=== PATIENT | male | born 1965 | race African-American/Black ===

== ENCOUNTER → 2017-01-13 | Outpatient (CLI) | payer MEDICARE, MEDICAID ==
[~2017-01-13] MED LIST: ALPR1TAB7 PO; AMLO5TAB2 PO; AZIT250T PO; BACL20TA PO; BECL8.7A7 IH; CEFU250S PO; CLIN300C11 PO; GABA600T2 PO; HYDR-3583 PO; HYDR-623; IPRA3AMP IH; IPRA4AER INH; LEVO750T9 PO; LISINOPRIL; METO-272 PO; NAPR500T3 PO; NCT21TD TD; OXYC30TA80 PO; OXYC80TA35 PO; OXYCOTIN; PRD10T PO; SULF1TAB35 PO; VALS160T28 PO; VALS1TAB76 PO; VENL150C98 PO; XANAX
[2017-01-13 08:03] LABS: BILIRUBIN,URINE NEGATIVE (NEGATIVE); KETONES,URINE NEGATIVE (NEGATIVE); LEUKOCYTE ESTERASE ,URINE 1+ (NEGATIVE); NITRITE,URINE NEGATIVE (NEGATIVE); PH,URINE 6 (5-9); PROTEIN,URINE 1+ (NEGATIVE); UROBILINOGEN,URINE NORMAL (NORMAL)
[2017-01-13 08:21] LABS: SQUAMOUS EPITHELIAL CELL,UR RARE /HPF
== END ==
LOC: LAB 07:36
PROVIDERS: ATTEND Surgery
DX: K42.9 Umbilical hernia without obstruction or gangrene (principal); K43.0 Incisional hernia with obstruction, without gangrene
CPT/HCPCS: 81000; 87088

== ENCOUNTER → 2017-03-04 | Outpatient (CLI) | payer MEDICARE, MEDICAID ==
--- NOTE | 2017-03-04 11:15 | Diagnostic Imaging Report ---
Right shoulder. INDICATION: Shoulder pain. 3 views were obtained. There are no prior right shoulder examinations available for comparison. There are two orthopedic fixation screws within the humeral head. The orthopedic fixation screws do appear to intersect at nearly a 90-degree angle to each other. The orthopedic hardware appears to be in good position and seems similar to the prior chest exam of 02/08/2016. There is no fracture or acute bony abnormality evident. There is moderate degenerative disease involving the glenohumeral joint and moderate/ severe degenerative disease of the acromioclavicular joint. The soft tissues are unremarkable. IMPRESSION: 1. The postsurgical changes involving the humeral head appear stable. There is no acute bony abnormality identified. 2. If there is clinical concern regarding an injury to the rotator cuff, then a conventional arteriogram should be considered. MRI would also be useful, but the artifact related to the orthopedic hardware may limit the sensitivity of the MRI exam. Dictated by: Dictated on workstation # [id number]
== END ==
LOC: RAD 09:38
PROVIDERS: ATTEND Anesthesiology
DX: M25.511 Pain in right shoulder (principal); Z98.890 Other specified postprocedural states
CPT/HCPCS: 73030

== ENCOUNTER 2017-05-06 18:30 | Emergency (ER) | payer MEDICARE, MEDICAID ==
[~2017-05-06] VITALS: Ht 165.1 cm; Wt 74.6 kg
[2017-05-06] MEDS ORDERED: ONDANSETRON 4 MG (ZOFRAN) ORAL DISSOLVE TAB PO ONE (21:15)
[2017-05-06] MEDS ORDERED: ANTACID SUSP 30 ML UDC (MYLANTA) PO ONE (21:15)
[2017-05-06] MEDS ORDERED: LIDOCAINE 2% VISCOUS 15 ML UDC PO ONE (21:15)
[2017-05-06] MEDS ORDERED: HYOSCYAMINE 0.125 MG (LEVSIN) TAB SL ONE (21:15)
--- NOTE | 2017-05-06 21:42 | ED Abdominal Pain ---
General Chief Complaint: Abdominal/GI Problems Stated Complaint: ABD PAIN Nursing Triage Note: c/o epigastic/umbilical abdomen pain Sepsis Screen: No Definite Risk Source of Information: Patient Exam Limitations: No Limitations History of Present Illness Time Seen By Provider: 21:08 Initial Comments This 52 -year-old gentleman presents to the emergency room with a couple hours of epigastric pain. He had diarrhea 2 after arriving to the emergency room which caused a significant decrease in his pain. He had a hernia repair with mesh last month. He is feeling much improved by the time of my examination. He denies any vomiting. Allergies and Home Medications Allergies Coded Allergies: amitriptyline (Verified Allergy, Unknown, 02/08/16) duloxetine (Verified Allergy, Unknown, 02/08/16) fluticasone (Verified Allergy, Unknown, 02/08/16) salmeterol (Verified Allergy, Unknown, 02/08/16) Home Medications Albuterol/Ipratropium 4 Gm Aero, 1 PUFF INH Q6H PRN for SHORTNESS OF BREATH, ( Reported) Alprazolam 1 Mg Tablet, 1 MG PO TID PRN for ANXIETY, #30 Prescribed by: DYLAN WHITE on 11/04/15 1032 Amlodipine Besylate 5 Mg Tablet, 5 MG PO DAILY, #30 Prescribed by: DYLAN WHITE on 11/04/15 1032 Azithromycin 250 Mg Tablet, 250 MG PO DAILY, #4 Ref 0 Prescribed by: CATRINA MCNEAL on 02/08/16 0502 Cefuroxime Axetil 250 Mg/5 Ml Susp.recon, 250 MG PO BID, #20 Ref 0 Prescribed by: CATRINA MCNEAL on 02/08/16 0502 Gabapentin 600 Mg Tablet, 1,200 MG PO TID, (Reported) TAKES 2 (600 MG) TABLETS Metoprolol Succinate 50 Mg Tab.er.24h, 50 MG PO DAILY, #30 Prescribed by: DYLAN WHITE on 11/04/15 1032 Naproxen 500 Mg Tablet, 500 MG PO BID PRN for PAIN, (Reported) Oxycodone HCl 80 Mg Tab.er.12h, 80 MG PO TID PRN for PAIN, #15 MAX OF 3 TABLETS TOTAL PER DAY Prescribed by: DYLAN WHITE on 11/04/15 1032 Oxycodone HCl 30 Mg Tablet, 30 MG PO Q4H PRN for BREAKTHROUGH PAIN, #15 MAX OF 6 TABLETS TOTAL PER DAY Prescribed by: DYLAN WHITE on 11/04/15 1032 Valsartan 160 Mg Tablet, 160 MG PO DAILY, (Reported) Venlafaxine HCl 150 Mg Cap.er.24h, 150 MG PO DAILY, (Reported) Review of Systems Constitutional: no symptoms reported EENTM: No Symptoms Reported Respiratory: No Symptoms Reported Cardiovascular: No Symptoms Reported Gastrointestinal: See HPI Genitourinary: No Symptoms Reported Musculoskeletal: no symptoms reported Skin: no symptoms reported Psychiatric/Neurological: No Symptoms Reported Endocrine: No Symptoms Reported Past Nkzytpe-Tytmks-Cxmobz Hx Patient Social History Alcohol Use: Denies Use Recreational Drug Use: No Smoking Status: Former Smoker Type Used: Cigarettes Recent Foreign Travel: No Contact w/Someone Who Travel: No Recent Infectious Disease Expo: No Recent Hopitalizations: No Physical Abuse: No Sexual Abuse: No Immunizations Up To Date Tetanus Booster (TDap): Less than 5yrs Surgeries History of Surgeries: Yes (2 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 SHUNT) Neurological Disorders: Meningitis Reproductive System Hx Reproductive Disorders: No Gastrointestinal History of Gastrointestinal Di: No Musculoskeletal History of Musculoskeletal Dis: Yes (CHRONIC HEAD/NECK PAIN ) Endocrine History of Endocrine Disorders: No HEENT History of HEENT Disorders: No Cancer History of Cancer: No Psychosocial History of Psychiatric Problem: Yes Behavioral Health Disorders: Anxiety Suicide Risk Score: 0 Integumentary History of Skin or Integumenta: No Blood Transfusions History of Blood Disorders: No Family Medical History Significant Family History: No Pertinent Family Hx Family Medial History: FH: cancer 19 MOTHER Physical Exam Vital Signs VS - Last 72 Hours, by Label 05/06/17 05/06/17 19:41 21:52 Temp 99.2 Pulse 80 72 Resp 18 18 B/P (MAP) 156/112 Pulse Ox 97 98 O2 Delivery Nasal Cannula O2 Flow Rate 2.00 2.00 Capillary Refill : Less Than 3 Seconds General Appearance: WD/WN, no apparent distress HEENT: normal ENT inspection Neck: normal inspection Respiratory: lungs clear, normal breath sounds, no respiratory distress, no accessory muscle use Cardiovascular: regular rate, rhythm, no edema, no murmur Gastrointestinal: normal bowel sounds, soft, tenderness (mild epigastric) Extremities: normal inspection, no pedal edema 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, no motor/sensory deficits, alert, normal mood/affect, oriented x 3 Skin: normal color, warm/dry Progress/Results/Core Measures Results/Orders My Orders Orders - MAYRA CRONIN MD Ondansetron Oral Dissolve Tab (Zofran (05/06/17 21:15) Hyoscyamine Sl Tablet (Levsin Sl Tablet) (05/06/17 21:15) Lidocaine 2% Viscous 15 Ml (Xylocaine Vi (05/06/17 21:15) Antacid Suspension (Mylanta Suspension (05/06/17 21:15) Medications Given in ED Vital Signs/I&O Vital Sign - Last 12Hours 05/06/17 05/06/17 19:41 21:52 Temp 99.2 Pulse 80 72 Resp 18 18 B/P (MAP) 156/112 Pulse Ox 97 98 O2 Delivery Nasal Cannula O2 Flow Rate 2.00 2.00 Blood Pressure Mean: 127 Progress Note : Progress Note patient was treated with Levsin and Zofran sublingually. This was followed by a GI cocktail. He had significant improvement with these measures and was anxious to leave. Departure Impression Impression: Primary Impression: Epigastric pain Additional Impression: Diarrhea Qualified Codes: R19.7 - Diarrhea, unspecified Disposition: 01 HOME, SELF-CARE Condition: Improved Departure-Patient Inst. Decision time for Depature: 21:41 Referrals: NO,LOCAL PHYSICIAN (PCP/Family) Primary Care Physician Patient Instructions: Acute Abdomen (Belly Pain), Adult (DC) Add. Discharge Instructions: Drink plenty of clear liquids. Gradually advance your diet with small quantities of bland food as tolerated. You may use [id number] antacid medication such as omeprazole or Pepcid (famotidine) to help settle your stomach. Tums may also be used. Avoid foods that may irritate your stomach such as fatty or greasy foods, caffeine, carbonation, alcohol, tomato products, citrus fruits and juices, spicy foods, large meals, or anything else you know irritates her stomach. Return to the ER symptoms worsen. All discharge instructions reviewed with patient and/or family. Voiced understanding. MAYRA CRONIN MD May 06, 2017 21:42
[2017-05-06 21:52] VITALS: BP 158/96
== END 2017-05-06 21:46 | disposition home or self-care (01) ==
LOC: EDUNIT# 18:30 → ER 18:32
DX: R10.13 Epigastric pain (principal); R19.7 Diarrhea, unspecified; J43.9 Emphysema, unspecified; F41.9 Anxiety disorder, unspecified; I10 Essential (primary) hypertension; Z87.891 Personal history of nicotine dependence; Z87.19 Personal history of other diseases of the digestive system; Z87.01 Personal history of pneumonia (recurrent)
CPT/HCPCS: 99283

== ENCOUNTER 2017-08-11 19:21 | Emergency (ER) | payer MEDICARE, MEDICAID ==
[~2017-08-11] VITALS: Ht 165.1 cm; Wt 87.3 kg
[~2017-08-11 19:21] MED LIST changes: -METO-272 PO; +METO-370 PO; -NAPR500T3 PO; +NAPR500T4 PO; -NCT21TD TD; +NICO-588 TD
[2017-08-11] MEDS ORDERED: NS IV 1000 ML 1,000 ML IV ONE (20:09)
--- NOTE | 2017-08-11 20:11 | ED Cough/URI ---
General Chief Complaint: Cough/Cold/Flu Symptoms Stated Complaint: CP Nursing Triage Note: PT TO ED 5 W/ C/O COUGH, CONGESTION, CHEST PAIN ONSET X5 DAYS, WORSE TODAY. REPORTS IS ALSO OUT OF PORTABLE O2. DENIES SEEING PCP FOR C/O. DENIES N/V, DIAPHORESIS AT THIS TIME. History of Present Illness Date Seen by Provider: Aug 11, 2017 Time Seen by Provider: 19:55 Initial Comments 52 -year-old -Fijian male reports productive cough, myalgias, chest tightness and SOA. Timing/Duration: other (5 days) Severity/Quality: productive cough, sputum (yellow to green) Prior Episodes/Possible Cause: occasional episodes Modifying Factors: Improves With Rest Associated Symptoms: chest pain/soreness, cough, fever/chills, headache Allergies and Home Medications Allergies Coded Allergies: amitriptyline (Verified Allergy, Unknown, 02/08/16) duloxetine (Verified Allergy, Unknown, 02/08/16) fluticasone (Verified Allergy, Unknown, 02/08/16) salmeterol (Verified Allergy, Unknown, 02/08/16) Home Medications Albuterol/Ipratropium 4 Gm Aero, 1 PUFF INH Q6H PRN for SHORTNESS OF BREATH, ( Reported) Alprazolam 1 Mg Tablet, 1 MG PO TID PRN for ANXIETY, #30 Prescribed by: DYLAN WHITE on 11/04/15 1032 Amlodipine Besylate 5 Mg Tablet, 5 MG PO DAILY, #30 Prescribed by: DYLAN WHITE on 11/04/15 1032 Azithromycin 250 Mg Tablet, 250 MG PO DAILY, #4 Ref 0 Prescribed by: CATRINA MCNEAL on 02/08/16 0502 Cefuroxime Axetil 250 Mg/5 Ml Susp.recon, 250 MG PO BID, #20 Ref 0 Prescribed by: CATRINA MCNEAL on 02/08/16 0502 Gabapentin 600 Mg Tablet, 1,200 MG PO TID, (Reported) TAKES 2 (600 MG) TABLETS Levofloxacin 500 Mg Tablet, 500 MG PO DAILY, #5 Ref 0 Prescribed by: MARK RAMOS on 08/11/17 2136 Metoprolol Succinate 50 Mg Tab.er.24h, 50 MG PO DAILY, #30 Prescribed by: DYLAN WHITE on 11/04/15 1032 Naproxen 500 Mg Tablet, 500 MG PO BID PRN for PAIN, (Reported) Oxycodone HCl 80 Mg Tab.er.12h, 80 MG PO TID PRN for PAIN, #15 MAX OF 3 TABLETS TOTAL PER DAY Prescribed by: DYLAN WHITE on 11/04/15 1032 Oxycodone HCl 30 Mg Tablet, 30 MG PO Q4H PRN for BREAKTHROUGH PAIN, #15 MAX OF 6 TABLETS TOTAL PER DAY Prescribed by: DYLAN WHITE on 11/04/15 1032 Prednisone 20 Mg Tab, 20 MG PO DAILY, #9 Ref 0 2 daily for 3 days, 1 daily for 3 days Prescribed by: MARK RAMOS on 08/11/17 2140 Valsartan 160 Mg Tablet, 160 MG PO DAILY, (Reported) Venlafaxine HCl 150 Mg Cap.er.24h, 150 MG PO DAILY, (Reported) Constitutional: no symptoms reported, see HPI Respiratory: see HPI, cough Musculoskeletal: see HPI, joint pain, muscle cramps All Other Systems Reviewed Negative Unless Noted: Yes Past Lqthxqc-Tenaaw-Bwwksb Hx Patient Social History Alcohol Use: Denies Use Recreational Drug Use: No Smoking Status: Former Smoker Type Used: Cigarettes Former Smoker, Quit: Aug 11, 2016 Recent Foreign Travel: No Contact w/Someone Who Travel: No Recent Infectious Disease Expo: No Recent Hopitalizations: No Physical Abuse: No Sexual Abuse: No Mistreated: No Fear: No Immunizations Up To Date Tetanus Booster (TDap): Less than 5yrs Surgeries History of Surgeries: Yes (2 BRAIN SURGERIES 2005-CHIARI MALFORMATION & CYST AROUND BRAINSTEM, C-SPINE) Surgeries: Abdominal, Neurological, Orthopedic Respiratory History of Respiratory Disorde: Yes Respiratory Disorders: Pneumonia, Chronic Bronchitis, COPD, Emphysema Currently Using CPAP: No Currently Using BIPAP: No Cardiovascular History of Cardiac Disorders: Yes Cardiac Disorders: Hypertension Neurological History of Neurological Disord: Yes (MENINGITIS POSTOP 2004 FOR CYST ON BRAINSTEM & CHIARI MALFORMATION. SHUNT) Neurological Disorders: Meningitis Reproductive System Hx Reproductive Disorders: No Gastrointestinal History of Gastrointestinal Di: No Musculoskeletal History of Musculoskeletal Dis: Yes (CHRONIC HEAD/NECK PAIN ) Endocrine History of Endocrine Disorders: No HEENT History of HEENT Disorders: No Cancer History of Cancer: No Psychosocial History of Psychiatric Problem: Yes Behavioral Health Disorders: Anxiety Suicide Risk Score: 0 Integumentary History of Skin or Integumenta: No Blood Transfusions History of Blood Disorders: No Reviewed Nursing Assessment Reviewed/Agree w Nursing PMH: Yes Family Medical History Significant Family History: No Pertinent Family Hx Family Medial History: FH: cancer 19 MOTHER Physical Exam Vital Signs Vital Sign - Last 12Hours 08/11/17 08/11/17 19:40 20:17 Temp 100.7 Pulse 108 Resp 20 B/P (MAP) 150/99 (116) Pulse Ox 93 O2 Delivery Room Air O2 Flow Rate 3.00 Capillary Refill : Less Than 3 Seconds General Appearance: WD/WN, no apparent distress Eyes: Bilateral Eye Normal Inspection, Bilateral Eye PERRL, Bilateral Eye EOMI HEENT: PERRL/EOMI, normal ENT inspection, TMs normal, pharynx normal Neck: non-tender, full range of motion, supple Respiratory: chest non-tender, decreased breath sounds, wheezing, other ( productive cough) Cardiovascular: normal peripheral pulses, regular rate, rhythm, no murmur Gastrointestinal: normal bowel sounds, non tender, soft Extremities: normal range of motion, non-tender, normal capillary refill Neurologic/Psychiatric: no motor/sensory deficits, alert, normal mood/affect, oriented x 3 Skin: normal color, warm/dry Focused Exam Evaluation Lactate Level Laboratory Tests 08/11/17 20:15: Lactic Acid Level 1.01 Lactic Acid Level Laboratory Tests Test 08/11/17 20:15 Lactic Acid Level 1.01 MMOL/L (0.50-2.00) Progress/Results/Core Measures Suspected Sepsis Recent Fever Within 48 Hours: No Infection Criteria Present: None New/Unexplained Altered Menta: No Sepsis Screen: No Definite Risk Sepsis Diagnosis: SIRS Temperature:100.7 Pulse: 108 Respiratory Rate: 20 Laboratory Tests 08/11/17 20:15: White Blood Count 4.9 Blood Pressure 150 /99 Mean: 116 Laboratory Tests 08/11/17 20:15: Lactic Acid Level 1.01 Laboratory Tests 08/11/17 20:15: Creatinine 0.90, INR Comment 1.0, Platelet Count 216, Total Bilirubin 0.4 Results/Orders Lab Results Laboratory Tests Test 08/11/17 20:15 Range/Units White Blood Count 4.9 4.3-11.0 10^3/uL Red Blood Count 4.59 4.35-5.85 10^6/uL Hemoglobin 13.0 L 13.3-17.7 G/DL Hematocrit 39 L 40-54 % Mean Corpuscular Volume 86 80-99 FL Mean Corpuscular Hemoglobin 28 25-34 PG Mean Corpuscular Hemoglobin Concent 33 32-36 G/DL Red Cell Distribution Width 13.1 10.0-14.5 % Platelet Count 216 130-400 10^3/uL Mean Platelet Volume 10.0 7.4-10.4 FL Neutrophils (%) (Auto) 80 H 42-75 % Lymphocytes (%) (Auto) 9 L 12-44 % Monocytes (%) (Auto) 10 0-12 % Eosinophils (%) (Auto) 1 0-10 % Basophils (%) (Auto) 0 0-10 % Neutrophils # (Auto) 3.9 1.8-7.8 X 10^3 Lymphocytes # (Auto) 0.4 L 1.0-4.0 X 10^3 Monocytes # (Auto) 0.5 0.0-1.0 X 10^3 Eosinophils # (Auto) 0.0 0.0-0.3 10^3/uL Basophils # (Auto) 0.0 0.0-0.1 10^3/uL Prothrombin Time 12.8 12.2-14.7 SEC INR Comment 1.0 0.8-1.4 Activated Partial Thromboplast Time 31 24-35 SEC Sodium Level 141 135-145 MMOL/L Potassium Level 4.1 3.6-5.0 MMOL/L Chloride Level 105 98-107 MMOL/L Carbon Dioxide Level 24 21-32 MMOL/L Anion Gap 12 5-14 MMOL/L Blood Urea Nitrogen 18 7-18 MG/DL Creatinine 0.90 0.60-1.30 MG/DL Estimat Glomerular Filtration Rate > 60 BUN/Creatinine Ratio 20 Glucose Level 116 H 70-105 MG/DL Lactic Acid Level 1.01 0.50-2.00 MMOL/L Calcium Level 9.4 8.5-10.1 MG/DL Total Bilirubin 0.4 0.1-1.0 MG/DL Aspartate Amino Transf (AST/SGOT) 12 5-34 U/L Alanine Aminotransferase (ALT/SGPT) 16 0-55 U/L Alkaline Phosphatase 77 40-136 U/L Troponin I < 0.30 <0.30 NG/ML Total Protein 7.7 6.4-8.2 GM/DL Albumin 4.1 3.2-4.5 GM/DL Micro Results Microbiology 08/11/17 Influenza Types A,B Antigen (KANDI) - Final, Complete My Orders Orders - MARK RAMOS Ekg Tracing (08/11/17 19:45) Chest Pa/Lat (2 View) (08/11/17 19:58) Cbc With Automated Diff (08/11/17 20:06) Comprehensive Metabolic Panel (08/11/17 20:06) Lactic Acid Analyzer (08/11/17 20:06) Blood Culture (08/11/17 20:06) Sputum Culture (08/11/17 20:06) Protime With Inr (08/11/17 20:06) Partial Thromboplastin Time (08/11/17 20:06) O2 (08/11/17 20:06) Acetaminophen Tablet (Tylenol Tablet) (08/11/17 20:15) Saline Lock/Iv-Start (08/11/17 20:06) Troponin I (08/11/17 20:06) Vital Signs Adult Sepsis Patie Q1H (08/11/17 20:06) Influenza A And B Antigens (08/11/17 20:06) Ns Iv 1000 Ml (Sodium Chloride 0.9%) (08/11/17 20:09) Albuterol/Ipra Inhalation Soln (Duoneb I (08/11/17 20:15) Svn Sm Volume Nebulizer Rt-Rfs (08/11/17 20:12) Albuterol/Ipra Inhalation Soln (Duoneb I (08/11/17 20:12) Acetaminophen Tablet/Caplet (Tylenol T (08/11/17 21:09) Levofloxacin Tablet (Levaquin Tablet) (08/11/17 21:23) Medications Given in ED Current Medications Medications Dose Ordered Sig/Isabel Route Start Time Stop Time Status Last Admin Dose Admin Acetaminophen 650 mg ONCE PRN PO 08/11/17 20:15 08/11/17 21:13 DC 08/11/17 21:12 650 MG Albuterol/ Ipratropium 3 ml ONCE ONCE INH 08/11/17 20:15 08/11/17 20:16 DC 08/11/17 20:15 3 ML Vital Signs/I&O Vital Sign - Last 12Hours 08/11/17 08/11/17 19:40 20:17 Temp 100.7 Pulse 108 Resp 20 B/P (MAP) 150/99 (116) Pulse Ox 93 92 O2 Delivery Room Air Nasal Cannula O2 Flow Rate 3.00 Capillary Refill : Less Than 3 Seconds Blood Pressure Mean: 116 Progress Note : Time: 19:55 Progress Note Initial evaluation completed, will start sepsis workup. Sputum culture and influenza. 2030 DuoNeb breathing treatment and chest x-ray. 2044 acetaminophen 650 mg orally. Agent reports improvement since DuoNeb treatment, less coughing. He has albuterol and nebulizer at home. Labs essentially normal. Levaquin 500 mg orally. 2099 influenza A positive. Discussed with patient, discharge planning and return precautions reviewed. ECG Initial ECG Impression Date: Aug 11, 2017 Initial ECG Impression Time: 19:57 Initial ECG Rate: 110 Initial ECG Rhythm: S.Tach Initial ECG Intervals: Normal Initial ECG Intervals FL 188, QRS the 86, QT 300, QTC 406. Clifford P 51, QRS 30, T 35. Initial ECG Impression: Normal Initial ECG Comparisson: Changed (sinus rhythm 02/2016) Comment Reviewed with Dr. Garcia, concurred with this assessment. Diagnostic Imaging Diagonstic Imaging: Xray Plain Films/CT/US/NM/MRI: chest Comments NAME: GIOVANNI BRENNAN [facility] REC#: [id number] PT STATUS: REG ER : 1965 PHYSICIAN: MARK RAMOS ADMIT DATE: 08/11/17/ER Draft Date of Exam:08/11/17 CHEST PA/LAT (2 VIEW) INDICATION: Cough and congestion. COMPARISON: 02/08/2016. FINDINGS: There are patchy heterogeneous opacities in the lung bases. No pleural effusion or pneumothorax. Heart is normal in size. Surgical changes in the cervical spine are noted. Decreased pulmonary vascular markings in the right lung apex could relate to underlying emphysema. IMPRESSION: Patchy basilar heterogeneous opacities could relate to pneumonia in the appropriate setting. If this does not clinical presentation, these findings could be due to underlying atelectasis/scar from prior infection. Dictated on workstation # [id number] Dict: 08/11/172048 Trans: 08/11/17 2057 RHYS [id number] Interpreted by: ALICE RAMOS MD Electronically signed by: Departure Impression Impression: Primary Impression: Influenza A Additional Impression: Community acquired pneumonia Qualified Codes: J18.1 - Lobar pneumonia, unspecified organism Disposition: 01 HOME, SELF-CARE Condition: Improved Departure-Patient Inst. Decision time for Depature: 21:15 Referrals: NO,LOCAL PHYSICIAN (PCP/Family) Primary Care Physician Patient Instructions: Acute Bronchitis, Adult (DC), Flu, Adult (DC) Add. Discharge Instructions: Increase fluid intake. Take antibiotics and prednisone as prescribed. Use nebulized albuterol every 4 hours. 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 Alternate between Tylenol 650 mg and ibuprofen 600 mg every 4 hours for pain or fever. Return to emergency department for fever greater than 101 not relieved by ibuprofen or Tylenol, difficulty breathing, or new problems. All discharge instructions reviewed with patient and/or family. Voiced understanding. Scripts Prednisone (Prednisone) 20 Mg Tab 20 MG PO DAILY, #9 TAB 0 Refills 2 daily for 3 days, 1 daily for 3 days Prov: MARK RAMOS 08/11/17 Levofloxacin (Levaquin) 500 Mg Tablet 500 MG PO DAILY, #5 TAB 0 Refills Prov: MARK RAMOS 08/11/17 MARK RAMOS Aug 11, 2017 20:11
[2017-08-11] MEDS ORDERED: RT-ALBUTEROL/IPRATROPIUM 3 ML (DUONEB) VIAL ONE (20:12)
[2017-08-11] MEDS ORDERED: ACETAMINOPHEN 500 MG TAB (TYLENOL) PO PRN (20:15)
[2017-08-11] MEDS ORDERED: RT-ALBUTEROL/IPRATROPIUM 3 ML (DUONEB) VIAL INH ONE (20:15)
[2017-08-11 20:28] LABS: BASOPHILS % (AUTO) 0 % (0-10); EOSINOPHILS % (AUTO) 1 % (0-10); HEMATOCRIT 39 % (40-54); LYMPHOCYTES # (AUTO) 0.4 X 10^3 (1.0-4.0); LYMPHOCYTES % (AUTO) 9 % (12-44); MEAN CORPUSCULAR HEMOGLOBIN 28 PG (25-34); MEAN CORPUSCULAR HGB CONC 33 G/DL (32-36); MEAN CORPUSCULAR VOLUME 86 FL (80-99); MONOCYTES # (AUTO) 0.5 X 10^3 (0.0-1.0); MONOCYTES % (AUTO) 10 % (0-12); NEUTROPHILS # (AUTO) 3.9 X 10^3 (1.8-7.8); NEUTROPHILS % (AUTO) 80 % (42-75); PLATELET COUNT 216 10^3/uL (130-400); RED BLOOD COUNT 4.59 10^6/uL (4.35-5.85); RED CELL DISTRIBUTION WIDTH 13.1 % (10.0-14.5); WHITE BLOOD COUNT 4.9 10^3/uL (4.3-11.0)
[2017-08-11 20:39] LABS: PROTHROMBIN TIME PATIENT 12.8 SEC (12.2-14.7)
[2017-08-11 20:50] LABS: ALANINE AMINOTRANSFERASE 16 U/L (0-55); ALBUMIN 4.1 GM/DL (3.2-4.5); ALKALINE PHOSPHATASE 77 U/L (40-136); BILIRUBIN,TOTAL 0.4 MG/DL (0.1-1.0); BUN/CREATININE RATIO 20; CALCIUM 9.4 MG/DL (8.5-10.1); CARBON DIOXIDE 24 MMOL/L (21-32); CHLORIDE 105 MMOL/L (98-107); GFR ESTIMATED > 60; GLUCOSE 116 MG/DL (70-105); POTASSIUM 4.1 MMOL/L (3.6-5.0); SODIUM 141 MMOL/L (135-145); TOTAL PROTEIN 7.7 GM/DL (6.4-8.2)
--- NOTE | 2017-08-11 20:57 | Diagnostic Imaging Report ---
INDICATION: Cough and congestion. COMPARISON: 02/08/2016. FINDINGS: There are patchy heterogeneous opacities in the lung bases. No pleural effusion or pneumothorax. Heart is normal in size. Surgical changes in the cervical spine are noted. Decreased pulmonary vascular markings in the right lung apex could relate to underlying emphysema. IMPRESSION: Patchy basilar heterogeneous opacities could relate to pneumonia in the appropriate setting. If this does not clinical presentation, these findings could be due to underlying atelectasis/scar from prior infection. Dictated by: Dictated on workstation # [id number]
[2017-08-11] MEDS ORDERED: ACETAMINOPHEN 325 MG TABLET/CAPLET (TYLENOL) ONE (21:09)
[2017-08-11] MEDS ORDERED: LEVOFLOXACIN 500 MG TAB (LEVAQUIN) PO STA (21:23)
[2017-08-11] MEDS ORDERED: LEVO500T2 PO (21:36)
[2017-08-11] MEDS ORDERED: PRD20T PO (21:40)
[2017-08-11 21:46] VITALS: BP 130/90
--- OUTSIDE RECORDS SUMMARY | 2017-08-15 05:15 | XMS REPORT | Continuity of Care Document ---
Author Author Formerly [facility] Address Unknown Phone Unavailable Allergies Active Description Code Type Severity Reaction Onset Reported/Identified Relationship to Patient Clinical Status Yes No Known Drug Allergies [id number] Drug Allergy Unknown N/A 08/05/2010 Yes amitriptyline [id number] Drug Allergy Unknown N/A 02/08/2016 Yes duloxetine [id number] Drug Allergy Unknown N/A 02/08/2016 Yes fluticasone [id number] Drug Allergy Unknown N/A 02/08/2016 Yes salmeterol [id number] Drug Allergy Unknown N/A 02/08/2016 Medications There is no data. Problems Date Dx Coded Attending Type Code Diagnosis Diagnosed By 07/27/2010 Ot 847.0 07/27/2010 Ot 910.0 07/27/2010 Ot 959.09 07/27/2010 Ot E000.8 07/27/2010 Ot E975 08/05/2010 Ot 882.0 08/05/2010 Ot E000.8 08/05/2010 Ot E015.0 08/05/2010 Ot E849.0 08/05/2010 Ot E920.8 04/12/2013 RADHA PRETTY DO 723.1 CERVICALGIA 04/12/2013 RADHA PRETTY DO V04.81 FLU SHOT 04/12/2013 RADHA PRETTY DO 723.1 CERVICALGIA 04/12/2013 RADHA PRETTY DO V04.81 FLU SHOT 04/12/2013 PRETTY RADHA FELICIANO K 723.1 CERVICALGIA 04/12/2013 PRETTY RADHA FELICIANO K V04.81 FLU SHOT 04/12/2013 WHITE KAITLYNN CANCHOLA 723.1 CERVICALGIA 04/12/2013 WHITE KAITLYNN CANCHOLA V04.81 FLU SHOT 04/12/2013 KENRICK MCMILLAN APRN R 723.1 CERVICALGIA 04/12/2013 KENRICK MCMILLAN APRN R V04.81 FLU SHOT 04/18/2014 KENRICK MCMILLAN APRN 789.00 ABDOMINAL PAIN UNSPECIFIED SITE 12/20/2014 KENRICK MCMILLAN APRN Ot 789.00 01/15/2015 HALIMA RIVAS, LEIA S Ot 338.29 01/15/2015 HALIMA RIVAS, LEIA S Ot 723.1 01/15/2015 HALIMA RIVAS, GIANNIAZO S Ot V57.1 01/16/2015 HALIMA RIVAS, CHIAZO S Ot 338.29 01/16/2015 HALIMA RIVAS, CHIAZO S Ot 723.1 01/16/2015 HALIMA RIVAS, CHIAZO S Ot V57.1 01/16/2015 HALIMA RIVAS, CHIAZO S Ot 338.29 01/16/2015 HALIMA RIVAS, CHIAZO S Ot 723.1 01/16/2015 HALIMA RIVAS, CHIAZO S Ot V57.1 01/16/2015 HALIMA RIVAS, CHIAZO S Ot 338.29 01/16/2015 HALIMA RIVAS, CHIAZO S Ot 723.1 01/16/2015 HALIMA RIVAS, CHIAZO S Ot V57.1 01/28/2015 HALIMA RIVAS, CHIAZO S Ot 338.29 01/28/2015 HALIMA RIVAS, CHIAZO S Ot 723.1 01/28/2015 HALIMA RIVAS, GIANNIAZO S Ot V57.1 01/28/2015 HALIMA RIVAS, CHIAZO S Ot 338.29 01/28/2015 HALIMA RIVAS, CHIAZO S Ot 723.1 01/28/2015 HALIMA RIVAS, GIANNIAZO S Ot V57.1 01/29/2015 HALIMA RIVAS, GIANNIAZO S Ot 338.29 01/29/2015 HALIMA RIVAS, GIANNIAZO S Ot 723.1 01/29/2015 HALIMA RIVAS, GIANNIAZO S Ot V57.1 02/11/2015 HALIMA RIVAS, LEIA S Ot 338.29 OTHER CHRONIC PAIN 02/11/2015 HALIMA RIVAS, LEIA S Ot 723.1 CERVICALGIA 02/11/2015 HALIMA RIVAS, LEIA Cruz Ot V57.1 PHYSICAL THERAPY NEC 03/17/2015 MALACHI ROSSI DO Ot 682.6 CELLULITIS OF LEG 03/17/2015 MALACHI ROSSI DO Ot 998.59 OTH POSTOPER INFECTION 04/10/2015 KENRICK MCMILLAN APRN Ot 789.00 04/12/2015 LEIA VARGHESE MD Ot 721.0 04/12/2015 HALIMA RIVAS, LEIA Cruz Ot 729.89 04/12/2015 LEIA VARGHESE MD S Ot V45.4 04/12/2015 HALIMA RIVAS, LEIA S Ot V57.1 04/17/2015 HALIMA RIVAS, LEIA Cruz Ot 721.0 CERVICAL SPONDYLOSIS 04/17/2015 HALIMA RIVAS, LEIA Cruz Ot 729.89 MUSCSKEL SYMPT LIMB NEC 04/17/2015 LEIA VARGHESE MD S Ot V45.4 ARTHRODESIS STATUS 04/17/2015 HALIMA RIVAS, LEIA S Ot V57.1 PHYSICAL THERAPY NEC 04/18/2015 LEIA VARGHESE MD Ot 721.0 04/18/2015 LEIA VARGHESE MD S Ot 729.89 04/18/2015 LEIA VARGHESE MD S Ot V45.4 04/18/2015 LEIA VARGHESE MD Ot V57.1 04/29/2015 LEIA VARGHESE MD S Ot 721.0 04/29/2015 LEIA VARGHESE MD S Ot 729.89 04/29/2015 LEIA VARGHESE MD S Ot V45.4 04/29/2015 LEIA VARGHESE MD Ot V57.1 05/16/2015 LEIA VARGHESE MD Ot M47.812 05/16/2015 LEIA VARGHESE MD Ot R29.898 05/16/2015 LEIA VARGHESE MD Ot Z98.1 05/16/2015 LEIA VARGHESE MD Ot M47.812 05/16/2015 LEIA VARGHESE MD S Ot R29.898 05/16/2015 LEIA VARGHESE MD S Ot Z98.1 05/22/2015 LEIA VARGHESE MD Ot M47.812 SPONDYLOSIS W/O MYELOPATHY OR RADICULOPA 05/22/2015 LEIA VARGHESE MD Ot R29.898 OTH SYMPTOMS AND SIGNS INVOLVING THE MUS 05/22/2015 LEIA VARGHESE MD Ot Z98.1 ARTHRODESIS STATUS 07/19/2015 JUANITA RIVAS, ELIOT Hansen Ot A41.9 SEPSIS, UNSPECIFIED ORGANISM 07/19/2015 ELIOT GRANT MD Ot F17.210 NICOTINE DEPENDENCE, CIGARETTES, UNCOMPL 07/19/2015 ELIOT GRANT MD Ot F41.9 ANXIETY DISORDER, UNSPECIFIED 07/19/2015 ELIOT GRANT MD Ot I10 ESSENTIAL (PRIMARY) HYPERTENSION 07/19/2015 ELIOT GRANT MD Ot J18.9 PNEUMONIA, UNSPECIFIED ORGANISM 07/19/2015 ELIOT GRANT MD Ot J96.91 RESPIRATORY FAILURE, UNSPECIFIED WITH HY 07/19/2015 ELIOT GRANT MD Ot M54.2 CERVICALGIA 07/19/2015 ELIOT GRANT MD Ot M54.9 DORSALGIA, UNSPECIFIED 07/19/2015 ELIOT GRANT MD Ot R65.20 SEVERE SEPSIS WITHOUT SEPTIC SHOCK 10/14/2015 GIULIANA GOODMAN FILM TECHNICIAN Ot F17.210 NICOTINE DEPENDENCE, CIGARETTES, UNCOMPL 10/14/2015 GIULIANA GOODMAN FILM TECHNICIAN Ot J44.0 CHRONIC OBSTRUCTIVE PULMON DISEASE W ACU 10/14/2015 GIULIANA GOODMAN FILM TECHNICIAN Ot R09.81 NASAL CONGESTION 10/16/2015 GIULIANA GOODMAN FILM TECHNICIAN Ot F17.210 10/16/2015 GIULIANA GOODMAN FILM TECHNICIAN Ot J44.0 10/16/2015 GIULIANA GOODMAN FILM TECHNICIAN Ot R09.81 10/29/2015 SHERLY SAN MD Ot F17.210 10/29/2015 SHERLY SAN MD Ot I10 10/29/2015 SHERLY SAN MD Ot J18.9 10/29/2015 SHERLY SAN MD Ot J44.1 10/30/2015 SHERLY SAN MD Ot F17.210 10/30/2015 SHERLY SAN MD Ot I10 10/30/2015 SHERLY SAN MD Ot J18.9 10/30/2015 SHERLY SAN MD Ot J44.1 10/31/2015 SHERLY SAN MD Ot F17.210 10/31/2015 SHERLY SAN MD Ot I10 10/31/2015 SHERLY SAN MD Ot J18.9 10/31/2015 SHERLY SAN MD Ot J44.1 11/01/2015 SHERLY SAN MD Ot A41.9 SEPSIS, UNSPECIFIED ORGANISM 11/01/2015 SHERLY SAN MD Ot F17.210 NICOTINE DEPENDENCE, CIGARETTES, UNCOMPL 11/01/2015 SHERLY SAN MD Ot I10 ESSENTIAL (PRIMARY) HYPERTENSION 11/01/2015 SHERLY SAN MD Ot J18.9 PNEUMONIA, UNSPECIFIED ORGANISM 11/01/2015 SHERLY SAN MD Ot J44.1 CHRONIC OBSTRUCTIVE PULMONARY DISEASE W 11/01/2015 SHERLY SAN MD Ot M54.2 CERVICALGIA 11/01/2015 SHERLY SAN MD Ot R73.9 HYPERGLYCEMIA, UNSPECIFIED 11/01/2015 SHERLY SAN MD Ot A41.9 SEPSIS, UNSPECIFIED ORGANISM 11/01/2015 SHERLY SAN MD Ot F17.210 NICOTINE DEPENDENCE, CIGARETTES, UNCOMPL 11/01/2015 SHERLY SAN MD Ot G89.29 OTHER CHRONIC PAIN 11/01/2015 SHERLY SAN MD Ot I10 ESSENTIAL (PRIMARY) HYPERTENSION 11/01/2015 SHERLY SAN MD Ot J18.9 PNEUMONIA, UNSPECIFIED ORGANISM 11/01/2015 SHERLY SAN MD Ot J44.1 CHRONIC OBSTRUCTIVE PULMONARY DISEASE W 11/01/2015 SHERLY SAN MD Ot M54.2 CERVICALGIA 11/01/2015 SHERLY SAN MD Ot R06.89 OTHER ABNORMALITIES OF BREATHING 11/01/2015 SHERLY SAN MD Ot R73.9 HYPERGLYCEMIA, UNSPECIFIED 11/04/2015 CHRISTOPHER DO DYLAN Ot F17.210 NICOTINE DEPENDENCE, CIGARETTES, UNCOMPL 11/04/2015 WHITE DO DYLAN Ot G89.29 OTHER CHRONIC PAIN 11/04/2015 WHITE DO, DYLAN Ot I10 ESSENTIAL (PRIMARY) HYPERTENSION 11/04/2015 WHITE DO DYLAN Ot J18.9 PNEUMONIA, UNSPECIFIED ORGANISM 11/04/2015 WHITE DO DYLAN Ot J44.1 CHRONIC OBSTRUCTIVE PULMONARY DISEASE W 11/04/2015 WHITE DO, DYLAN Ot M54.2 CERVICALGIA 11/04/2015 WHITE DO, DYLAN Ot R06.89 OTHER ABNORMALITIES OF BREATHING 11/04/2015 WHITE DO, DYLAN Ot R73.9 HYPERGLYCEMIA, UNSPECIFIED 11/04/2015 WHITE DO DYLAN Ot Z23 ENCOUNTER FOR IMMUNIZATION 12/12/2015 ROSEANNE RIVAS, MAYRA T Ot J06.9 ACUTE UPPER RESPIRATORY INFECTION, UNSPE 12/12/2015 ROSEANNE RIVAS, MAYRA T Ot R06.00 DYSPNEA, UNSPECIFIED 12/12/2015 ROSEANNE RIVAS, MAYRA T Ot R07.89 OTHER CHEST PAIN 12/13/2015 ROSEANNE RIVAS, MAYRA Melendrez Ot J06.9 ACUTE UPPER RESPIRATORY INFECTION, UNSPE 12/13/2015 ROSEANNE RIVAS, MAYRA T Ot R06.00 DYSPNEA, UNSPECIFIED 12/13/2015 ROSEANNE RIVAS, MAYRA T Ot R07.89 OTHER CHEST PAIN 12/14/2015 ROSEANNE RIVAS, MAYRA T Ot J06.9 ACUTE UPPER RESPIRATORY INFECTION, UNSPE 12/14/2015 ROSEANNE RIVAS, MAYRA T Ot R06.00 DYSPNEA, UNSPECIFIED 12/14/2015 ROSEANNE RIVAS, MAYRA T Ot R07.89 OTHER CHEST PAIN 02/08/2016 CATRINA MCNEAL DO Ot F17.210 NICOTINE DEPENDENCE, CIGARETTES, UNCOMPL 02/08/2016 CATRINA MCNEAL DO Ot J18.9 PNEUMONIA, UNSPECIFIED ORGANISM 02/08/2016 CATRINA MCNEAL DO Ot J44.9 CHRONIC OBSTRUCTIVE PULMONARY DISEASE, U 02/08/2016 CATRINA MCNEAL DO Ot R07.89 OTHER CHEST PAIN 02/08/2016 CATRINA MCNEAL DO Ot R09.1 PLEURISY 02/10/2016 CATRINA MCNEAL DO Ot F17.210 NICOTINE DEPENDENCE, CIGARETTES, UNCOMPL 02/10/2016 CATRINA MCNEAL DO Ot J18.9 PNEUMONIA, UNSPECIFIED ORGANISM 02/10/2016 CATRINA MCNEAL DO Ot J44.9 CHRONIC OBSTRUCTIVE PULMONARY DISEASE, U 02/10/2016 CATRINA MCNEAL DO Ot R07.89 OTHER CHEST PAIN 02/10/2016 CATRINA MCNAEL DO Ot R09.1 PLEURISY 02/17/2016 CATRINA MCNEAL DO Ot F17.210 NICOTINE DEPENDENCE, CIGARETTES, UNCOMPL 02/17/2016 CATRINA MCNEAL DO Ot J18.9 PNEUMONIA, UNSPECIFIED ORGANISM 02/17/2016 CATRINA MCNEAL DO Ot J44.9 CHRONIC OBSTRUCTIVE PULMONARY DISEASE, U 02/17/2016 CATRINA MCNEAL DO Ot R07.89 OTHER CHEST PAIN 02/17/2016 ELIZABET DO CATRINA Jade Ot R09.1 PLEURISY 01/13/2017 KENRICK MCMILLAN APRN Ot 789.00 ABDOMINAL PAIN, UNSPECIFIED SITE 01/19/2017 RO , LILLIE Y Ot K42.9 UMBILICAL HERNIA WITHOUT OBSTRUCTION OR 01/19/2017 RO , LILLIE Y Ot K43.0 INCISIONAL HERNIA WITH OBSTRUCTION, WITH 02/05/2017 RO LILLIE RIVAS Y Ot K42.9 UMBILICAL HERNIA WITHOUT OBSTRUCTION OR 02/05/2017 RO , LILLIE Y Ot K43.0 INCISIONAL HERNIA WITH OBSTRUCTION, WITH 02/12/2017 RO , LILLIE Y Ot K42.9 UMBILICAL HERNIA WITHOUT OBSTRUCTION OR 02/12/2017 RO , LILLIE Y Ot K43.0 INCISIONAL HERNIA WITH OBSTRUCTION, WITH 03/10/2017 ANALI MARTINEZ MD Ot M25.511 PAIN IN RIGHT SHOULDER 03/10/2017 ANALI MARTINEZ MD Ot Z98.890 OTHER SPECIFIED POSTPROCEDURAL STATES 03/26/2017 ANALI MARTINEZ MD Ot M25.511 PAIN IN RIGHT SHOULDER 03/26/2017 ANALI MARTINEZ MD Ot Z98.890 OTHER SPECIFIED POSTPROCEDURAL STATES 04/06/2017 ANALI MARTINEZ MD Ot M25.511 PAIN IN RIGHT SHOULDER 04/06/2017 ANALI MARTINEZ MD Ot Z98.890 OTHER SPECIFIED POSTPROCEDURAL STATES 05/06/2017 MAYRA CRONIN MD Ot F41.9 ANXIETY DISORDER, UNSPECIFIED 05/06/2017 MAYRA CRONIN MD Ot I10 ESSENTIAL (PRIMARY) HYPERTENSION 05/06/2017 MAYRA CRONIN MD Ot J43.9 EMPHYSEMA, UNSPECIFIED 05/06/2017 MAYRA CRONIN MD Ot R10.13 EPIGASTRIC PAIN 05/06/2017 MAYRA CRONIN MD Ot R19.7 DIARRHEA, UNSPECIFIED 05/06/2017 MAYRA CRONIN MD Ot Z87.01 PERSONAL HISTORY OF PNEUMONIA (RECURRENT 05/06/2017 MAYRA CRONIN MD Ot Z87.19 PERSONAL HISTORY OF OTHER DISEASES OF TH 05/06/2017 MAYRA CRONIN MD Ot Z87.891 PERSONAL HISTORY OF NICOTINE DEPENDENCE 05/13/2017 MAYRA CRONIN MD Ot F41.9 ANXIETY DISORDER, UNSPECIFIED 05/13/2017 MAYRA CRONIN MD Ot I10 ESSENTIAL (PRIMARY) HYPERTENSION 05/13/2017 MAYRA CRONIN MD Ot J43.9 EMPHYSEMA, UNSPECIFIED 05/13/2017 MAYRA CRONIN MD Ot R10.13 EPIGASTRIC PAIN 05/13/2017 MAYRA CRONIN MD Ot R19.7 DIARRHEA, UNSPECIFIED 05/13/2017 MAYRA CRONIN MD Ot Z87.01 PERSONAL HISTORY OF PNEUMONIA (RECURRENT 05/13/2017 MAYRA CRONIN MD Ot Z87.19 PERSONAL HISTORY OF OTHER DISEASES OF TH 05/13/2017 MAYRA CRONIN MD, Ot Z87.891 PERSONAL HISTORY OF NICOTINE DEPENDENCE 08/12/2017 KENRICK MCMILLAN APRN Ot 789.00 ABDOMINAL PAIN, UNSPECIFIED SITE 08/12/2017 LILLIE DALEY MD Ot K42.9 UMBILICAL HERNIA WITHOUT OBSTRUCTION OR 08/12/2017 LILLIE DALEY MD Ot K43.0 INCISIONAL HERNIA WITH OBSTRUCTION, WITH 08/12/2017 ANALI MARTINEZ MD Ot M25.511 PAIN IN RIGHT SHOULDER 08/12/2017 ANALI MARTINEZ MD Ot Z98.890 OTHER SPECIFIED POSTPROCEDURAL STATES Procedures Code Description Performed By Performed On G0008 FLU ADMINISTRATION ( MEDICARE ONLY) 04/12/2013 03553 URINE DRUG SCREEN (IN-HOUSE ) 04/12/2013 33126 URINE DRUG SCREEN (IN-HOUSE ) 09/29/2013 55724 US GALLBLADDER ULTRASOUND 04/18/2014 Results Test Result Range Complete urinalysis with reflex to culture - 01/13/17 07:45 Urine color determination YELLOW NRG Urine clarity determination CLEAR NRG Urine pH measurement by test strip 6 5-9 Specific gravity of urine by test strip 1.020 1.016- 1.022 Urine protein assay by test strip, semi-quantitative 1+ NEGATIVE Urine glucose detection by automated test strip NEGATIVE NEGATIVE Erythrocytes detection in urine sediment by light microscopy NEGATIVE NEGATIVE Urine ketones detection by automated test strip NEGATIVE NEGATIVE Urine nitrite detection by test strip NEGATIVE NEGATIVE Urine total bilirubin detection by test strip NEGATIVE NEGATIVE Urine urobilinogen measurement by automated test strip (mass/volume) NORMAL NORMAL Urine leukocyte esterase detection by dipstick 1+ NEGATIVE Automated urine sediment erythrocyte count by microscopy (number/high power field) NONE NRG Automated urine sediment leukocyte count by microscopy (number/high power field ) [HPF] NRG Bacteria detection in urine sediment by light microscopy TRACE NRG Squamous epithelial cells detection in urine sediment by light microscopy RARE NRG Crystals detection in urine sediment by light microscopy NONE NRG Casts detection in urine sediment by light microscopy NONE NRG Mucus detection in urine sediment by light microscopy SMALL NRG Complete urinalysis with reflex to culture YES NRG Bacterial urine culture - 01/13/17 07:45 URINE CULTURE RESULTS <10,000/ML NRG Complete blood count (CBC) with automated white blood cell (WBC) differential - 08/11/17 20:15 Blood leukocytes automated count (number/volume) 4.9 10*3/uL 4.3-11.0 Blood erythrocytes automated count (number/volume) 4.59 10*6/uL 4.35-5.85 Venous blood hemoglobin measurement (mass/volume) 13.0 g/dL 13.3-17.7 Blood hematocrit (volume fraction) 39 % 40-54 Automated erythrocyte mean corpuscular volume 86 [foz_us] 80-99 Automated erythrocyte mean corpuscular hemoglobin (mass per erythrocyte) 28 pg 25-34 Automated erythrocyte mean corpuscular hemoglobin concentration measurement ( mass/volume) 33 g/dL 32-36 Automated erythrocyte distribution width ratio 13.1 % 10.0-14.5 Automated blood platelet count (count/volume) 216 10*3/uL 130-400 Automated blood platelet mean volume measurement 10.0 [foz_us] 7.4-10.4 Automated blood neutrophils/100 leukocytes 80 % 42-75 Automated blood lymphocytes/100 leukocytes 9 % 12-44 Blood monocytes/100 leukocytes 10 % 0-12 Automated blood eosinophils/100 leukocytes 1 % 0-10 Automated blood basophils/100 leukocytes 0 % 0-10 Blood neutrophils automated count (number/volume) 3.9 10*3 1.8-7.8 Blood lymphocytes automated count (number/volume) 0.4 10*3 1.0-4.0 Blood monocytes automated count (number/volume) 0.5 10*3 0.0-1.0 Automated eosinophil count 0.0 10*3/uL 0.0-0.3 Automated blood basophil count (count/volume) 0.0 10*3/uL 0.0-0.1 PT panel in platelet poor plasma by coagulation assay - 08/11/17 20:15 Prothrombin time (PT) in platelet poor plasma by coagulation assay 12.8 s 12.2-14.7 INR in platelet poor plasma or blood by coagulation assay 1.0 0.8-1.4 Activated partial thromboplastin time (aPTT) in platelet poor plasma bycoagulation assay - 08/11/17 20:15 Activated partial thromboplastin time (aPTT) in platelet poor plasma bycoagulation assay 31 s 24-35 Blood lactic acid measurement (moles/volume) - 08/11/17 20:15 Blood lactic acid measurement (moles/volume) 1.01 mmol/L 0.50-2.00 Comprehensive metabolic panel - 08/11/17 20:15 Serum or plasma sodium measurement (moles/volume) 141 mmol/L 135-145 Serum or plasma potassium measurement (moles/volume) 4.1 mmol/L 3.6-5.0 Serum or plasma chloride measurement (moles/volume) 105 mmol/L 98-107 Carbon dioxide 24 mmol/L 21-32 Serum or plasma anion gap determination (moles/volume) 12 mmol/L 5-14 Serum or plasma urea nitrogen measurement (mass/volume) 18 mg/dL 7-18 Serum or plasma creatinine measurement (mass/volume) 0.90 mg/dL 0.60-1.30 Serum or plasma urea nitrogen/creatinine mass ratio 20 NRG Serum or plasma creatinine measurement with calculation of estimated glomerular filtration rate > NRG Serum or plasma glucose measurement (mass/volume) 116 mg/dL 70-105 Serum or plasma calcium measurement (mass/volume) 9.4 mg/dL 8.5-10.1 Serum or plasma total bilirubin measurement (mass/volume) 0.4 mg/dL 0.1-1.0 Serum or plasma alkaline phosphatase measurement (enzymatic activity/volume) 77 U/L 40-136 Serum or plasma aspartate aminotransferase measurement (enzymatic activity/ volume) 12 U/L 5-34 Serum or plasma alanine aminotransferase measurement (enzymatic activity/volume ) 16 U/L 0-55 Serum or plasma protein measurement (mass/volume) 7.7 g/dL 6.4-8.2 Serum or plasma albumin measurement (mass/volume) 4.1 g/dL 3.2-4.5 Serum or plasma troponin i.cardiac measurement (mass/volume) - 08/11/17 20:15 Serum or plasma troponin i.cardiac measurement (mass/volume) < ng/ mL <0.30 Bacterial blood culture - 08/11/17 20:15 Bacterial blood culture NG NRG Sputum Gram stain - 08/11/17 20:21 GRAM STAIN SPUTUM AND MIXED BACTERIAL NATALIE NRG Bacterial sputum culture - 08/11/17 20:21 QUANTITY OF GROWTH Moderate Growth NRG Bacterial sputum culture [id number] NRG Influenza virus A and B antigen detection - 08/11/17 20:32 CALL POSITIVES (F1 HELP) CALLED TO [facility] IN ED AT 2116 NRG FLU RESULT POSITIVE FOR INFLUENZA A ANTIGEN, NEG FOR B ANTIGEN, BY IA NRG Bacterial blood culture - 08/11/17 20:40 Bacterial blood culture NG NRG Encounters ACCT No. Visit Date/Time Discharge Status Pt. Type Provider Facility Loc./Unit Complaint [id number] 04/18/2014 10:38:00 04/18/2014 23:59:59 CLS Outpatient KENRICK MCMILLAN APRN [id number] 01/02/2014 16:21:00 01/02/2014 23:59:59 CLS Outpatient KAITLYNN VARELA DDS [id number] 09/29/2013 15:22:00 09/29/2013 23:59:59 CLS Outpatient RADHA PRETTY DO [id number] 04/12/2013 14:10:00 04/12/2013 23:59:59 CLS Outpatient RADHA PRETTY DO [id number] 04/12/2013 14:10:00 04/12/2013 23:59:59 CLS Outpatient RADHA PRETTY DO [id number] 08/11/2017 19:22:00 08/11/2017 21:46:00 DIS Emergency MARK RAMOS [facility] ER CP [id number] 05/06/2017 18:32:00 05/06/2017 21:46:00 DIS Emergency MAYRA CRONIN MD [facility] ER ABD PAIN [id number] 03/04/2017 09:38:00 03/04/2017 23:59:59 CLS Outpatient ANALI MARTINEZ MD [facility] RAD RT SHOULDER PAIN [id number] 01/13/2017 07:36:00 01/13/2017 23:59:59 CLS Outpatient LILLIE DALEY MD [facility] LAB K42.9 [id number] 02/08/2016 01:54:00 02/08/2016 05:29:00 DIS Emergency CATRINA MCNEAL DO [facility] ER CHEST PAIN, SOA [id number] 12/12/2015 20:52:00 12/12/2015 22:36:00 DIS Emergency MAYRA CRONIN MD [facility] ER CP,SOA [id number] 11/01/2015 08:41:00 11/04/2015 16:44:00 DIS Inpatient DYLAN WHITE DO [facility] 4TH SWB, COPD PNEUMONIA [id number] 10/28/2015 16:54:00 11/01/2015 08:41:00 DIS Inpatient SHERLY SAN MD [facility] CSD SEPSIS,MULTILOBAR PNEUMONIA,RESPIRATORY FAILURE W/ [id number] 10/14/2015 21:59:00 10/14/2015 23:09:00 DIS Emergency GIULIANA GOODMAN APRN [facility] ER DIFFICULTY BREATHING [id number] 07/17/2015 14:00:00 07/19/2015 12:58:00 DIS Inpatient ELIOT GRANT MD [facility] ICU BILATERAL PNEUMONIA [id number] 05/09/2015 08:31:00 05/22/2015 09:24:00 DIS Outpatient LEIA VARGHESE MD [facility] REHAB S/P CERVICAL SPINE FUSION;L ARM WEAKNESS/NECK PAIN [id number] 04/12/2015 09:20:00 04/17/2015 00:01:00 DIS Outpatient LEIA VARGHESE MD [facility] REHAB S/P CERVICAL SPINE FUSION;L ARM WEAKNESS/NECK PAIN [id number] 03/17/2015 15:04:00 03/17/2015 20:20:00 DIS Emergency MALACHI ROSSI DO [facility] ER POST-OP INFECTION [id number] 02/11/2015 13:55:00 02/11/2015 14:22:00 DIS Outpatient HALIMA RIVAS, LEIA Cruz [facility] REHAB CHRONIC NECK PAIN [id number] 04/18/2014 12:19:00 04/18/2014 23:59:59 CLS Outpatient KENRICK MCMILLAN APRN [facility] RAD ABD PAIN [id number] 12/20/2014 16:37:00 Document Registration [id number] 08/05/2010 22:26:00 Document Registration [id number] 07/27/2010 02:33:00 Document Registration
== END 2017-08-11 21:46 | disposition home or self-care (01) ==
LOC: EDUNIT# 19:21 → ER 19:22
DX: J10.08 Influenza due to other identified influenza virus with other specified pneumonia (principal); J43.9 Emphysema, unspecified; I10 Essential (primary) hypertension; F41.9 Anxiety disorder, unspecified; Z87.01 Personal history of pneumonia (recurrent); Z87.891 Personal history of nicotine dependence
CPT/HCPCS: 36415; 71046; 80053; 83605; 84484; 85025; 85610; 85730; 87040; 87070; 87205; 87804; 93005; 94640

== ENCOUNTER 2017-09-23 00:17 | Inpatient (IN) | payer MEDICARE, MEDICAID ==
[2017-09-23] VITALS (24 sets, daily range): BP systolic 127–168; BP diastolic 2–117
[~2017-09-23] VITALS: Ht 165.1 cm; Wt 84.6 kg
[~2017-09-23 00:17] MED LIST changes: +LEVO500T2 PO; +NAPR-915 PO; -NAPR500T4 PO; +PRD20T PO
--- OUTSIDE RECORDS SUMMARY | 2017-09-23 00:24 | XMS REPORT | Continuity of Care Document ---
Author Author [facility] Ctr of [facility] Ctr of [facility] Address Unknown Phone Unavailable Allergies Active Description Code Type Severity Reaction Onset Reported/Identified Relationship to Patient Clinical Status Yes No Known Drug Allergies [id number] Drug Allergy Unknown N/A 08/05/2010 Yes amitriptyline [id number] Drug Allergy Unknown N/A 02/08/2016 Yes duloxetine [id number] Drug Allergy Unknown N/A 02/08/2016 Yes fluticasone [id number] Drug Allergy Unknown N/A 02/08/2016 Yes salmeterol [id number] Drug Allergy Unknown N/A 02/08/2016 Medications There [...] SEPSIS WITHOUT SEPTIC SHOCK 10/14/2015 GIULIANA GOODMAN MILITARY LOGISTICS SPECIALIST Ot F17.210 NICOTINE DEPENDENCE, CIGARETTES, UNCOMPL 10/14/2015 GIULIANA GOODMAN MILITARY LOGISTICS SPECIALIST Ot J44.0 CHRONIC OBSTRUCTIVE PULMON DISEASE W ACU 10/14/2015 GIULIANA GOODMAN MILITARY LOGISTICS SPECIALIST Ot R09.81 NASAL CONGESTION 10/16/2015 GIULIANA GOODMAN MILITARY LOGISTICS SPECIALIST Ot F17.210 10/16/2015 GIULIANA GOODMAN MILITARY LOGISTICS SPECIALIST Ot J44.0 10/16/2015 GIULIANA GOODMAN MILITARY LOGISTICS SPECIALIST Ot R09.81 10/29/2015 SHERLY SAN MD Ot [...] Ot J18.9 PNEUMONIA, UNSPECIFIED ORGANISM 11/01/2015 SHERLY ASN MD Ot J44.1 CHRONIC OBSTRUCTIVE PULMONARY DISEASE [...] Ot R06.00 DYSPNEA, UNSPECIFIED 12/13/2015 ROSEANNE RIVAS, MARYA T Ot R07.89 OTHER CHEST PAIN 12/14/2015 [...] Ot R07.89 OTHER CHEST PAIN 02/10/2016 CATRINA MCNEAL DO Ot R09.1 PLEURISY 02/17/2016 CATRINA MCNEAL [...] Z87.891 PERSONAL HISTORY OF NICOTINE DEPENDENCE 05/13/2017 ROSEANNE RIVAS, MAYRA Melendrez Ot F41.9 ANXIETY DISORDER, UNSPECIFIED 05/13/2017 ROSEANNE RIVAS, MAYRA T Ot I10 ESSENTIAL (PRIMARY) HYPERTENSION 05/13/2017 ROSEANNE RIVAS, MAYRA Melendrez Ot J43.9 EMPHYSEMA, UNSPECIFIED 05/13/2017 ROSEANNE RIVAS, MAYRA T Ot R10.13 EPIGASTRIC PAIN 05/13/2017 ROSEANNE RIVAS, MAYRA T Ot R19.7 DIARRHEA, UNSPECIFIED 05/13/2017 ROSEANNE RIVAS, MAYRA T Ot Z87.01 PERSONAL HISTORY OF PNEUMONIA (RECURRENT 05/13/2017 ROSEANNE RIVAS, MAYRA T Ot Z87.19 PERSONAL HISTORY OF OTHER DISEASES OF TH 05/13/2017 ROSEANNE RIVAS, MAYRA T Ot Z87.891 PERSONAL HISTORY OF NICOTINE DEPENDENCE 08/11/2017 RACHEL, MARK BARKER OPERATOR Ot F41.9 ANXIETY DISORDER, UNSPECIFIED 08/11/2017 RACHEL, MARK BARKER OPERATOR Ot I10 ESSENTIAL (PRIMARY) HYPERTENSION 08/11/2017 RACHEL, MARK BARKER OPERATOR Ot J10.08 INFLUENZA DUE TO OTH IDENT INFLUENZA VIR 08/11/2017 RACHEL, MARK BARKER OPERATOR Ot J43.9 EMPHYSEMA, UNSPECIFIED 08/11/2017 RACHEL, MARK BARKER OPERATOR Ot R05 COUGH 08/11/2017 RACHEL, MARK BARKER OPERATOR Ot Z87.01 PERSONAL HISTORY OF PNEUMONIA (RECURRENT 08/11/2017 RACHEL, MARK BARKER OPERATOR Ot Z87.891 PERSONAL HISTORY OF NICOTINE DEPENDENCE 08/12/2017 KENRICK MCMILLAN APRN Ot 789.00 ABDOMINAL PAIN, UNSPECIFIED SITE 08/12/2017 LILLIE DALEY MD Ot K42.9 UMBILICAL HERNIA WITHOUT OBSTRUCTION OR 08/12/2017 LILLIE DALEY MD Ot K43.0 INCISIONAL HERNIA WITH OBSTRUCTION, WITH 08/12/2017 JUAN RIVAS, ANALI Hansen Ot M25.511 PAIN IN RIGHT SHOULDER 08/12/2017 ANALI MARTINEZ MD Ot Z98.890 OTHER SPECIFIED POSTPROCEDURAL STATES 08/16/2017 RACHELMRAK Rabago BARKER OPERATOR Ot F41.9 ANXIETY DISORDER, UNSPECIFIED 08/16/2017 RACHEL, MARK BARKER OPERATOR Ot I10 ESSENTIAL (PRIMARY) HYPERTENSION 08/16/2017 MARK RAMOS Ot J10.08 INFLUENZA DUE TO OTH IDENT INFLUENZA VIR 08/16/2017 MARK RAMOS Ot J43.9 EMPHYSEMA, UNSPECIFIED 08/16/2017 MARK RAMOS Ot R05 COUGH 08/16/2017 MARK RAMOS Ot Z87.01 PERSONAL HISTORY OF PNEUMONIA (RECURRENT 08/16/2017 MARK RAMOS Ot Z87.891 PERSONAL HISTORY OF NICOTINE DEPENDENCE Procedures Code Description Performed By Performed On G0008 FLU ADMINISTRATION ( MEDICARE ONLY) 04/12/2013 98355 URINE DRUG SCREEN (IN-HOUSE ) 04/12/2013 05579 URINE DRUG SCREEN (IN-HOUSE ) 09/29/2013 05341 US GALLBLADDER ULTRASOUND 04/18/2014 Results Test Result [...] - 08/11/17 20:15 Bacterial blood culture NG [facility] Sputum Gram stain - 08/11/17 20:21 GRAM STAIN SPUTUM AND MIXED BACTERIAL NATALIE [facility] Bacterial sputum culture - 08/11/17 20:21 QUANTITY OF GROWTH Moderate Growth [facility] Bacterial sputum culture [id number] [facility] Influenza virus A and B antigen detection - 08/11/17 20:32 CALL POSITIVES (F1 HELP) CALLED TO BROWN IN ED AT 2116 [facility] FLU RESULT POSITIVE FOR INFLUENZA A ANTIGEN, NEG FOR B ANTIGEN, BY IA [facility] Bacterial blood culture - 08/11/17 20:40 Bacterial blood culture NG NR Encounters ACCT No. Visit Date/Time Discharge Status Pt. Type Provider Facility Loc./Unit Complaint [id number] 04/18/2014 10:38:00 04/18/2014 23:59:59 CLS Outpatient KENRICK MCMILLAN APRN [id number] 01/02/2014 16:21:00 01/02/2014 23:59:59 CLS Outpatient KAITLYNN VARELA DDS [id number] 09/29/2013 15:22:00 09/29/2013 23:59:59 CLS Outpatient RADHA PRETTY DO [id number] 04/12/2013 14:10:00 04/12/2013 23:59:59 CLS Outpatient RADHA PRETTY DO [id number] 04/12/2013 14:10:00 04/12/2013 23:59:59 CLS Outpatient RADHA PRETTY DO [id number] 08/11/2017 19:22:00 08/11/2017 21:46:00 DIS Emergency MARK RAMOS Via [facility] ER CP [id number] 05/06/2017 18:32:00 05/06/2017 21:46:00 DIS Emergency MAYRA CRONIN MD [facility] ER ABD PAIN [id number] 03/04/2017 09:38:00 03/04/2017 23:59:59 CLS Outpatient ANALI MARTINEZ MD [facility] RAD RT SHOULDER PAIN [id number] 01/13/2017 07:36:00 01/13/2017 23:59:59 CLS Outpatient LILLIE DALEY MD [facility] LAB K42.9 [id number] 02/08/2016 01:54:00 02/08/2016 05:29:00 DIS Emergency CATRINA MCNEAL DO [facility] ER CHEST PAIN, SOA [id number] 12/12/2015 20:52:00 12/12/2015 22:36:00 DIS Emergency MAYRA CRONIN MD [facility] ER CP,SOA [id number] 11/01/2015 08:41:00 11/04/2015 16:44:00 DIS Inpatient DYLAN WHITE DO Via [facility] 4TH SWB, COPD PNEUMONIA [id number] 10/28/2015 16:54:00 11/01/2015 08:41:00 DIS Inpatient SHERLY SAN MD [facility] CSD SEPSIS,MULTILOBAR PNEUMONIA,RESPIRATORY FAILURE W/ [id number] 10/14/2015 21:59:00 10/14/2015 23:09:00 DIS Emergency GIULIANA GOODMAN APRN [facility] ER DIFFICULTY BREATHING [id number] 07/17/2015 14:00:00 07/19/2015 12:58:00 DIS Inpatient ELIOT GRANT MD [facility] ICU BILATERAL PNEUMONIA [id number] 05/09/2015 08:31:00 05/22/2015 09:24:00 DIS Outpatient LEIA VARGHESE MD [facility] REHAB S/P CERVICAL SPINE FUSION;L ARM WEAKNESS/NECK PAIN [id number] 04/12/2015 09:20:00 04/17/2015 00:01:00 DIS Outpatient LEIA VARGHESE MD [facility] REHAB S/P CERVICAL SPINE FUSION;L ARM WEAKNESS/NECK PAIN [id number] 03/17/2015 15:04:00 03/17/2015 20:20:00 DIS Emergency MALACHI ROSSI DO [facility] ER POST-OP INFECTION [id number] 02/11/2015 13:55:00 02/11/2015 14:22:00 DIS Outpatient LEIA VARGHESE MD [facility] REHAB CHRONIC NECK PAIN [id number] 04/18/2014 12:19:00 04/18/2014 23:59:59 CLS Outpatient KENRICK MCMILLAN APRN [facility] RAD ABD PAIN [id number] 12/20/2014 16:37:00 Document Registration [id number] 08/05/2010 22:26:00 Document Registration [id number] 07/27/2010 02:33:00 Document Registration
[2017-09-23] MEDS ORDERED: methylPREDNISolone 125 MG (Solu-MEDROL) VIAL IV STA (00:26)
[2017-09-23] MEDS ORDERED: DEXAMETHASONE 4 MG/ML SDV (DECADRON) ONE (00:29)
[2017-09-23] MEDS ORDERED: DEXAMETHASONE 4 MG/ML SDV (DECADRON) IH ONE (00:30)
[2017-09-23] MEDS ORDERED: RT-ALBUTEROL/IPRATROPIUM 3 ML (DUONEB) VIAL INH ONE (00:30)
[2017-09-23] MEDS ORDERED: RT-ALBUTEROL SULF 2.5 MG/3 ML PRE-MIX VIAL ONE (00:33)
[2017-09-23] MEDS ORDERED: RT-ALBUTEROL SULF 2.5 MG/3 ML PRE-MIX VIAL IH ONE (00:45)
[2017-09-23 01:02] LABS: ABG BASE EXCESS 2.6 MMOL/L (-2.5-2.5); ABG OXYGEN SATURATION 98 % (94-100); ABG PCO2 50 MMHG (35-45); ABG PH 7.36 (7.37-7.43); ABG PO2 95 MMHG (79-93); ABG TCO2 29.1 MMOL/L (21.0-31.0); ALLENS TEST YES-POS; INSPIRED O2 3L; PATIENT TEMP 98.9; VENTILATOR NO
[2017-09-23] MEDS ORDERED: fentaNYL INJECTION 100 MCG/2 ML AMP IVP STA (01:24)
[2017-09-23 01:25] LABS: BASOPHILS % (AUTO) 0 % (0-10); EOSINOPHILS # (AUTO) 0.1 10^3/uL (0.0-0.3); EOSINOPHILS % (AUTO) 1 % (0-10); HEMATOCRIT 35 % (40-54); HEMOGLOBIN 11.5 G/DL (13.3-17.7); LYMPHOCYTES # (AUTO) 1.9 X 10^3 (1.0-4.0); LYMPHOCYTES % (AUTO) 26 % (12-44); MEAN CORPUSCULAR HEMOGLOBIN 29 PG (25-34); MEAN CORPUSCULAR HGB CONC 33 G/DL (32-36); MEAN CORPUSCULAR VOLUME 88 FL (80-99); MEAN PLATELET VOLUME 9.4 FL (7.4-10.4); MONOCYTES # (AUTO) 0.6 X 10^3 (0.0-1.0); MONOCYTES % (AUTO) 8 % (0-12); NEUTROPHILS # (AUTO) 4.8 X 10^3 (1.8-7.8); NEUTROPHILS % (AUTO) 65 % (42-75); PLATELET COUNT 304 10^3/uL (130-400); RED BLOOD COUNT 3.98 10^6/uL (4.35-5.85); RED CELL DISTRIBUTION WIDTH 13.1 % (10.0-14.5); WHITE BLOOD COUNT 7.4 10^3/uL (4.3-11.0)
[2017-09-23] MEDS ORDERED: meTOprolol 5 MG/5 ML (LOPRESSOR) VIAL IV ONE ×2 (01:30→05:45)
[2017-09-23 01:40] LABS: PROTHROMBIN TIME PATIENT 12.9 SEC (12.2-14.7)
[2017-09-23] MEDS ORDERED: methylPREDNISolone 125 MG (Solu-MEDROL) VIAL IVP ONE (01:45)
[2017-09-23 01:50] LABS: ALANINE AMINOTRANSFERASE 23 U/L (0-55); ALBUMIN 3.7 GM/DL (3.2-4.5); ALKALINE PHOSPHATASE 66 U/L (40-136); BILIRUBIN,TOTAL 0.3 MG/DL (0.1-1.0); BUN/CREATININE RATIO 11; CARBON DIOXIDE 28 MMOL/L (21-32); CHLORIDE 106 MMOL/L (98-107); GFR ESTIMATED > 60; GLUCOSE 107 MG/DL (70-105); POTASSIUM 3.8 MMOL/L (3.6-5.0); SODIUM 143 MMOL/L (135-145); TOTAL PROTEIN 7.1 GM/DL (6.4-8.2)
[2017-09-23 02:11] LABS: BILIRUBIN,URINE NEGATIVE (NEGATIVE); CLARITY,URINE CLEAR; COLOR,URINE YELLOW; GLUCOSE, URINE (UA) NEGATIVE (NEGATIVE); KETONES,URINE NEGATIVE (NEGATIVE); LEUKOCYTE ESTERASE ,URINE NEGATIVE (NEGATIVE); NITRITE,URINE NEGATIVE (NEGATIVE); PH,URINE 6 (5-9); PROTEIN,URINE 3+ (NEGATIVE); UROBILINOGEN,URINE NORMAL (NORMAL)
[2017-09-23] MEDS ORDERED: CEFEPIME INJECTION 2,000 MG in NS (IVPB) 100 ML IV ONE (02:15)
[2017-09-23 02:20] LABS: BACTERIA,URINE NEGATIVE /HPF
[2017-09-23] MEDS ORDERED: CEFEPIME HCL 2 GM (MAXIPIME) VIAL ONE (02:30)
[2017-09-23] MEDS ORDERED: NS (IVPB) 100 ML ONE (02:30)
--- OUTSIDE RECORDS SUMMARY | 2017-09-23 02:50 | XMS REPORT | Continuity of Care Document ---
Author Author Counts Include [facility] Ctr of [facility] of [facility] Address Unknown Phone Unavailable Allergies Active Description Code Type Severity Reaction Onset Reported/Identified Relationship to Patient Clinical Status Yes No Known Drug Allergies [id number] Drug Allergy Unknown N/A 08/05/2010 Yes amitriptyline [id number] Drug Allergy Unknown N/A 02/08/2016 Yes duloxetine [id number] Drug Allergy Unknown N/A 02/08/2016 Yes fluticasone [id number] Drug Allergy Unknown N/A 02/08/2016 Yes salmeterol [id number] Drug Allergy Unknown N/A 02/08/2016 Medications There [...] SEPSIS WITHOUT SEPTIC SHOCK 10/14/2015 GIULIANA GOODMAN HOME WEATHERIZING WORKER Ot F17.210 NICOTINE DEPENDENCE, CIGARETTES, UNCOMPL 10/14/2015 GIULIANA GOODMAN HOME WEATHERIZING WORKER Ot J44.0 CHRONIC OBSTRUCTIVE PULMON DISEASE W ACU 10/14/2015 GIULIANA GOODMAN HOME WEATHERIZING WORKER Ot R09.81 NASAL CONGESTION 10/16/2015 GIULIANA GOODMAN HOME WEATHERIZING WORKER Ot F17.210 10/16/2015 GIULIANA GOODMAN HOME WEATHERIZING WORKER Ot J44.0 10/16/2015 GIULIANA GOODMAN HOME WEATHERIZING WORKER Ot R09.81 10/29/2015 SHERLY SAN MD Ot [...] DYLAN Ot G89.29 OTHER CHRONIC PAIN 11/04/2015 WIHTE DO, DYLAN Ot I10 ESSENTIAL (PRIMARY) HYPERTENSION [...] HISTORY OF NICOTINE DEPENDENCE 08/11/2017 RACHEL, MARK ELECTRONIC GAMING DEVICE SUPERVISOR Ot F41.9 ANXIETY DISORDER, UNSPECIFIED 08/11/2017 RACHEL, MARK ELECTRONIC GAMING DEVICE SUPERVISOR Ot I10 ESSENTIAL (PRIMARY) HYPERTENSION 08/11/2017 RACHEL, MARK ELECTRONIC GAMING DEVICE SUPERVISOR Ot J10.08 INFLUENZA DUE TO OTH IDENT INFLUENZA VIR 08/11/2017 RACHEL, MARK ELECTRONIC GAMING DEVICE SUPERVISOR Ot J43.9 EMPHYSEMA, UNSPECIFIED 08/11/2017 RACHEL, MARK ELECTRONIC GAMING DEVICE SUPERVISOR Ot R05 COUGH 08/11/2017 RACHEL, MARK ELECTRONIC GAMING DEVICE SUPERVISOR Ot Z87.01 PERSONAL HISTORY OF PNEUMONIA (RECURRENT 08/11/2017 RACHEL, MARK ELECTRONIC GAMING DEVICE SUPERVISOR Ot Z87.891 PERSONAL HISTORY OF NICOTINE DEPENDENCE 08/12/2017 KENRICK MCMILLAN APRN Ot 789.00 ABDOMINAL PAIN, UNSPECIFIED SITE 08/12/2017 LILLIE DALEY MD Ot K42.9 UMBILICAL HERNIA WITHOUT OBSTRUCTION OR 08/12/2017 LILLIE DALEY MD Ot K43.0 INCISIONAL HERNIA WITH OBSTRUCTION, WITH 08/12/2017 JUAN RIVAS, ANALI Hansen Ot M25.511 PAIN IN RIGHT SHOULDER 08/12/2017 ANALI MARTINEZ MD Ot Z98.890 OTHER SPECIFIED POSTPROCEDURAL STATES 08/16/2017 RACHELMARK Rabago ELECTRONIC GAMING DEVICE SUPERVISOR Ot F41.9 ANXIETY DISORDER, UNSPECIFIED 08/16/2017 RACHEL, MARK ELECTRONIC GAMING DEVICE SUPERVISOR Ot I10 ESSENTIAL (PRIMARY) HYPERTENSION 08/16/2017 MARK [...] G0008 FLU ADMINISTRATION ( MEDICARE ONLY) 04/12/2013 66417 URINE DRUG SCREEN (IN-HOUSE ) 04/12/2013 90493 URINE DRUG SCREEN (IN-HOUSE ) 09/29/2013 37826 US GALLBLADDER ULTRASOUND 04/18/2014 Results Test Result [...] - 08/11/17 20:15 Bacterial blood culture NG [facility] Sputum Gram stain - 08/11/17 20:21 GRAM STAIN SPUTUM AND MIXED BACTERIAL NATALIE [facility] Bacterial sputum culture - 08/11/17 20:21 QUANTITY OF GROWTH Moderate Growth [facility] Bacterial sputum culture [id number] [facility] Influenza virus A and B antigen detection - 08/11/17 20:32 CALL POSITIVES (F1 HELP) CALLED TO [facility] IN ED AT 2116 [facility] FLU RESULT POSITIVE FOR INFLUENZA A ANTIGEN, NEG FOR B ANTIGEN, BY IA [facility] Bacterial blood culture - 08/11/17 20:40 Bacterial blood culture NG NR Encounters ACCT No. Visit Date/Time Discharge Status Pt. Type Provider Facility Loc./Unit Complaint [id number] 04/18/2014 10:38:00 04/18/2014 23:59:59 CLS Outpatient KENRICK MCMILLAN APRN [id number] 01/02/2014 16:21:00 01/02/2014 23:59:59 CLS Outpatient KAITLYNN VARELA DDS [id number] 09/29/2013 15:22:00 09/29/2013 23:59:59 CLS Outpatient RADHA PRETTY DO [id number] 04/12/2013 14:10:00 04/12/2013 23:59:59 CLS Outpatient RADHA PRETTY DO [id number] 04/12/2013 14:10:00 04/12/2013 23:59:59 CLS Outpatient RADHA PRETTY DO [id number] 08/11/2017 19:22:00 08/11/2017 21:46:00 DIS Emergency MARK RAMOS [facility] ER CP [id number] 05/06/2017 18:32:00 05/06/2017 21:46:00 DIS Emergency MAYRA CRONIN MD [facility] ER ABD PAIN [id number] 03/04/2017 09:38:00 03/04/2017 23:59:59 CLS Outpatient ANALI MARTINEZ MD [facility] RAD RT SHOULDER PAIN [id number] 01/13/2017 07:36:00 01/13/2017 23:59:59 CLS Outpatient LILLIE DALEY MD [facility] LAB K42.9 [id number] 02/08/2016 01:54:00 02/08/2016 05:29:00 DIS Emergency CATRINA MCNEAL DO [facility] ER CHEST PAIN, SOA [id number] 12/12/2015 20:52:00 12/12/2015 22:36:00 DIS Emergency MAYRA CRONIN MD [facility] ER CP,SOA [id number] 11/01/2015 08:41:00 11/04/2015 16:44:00 DIS Inpatient DYLAN WHITE DO [facility] 4TH SWB, COPD PNEUMONIA [id number] 10/28/2015 16:54:00 11/01/2015 08:41:00 DIS Inpatient SHERLY SAN MD [facility] CSD SEPSIS,MULTILOBAR PNEUMONIA,RESPIRATORY FAILURE W/ [id number] 10/14/2015 21:59:00 10/14/2015 23:09:00 DIS Emergency GIULIANA GOODMAN APRN [facility] ER DIFFICULTY BREATHING [id number] 07/17/2015 14:00:00 07/19/2015 12:58:00 DIS Inpatient ELIOT GRANT MD [facility] ICU BILATERAL PNEUMONIA [id number] 05/09/2015 08:31:00 05/22/2015 09:24:00 DIS Outpatient LEIA VARGHESE MD [facility] REHAB S/P CERVICAL SPINE FUSION;L ARM WEAKNESS/NECK PAIN [id number] 04/12/2015 09:20:00 04/17/2015 00:01:00 DIS Outpatient LEIA VARGHESE MD [facility] REHAB S/P CERVICAL SPINE FUSION;L ARM WEAKNESS/NECK PAIN [id number] 03/17/2015 15:04:00 03/17/2015 20:20:00 DIS Emergency MALACHI ROSSI DO [facility] ER POST-OP INFECTION [id number] 02/11/2015 13:55:00 02/11/2015 14:22:00 DIS Outpatient LEIA VARGHESE MD [facility] REHAB CHRONIC NECK PAIN [id number] 04/18/2014 12:19:00 04/18/2014 23:59:59 CLS Outpatient KENRICK MCMILLAN APRN [facility] RAD ABD PAIN [id number] 12/20/2014 16:37:00 Document Registration [id number] 08/05/2010 22:26:00 Document Registration [id number] 07/27/2010 02:33:00 Document Registration
[2017-09-23 03:15] LABS: ABG BASE EXCESS 2.3 MMOL/L (-2.5-2.5); ABG OXYGEN SATURATION 92 % (94-100); ABG PCO2 51 MMHG (35-45); ABG PH 7.35 (7.37-7.43); ABG PO2 62 MMHG (79-93); ABG TCO2 28.9 MMOL/L (21.0-31.0); ALLENS TEST YES-POS; INSPIRED O2 40% BIPAP; PATIENT TEMP 98.7; VENTILATOR NO
--- NOTE | 2017-09-23 05:28 | Diagnostic Imaging Report ---
INDICATION: Wheezing. Shortness of air. COMPARISON: 08/11/2017 FINDINGS: Single frontal radiographic view of the chest was obtained and demonstrates moderate cardiomegaly. Pulmonary vasculature is within normal limits. Lungs show low respiratory volumes with patchy bibasilar airspace opacities. There is no large effusion or pneumothorax. Bony structures show no gross acute abnormalities. IMPRESSION: 1. Low lung volumes with probable bibasilar atelectasis. 2. Cardiomegaly but no evidence of overt failure. Dictated by: Dictated on workstation # [id number]
--- NOTE | 2017-09-23 05:33 | Pulmonary Consultation ---
History of Present Illness History of Present Illness Date of Consultation 09/23/17 05:28 Time Seen by Provider: 05:28 Date of Admission History of Present Illness 52yo with hx of Budd-Chiari Malformation s/p recent surgery in [place], COPD, and CAD and was recently discharged from [facility] after a coarse of respiratory failure requiring intubation and ventilation. Pt started having having increased confusion and lethargy so family called EMS. He was placed on BiPAP in ED and admitted to ICU for close monitoring. Allergies and Home Medications Allergies Coded Allergies: amitriptyline (Verified Allergy, Unknown, 02/08/16) duloxetine (Verified Allergy, Unknown, 02/08/16) fluticasone (Verified Allergy, Unknown, 02/08/16) salmeterol (Verified Allergy, Unknown, 02/08/16) Home Medications Albuterol/Ipratropium 4 Gm Aero, 1 PUFF INH Q6H PRN for SHORTNESS OF BREATH, ( Reported) Alprazolam 1 Mg Tablet, 1 MG PO TID PRN for ANXIETY Prescribed by: DYLAN WHITE on 11/04/15 1032 Amlodipine Besylate 5 Mg Tablet, 5 MG PO DAILY Prescribed by: DYLAN WHITE on 11/04/15 1032 Azithromycin 250 Mg Tablet, 250 MG PO DAILY Prescribed by: CATRINA MCNEAL on 02/08/16 0502 Cefuroxime Axetil 250 Mg/5 Ml Susp.recon, 250 MG PO BID Prescribed by: CATRINA MCNEAL on 02/08/16 0502 Gabapentin 600 Mg Tablet, 1,200 MG PO TID, (Reported) TAKES 2 (600 MG) TABLETS Levofloxacin 500 Mg Tablet, 500 MG PO DAILY Prescribed by: MARK RAMOS on 08/11/17 213 Metoprolol Succinate 50 Mg Tab.er.24h, 50 MG PO DAILY Prescribed by: DYLAN WHITE on 11/04/15 1032 Naproxen 500 Mg Tablet, 500 MG PO BID PRN for PAIN, (Reported) Oxycodone HCl 80 Mg Tab.er.12h, 80 MG PO TID PRN for PAIN MAX OF 3 TABLETS TOTAL PER DAY Prescribed by: DYLAN WHITE on 11/04/15 1032 Oxycodone HCl 30 Mg Tablet, 30 MG PO Q4H PRN for BREAKTHROUGH PAIN MAX OF 6 TABLETS TOTAL PER DAY Prescribed by: DYLAN WHITE on 11/04/15 1032 Prednisone 20 Mg Tab, 20 MG PO DAILY 2 daily for 3 days, 1 daily for 3 days Prescribed by: MARK RAMOS on 08/11/17 2140 Valsartan 160 Mg Tablet, 160 MG PO DAILY, (Reported) Venlafaxine HCl 150 Mg Cap.er.24h, 150 MG PO DAILY, (Reported) Past Qswrqbk-Qboazz-Btlzlr Hx Patient Social History Alcohol Use: Denies Use Recreational Drug Use: No Smoking Status: Former Smoker Type Used: Cigarettes Former Smoker, Quit: Aug 11, 2016 Recent Foreign Travel: No Contact w/Someone Who Travel: No Recent Infectious Disease Expo: No Recent Hopitalizations: Yes (D/C FROM [facility] 09/20/17) Immunizations Up To Date Tetanus Booster (TDap): Less than 5yrs PED Vaccines UTD: No Seasonal Allergies Seasonal Allergies: No Surgeries History of Surgeries: Yes (2 BRAIN SURGERIES 2005-CHIARI MALFORMATION & CYST AROUND BRAINSTEM, C-SPINE) Surgeries: Abdominal, Neurological, Orthopedic Respiratory History of Respiratory Disorde: Yes Respiratory Disorders: Pneumonia, Chronic Bronchitis, COPD, Emphysema Currently Using CPAP: No Currently Using BIPAP: No Cardiovascular History of Cardiac Disorders: Yes Cardiac Disorders: Hypertension Neurological History of Neurological Disord: Yes (MENINGITIS POSTOP 2004 FOR CYST ON BRAINSTEM & CHIARI MALFORMATION. SHUNT) Neurological Disorders: Meningitis Reproductive System Hx Reproductive Disorders: No Gastrointestinal History of Gastrointestinal Di: No Musculoskeletal History of Musculoskeletal Dis: Yes (CHRONIC HEAD/NECK PAIN ) Endocrine History of Endocrine Disorders: No HEENT History of HEENT Disorders: No Cancer History of Cancer: No Psychosocial History of Psychiatric Problem: Yes Behavioral Health Disorders: Anxiety Integumentary History of Skin or Integumenta: No Blood Transfusions History of Blood Disorders: No Family Medical History Significant Family History: No Pertinent Family Hx Family Medial History: FH: cancer 19 MOTHER Exam Exam Vital Signs Date Time Temp Pulse Resp B/P (MAP) Pulse Ox O2 Delivery O2 Flow Rate FiO2 09/23/17 04:41 99 100 50 09/23/17 04:00 109 09/23/17 03:57 109 15 100 50.00 09/23/17 03:50 99.8 109 18 149/101 (117) 100 NIV Bilevel 50.00 09/23/17 03:45 111 20 137/80 95 NIV Bilevel 09/23/17 01:40 119 15 96 40.00 09/23/17 00:43 94 Nasal Cannula 3.00 09/23/17 00:19 98.9 107 14 156/111 (126) 94 Nasal Cannula 3.00 I & O 09/23/17 07:00 Intake Total 100 ml Balance 100 ml Capillary Refill: Less Than 3 Seconds Results Lab Laboratory Tests 09/23/17 01:15 Assessment/Plan Assessment/Plan Budd-Chiari Malformation s/p recent surgery in [place] Recent Acute respiratory failure requiring ventilator in [place] and Acute on chronic respiratory failure -Pt follows with pulmonology in [place] -Use BiPAP QHS and PRN -SVNS, prednisone taper HTN -restart home meds -Give Lopressor 5mg IV x 1 Chronic pain neck and back -restart home meds -Give morphine 4mg IV x1 -Pt sees a pain specialist in [place] JEANNE -Pt uses home CPAP machine Hx of meningitis 255 MIO FAROOQ DO Sep 23, 2017 05:33
[2017-09-23] MEDS ORDERED: meTOprolol 5 MG/5 ML (LOPRESSOR) VIAL ONE (05:37)
[2017-09-23] MEDS ORDERED: morphine INJ 4 MG/ML 1 ML (VIAL/SYRINGE) ONE (05:37)
[2017-09-23] MEDS ORDERED: morphine INJ 4 MG/ML 1 ML (VIAL/SYRINGE) IVP PRN (05:45)
[2017-09-23] MEDS ORDERED: RT-ALBUTEROL/IPRATROPIUM 3 ML (DUONEB) VIAL ONE (05:52)
[2017-09-23] MEDS ORDERED: VANCOMYCIN 1500 MG/NS 500 ML IVPB IV ONE ×2 (06:15)
[2017-09-23] MEDS ORDERED: fentaNYL INJECTION 100 MCG/2 ML AMP IV PRN (06:15)
[2017-09-23] MEDS: RT-ALBUTEROL/IPRATROPIUM 3 ML (DUONEB) VIAL INH SCH ×5 (06:34→22:17)
[2017-09-23] MEDS ORDERED: INFLUENZA TRIvalent 2017-2018 0.5 ML/45 MCG SYR IM ONE (07:00)
--- NOTE | 2017-09-23 07:37 | Diagnostic Imaging Report ---
INDICATION: Pneumonia. Acute on chronic respiratory failure. COMPARISON: Earlier same day FINDINGS: Single frontal radiographic view of the chest was obtained and demonstrates persistent mild cardiomegaly. Pulmonary vasculature is within normal limits. There has been interval development of left perihilar infiltrate appearing opacities. Right lung remains relatively clear. No large effusion or pneumothorax is seen on either side. Bony structures show no gross acute abnormalities. IMPRESSION: 1. Interval development of left perihilar infiltrate. Continued followup is recommended. Dictated by: Dictated on workstation # [id number]
[2017-09-23] MEDS ORDERED: RT-ADVAIR HFA 115/21 MCG PER PUFF IH SCH ×2 (08:00→20:00)
[2017-09-23] MEDS ORDERED: LEVOFLOXACIN 750 MG/D5W 150 ML PRE-MIX IV SCH ×2 (08:00→11:00)
[2017-09-23] MEDS ORDERED: methylPREDNISolone 125 MG (Solu-MEDROL) VIAL IV SCH (08:15)
[2017-09-23] MEDS: VALSARTAN 160 MG (DIOVAN) TABLET PO SCH (08:17)
[2017-09-23] MEDS: VENlafaxine XR 75 MG (EFFEXOR XR) CAP PO SCH (08:17)
[2017-09-23] MEDS: predniSONE 10 MG TAB PO SCH (08:17)
[2017-09-23] MEDS: meTOprolol TARTRATE 25 MG (LOPRESSOR) TABLET PO SCH ×2 (08:18→21:09)
[2017-09-23] MEDS: oxyCODONE ER 10 MG (OxyCONTIN CR) TAB PO PRN ×2 (08:19→21:18)
[2017-09-23] MEDS: CEFEPIME 2 GM/NS 100 ML IVPB IV SCH ×4 (08:20→21:06)
[2017-09-23] MEDS ORDERED: VANCOMYCIN 1500 MG/NS 500 ML IVPB IV NR ×2 (09:00)
[2017-09-23] MEDS ORDERED: CEFEPIME 2 GM/NS 100 ML IVPB IV SCH ×2 (09:00)
[2017-09-23] MEDS ORDERED: GABAPENTIN 600 MG (NEURONTIN) TAB PO ONE (09:00)
[2017-09-23] MEDS ORDERED: OXYC30TA80 PO (09:02)
[2017-09-23] MEDS ORDERED: METO-333 PO (09:02)
[2017-09-23] MEDS ORDERED: OXYC80TA35 PO (09:02)
--- NOTE | 2017-09-23 09:15 | History & Physical-Hospitalist ---
HPI History of Present Illness: HPI/Chief Complaint Pt is a 52yoAAM with a PMH of HTN. COPD, JEANNE, and Budd Chiari malformation who presented to the ER for AMS. He does not remember all of the details of his presentation so at bedside gives most of acute history. She reports he was discharged from a hospital in [facility] where he has surgery for his Budd Chiari malformation on 09/13. She reports that he was in the hospital for almost 2 weeks because he developed complications (pneumonia and renal failure) after his surgery. He was discharged on 09/20 and continued to worsen at home. He had shortness of breath and was getting confused. His states she gave him a breathing treatment and his oxycodone last night and after that he became more confused. When he was due for another pain pill she was too concerned about his mentation so called EMS who brought him to the ER where he was found to be in respiratory distress and placed on BiPAP. He was admitted to the ICU for monitoring. Source: patient Exam Limitations: clinical condition Date Seen 09/23/17 Time Seen by Provider: 08:10 Attending Physician Stephanie Bautista DO PCP No,Local Physician Referring Physician Date of Admission Sep 23, 2017 at 2:10 am Home Medications & Allergies Home Medications Reviewed patient Home Medication Reconciliation Form Allergies Allergies Coded Allergies amitriptyline (Verified Allergy, Unknown, 02/08/16) duloxetine (Verified Allergy, Unknown, 02/08/16) fluticasone (Verified Allergy, Unknown, 02/08/16) salmeterol (Verified Allergy, Unknown, 02/08/16) Past Mmdebhm-Afzbqy-Bmocie Hx Patient Social History Marrital Status: Employed/Student: unemployed (on disability) Alcohol Use: Denies Use Recreational Drug Use: No Smoking Status: Former Smoker Former Smoker, Quit: Aug 11, 2016 Type Used: Cigarettes Physical Abuse Screen: No Sexual Abuse: No Recent Foreign Travel: No Contact w/other who traveled: No Recent Hopitalizations: Yes (D/C FROM [facility] 09/20/17) Recent Infectious Disease Expo: No Immunizations Up To Date Tetanus Booster (TDap): Less than 5yrs Pediatric: No Seasonal Allergies Seasonal Allergies: No Surgeries Yes (2 BRAIN SURGERIES 2004-CHIARI MALFORMATION & CYST AROUND BRAINSTEM, C-SPINE ) Abdominal, Neurological, Orthopedic Respiratory Yes COPD, Pneumonia, Sleep Apnea Currently Using CPAP: No Currently Using BIPAP: No Cardiovascular Yes Hypertension Neurological Yes (MENINGITIS POSTOP 2004 FOR CYST ON BRAINSTEM & CHIARI MALFORMATION. SHUNT) Meningitis Reproductive System Hx Reproductive Disorders: No Gastrointestinal No Musculoskeletal Yes (CHRONIC HEAD/NECK PAIN ) Endocrine History of Endocrine Disorders: No HEENT History of HEENT Disorders: No Cancer No Psychosocial History of Psychiatric Problem: Yes Behavioral Health Disorders: Anxiety Integumentary History of Skin or Integumenta: No Blood Transfusions History of Blood Disorders: No Family Medical History Significant Family History: Heart Disease, Cancer, CVA Other Significan Family Hx: Mother- lung cancer Father- HTN and CVA Family Hx: FH: cancer 19 MOTHER Review of Systems ROS-Unable to Obtain: Limited due to somnolence Constitutional: No chills, No fever EENTM: no symptoms reported Respiratory: cough (mild), No phlegm, short of breath Cardiovascular: No chest pain, edema, No palpitations Gastrointestinal: No abdominal pain, No constipation, No diarrhea, No nausea, No vomiting Genitourinary: No dysuria, No frequency Musculoskeletal: back pain, neck pain (chronic) Skin: no symptoms reported Psychiatric/Neurological: Denies Headache, Denies Numbness Physical Exam Physical Exam Vital Signs Vital Signs - First Documented 09/23/17 09/23/17 00:19 04:10 Temp 98.9 Pulse 107 Resp 14 B/P (MAP) 156/111 (126) Pulse Ox 94 O2 Delivery Nasal Cannula O2 Flow Rate 3.00 FiO2 50 Capillary Refill : Less Than 3 Seconds General Appearance: No Apparent Distress, WD/WN HEENT: PERRL/EOMI, Moist Mucous Membranes, No Scleral Icterus (L), No Scleral Icterus (R) Neck: No JVD, Limited Range of Motion, No Thyromegaly Respiratory: No Respiratory Distress, Decreased Breath Sounds, No Wheezing Cardiovascular: No Edema, No Murmur, Normal Peripheral Pulses, Tachycardia Gastrointestinal: Normal Bowel Sounds, Non Tender, Soft Extremity: Normal Capillary Refill, No Calf Tenderness, No Pedal Edema Neurologic/Psychiatric: Alert, Oriented x3, No Motor/Sensory Deficits, No Facial Droop, Other (flat affect, still somewhat somnolent) Skin: Normal Color, Warm/Dry Results Results/Procedures Lab Laboratory Tests 09/23/17 01:15 09/23/17 09:13 Radiology Date of Exam:09/23/17 CHEST 1 VIEW, AP/PA ONLY INDICATION: Pneumonia. Acute on chronic respiratory failure. COMPARISON: Earlier same day FINDINGS: Single frontal radiographic view of the chest was obtained and demonstrates persistent mild cardiomegaly. Pulmonary vasculature is within normal limits. There has been interval development of left perihilar infiltrate appearing opacities. Right lung remains relatively clear. No large effusion or pneumothorax is seen on either side. Bony structures show no gross acute abnormalities. IMPRESSION: 1. Interval development of left perihilar infiltrate. Continued followup is recommended. Assessment/Plan Admission Diagnosis Acute Respiratory Distress Admission Status: Inpatient Order (span 2 midnights) Reason for Inpatient Admission: Acute respiratory disress necessitating NIPPV Diagnosis/Problems Diagnosis/Problems (1) Respiratory distress Assessment & Plan: Placed on BiPAP in ER Mentation improving, resp status improving Taken off BiPAP this AM and doing well Pulm consulted, appreciate recs MAT Protocol (2) Pneumonia Status: Acute Assessment & Plan: Recent admission and intubation in OSH Will request records I reviewed CXR image- left parahilar infiltrate noted Continue broad spectrum abx to cover for HCAP Levaquin, Vanc, Cefepime Lactic acid normal No sepsis criteria on admission now has leukocytosis but likely due to steroids No fever, will trend Qualifiers: Qualified Codes: J18.9 - Pneumonia, unspecified organism (3) COPD (chronic obstructive pulmonary disease) Status: Chronic Assessment & Plan: Pulm consulted, appreciate recs MAT protocol Continue prednisone taper Continue Advair Qualifiers: Qualified Codes: J44.9 - Chronic obstructive pulmonary disease, unspecified (4) Essential (primary) hypertension Assessment & Plan: BP elevated this AM Will resume home antihypertensives (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 has history of meningitis no signs or symptoms of meningitis (6) Chronic pain Assessment & Plan: Likely contributed to AMS Use narcotics sparingly if able Qualifiers: Qualified Codes: G89.29 - Other chronic pain (7) Prophylactic measure Assessment & Plan: Lovenox Saline Lock diet [id number] Clinical Quality Measures DVT/VTE Risk/Contraindication: Risk Factor Score Per Nursin RFS Level Per Nursing on Admit: 4+=Very High YIN ARELLANO MD Sep 23, 2017 9:15 am
[2017-09-23 09:19] LABS: BASOPHILS % (AUTO) 0 % (0-10); EOSINOPHILS % (AUTO) 0 % (0-10); HEMATOCRIT 35 % (40-54); HEMOGLOBIN 11.2 G/DL (13.3-17.7); LYMPHOCYTES # (AUTO) 0.7 X 10^3 (1.0-4.0); LYMPHOCYTES % (AUTO) 6 % (12-44); MEAN CORPUSCULAR HEMOGLOBIN 28 PG (25-34); MEAN CORPUSCULAR HGB CONC 33 G/DL (32-36); MEAN CORPUSCULAR VOLUME 87 FL (80-99); MEAN PLATELET VOLUME 9.7 FL (7.4-10.4); MONOCYTES # (AUTO) 0.6 X 10^3 (0.0-1.0); MONOCYTES % (AUTO) 6 % (0-12); NEUTROPHILS % (AUTO) 88 % (42-75); PLATELET COUNT 312 10^3/uL (130-400); RED BLOOD COUNT 3.96 10^6/uL (4.35-5.85); RED CELL DISTRIBUTION WIDTH 12.9 % (10.0-14.5); WHITE BLOOD COUNT 11.3 10^3/uL (4.3-11.0)
[2017-09-23] MEDS ORDERED: TIOT18CA2 INH (09:19)
[2017-09-23] MEDS ORDERED: BUDE10.2 INH (09:19)
[2017-09-23] MEDS ORDERED: DICL75TA2 PO (09:27)
[2017-09-23] MEDS ORDERED: NAPR220T66 PO (09:27)
[2017-09-23] MEDS ORDERED: CYCL10TA9 PO (09:27)
[2017-09-23] MEDS ORDERED: NALO2AUT INJ (09:35)
[2017-09-23 09:42] LABS: ALANINE AMINOTRANSFERASE 28 U/L (0-55); ALBUMIN 3.6 GM/DL (3.2-4.5); ALKALINE PHOSPHATASE 65 U/L (40-136); BILIRUBIN,TOTAL 0.4 MG/DL (0.1-1.0); BUN/CREATININE RATIO 14; CALCIUM 9.2 MG/DL (8.5-10.1); CARBON DIOXIDE 25 MMOL/L (21-32); CHLORIDE 106 MMOL/L (98-107); CREATININE SERUM 0.77 MG/DL (0.60-1.30); GFR ESTIMATED > 60; GLUCOSE 170 MG/DL (70-105); MAGNESIUM 1.7 MG/DL (1.8-2.4); PHOSPHORUS 2.7 MG/DL (2.3-4.7); POTASSIUM 4.2 MMOL/L (3.6-5.0); SODIUM 139 MMOL/L (135-145); TOTAL PROTEIN 7.1 GM/DL (6.4-8.2)
[2017-09-23 09:46] LABS: BAND NEUTROPHILS 9 %; BASOPHILS % (MANUAL) 0 %; EOSINOPHILS % (MANUAL) 0 %; LYMPHOCYTES % (MANUAL) 7 %; METAMYELOCYTES % 1 %; MONOCYTES % (MANUAL) 5 %; NEUTROPHILS % (MANUAL) 76 %; REACTIVE LYMPHOCYTES 2 %
[2017-09-23 09:47] LABS: ELLIPT/OVALOCYTES SLIGHT; POIKILOCYTOSIS SLIGHT; TOXIC GRANULATION/VACUOLAZATIO 2+
[2017-09-23 09:48] LABS: ROULEAUX SLIGHT
--- NOTE | 2017-09-23 12:07 | Physical Therapy Evaluation ---
PT Evaluation-General Medical Diagnosis Admission Date Sep 23, 2017 at 02:10 Medical Diagnosis: resp distress Onset Date: Sep 22, 2017 Therapy Diagnosis Therapy Diagnosis: weakness; abn gait Height/Weight Height (Feet): 5 Height (Inches): 5.00 Weight (Pounds): 183 Weight (Ounces): 8.0 Precautions Precautions/Isolations: Fall Prevention, Standard Precautions Weight Bear Status Right Lower Extremity: Right Full Weight Bearing Left Lower Extremity: Left Full Weight Bearing Referral Physician: Kevin Reason for Referral: Evaluation/Treatment Medical History Pertinent Medical History: COPD, HTN Additional Medical History Budd Chiari formation; has a shunt Current History Pt is a 52yoAAM with a PMH of HTN. COPD, JEANNE, and Budd Chiari malformation who presented to the ER for AMS. He does not remember all of the details of his presentation so at bedside gives most of acute history. She reports he was discharged from a hospital in [facility] where he has surgery for his Budd Chiari malformation on 09/13. She reports that he was in the hospital for almost 2 weeks because he developed complications (pneumonia and renal failure) after his surgery. He was discharged on 09/20 and continued to worsen at home. He had shortness of breath and was getting confused. His states she gave him a breathing treatment and his oxycodone last night and after that he became more confused. When he was due for another pain pill she was too concerned about his mentation so called EMS who brought him to the ER where he was found to be in respiratory distress and placed on BiPAP. He was admitted to the ICU for monitoring. Social History Home: Multilevel Current Living Status: Significant Other Entry Into Home: Stairs With Railing Prior/Core FIM Prior Level of Function Functional [place] Measure 0=Not Assessed/NA 4=Minimal Assistance 1=Total Assistance 5=Supervision or Setup 2=Maximal Assistance 6=Modified [place] 3=Moderate Assistance 7=Complete [place] Bed Mobility: 7 Transfers (B,C,W/C) (FIM): 7 Gait: 7 Patient's prior function is indep and community ambulator PT Evaluation-Current Subjective Agrees to PT. No complaints. Reports he feels he could manage at home but asks this therapists advice. Objective Patient Orientation: Person, Place, Time, Situation Problem Solving: Good Attachments: Oxygen, Ha Catheter, IV ROM/Strength ROM Lower Extremities WNL Strength Lower Extremities Grossly 4+/5 throughout Integumentary/Posture Integumentary Refer to nursing notes. Bowel Incontinence: No Bladder Incontinence: Ha Cath Posture normal and symmetrical Neuromuscular (Tone, Coordination, Reflexes) no noted functional deficits Sensory Vision: Functional Hearing: Functional Hand Dominance: Right Sensation Right Lower Extremit: Intact Sensation Left Lower Extremity: Intact Transfers Functional [place] Measure 0=Not Assessed/NA 4=Minimal Assistance 1=Total Assistance 5=Supervision or Setup 2=Maximal Assistance 6=Modified [place] 3=Moderate Assistance 7=Complete [place] Transfers (B, C, W/C) (FIM): 5 Supine to/from Sit: 5 (Pt able to get in and out of bed without assist; SBA provided due to multiple attachments. He did not use the bed rail for transfer either. ) Sit to/from Stand: 5 (SBA from chair and from bed. Steadywith initial standing. ) Gait Mode of Locomotion: Walk Anticipated Mode of Locomotion: Walk Gait (FIM): 5 Distance (FIM): 3=150 ft Distance: 200 ft Gait Assistive Device: FWW Comments/Gait Description Pt walked 200 ft with FWW with SBA. Safe and steady gait; no noted LOB. Balance Sitting Static: Good Sitting Dynamic: Good Standing Static: Good Standing Dynamic: Good Treatment Spent time educating pt on benefits of continued therapy services on ARU versus C or outpt PT. Assessment/Needs Pt presents post complicated recent past hospital course. He demonstrates slight functional deficits likely associated with an acute hospital stay. He requires SBA with all functional mobiltiy and has a decreased functional activity tolerance. Rehab Potential: Good PT Senior Care Goals International Manager Goals PT Senior Care Goals Time Frame: Sep 27, 2017 Transfers (B,C,W/C) (FIM): 7 Gait (FIM): 6 Gait Assistive Device: FWW PT Plan Problem List Problem List: Activity Tolerance, Functional Strength, Safety Treatment/Plan Treatment Plan: Continue Plan of Care Treatment Plan: Education, Functional Activity Vanesa, Functional Strength, Gait , Safety, Therapeutic Exercise, Transfers Treatment Duration: Sep 27, 2017 Frequency: 6 times per week Estimated Hrs Per Day: .5 hour per day Patient and/or Family Agrees t: Yes Safety Risks/Education Patient Education: Transfer Techniques, Safety Issues Teaching Recipient: Patient Teaching Methods: Demonstration, Discussion Response to Teaching: Reinforcement Needed Time/GCodes Time In: 1115 Time Out: 1145 Total Billed Treatment Time: 30 Total Billed Treatment visit EVM 15 FA 15 ROBY HARTLEY PT Sep 23, 2017 12:07
[2017-09-23] MEDS: NAPROXEN 250 MG (NAPROSYN) TABLET PO PRN ×2 (12:33→21:18)
[2017-09-23] MEDS: CYCLOBENZAPRINE 10 MG (FLEXERIL) TAB PO PRN ×2 (12:33→21:18)
[2017-09-23] MEDS ORDERED: LEVOFLOXACIN 750 MG TAB (LEVAQUIN) PO SCH (15:00)
[2017-09-23] MEDS ORDERED: TAMSULOSIN 0.4 MG (FLOMAX) CAP PO SCH (18:00)
[2017-09-23] MEDS ORDERED: IBUPROFEN TABLET 200 MG TAB PO NR (18:45)
[2017-09-23] MEDS ORDERED: VANCOMYCIN 1250 MG/NS 250 ML IVPB IV SCH ×2 (19:00)
[2017-09-23] MEDS: VANCOMYCIN 1250 MG/NS 250 ML IVPB IV SCH ×2 (21:54)
[2017-09-23] MEDS ORDERED: ALPRAZolam 0.5 MG (XANAX) TAB PO PRN (23:00)
[2017-09-23] MEDS: GABAPENTIN 600 MG (NEURONTIN) TAB PO SCH (23:23)
[2017-09-24] VITALS (12 sets, daily range): BP systolic 116–142; BP diastolic 62–97
[2017-09-24] MEDS: RT-ALBUTEROL/IPRATROPIUM 3 ML (DUONEB) VIAL INH SCH ×3 (03:29→10:12)
[2017-09-24 03:50] LABS: BASOPHILS % (AUTO) 0 % (0-10); EOSINOPHILS # (AUTO) 0.1 10^3/uL (0.0-0.3); EOSINOPHILS % (AUTO) 1 % (0-10); HEMATOCRIT 30 % (40-54); HEMOGLOBIN 9.6 G/DL (13.3-17.7); LYMPHOCYTES # (AUTO) 1.7 X 10^3 (1.0-4.0); LYMPHOCYTES % (AUTO) 19 % (12-44); MEAN CORPUSCULAR HEMOGLOBIN 29 PG (25-34); MEAN CORPUSCULAR HGB CONC 33 G/DL (32-36); MEAN CORPUSCULAR VOLUME 88 FL (80-99); MEAN PLATELET VOLUME 9.9 FL (7.4-10.4); MONOCYTES # (AUTO) 0.9 X 10^3 (0.0-1.0); MONOCYTES % (AUTO) 10 % (0-12); NEUTROPHILS # (AUTO) 6.7 X 10^3 (1.8-7.8); NEUTROPHILS % (AUTO) 71 % (42-75); PLATELET COUNT 267 10^3/uL (130-400); RED BLOOD COUNT 3.37 10^6/uL (4.35-5.85); WHITE BLOOD COUNT 9.3 10^3/uL (4.3-11.0)
[2017-09-24 04:07] LABS: BUN/CREATININE RATIO 26; CALCIUM 9.1 MG/DL (8.5-10.1); CARBON DIOXIDE 27 MMOL/L (21-32); CHLORIDE 108 MMOL/L (98-107); CREATININE SERUM 0.74 MG/DL (0.60-1.30); GFR ESTIMATED > 60; GLUCOSE 102 MG/DL (70-105); MAGNESIUM 1.9 MG/DL (1.8-2.4); POTASSIUM 3.8 MMOL/L (3.6-5.0); SODIUM 142 MMOL/L (135-145)
--- NOTE | 2017-09-24 04:48 | Pulmonary Progress Note ---
Subjective Time Seen by Provider: 04:45 Subjective/Events-last exam Pt is doing better. Exam Exam Vital Signs Date Time Temp Pulse Resp B/P (MAP) Pulse Ox O2 Delivery O2 Flow Rate FiO2 09/24/17 04:00 Nasal Cannula 3.00 09/24/17 04:00 85 9 117/73 (88) 100 Nasal Cannula 3.00 09/24/17 03:30 100 Nasal Cannula 3.00 09/24/17 03:00 88 12 136/94 (108) 100 Nasal Cannula 3.00 09/24/17 02:00 92 11 134/94 (107) 100 Nasal Cannula 3.00 09/24/17 01:00 93 09/24/17 01:00 93 8 128/89 (102) 100 Nasal Cannula 3.00 09/24/17 00:00 Nasal Cannula 3.00 09/24/17 00:00 93 10 141/90 (107) 93 Nasal Cannula 3.00 09/23/17 23:15 98.5 09/23/17 23:00 97 11 147/95 (112) 98 Nasal Cannula 3.00 09/23/17 22:17 100 Nasal Cannula 3.00 09/23/17 22:00 98 14 130/92 (105) 100 Nasal Cannula 3.00 09/23/17 21:00 98 16 162/108 (126) 96 Nasal Cannula 3.00 09/23/17 20:00 106 32 130/74 (92) 98 Nasal Cannula 3.00 09/23/17 20:00 Nasal Cannula 3.00 09/23/17 20:00 98.6 09/23/17 19:23 100 Nasal Cannula 3.00 09/23/17 19:00 86 09/23/17 19:00 86 10 157/111 (126) 99 Nasal Cannula 3.00 09/23/17 18:00 86 13 146/100 (115) 100 Nasal Cannula 3.00 09/23/17 17:00 83 10 143/88 (106) 100 Nasal Cannula 3.00 09/23/17 16:00 83 11 137/91 (106) 97 Nasal Cannula 3.00 09/23/17 15:00 77 11 127/87 (100) 97 Nasal Cannula 3.00 09/23/17 14:46 95 Nasal Cannula 3.00 09/23/17 14:00 73 10 136/92 (107) Nasal Cannula 3.00 09/23/17 13:00 80 09/23/17 13:00 86 16 159/103 (121) 90 Nasal Cannula 3.00 09/23/17 12:00 88 13 148/90 (109) Nasal Cannula 3.00 09/23/17 11:57 Nasal Cannula 3.00 09/23/17 11:57 97.6 Nasal Cannula 3.00 09/23/17 11:00 105 32 155/102 (119) Nasal Cannula 3.00 09/23/17 10:40 99 Nasal Cannula 3.00 09/23/17 10:00 108 15 146/93 (110) Nasal Cannula 3.00 09/23/17 09:00 113 17 152/101 (118) Nasal Cannula 3.00 09/23/17 08:20 98.0 09/23/17 08:20 Nasal Cannula 3.00 09/23/17 08:00 115 17 152/99 (116) Nasal Cannula 3.00 09/23/17 07:00 114 09/23/17 07:00 112 15 164/106 (125) Nasal Cannula 3.00 09/23/17 06:37 98 Nasal Cannula 3.00 09/23/17 06:00 110 16 157/101 (119) Nasal Cannula 3.00 09/23/17 05:46 Nasal Cannula 3.00 09/23/17 05:00 109 16 168/2 (57) NIV Bilevel 50.00 I & O 09/24/17 07:00 Intake Total 2158.5 ml Output Total 1025 ml Balance 1133.5 ml General Appearance: No Apparent Distress, WD/WN HEENT: PERRL/EOMI, Moist Mucous Membranes, No Scleral Icterus (L), No Scleral Icterus (R) Neck: No JVD, Limited Range of Motion, No Thyromegaly Respiratory: No Respiratory Distress, Decreased Breath Sounds, No Wheezing Cardiovascular: No Edema, No Murmur, Normal Peripheral Pulses, Tachycardia Capillary Refill: Less Than 3 Seconds Extremity: Normal Capillary Refill, No Calf Tenderness, No Pedal Edema Neurologic/Psychiatric: Alert, Oriented x3, No Motor/Sensory Deficits, No Facial Droop, Other (flat affect, still somewhat somnolent) Skin: Normal Color, Warm/Dry Results Lab Laboratory Tests 09/23/17 01:15 09/23/17 09:13 09/24/17 03:30 Assessment/Plan Assessment/Plan Budd-Chiari Malformation s/p recent surgery in [facility] Recent Acute respiratory failure requiring ventilator in [place] and Acute on chronic respiratory failure -Pt follows with pulmonology in [place] -Use BiPAP QHS and PRN -SVNS, prednisone taper Pneumonia with Atelectasis -Increase activity -Check CT of chest r/o MASS -IS HTN Chronic pain neck and back -restart home meds -Give morphine 4mg IV x1 -Pt sees a pain specialist in [place] JEANNE -Pt uses home CPAP machine Will transfer pt to 4th floor. 233 MIO FAROOQ DO Sep 24, 2017 04:48
[2017-09-24] MEDS: VENlafaxine XR 75 MG (EFFEXOR XR) CAP PO SCH (05:34)
[2017-09-24] MEDS ORDERED: KCL 20 MEQ TAB (K-DUR) PO SCH (06:00)
[2017-09-24] MEDS ORDERED: POTASSIUM CL 10MEQ/50ML IVPB 50 ML IV SCH (06:00)
[2017-09-24] MEDS ORDERED: MAGNESIUM 1 GM/100 ML IVPB 100 ML IV SCH (06:00)
--- NOTE | 2017-09-24 07:50 | Progress Note-Hospitalist ---
Subjective HPI/CC On Admission Date Seen by Provider: Sep 24, 2017 Time Seen by Provider: 07:20 Pt is a 52yoAAM with a PMH of HTN. COPD, JEANNE, and Budd Chiari malformation who presented to the ER for AMS. He does not remember all of the details of his presentation so at bedside gives most of acute history. She reports he was discharged from a hospital in [facility] where he has surgery for his Budd Chiari malformation on 09/13. She reports that he was in the hospital for almost 2 weeks because he developed complications (pneumonia and renal failure) after his surgery. He was discharged on 09/20 and continued to worsen at home. He had shortness of breath and was getting confused. His states she gave him a breathing treatment and his oxycodone last night and after that he became more confused. When he was due for another pain pill she was too concerned about his mentation so called EMS who brought him to the ER where he was found to be in respiratory distress and placed on BiPAP. He was admitted to the ICU for monitoring. Subjective/Events-last exam Pt reports doing well. Denies any complaints to me. Eating well. Denies pain. Was offered IRU in [place] but attempted to go home and do outpatient therapy with [facility]. Will reconsider IRU today. at bedside. No concerns. Objective Exam Vital Signs Vital Signs Date Time Temp Pulse Resp B/P (MAP) Pulse Ox O2 Delivery O2 Flow Rate FiO2 09/23/17 00:19 98.9 107 14 156/111 (126) 94 Nasal Cannula 3.00 09/23/17 04:10 50 Capillary Refill : Less Than 3 Seconds General Appearance: No Apparent Distress, WD/WN Respiratory: Lungs Clear, No Respiratory Distress Cardiovascular: Regular Rate, Rhythm, No Murmur Gastrointestinal: Normal Bowel Sounds, Non Tender, Soft Extremity: Non Tender, No Calf Tenderness, No Pedal Edema Neurologic/Psychiatric: Alert, Oriented x3, Normal Mood/Affect Results/Procedures Lab Laboratory Tests 09/24/17 03:30 Assessment/Plan Assessment and Plan Assess & Plan/Chief Complaint Acute Respiratory Distress Diagnosis/Problems Diagnosis/Problems (1) Respiratory distress Status: Resolved Assessment & Plan: Mentation improving, resp status improving Taken off BiPAP 3/8 AM and doing well Pulm consulted, appreciate recs MAT Protocol Likely multifactorial with COPD, JEANNE, and multiple sedative medications (2) Pneumonia Status: Acute Assessment & Plan: Recent admission and intubation in OSH Will request records I again reviewed CXR image- left sided infiltrate Continue broad spectrum abx to cover for HCAP Levaquin, Vanc, Cefepime Lactic acid normal No sepsis criteria Qualifiers: Qualified Codes: J18.9 - Pneumonia, unspecified organism (3) COPD (chronic obstructive pulmonary disease) Status: Chronic Assessment & Plan: Pulm consulted, appreciate recs MAT protocol Continue prednisone taper Qualifiers: Qualified Codes: J44.9 - Chronic obstructive pulmonary disease, unspecified (4) Essential (primary) hypertension Assessment & Plan: BP improved with home meds (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 has history of meningitis no signs or symptoms of meningitis (6) Chronic pain Assessment & Plan: Narcotic use likely contributed to AMS Use narcotics sparingly if able Qualifiers: Qualified Codes: G89.29 - Other chronic pain (7) Prophylactic measure Assessment & Plan: Lovenox Saline Lock YIN Diaz MD Sep 24, 2017 7:50 am
[2017-09-24] MEDS ORDERED: TROUGH ORDER-PHARMACY XX ONE (08:00)
--- NOTE | 2017-09-24 08:08 | Diagnostic Imaging Report ---
EXAMINATION: Chest radiograph, portable AP view. DATE: 09/24/2012 at 0223 hours. INDICATION: 52-year-old male, respiratory distress, sepsis. COMPARISON: 09/23/2017. FINDINGS: There is partially visualized spinal fusion hardware. Stable overall appearance of the cardiomediastinal silhouette. There is no identified pneumothorax. There is no large pleural effusion. There is multifocal airspace consolidation in the left lung which appears essentially unchanged since comparison exam. There are streaky opacities in the right perihilar region and medial aspect of the right lung base. There are persistent and grossly unchanged the low lung volumes. There is fixation screw hardware in the right proximal humerus. IMPRESSION: 1. Unchanged multifocal airspace consolidation in the left lung and streaky opacities in the right lung. 2. Unchanged low lung volumes. Dictated by: Dictated on workstation # [id number]
[2017-09-24] MEDS: predniSONE 10 MG TAB PO SCH (09:01)
[2017-09-24] MEDS: VANCOMYCIN 1250 MG/NS 250 ML IVPB IV SCH ×2 (09:02)
[2017-09-24] MEDS: GABAPENTIN 600 MG (NEURONTIN) TAB PO SCH (09:02)
[2017-09-24] MEDS: meTOprolol TARTRATE 25 MG (LOPRESSOR) TABLET PO SCH (09:03)
[2017-09-24] MEDS: oxyCODONE ER 10 MG (OxyCONTIN CR) TAB PO PRN (09:04)
[2017-09-24] MEDS: CEFEPIME 2 GM/NS 100 ML IVPB IV SCH ×2 (09:20)
--- NOTE | 2017-09-24 09:28 | Physical Therapy Daily Note ---
PT Daily Note-Current Subjective Patient reports he wants to return to home on this date. Dr. Brown is aware. Pain Numeric Pain Scale: 0-No Pain Location: No Pain Reported Mental Status Patient Orientation: Normal For Age Transfers Functional [place] Measure 0=Not Assessed/NA 4=Minimal Assistance 1=Total Assistance 5=Supervision or Setup 2=Maximal Assistance 6=Modified [place] 3=Moderate Assistance 7=Complete IndependenceIRFPAI Quality Coding Scale 6 Independent with activity with or without an assistive device 5 Patient requires set up or clean up by helper. Patient completes activity by themselves 4 Supervision or touching assist (CGA). [place] provide cues , steadying assist 3 The helper provides less than half the effort to complete the activity 2 The helper provides more than half the effort to complete the activity 1 Dependent. The helper does all the effort to complete an activity 7 Patient refused to complete or attempt activity 9 The patient did not perform the activity before the current illness or injury 88 Not attempted due to Medical conditions or safety concerns Transfers (B, C, W/C) (FIM): 6 Scootin Rollin Supine to/from Sit: 6 Sit to/from Stand: 6 Weight Bearing Right Lower Extremity: Right Full Weight Bearing Left Lower Extremity: Left Full Weight Bearing Gait Training Gait (FIM): 6 Distance (FIM): 3=150 ft Distance: 375' Gait Level of Assist: 6 Gait Assistive Device: FWW safe, functional, steady Assessment Patient much improved on this date and will be dismissed from PT services at this time. PT Shelter Goals Shelter Goals PT Showroom Manager Goals Time Frame: Sep 27, 2017 Transfers (B,C,W/C) (FIM): 7 Gait (FIM): 6 Gait Assistive Device: FWW PT Plan Treatment/Plan Treatment Plan: Discontinue PT Treatment Plan: Education, Functional Activity Vanesa, Functional Strength, Gait , Safety, Therapeutic Exercise, Transfers Treatment Duration: Sep 27, 2017 Frequency: 6 times per week Estimated Hrs Per Day: .5 hour per day Patient and/or Family Agrees t: Yes Time/GCodes Time In: 811 Time Out: 826 Total Billed Treatment Time: 15 Total Billed Treatment 1 visit FA 15 min SAMMIE [id number] PT Sep 24, 2017 09:28
[2017-09-24] MEDS: VALSARTAN 160 MG (DIOVAN) TABLET PO SCH (09:54)
[2017-09-24] MEDS ORDERED: PRD10T PO (10:15)
[2017-09-24] MEDS ORDERED: CEFD300C3 PO (10:34)
--- NOTE | 2017-09-24 11:46 | Occupational Therapy Eval ---
OT Evaluation-General/PLF Medical Diagnosis Admission Date Sep 23, 2017 at 02:10 Medical Diagnosis: resp distress Onset Date: Sep 22, 2017 Therapy Diagnosis Therapy Diagnosis: debility Height/Weight Height (Feet): 5 Height (Inches): 5.00 Weight (Pounds): 186 Weight (Ounces): 8.0 Precautions Precautions/Isolations: Fall Prevention, Standard Precautions Safety Interventions: Reorient-PRN Referral Physician: Kevin Medical History Pertinent Medical History: COPD, HTN Additional Medical History Budd Chiari formation; has a shunt Reviewed History: Yes Social History Home: Multilevel (fiance states pt will be able to stay on main level) Current Living Status: Significant Other Entry Into Home: Stairs With Railing Steps Into Home: 4 ADL-Prior Level of Function ADL PLOF Comments Pt states since recent hospitalization he's been receiving assist as needed. DME/Equipment: Bedside Commode, Shower, Tub/Shower DME/Equipment Comments w/c, FWW, 4WW OT Current Status Subjective Pt sitting EOB, agrees to therapy. Pt reports 7/10 head pain. Pt states he should be going home today. Mental Status/Objective Patient Orientation: Person, Place Attachments: IV, Oxygen Current Glasses/Contacts: Yes (reading) Hand Dominance: Right Upper Extremity ROM Mildly decreased shoulder ROM, remainder grossly WFL Upper Extremity Sensation Pt reports numbness in right hand that has been present for some time. Upper Extremity Strength Mildly decreased bilateral UE ADL-Treatment ADL-Current Pt participated in UE assessment while seated EOB. Pt sit to stand with modified independence. Demonstrates ability to transfer with SBA. Pt doffed socks without assistance, but requires CGA for balance while donning sock. Pt states he has been feeding himself without assist. Pt states he should be going home today and has no questions or concerns regarding ADLs or home safety. States fiance will be able to assist if needed. Pt sitting EOB with needs met after session. Functional Potter Measure 0=Not Assessed/NA 4=Minimal Assistance 1=Total Assistance 5=Supervision or Setup 2=Maximal Assistance 6=Modified Potter 3=Moderate Assistance 7=Complete IndependenceIRFPAI Quality Coding Scale 6 Independent with activity with or without an assistive device 5 Patient requires set up or clean up by helper. Patient completes activity by themselves 4 Supervision or touching assist (CGA). [place] provide cues , steadying assist 3 The helper provides less than half the effort to complete the activity 2 The helper provides more than half the effort to complete the activity 1 Dependent. The helper does all the effort to complete an activity 7 Patient refused to complete or attempt activity 9 The patient did not perform the activity before the current illness or injury 88 Not attempted due to Medical conditions or safety concerns Lower Body Dressing (FIM): 4 (socks only) Education OT Patient Education: Rehab process Teaching Recipient: Patient Teaching Methods: Discussion Response to Teaching: Verbalize Understanding OT Short Term Goals Short Term Goals 1=Demonstrate adherence to instructed precautions during ADL tasks. 2=Patient will verbalize/demonstrate understanding of assistive devices/ modifications for ADL. 3=Patient will improve strength/tolerance for activity to enable patient to perform ADL's. OT Jig Grinder Set Up Operator Goals Prison Goals Time Frame: Oct 01, 2017 Bathing(FIM): 5 Upper Body Dressing(FIM): 6 Lower Body Dressing(FIM): 6 Toileting(FIM): 6 Toilet/Commode Transfer(FIM): 6 Additional Goals: 2-Verbalize Understanding, 3-ImproveStrength/Vanesa 1=Demonstrate adherence to instructed precautions during ADL tasks. 2=Patient will verbalize/demonstrate understanding of assistive devices/ modifications for ADL. 3=Patient will improve strength/tolerance for activity to enable patient to perform ADL's. OT Education/Plan Problem List/Assessment Assessment: Decreased UE Strength, Dependent Transfers, Impaired Self-Care Skills Pt admitted with resp distress. Pt would benefit from short term OT while hospitalized for ADL training, strengthening, and transfers to increase functional independence. Discharge Recommendations Plan/Recommendations: Continue POC Treatment Plan/Plan of Care Treatment,Training & Education: Yes Patient would benefit from OT for education, treatment and training to promote independence in ADL's, mobility, safety and/or upper extremity function for ADL' s. Plan of Care: ADL Retraining, Functional Mobility, UE Funct Exercise/Act Treatment Duration: Oct 01, 2017 Frequency: 5 times per week Estimated Hrs Per Day: .25 hour per day Rehab Potential: Good Time/GCodes Start Time: 10:31 Stop Time: 10:50 Total Time Billed (hr/min): 19 Billed Treatment Time 1 visit, FRANCISCO(19minutes) SHAHID WASHINGTON OT Sep 24, 2017 11:46
--- NOTE | 2017-09-24 12:35 | Discharge Summary-Hospitalist ---
Diagnosis/Chief Complaint Date of Admission Sep 23, 2017 at 2:10 am Date of Discharge Discharge Date: Sep 24, 2017 Discharge Time: 1200 Admission Diagnosis Acute Respiratory Distress Discharge Diagnosis Acute Respiratory Distress (1) Respiratory distress Status: Resolved Assessment & Plan: Mentation improving, resp status improving Taken off BiPAP 3/8 AM and doing well Pulm consulted, appreciate recs MAT Protocol Likely multifactorial with COPD, JEANNE, and multiple sedative medications (2) Pneumonia Status: Acute Assessment & Plan: Recent admission and intubation in OSH Will request records I again reviewed CXR image- left sided infiltrate Continue broad spectrum abx to cover for HCAP Levaquin, Vanc, Cefepime while inpatient but deescalate to Omnicef as was recently on Levaquin (1 month ago) and MRSA screen is negative Lactic acid normal No sepsis criteria (3) COPD (chronic obstructive pulmonary disease) Status: Chronic Assessment & Plan: Pulm consulted, appreciate recs MAT protocol Continue prednisone taper Will follow up with his Sales Force Developer in 1 week (4) Essential (primary) hypertension Assessment & Plan: BP improved with home meds (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 has history of meningitis no signs or symptoms of meningitis (6) Chronic pain Assessment & Plan: Narcotic use likely contributed to AMS Use narcotics sparingly if able Discussed this with patient and recommended using narcotics sparingly at home and only when needed (7) Prophylactic measure Assessment & Plan: Lovenox Saline Lock [facility] diet Discharge Summary Consultations Dr Chance- Pulmonology Discharge Physical Examination Allergies: Coded Allergies: amitriptyline (Verified Allergy, Unknown, 02/08/16) duloxetine (Verified Allergy, Unknown, 02/08/16) fluticasone (Verified Allergy, Unknown, 02/08/16) salmeterol (Verified Allergy, Unknown, 02/08/16) Vitals & I&Os Vital Signs Date Time Temp Pulse Resp B/P (MAP) Pulse Ox O2 Delivery O2 Flow Rate FiO2 09/24/17 10:13 98 Nasal Cannula 3.00 09/24/17 10:00 91 9 142/97 (112) 09/24/17 09:34 98.2 09/23/17 04:41 50 Hospital Course Pt is a 52yoCm with a PMH of COPD, JEANNE, and recent surgery for his budd chiari malformation who presented to the ER for AMS and respiratory distress. He was place don BiPAP and found to have left parahilar pneumonia on CXR. He was started on broad spectrum antibiotics given his recent hospital admission and intubation in [place], [place]. He responded well and was feeling back to normal on day 2 of his hospital stay. He underwent home oxygen study and required 3lpm at rest which was ordered. He reports he will follow up with his dot net developer in [place] (Dr. Fung) for outpatient CT and management of COPD. We did discussed the role of his pain medications and their sedative side effects and the potential for respiratory depression so to use sparingly. Family at bedside and comfortable with plan to DC home. He was previously set up to attend PT with [facility] so will resume that. Labs (last 24 hrs) Laboratory Tests 09/24/17 03:30: White Blood Count 9.3, Red Blood Count 3.37L, Hemoglobin 9.6L, Hematocrit 30L, Mean Corpuscular Volume 88, Mean Corpuscular Hemoglobin 29, Mean Corpuscular Hemoglobin Concent 33, Red Cell Distribution Width 13.0, Platelet Count 267, Mean Platelet Volume 9.9, Neutrophils (%) (Auto) 71, Lymphocytes (%) (Auto) 19, Monocytes (%) (Auto) 10, Eosinophils (%) (Auto) 1, Basophils (%) (Auto) 0, Neutrophils # (Auto) 6.7, Lymphocytes # (Auto) 1.7, Monocytes # (Auto) 0.9, Eosinophils # (Auto) 0.1, Basophils # (Auto) 0.0, Sodium Level 142, Potassium Level 3.8, Chloride Level 108H, Carbon Dioxide Level 27, Anion Gap 7, Blood Urea Nitrogen 19H, Creatinine 0.74, Estimat Glomerular Filtration Rate > 60, BUN /Creatinine Ratio 26, Glucose Level 102, Calcium Level 9.1, Phosphorus Level 3.0 , Magnesium Level 1.9 Microbiology 09/23/17 Blood Culture - Preliminary, Resulted No growth 09/23/17 MRSA Screen - Final, Complete MRSA not isolated 09/23/17 Gram Stain - Final, Resulted 09/23/17 Wound Culture - Preliminary, Resulted Staph, Coag Neg (ADMIN DIR) Presumptive Bailey Albicans Discussion & Recommendations Discharge Planning: >30 minutes discharge planning Discharge Home Medications: Active Scripts Active Cefdinir 300 Mg Capsule 300 Mg PO BID Prednisone 10 Mg Tab 10 Mg PO DAILY Take 4 tabs (40mg) daily, decrease by 1 tab (10mg) daily. Reported Evzio (Naloxone HCl) 2 Mg/0.4 Ml Auto.injct INJ UD PRN INJECT 1 AUTO INJECTOR (2MG) AT ONSET OF OPIOID EMERGENCY, REPEAT IN 2 MINS DIRECTED Aleve (Naproxen Sodium) 220 Mg Tablet 440 Mg PO BID PRN Cyclobenzaprine HCl 10 Mg Tablet 10 Mg PO TID PRN Spiriva (Tiotropium [place]) 1 Inh Aerp 1 Cap INH DAILY Symbicort 160-4.5 Mcg Inhaler (Budesonide/Formoterol Fumarate) 10.2 Gm Hfa.aer.ad 1 Puff INH BID Metoprolol Tartrate 25 Mg Tablet 25 Mg PO DAILY FILLED 09-21-17 (NOT PICKED UP YET) Oxycontin (Oxycodone HCl) 80 Mg Tab.er.12h 80 Mg PO BID Valsartan 160 Mg Tablet 160 Mg PO DAILY LAST FILLED #90 06-04-17 Combivent Respimat Inhal [place] (Albuterol/Ipratropium) 4 Gm Aero 1 Puff INH Q6H PRN Gabapentin 600 Mg Tablet 1,200 Mg PO TID TAKES 2 (600 MG) TABLETS Instructions to patient/family Please see electronic discharge instructions given to patient. Clinical Quality Measures DVT/VTE Risk/Contraindication: Risk Factor Score Per Nursin RFS Level Per Nursing on Admit: 4+=Very High Copy Copies To 1: Dr Fung Problem Qualifiers (1) Pneumonia: Pneumonia type: due to unspecified organism Laterality: left Lung location: unspecified part of lung Qualified Codes: J18.9 - Pneumonia, unspecified organism (2) COPD (chronic obstructive pulmonary disease): COPD type: unspecified COPD Qualified Codes: J44.9 - Chronic obstructive pulmonary disease, unspecified (3) Chronic pain: Chronic pain type: other chronic pain Qualified Codes: G89.29 - Other chronic pain YIN ARELLANO MD Sep 24, 2017 12:35
--- NOTE | 2017-09-24 13:22 | Physician Query Clarification ---
PQ-Link Infection to Dev/Proc Admission/Discharge Admission Date: Sep 23, 2017 at 02:10 Discharge Date: The medical record reflects the following clinical scenario: History/Risk Factors: Pneumonia Acute Respiratory Distress Recent surgery for Budd Chiari Syndrome Clinical Findings: 09/23 xray impression: Interval development of left perihilar infiltrate. Atelectasis per Dr. Chance. Treatment: IV Cefepime HCI, IV Solu Medrol, IV Vancomycin HCI Question: Can you specify if the Pneumonia is a complication due to/associated with procedure? Can you specify if the Acute Respiratory Distress or Acute Respiratory Failure is a complication due to or associated with recent procedure? Please document a response below. PHYSICIAN RESPONSE Specify if infection: Clincally undetermined Explanation of clincal finding Has multiple risk factors for infection and unable to determine if due to procedure or device. In responding to this query, please exercise your independent professional judgment. The purpose of this communication is to more accurately reflect the complexity of your patients condition. The fact that a question is asked does not imply that any particular answer is desired or expected. Thank you for your timely response to this clarification. Requestors name: Bell Castillo [facility] Phone # ext [phone] or [phone] THIS PHYSICIAN QUERY FORM IS A PERMANENT PART OF THE MEDICAL RECORD BELL CASTILLO Sep 24, 2017 13:22 YIN ARELLANO MD Sep 24, 2017 13:32
--- NOTE | 2017-09-24 13:32 | Physician Query Clarification ---
PQ-Conflicting Diagnosis Admission/Discharge Admission Date: Sep 23, 2017 at 02:10 Discharge Date: The medical record reflects the following clinical scenario: History/Risk Factors: Recent surgery for Budd Chiari Malformation Pneumonia Clinical Findings: Blood gas: PH 7.36, PC02 50, PO2 95, HC03 28, ABG Base excess 2.6. Pulse 107, Resp 14, BP 156/111, pulse ox 94%. Treatment: Nasal Cannula 3 L, NIV Bilevel Question: You gave a diagnosis of Acute Respiratory Distress in your H&P and progress notes. For clarification: Do you agree with the impression of the Acute on Chronic Respiratory Failure per Dr. Chance? Please document a response below. PHYSICIAN RESPONSE Do you agree w/Consulting Dx?: Yes In responding to this query, please exercise your independent professional judgment. The purpose of this communication is to more accurately reflect the complexity of your patients condition. The fact that a question is asked does not imply that any particular answer is desired or expected. Thank you for your timely response to this clarification. Requestors name: Bell Castillo [facility] Phone # ext [phone] or [phone] THIS PHYSICIAN QUERY FORM IS A PERMANENT PART OF THE MEDICAL RECORD BELL CASTILLO Sep 24, 2017 13:32 YIN ARELLANO MD Sep 24, 2017 14:34
== END 2017-09-24 13:05 | disposition home or self-care (01) | DRG 189 ==
LOC: EDUNIT# 00:17 → ER 00:18 → ICU 02:10
PROVIDERS: ADMIT Internal Medicine; ATTEND Internal Medicine
DX: J96.20 Acute and chronic respiratory failure, unspecified whether with hypoxia or hypercapnia (principal); J18.9 Pneumonia, unspecified organism; G47.33 Obstructive sleep apnea (adult) (pediatric); J44.9 Chronic obstructive pulmonary disease, unspecified; J98.11 Atelectasis; I82.0 Budd-Chiari syndrome; I10 Essential (primary) hypertension; F41.9 Anxiety disorder, unspecified; G89.29 Other chronic pain; M54.9 Dorsalgia, unspecified; M54.2 Cervicalgia; Z87.891 Personal history of nicotine dependence; Z98.890 Other specified postprocedural states
CPT/HCPCS: 36415; 71045; 76937; 80048; 80053; 81000; 82805; 83605; 83735; 83880; 84100; 84484; 85007; 85025; 85027; 85610; 85730; 87040; 87070; 87081; 87205; 87804; 93005; 93041; 94640; 94660; 94664; 94761; 96365; 96375

== ENCOUNTER 2017-10-04 11:31 | Observation (INO) | payer MEDICARE, MEDICAID ==
[~2017-10-04] VITALS: Ht 165.1 cm; Wt 81.6 kg
[~2017-10-04 11:31] MED LIST changes: +BUDE10.2 INH; +CEFD300C3 PO; +CYCL10TA9 PO; +DICL75TA2 PO; +METO-333 PO; +NALO2AUT INJ; +NAPR220T66 PO; +TIOT18CA2 INH
--- OUTSIDE RECORDS SUMMARY | 2017-10-04 11:54 | XMS REPORT | Continuity of Care Document ---
Author Author [facility] Address Unknown Phone Unavailable Allergies Active Description Code Type Severity Reaction Onset Reported/Identified Relationship to Patient Clinical Status Yes No Known Drug Allergies [id number] Drug Allergy Unknown N/A 08/05/2010 Yes amitriptyline [id number] Drug Allergy Unknown N/A 02/08/2016 Yes duloxetine [id number] Drug Allergy Unknown N/A 02/08/2016 Yes fluticasone [id number] Drug Allergy Unknown N/A 02/08/2016 Yes salmeterol [id number] Drug Allergy Unknown N/A 02/08/2016 Medications There [...] SEPSIS WITHOUT SEPTIC SHOCK 10/14/2015 GIULIANA GOODMAN CORPORATE STRATEGY ASSOCIATE Ot F17.210 NICOTINE DEPENDENCE, CIGARETTES, UNCOMPL 10/14/2015 GIULIANA GOODMAN CORPORATE STRATEGY ASSOCIATE Ot J44.0 CHRONIC OBSTRUCTIVE PULMON DISEASE W ACU 10/14/2015 GIULIANA GOODMAN CORPORATE STRATEGY ASSOCIATE Ot R09.81 NASAL CONGESTION 10/16/2015 GIULIANA GOODMAN CORPORATE STRATEGY ASSOCIATE Ot F17.210 10/16/2015 GIULIANA GOODMAN CORPORATE STRATEGY ASSOCIATE Ot J44.0 10/16/2015 GIULIANA GOODMAN CORPORATE STRATEGY ASSOCIATE Ot R09.81 10/29/2015 SHERLY SAN MD Ot [...] HISTORY OF NICOTINE DEPENDENCE 08/11/2017 RACHEL, MARK RESEARCH EDITOR Ot F41.9 ANXIETY DISORDER, UNSPECIFIED 08/11/2017 RACHEL, MARK RESEARCH EDITOR Ot I10 ESSENTIAL (PRIMARY) HYPERTENSION 08/11/2017 RACHEL, MARK RESEARCH EDITOR Ot J10.08 INFLUENZA DUE TO OTH IDENT INFLUENZA VIR 08/11/2017 RACHEL, MARK RESEARCH EDITOR Ot J43.9 EMPHYSEMA, UNSPECIFIED 08/11/2017 RACHEL, MARK RESEARCH EDITOR Ot R05 COUGH 08/11/2017 RACHEL, MARK RESEARCH EDITOR Ot Z87.01 PERSONAL HISTORY OF PNEUMONIA (RECURRENT 08/11/2017 RACHEL, MARK RESEARCH EDITOR Ot Z87.891 PERSONAL HISTORY OF NICOTINE DEPENDENCE 08/12/2017 KENRICK MCMILLAN APRN Ot 789.00 ABDOMINAL PAIN, UNSPECIFIED SITE 08/12/2017 LILLIE DALEY MD Ot K42.9 UMBILICAL HERNIA WITHOUT OBSTRUCTION OR 08/12/2017 LILLIE DALYE MD Ot K43.0 INCISIONAL HERNIA WITH OBSTRUCTION, WITH 08/12/2017 JUAN RIVAS, ANALI Hansen Ot M25.511 PAIN IN RIGHT SHOULDER 08/12/2017 ANALI MARTINEZ MD Ot Z98.890 OTHER SPECIFIED POSTPROCEDURAL STATES 08/16/2017 RACHELMARK Rabago RESEARCH EDITOR Ot F41.9 ANXIETY DISORDER, UNSPECIFIED 08/16/2017 RACHEL, MARK RESEARCH EDITOR Ot I10 ESSENTIAL (PRIMARY) HYPERTENSION 08/16/2017 MARK RAMOSP Ot J10.08 INFLUENZA DUE TO OTH IDENT INFLUENZA VIR 08/16/2017 MARK RAMOSP Ot J43.9 EMPHYSEMA, UNSPECIFIED 08/16/2017 MARK RAMOS CLAUDIA Ot R05 COUGH 08/16/2017 MARK RAMSOP Ot Z87.01 PERSONAL HISTORY OF PNEUMONIA (RECURRENT 08/16/2017 MARK RAMOSP Ot Z87.891 PERSONAL HISTORY OF NICOTINE DEPENDENCE 09/24/2017 SHERI WHITE DOI Ot F41.9 ANXIETY DISORDER, UNSPECIFIED 09/24/2017 SHERI WHITE DOI Ot G47.33 OBSTRUCTIVE SLEEP APNEA (ADULT) (PEDIATR 09/24/2017 SHERI WHITE DOI Ot G89.29 OTHER CHRONIC PAIN 09/24/2017 SHERI WHITE DOI Ot I10 ESSENTIAL (PRIMARY) HYPERTENSION 09/24/2017 SHERI WHITE DOI Ot 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 09/24/2017 SHERI WHITE DOI Ot J18.9 PNEUMONIA, UNSPECIFIED ORGANISM 09/24/2017 SHERI WHITE DOI Ot J44.9 CHRONIC OBSTRUCTIVE PULMONARY DISEASE, U 09/24/2017 CHRISTOPHER FELICIANO DYLAN Ot J96.20 ACUTE AND CHR RESP FAILURE, UNSP W HYPOX 09/24/2017 SHERI WHITE DOI Ot J98.11 ATELECTASIS 09/24/2017 SHERI WHITE DOI Ot M54.2 CERVICALGIA 09/24/2017 CHRISTOPHER FELICIANO DYLAN Ot M54.9 DORSALGIA, UNSPECIFIED 09/24/2017 SHERI WHITE DOI Ot Z87.891 PERSONAL HISTORY OF NICOTINE DEPENDENCE 09/24/2017 CHRISTOPHER FELICIANO DYLAN Ot Z98.890 OTHER SPECIFIED POSTPROCEDURAL STATES Procedures Code Description Performed By Performed On G0008 FLU ADMINISTRATION ( MEDICARE ONLY) 04/12/2013 61505 URINE DRUG SCREEN (IN-HOUSE ) 04/12/2013 21290 URINE DRUG SCREEN (IN-HOUSE ) 09/29/2013 68548 US GALLBLADDER ULTRASOUND 04/18/2014 Results Test Result [...] GROWTH Moderate Growth NRG Bacterial sputum culture [id number] NRG Influenza virus A and B antigen detection - 08/11/17 20:32 CALL POSITIVES (F1 HELP) CALLED TO [facility] IN ED AT 2116 NRG FLU RESULT POSITIVE FOR INFLUENZA A ANTIGEN, NEG FOR B ANTIGEN, BY IA NRG Bacterial blood culture - 08/11/17 20:40 Bacterial blood culture NG NRG Arterial blood gas measurement - 09/23/17 00:57 Blood pCO2 50 mm[Hg] 35-45 Blood pO2 95 mm[Hg] 79-93 Arterial blood bicarbonate measurement (moles/volume) 28 mmol/L 23-27 Arterial blood base excess by calculation 2.6 mmol/L -2.5 -2.5 Arterial blood oxygen saturation measurement 98 % 94-100 * Inhaled oxygen flow rate 3L NRG Arterial blood pH measurement with patient temperature correction 7.36 7.37-7.43 Arterial blood carbon dioxide, total measurement (moles/volume) 29.1 mmol/L 21.0-31.0 Body site R RAD NRG Assessment of wrist artery patency prior to arterial puncture YES- POS NRG Setting of ventilation mode NO NRG Measurement of body temperature 98.9 NRG Complete blood count (CBC) with automated white blood cell (WBC) differential - 09/23/17 01:15 Blood leukocytes automated count (number/volume) 7.4 10*3/uL 4.3-11.0 Blood erythrocytes automated count (number/volume) 3.98 10*6/uL 4.35-5.85 Venous blood hemoglobin measurement (mass/volume) 11.5 g/dL 13.3-17.7 Blood hematocrit (volume fraction) 35 % 40-54 Automated erythrocyte mean corpuscular volume 88 [foz_us] 80-99 Automated erythrocyte mean corpuscular hemoglobin (mass per erythrocyte) 29 pg 25-34 Automated erythrocyte mean corpuscular hemoglobin concentration measurement ( mass/volume) 33 g/dL 32-36 Automated erythrocyte distribution width ratio 13.1 % 10.0-14.5 Automated blood platelet count (count/volume) 304 10*3/uL 130-400 Automated blood platelet mean volume measurement 9.4 [foz_us] 7.4-10.4 Automated blood neutrophils/100 leukocytes 65 % 42-75 Automated blood lymphocytes/100 leukocytes 26 % 12-44 Blood monocytes/100 leukocytes 8 % 0-12 Automated blood eosinophils/100 leukocytes 1 % 0-10 Automated blood basophils/100 leukocytes 0 % 0-10 Blood neutrophils automated count (number/volume) 4.8 10*3 1.8-7.8 Blood lymphocytes automated count (number/volume) 1.9 10*3 1.0-4.0 Blood monocytes automated count (number/volume) 0.6 10*3 0.0-1.0 Automated eosinophil count 0.1 10*3/uL 0.0-0.3 Automated blood basophil count (count/volume) 0.0 10*3/uL 0.0-0.1 PT panel in platelet poor plasma by coagulation assay - 09/23/17 01:15 Prothrombin time (PT) in platelet poor plasma by coagulation assay 12.9 s 12.2-14.7 INR in platelet poor plasma or blood by coagulation assay 1.0 0.8-1.4 Activated partial thromboplastin time (aPTT) in platelet poor plasma bycoagulation assay - 09/23/17 01:15 Activated partial thromboplastin time (aPTT) in platelet poor plasma bycoagulation assay 33 s 24-35 Blood lactic acid measurement (moles/volume) - 09/23/17 01:15 Blood lactic acid measurement (moles/volume) 0.90 mmol/L 0.50-2.00 Comprehensive metabolic panel - 09/23/17 01:15 Serum or plasma sodium measurement (moles/volume) 143 mmol/L 135-145 Serum or plasma potassium measurement (moles/volume) 3.8 mmol/L 3.6-5.0 Serum or plasma chloride measurement (moles/volume) 106 mmol/L 98-107 Carbon dioxide 28 mmol/L 21-32 Serum or plasma anion gap determination (moles/volume) 9 mmol/L 5-14 Serum or plasma urea nitrogen measurement (mass/volume) 10 mg/dL 7-18 Serum or plasma creatinine measurement (mass/volume) 0.90 mg/dL 0.60-1.30 Serum or plasma urea nitrogen/creatinine mass ratio 11 NRG Serum or plasma creatinine measurement with calculation of estimated glomerular filtration rate > NRG Serum or plasma glucose measurement (mass/volume) 107 mg/dL 70-105 Serum or plasma calcium measurement (mass/volume) 9.0 mg/dL 8.5-10.1 Serum or plasma total bilirubin measurement (mass/volume) 0.3 mg/dL 0.1-1.0 Serum or plasma alkaline phosphatase measurement (enzymatic activity/volume) 66 U/L 40-136 Serum or plasma aspartate aminotransferase measurement (enzymatic activity/ volume) 20 U/L 5-34 Serum or plasma alanine aminotransferase measurement (enzymatic activity/volume ) 23 U/L 0-55 Serum or plasma protein measurement (mass/volume) 7.1 g/dL 6.4-8.2 Serum or plasma albumin measurement (mass/volume) 3.7 g/dL 3.2-4.5 Magnesium - 09/23/17 01:15 Magnesium 2.0 mg/dL 1.8-2.4 Serum or plasma lithium measurement (moles/volume) - 09/23/17 01:15 BNP level 49.2 pg/mL <100.0 Serum or plasma troponin i.cardiac measurement (mass/volume) - 09/23/17 01:15 Serum or plasma troponin i.cardiac measurement (mass/volume) < ng/ mL <0.30 Bacterial blood culture - 09/23/17 01:15 Bacterial blood culture NG NRG Bacterial blood culture - 09/23/17 01:55 Bacterial blood culture NG NRG Complete urinalysis with reflex to culture - 09/23/17 02:00 Urine color determination YELLOW NRG Urine clarity determination CLEAR NRG Urine pH measurement by test strip 6 5-9 Specific gravity of urine by test strip 1.020 1.016- 1.022 Urine protein assay by test strip, semi-quantitative 3+ NEGATIVE Urine glucose detection by automated test strip NEGATIVE NEGATIVE Erythrocytes detection in urine sediment by light microscopy 3+ NEGATIVE Urine ketones detection by automated test strip NEGATIVE NEGATIVE Urine nitrite detection by test strip NEGATIVE NEGATIVE Urine total bilirubin detection by test strip NEGATIVE NEGATIVE Urine urobilinogen measurement by automated test strip (mass/volume) NORMAL NORMAL Urine leukocyte esterase detection by dipstick NEGATIVE NEGATIVE Automated urine sediment erythrocyte count by microscopy (number/high power field) [HPF] NRG Automated urine sediment leukocyte count by microscopy (number/high power field ) NONE NRG Bacteria detection in urine sediment by light microscopy NEGATIVE NRG Squamous epithelial cells detection in urine sediment by light microscopy NONE NRG Crystals detection in urine sediment by light microscopy NONE NRG Casts detection in urine sediment by light microscopy NONE NRG Mucus detection in urine sediment by light microscopy SMALL NRG Complete urinalysis with reflex to culture NO NRG Influenza virus A and B antigen detection - 09/23/17 02:35 FLU RESULT NEGATIVE FOR INFLUENZA A AND B ANTIGENS BY IA NRG Gram stain microscopy - 09/23/17 02:35 GRAM STAIN RESULT RARE GRAM POSITIV COCCI NRG Bacteria identification in wound by culture - 09/23/17 02:35 Bacteria identification in wound by culture [id number] NRG FREE TEXT EXTERNAL FEW COLONIES OBSERVED NRG QUANTITY OF GROWTH Scant Growth NRG Arterial blood gas measurement - 09/23/17 03:05 Blood pCO2 51 mm[Hg] 35-45 Blood pO2 62 mm[Hg] 79-93 Arterial blood bicarbonate measurement (moles/volume) 27 mmol/L 23-27 Arterial blood base excess by calculation 2.3 mmol/L -2.5 -2.5 Arterial blood oxygen saturation measurement 92 % 94-100 * Inhaled oxygen flow rate 40% BIPAP NRG Arterial blood pH measurement with patient temperature correction 7.35 7.37-7.43 Arterial blood carbon dioxide, total measurement (moles/volume) 28.9 mmol/L 21.0-31.0 Body site R RAD NRG Assessment of wrist artery patency prior to arterial puncture YES- POS NRG Setting of ventilation mode NO NRG Measurement of body temperature 98.7 NRG Methicillin resistant Staphylococcus aureus (MRSA) screening culture - 08:30 Methicillin resistant Staphylococcus aureus (MRSA) screening culture NEG NRG Complete blood count (CBC) with automated white blood cell (WBC) differential - 09/23/17 09:13 Blood leukocytes automated count (number/volume) 11.3 10*3/uL 4.3-11.0 Blood erythrocytes automated count (number/volume) 3.96 10*6/uL 4.35-5.85 Venous blood hemoglobin measurement (mass/volume) 11.2 g/dL 13.3-17.7 Blood hematocrit (volume fraction) 35 % 40-54 Automated erythrocyte mean corpuscular volume 87 [foz_us] 80-99 Automated erythrocyte mean corpuscular hemoglobin (mass per erythrocyte) 28 pg 25-34 Automated erythrocyte mean corpuscular hemoglobin concentration measurement ( mass/volume) 33 g/dL 32-36 Automated erythrocyte distribution width ratio 12.9 % 10.0-14.5 Automated blood platelet count (count/volume) 312 10*3/uL 130-400 Automated blood platelet mean volume measurement 9.7 [foz_us] 7.4-10.4 Automated blood neutrophils/100 leukocytes 88 % 42-75 Automated blood lymphocytes/100 leukocytes 6 % 12-44 Blood monocytes/100 leukocytes 6 % 0-12 Automated blood eosinophils/100 leukocytes 0 % 0-10 Automated blood basophils/100 leukocytes 0 % 0-10 Blood neutrophils automated count (number/volume) 10.0 10*3 1.8-7.8 Blood lymphocytes automated count (number/volume) 0.7 10*3 1.0-4.0 Blood monocytes automated count (number/volume) 0.6 10*3 0.0-1.0 Automated eosinophil count 0.0 10*3/uL 0.0-0.3 Automated blood basophil count (count/volume) 0.0 10*3/uL 0.0-0.1 Comprehensive metabolic panel - 09/23/17 09:13 Serum or plasma sodium measurement (moles/volume) 139 mmol/L 135-145 Serum or plasma potassium measurement (moles/volume) 4.2 mmol/L 3.6-5.0 Serum or plasma chloride measurement (moles/volume) 106 mmol/L 98-107 Carbon dioxide 25 mmol/L 21-32 Serum or plasma anion gap determination (moles/volume) 8 mmol/L 5-14 Serum or plasma urea nitrogen measurement (mass/volume) 11 mg/dL 7-18 Serum or plasma creatinine measurement (mass/volume) 0.77 mg/dL 0.60-1.30 Serum or plasma urea nitrogen/creatinine mass ratio 14 NRG Serum or plasma creatinine measurement with calculation of estimated glomerular filtration rate > NRG Serum or plasma glucose measurement (mass/volume) 170 mg/dL 70-105 Serum or plasma calcium measurement (mass/volume) 9.2 mg/dL 8.5-10.1 Serum or plasma total bilirubin measurement (mass/volume) 0.4 mg/dL 0.1-1.0 Serum or plasma alkaline phosphatase measurement (enzymatic activity/volume) 65 U/L 40-136 Serum or plasma aspartate aminotransferase measurement (enzymatic activity/ volume) 23 U/L 5-34 Serum or plasma alanine aminotransferase measurement (enzymatic activity/volume ) 28 U/L 0-55 Serum or plasma protein measurement (mass/volume) 7.1 g/dL 6.4-8.2 Serum or plasma albumin measurement (mass/volume) 3.6 g/dL 3.2-4.5 Serum or plasma phosphate measurement (mass/volume) - 09/23/17 09:13 Serum or plasma phosphate measurement (mass/volume) 2.7 mg/dL 2.3-4.7 Magnesium - 09/23/17 09:13 Magnesium 1.7 mg/dL 1.8-2.4 Blood manual differential performed detection - 09/23/17 09:13 Blood monocytes/100 leukocytes 5 % NRG Manual blood segmented neutrophils/100 leukocytes 76 % NRG Blood band neutrophils/100 leukocytes 9 % NRG Manual blood lymphocytes/100 leukocytes 7 % NRG Manual eosinophils/100 leukocytes in nose 0 % NRG Manual blood basophils/100 leukocytes 0 % NRG Blood lymphocytes variant/100 leukocytes 2 % NRG Blood ovalocytes detection by light microscopy SLIGHT NRG Blood toxic granules detection by light microscopy 2+ NRG Manual blood metamyelocytes/100 leukocytes 1 % NRG Blood poikilocytosis detection by light microscopy SLIGHT NRG Blood rouleaux detection by light microscopy SLIGHT NRG Complete blood count (CBC) with automated white blood cell (WBC) differential - 09/24/17 03:30 Blood leukocytes automated count (number/volume) 9.3 10*3/uL 4.3-11.0 Blood erythrocytes automated count (number/volume) 3.37 10*6/uL 4.35-5.85 Venous blood hemoglobin measurement (mass/volume) 9.6 g/dL 13.3-17.7 Blood hematocrit (volume fraction) 30 % 40-54 Automated erythrocyte mean corpuscular volume 88 [foz_us] 80-99 Automated erythrocyte mean corpuscular hemoglobin (mass per erythrocyte) 29 pg 25-34 Automated erythrocyte mean corpuscular hemoglobin concentration measurement ( mass/volume) 33 g/dL 32-36 Automated erythrocyte distribution width ratio 13.0 % 10.0-14.5 Automated blood platelet count (count/volume) 267 10*3/uL 130-400 Automated blood platelet mean volume measurement 9.9 [foz_us] 7.4-10.4 Automated blood neutrophils/100 leukocytes 71 % 42-75 Automated blood lymphocytes/100 leukocytes 19 % 12-44 Blood monocytes/100 leukocytes 10 % 0-12 Automated blood eosinophils/100 leukocytes 1 % 0-10 Automated blood basophils/100 leukocytes 0 % 0-10 Blood neutrophils automated count (number/volume) 6.7 10*3 1.8-7.8 Blood lymphocytes automated count (number/volume) 1.7 10*3 1.0-4.0 Blood monocytes automated count (number/volume) 0.9 10*3 0.0-1.0 Automated eosinophil count 0.1 10*3/uL 0.0-0.3 Automated blood basophil count (count/volume) 0.0 10*3/uL 0.0-0.1 Whole blood basic metabolic panel - 09/24/17 03:30 Serum or plasma sodium measurement (moles/volume) 142 mmol/L 135-145 Serum or plasma potassium measurement (moles/volume) 3.8 mmol/L 3.6-5.0 Serum or plasma chloride measurement (moles/volume) 108 mmol/L 98-107 Carbon dioxide 27 mmol/L 21-32 Serum or plasma anion gap determination (moles/volume) 7 mmol/L 5-14 Serum or plasma urea nitrogen measurement (mass/volume) 19 mg/dL 7-18 Serum or plasma creatinine measurement (mass/volume) 0.74 mg/dL 0.60-1.30 Serum or plasma urea nitrogen/creatinine mass ratio 26 NRG Serum or plasma creatinine measurement with calculation of estimated glomerular filtration rate > NRG Serum or plasma glucose measurement (mass/volume) 102 mg/dL 70-105 Serum or plasma calcium measurement (mass/volume) 9.1 mg/dL 8.5-10.1 Serum or plasma phosphate measurement (mass/volume) - 09/24/17 03:30 Serum or plasma phosphate measurement (mass/volume) 3.0 mg/dL 2.3-4.7 Magnesium - 09/24/17 03:30 Magnesium 1.9 mg/dL 1.8-2.4 Encounters ACCT No. Visit Date/Time Discharge Status Pt. Type Provider Facility Loc./Unit Complaint [id number] 04/18/2014 10:38:00 04/18/2014 23:59:59 CLS Outpatient KENRICK MCMILLAN APRN [id number] 01/02/2014 16:21:00 01/02/2014 23:59:59 CLS Outpatient KAITLYNN VARELA DDS [id number] 09/29/2013 15:22:00 09/29/2013 23:59:59 CLS Outpatient RADHA PRETTY DO [id number] 04/12/2013 14:10:00 04/12/2013 23:59:59 CLS Outpatient RADHA PRETTY DO [id number] 04/12/2013 14:10:00 04/12/2013 23:59:59 CLS Outpatient RADHA PRETTY DO [id number] 09/23/2017 02:10:00 09/24/2017 13:05:00 DIS Outpatient DYLAN WHITE DO [facility] ICU ACUTE ON CHRONIC RESPIRATORY FAILURE;SEPSIS; [id number] 08/11/2017 19:22:00 08/11/2017 21:46:00 DIS Emergency MARK RAMOS [facility] ER CP [id number] 05/06/2017 18:32:00 05/06/2017 21:46:00 DIS Emergency MARYA CRONIN MD [facility] ER ABD PAIN [id number] 03/04/2017 09:38:00 03/04/2017 23:59:59 CLS Outpatient ANALI MARTINEZ MD [facility] RAD RT SHOULDER PAIN [id number] 01/13/2017 07:36:00 01/13/2017 23:59:59 CLS Outpatient LILLIE DALEY MD [facility] LAB K42.9 [id number] 02/08/2016 01:54:00 02/08/2016 05:29:00 DIS Emergency CATRINA MCNEAL DO [facility] ER CHEST PAIN, SOA [id number] 12/12/2015 20:52:00 12/12/2015 22:36:00 DIS Emergency AMYRA CRONIN MD [facility] ER CP,SOA [id number] 11/01/2015 08:41:00 11/04/2015 16:44:00 DIS Inpatient WHITE DO DYLAN [facility] 4TH SWB, COPD PNEUMONIA [id number] 10/28/2015 16:54:00 11/01/2015 08:41:00 DIS Inpatient SHERLY SAN MD [facility] CSD SEPSIS,MULTILOBAR PNEUMONIA,RESPIRATORY FAILURE W/ [id number] 10/14/2015 21:59:00 10/14/2015 23:09:00 DIS Emergency GIULIANA GOODMAN APRN [facility] ER DIFFICULTY BREATHING [id number] 07/17/2015 14:00:00 07/19/2015 12:58:00 DIS Inpatient ELIOT GRANT MD [facility] ICU BILATERAL PNEUMONIA [id number] 05/09/2015 08:31:00 05/22/2015 09:24:00 DIS Outpatient LEIA VARGHESE MD [facility] REHAB S/P CERVICAL SPINE FUSION;L ARM WEAKNESS/NECK PAIN [id number] 04/12/2015 09:20:00 04/17/2015 00:01:00 DIS Outpatient LEIA VARGHESE MD [facility] REHAB S/P CERVICAL SPINE FUSION;L ARM WEAKNESS/NECK PAIN [id number] 03/17/2015 15:04:00 03/17/2015 20:20:00 DIS Emergency MALACHI ROSSI DO [facility] ER POST-OP INFECTION [id number] 02/11/2015 13:55:00 02/11/2015 14:22:00 DIS Outpatient LEIA VARGHESE MD [facility] REHAB CHRONIC NECK PAIN [id number] 04/18/2014 12:19:00 04/18/2014 23:59:59 CLS Outpatient KENRICK MCMILLAN APRN [facility] RAD ABD PAIN [id number] 12/20/2014 16:37:00 Document Registration [id number] 08/05/2010 22:26:00 Document Registration [id number] 07/27/2010 02:33:00 Document Registration
[2017-10-04 14:01] LABS: BASOPHILS % (AUTO) 0 % (0-10); EOSINOPHILS # (AUTO) 0.1 10^3/uL (0.0-0.3); EOSINOPHILS % (AUTO) 1 % (0-10); HEMATOCRIT 38 % (40-54); HEMOGLOBIN 12.4 G/DL (13.3-17.7); LYMPHOCYTES % (AUTO) 19 % (12-44); MEAN CORPUSCULAR HEMOGLOBIN 28 PG (25-34); MEAN CORPUSCULAR HGB CONC 33 G/DL (32-36); MEAN CORPUSCULAR VOLUME 87 FL (80-99); MEAN PLATELET VOLUME 10.1 FL (7.4-10.4); MONOCYTES # (AUTO) 0.8 X 10^3 (0.0-1.0); MONOCYTES % (AUTO) 7 % (0-12); NEUTROPHILS # (AUTO) 7.9 X 10^3 (1.8-7.8); NEUTROPHILS % (AUTO) 73 % (42-75); PLATELET COUNT 370 10^3/uL (130-400); RED BLOOD COUNT 4.36 10^6/uL (4.35-5.85); RED CELL DISTRIBUTION WIDTH 13.5 % (10.0-14.5); WHITE BLOOD COUNT 10.8 10^3/uL (4.3-11.0)
[2017-10-04] MEDS ORDERED: NS IV 1000 ML 1,000 ML IV SCH ×2 (14:01→15:06)
[2017-10-04 14:22] LABS: ALBUMIN 4.3 GM/DL (3.2-4.5); BILIRUBIN,TOTAL 0.6 MG/DL (0.1-1.0); CALCIUM 9.9 MG/DL (8.5-10.1); CREATININE SERUM 1.58 MG/DL (0.60-1.30); POTASSIUM 4.5 MMOL/L (3.6-5.0); TOTAL PROTEIN 8.4 GM/DL (6.4-8.2)
--- NOTE | 2017-10-04 14:37 | Diagnostic Imaging Report ---
INDICATION: Confusion. COMPARISON: 09/24/2017. FINDINGS: There is cardiomegaly. There is some venous congestion. There is some bibasilar atelectasis and/or pneumonitis. There appear to be small bilateral pleural effusions. There is no pneumothorax. The mediastinum is unremarkable. IMPRESSION: Bibasilar atelectasis and/or pneumonitis and small bilateral pleural effusions. Cardiomegaly and mild central pulmonary venous congestion. Dictated by: Dictated on workstation # [id number]
[2017-10-04 14:40] LABS: ABG BASE EXCESS -1.5 MMOL/L (-2.5-2.5); ABG OXYGEN SATURATION 85 % (94-100); ABG PCO2 47 MMHG (35-45); ABG PO2 52 MMHG (79-93); ABG TCO2 25.2 MMOL/L (21.0-31.0)
[2017-10-04 14:43] LABS: MAGNESIUM 2.2 MG/DL (1.8-2.4)
[2017-10-04 14:43] LABS: ABG PH 7.32 (7.37-7.43); ALLENS TEST YES-POS
[2017-10-04 14:44] LABS: INSPIRED O2 3L; PATIENT TEMP 98.7; VENTILATOR NO
--- NOTE | 2017-10-04 14:54 | ED General ---
General Chief Complaint: Altered Mental Status Stated Complaint: FORGETFUL-RECENT BRAIN SURG 09/13 Nursing Triage Note: ARRIVED VIA . S/O STATES HE HAS HAD PERIODS OF CONFUSION AND NOT ACTING RIGHT SICNE YESTERDAY. PT HAD BRAIN SURGERY ON Aug AT [facility] AND WAS RECENTLY DISCHARGED FROM THIS HOSPITAL. Nursing Sepsis Screen: No Definite Risk Source of Information: Patient, Family, Old Records Exam Limitations: Physical Impairments History of Present Illness Date Seen by Provider: Oct 04, 2017 Time Seen by Provider: 13:48 Initial Comments This 52-year-old gentleman is brought to the emergency room by his fiance with concerns about being confused and "not acting right" since yesterday. He had corrective surgery for Chiari malformation in [place] by Dr. Khan on September 13. Since then he has had an admission at [facility] for treatment of pneumonia and COPD. Patient complains of headache yesterday and today and he also vomited once yesterday. He is not nauseous at present. Patient is technically alert and oriented on my assessment but he takes a long time to answer the questions and seems confused in the process. Been afebrile. He is mildly tachycardic on assessment. Patient's fiance states he has a history of becoming hypercarbic and symptomatic. Patient is also on multiple sedating medications including gabapentin and oxycodone. He has sleep apnea and COPD. He has not had any breathing treatments today but he does have them at home. He uses CPAP at home. His fiance thinks he may need his CPAP settings adjusted. Allergies and Home Medications Allergies Coded Allergies: amitriptyline (Verified Allergy, Unknown, 02/08/16) duloxetine (Verified Allergy, Unknown, 02/08/16) fluticasone (Verified Allergy, Unknown, 02/08/16) salmeterol (Verified Allergy, Unknown, 02/08/16) Home Medications Albuterol/Ipratropium 4 Gm Aero, 1 PUFF INH Q6H PRN for SHORTNESS OF BREATH, ( Reported) Budesonide/Formoterol Fumarate 10.2 Gm Hfa.aer.ad, 1 PUFF INH BID, (Reported) Cefdinir 300 Mg Capsule, 300 MG PO BID Prescribed by: YIN BROWN on 09/24/17 1034 Cyclobenzaprine HCl 10 Mg Tablet, 10 MG PO TID PRN for MUSCLE SPASMS, (Reported) Gabapentin 600 Mg Tablet, 1,200 MG PO TID, (Reported) TAKES 2 (600 MG) TABLETS Metoprolol Tartrate 25 Mg Tablet, 25 MG PO DAILY, (Reported) FILLED 09-21-17 (NOT PICKED UP YET) Naloxone HCl 2 Mg/0.4 Ml Auto.injct, INJ UD PRN for OPIOID OVERDOSE, (Reported) INJECT 1 AUTO INJECTOR (2MG) AT ONSET OF OPIOID EMERGENCY, REPEAT IN 2 MINS DIRECTED Naproxen Sodium 220 Mg Tablet, 440 MG PO BID PRN for PAIN-MILD, (Reported) Oxycodone HCl 80 Mg Tab.er.12h, 80 MG PO BID, (Reported) Prednisone 10 Mg Tab, 10 MG PO DAILY Take 4 tabs (40mg) daily, decrease by 1 tab (10mg) daily. Prescribed by: YIN BROWN on 09/24/17 1015 Tiotropium Vernon 1 Inh Aerp, 1 CAP INH DAILY, (Reported) Valsartan 160 Mg Tablet, 160 MG PO DAILY, (Reported) LAST FILLED #90 06-04-17 Patient Home Medication List Home Medication List Reviewed: Yes Constitutional: weakness EENTM: see HPI Respiratory: see HPI Cardiovascular: no symptoms reported Gastrointestinal: see HPI Genitourinary: no symptoms reported Musculoskeletal: see HPI Skin: no symptoms reported Psychiatric/Neurological: See HPI Hematologic/Lymphatic: No Symptoms Reported Past Iesyhkq-Idbgox-Zimnah Hx Patient Social History Alcohol Use: Denies Use Recreational Drug Use: No Smoking Status: Former Smoker Type Used: Cigarettes Former Smoker, Quit: Aug 11, 2016 Recent Foreign Travel: No Contact w/Someone Who Travel: No Recent Infectious Disease Expo: No Recent Hopitalizations: Yes (D/C FROM [facility] 09/20/17) Immunizations Up To Date Tetanus Booster (TDap): Unknown PED Vaccines UTD: No Date of Influenza Vaccine: Apr 29, 2017 Seasonal Allergies Seasonal Allergies: No Surgeries History of Surgeries: Yes (surgical repair of Chiari malformation) Surgeries: Abdominal, Neurological, Orthopedic Respiratory History of Respiratory Disorde: Yes (RESPIRATORY FAILURE ON VENT AND BIPAP SEVERAL TIMES) Respiratory Disorders: Pneumonia, Chronic Bronchitis, Sleep Apnea, COPD, Emphysema Currently Using CPAP: No Currently Using BIPAP: No Cardiovascular History of Cardiac Disorders: Yes Cardiac Disorders: Hypertension Neurological History of Neurological Disord: Yes (MENINGITIS POSTOP 2004 FOR CYST ON BRAINSTEM & CHIARI MALFORMATION. SHUNT) Neurological Disorders: Meningitis Reproductive System Hx Reproductive Disorders: No Genitourinary History of Genitourinary Disor: No Gastrointestinal History of Gastrointestinal Di: Yes (HERNIA REPAIR) Gastrointestinal Disorders: Abdominal Hernia Musculoskeletal History of Musculoskeletal Dis: Yes (CHRONIC HEAD/NECK PAIN ) Endocrine History of Endocrine Disorders: No HEENT History of HEENT Disorders: No Cancer History of Cancer: No Psychosocial History of Psychiatric Problem: Yes Behavioral Health Disorders: Anxiety Integumentary History of Skin or Integumenta: No Blood Transfusions History of Blood Disorders: No Family Medical History Family Medial History: FH: cancer 19 MOTHER Physical Exam Vital Signs Vital Signs - First Documented 10/04/17 13:25 Temp 98.3 Pulse 115 Resp 18 B/P (MAP) 120/85 (97) Pulse Ox 99 Capillary Refill : Less Than 3 Seconds General Appearance: No Apparent Distress, WD/WN HEENT: PERRL/EOMI, Other (well healing surgical scar on the posterior scalp and neck. There is some soft fluctuance at the superior aspect with what appears to be clear fluid beneath the skin. 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 However, his mentation is very sluggish and it seems to take him some significant effort to answer correctly. He seems globally weak but has no focal motor deficits. Normal finger to nose test.) Skin: Normal Color, Warm/Dry Progress/Results/Core Measures Suspected Sepsis Recent Fever Within 48 Hours: No Infection Criteria Present: None New/Unexplained Altered Menta: Yes Sepsis Screen: No Definite Risk Sepsis Diagnosis: SIRS Temperature:98.3 Pulse: 115 Respiratory Rate: 18 Laboratory Tests 10/04/17 13:49: White Blood Count 10.8 Blood Pressure 120 /85 Mean: 97 Laboratory Tests 10/04/17 13:49: Creatinine 1.58H, Platelet Count 370, Total Bilirubin 0.6 Results/Orders Lab Results Laboratory Tests Test 10/04/17 13:39 10/04/17 13:49 10/04/17 14:25 10/04/17 16:24 Range/Units Magnesium Level 2.2 1.8-2.4 MG/DL C-Reactive Protein High Sensitivity 3.50 H 0.00-0.50 MG/DL Serum Alcohol < 10 <10 MG/DL White Blood Count 10.8 4.3-11.0 10^3/uL Red Blood Count 4.36 4.35-5.85 10^6/uL Hemoglobin 12.4 L 13.3-17.7 G/DL Hematocrit 38 L 40-54 % Mean Corpuscular Volume 87 80-99 FL Mean Corpuscular Hemoglobin 28 25-34 PG Mean Corpuscular Hemoglobin Concent 33 32-36 G/DL Red Cell Distribution Width 13.5 10.0-14.5 % Platelet Count 370 130-400 10^3/uL Mean Platelet Volume 10.1 7.4-10.4 FL Neutrophils (%) (Auto) 73 42-75 % Lymphocytes (%) (Auto) 19 12-44 % Monocytes (%) (Auto) 7 0-12 % Eosinophils (%) (Auto) 1 0-10 % Basophils (%) (Auto) 0 0-10 % Neutrophils # (Auto) 7.9 H 1.8-7.8 X 10^3 Lymphocytes # (Auto) 2.0 1.0-4.0 X 10^3 Monocytes # (Auto) 0.8 0.0-1.0 X 10^3 Eosinophils # (Auto) 0.1 0.0-0.3 10^3/uL Basophils # (Auto) 0.0 0.0-0.1 10^3/uL Sodium Level 137 135-145 MMOL/L Potassium Level 4.5 3.6-5.0 MMOL/L Chloride Level 102 98-107 MMOL/L Carbon Dioxide Level 22 21-32 MMOL/L Anion Gap 13 5-14 MMOL/L Blood Urea Nitrogen 24 H 7-18 MG/DL Creatinine 1.58 H 0.60-1.30 MG/DL Estimat Glomerular Filtration Rate 56 BUN/Creatinine Ratio 15 Glucose Level 112 H 70-105 MG/DL Calcium Level 9.9 8.5-10.1 MG/DL Total Bilirubin 0.6 0.1-1.0 MG/DL Aspartate Amino Transf (AST/SGOT) 9 5-34 U/L Alanine Aminotransferase (ALT/SGPT) 10 0-55 U/L Alkaline Phosphatase 71 40-136 U/L Total Protein 8.4 H 6.4-8.2 GM/DL Albumin 4.3 3.2-4.5 GM/DL Blood Gas Puncture Site L RAD Blood Gas Patient Temperature 98.7 Arterial Blood pH 7.32 *L 7.37-7.43 Arterial Blood Partial Pressure CO2 47 H 35-45 MMHG Arterial Blood Partial Pressure O2 52 L 79-93 MMHG Arterial Blood HCO3 24 23-27 MMOL/L Arterial Blood Total CO2 25.2 21.0-31.0 MMOL/L Arterial Blood Oxygen Saturation 85 L 94-100 % Arterial Blood Base Excess -1.5 -2.5-2.5 MMOL/L Damion Test YES-POS Blood Gas Ventilator Setting NO Blood Gas Inspired Oxygen 3L Urine Color YELLOW Urine Clarity CLEAR Urine pH 5 5-9 Urine Specific Hickman 1.020 1.016-1.022 Urine Protein 2+ H NEGATIVE Urine Glucose (UA) NEGATIVE NEGATIVE Urine Ketones 2+ H NEGATIVE Urine Nitrite NEGATIVE NEGATIVE Urine Bilirubin 1+ H NEGATIVE Urine Urobilinogen NORMAL NORMAL MG/DL Urine Leukocyte Esterase 1+ H NEGATIVE Urine RBC (Auto) 2+ H NEGATIVE Urine RBC 5-10 H /HPF Urine WBC 10-25 H /HPF Urine Squamous Epithelial Cells 2-5 /HPF Urine Crystals NONE /LPF Urine Bacteria FEW H /HPF Urine Casts PRESENT /LPF Urine Hyaline Casts 10-25 H /LPF Urine Mucus MODERATE H /LPF Urine Culture Indicated YES My Orders Orders - MAYRA CRONIN MD Cbc With Automated Diff (10/04/17 13:48) Comprehensive Metabolic Panel (10/04/17 13:48) Ua Culture If Indicated (10/04/17 13:48) Saline Lock/Iv-Start (10/04/17 13:48) Alcohol (10/04/17 14:01) Arterial Blood Gas (10/04/17 14:01) Hs C Reactive Protein (10/04/17 14:01) Magnesium (10/04/17 14:01) Saline Lock/Iv-Start (10/04/17 14:01) Ns Iv 1000 Ml (Sodium Chloride 0.9%) (10/04/17 14:01) Chest 1 View, Ap/Pa Only (10/04/17 14:07) Ct Head/Cervical Spine Wo (10/04/17 15:06) Ns Iv 1000 Ml (Sodium Chloride 0.9%) (10/04/17 15:06) Urine Culture (10/04/17 16:24) Ceftriaxone Injection (Rocephin Injectio (10/04/17 17:30) Albuterol/Ipra Inhalation Soln (Duoneb I (10/04/17 18:15) Svn Sm Volume Nebulizer Rt-Rfs (10/04/17 18:03) Medications Given in ED Current Medications Medications Dose Ordered Sig/Isabel Route Start Time Stop Time Status Last Admin Dose Admin Ceftriaxone Sodium 1000 mg/ Sodium Chloride 100 ml @ 200 mls/hr ONCE ONCE IV 10/04/17 17:30 10/04/17 17:59 DC 10/04/17 17:40 200 MLS/HR Vital Signs/I&O Vital Sign - Last 12Hours 10/04/17 13:25 Temp 98.3 Pulse 115 Resp 18 B/P (MAP) 120/85 (97) Pulse Ox 99 Capillary Refill : Less Than 3 Seconds Blood Pressure Mean: 97 Progress Note : Progress Note Patient received 2 L of IV fluids in the emergency room. Rocephin was administered for treatment of urinary tract infection. Patient did become more alert after IV fluids. He believes the results appeared fairly consistent with other postoperative spine patients. I spoke with Dr. Paul who is on-call for Dr. Solis from [facility] neurosurgery. He did not believe anything in the workup required emergent transfer for neurosurgical evaluation. However , he would like the patient to follow-up in the clinic as soon as possible, preferably tomorrow. Arrangements to transfer can be made with May at at the [facility] transfer center. Patient's shyanne states he normally sees them at the satellite clinic in [place]. Patient received a DuoNeb treatment in the ER as maintenance for his COPD. Case was reviewed with patient, shyanne, and Dr. Brown. All parties are in agreement that admission for observation is appropriate. Patient was able to stand on his own power and balance to provide a urine sample. He was slightly wobbly while standing. Diagnostic Imaging Diagonstic Imaging: Xray Plain Films/CT/US/NM/MRI: chest Comments Chest x-ray viewed by me and report reviewed. See report below: NAME: GIOVANNI BRENNAN [facility] REC#: [id number] PT STATUS: REG ER : 1965 PHYSICIAN: MAYRA CRONIN MD ADMIT DATE: 10/04/17/ER Draft Date of Exam:10/04/17 CHEST 1 VIEW, AP/PA ONLY INDICATION: Confusion. COMPARISON: 09/24/2017. FINDINGS: There is cardiomegaly. There is some venous congestion. There is some bibasilar atelectasis and/or pneumonitis. There appear to be small bilateral pleural effusions. There is no pneumothorax. The mediastinum is unremarkable. IMPRESSION: Bibasilar atelectasis and/or pneumonitis and small bilateral pleural effusions. Cardiomegaly and mild central pulmonary venous congestion. Dictated on workstation # [id number] Dict: 10/04/17 1434 Trans: 10/04/17 [facility]7 [id number] Interpreted by: TANIYA MCKENZIE MD Diagonstic Imaging: CT Plain Films/CT/US/NM/MRI: c-spine, head Comments CT head and cervical spine viewed by me and report reviewed. Discussed with radiologist. See report below: NAME: GIOVANNI BRENNAN [facility] REC#: [id number] PT STATUS: REG ER : 1965 PHYSICIAN: MAYRA CRONIN MD ADMIT DATE: 10/04/17/ER Draft Date of Exam:10/04/17 CT HEAD/CERVICAL SPINE WO PROCEDURE: CT head and CT cervical spine without contrast. TECHNIQUE: Multiple contiguous axial images were obtained through the brain and cervical spine without the use of intravenous contrast. Sagittal and coronal reformations through the cervical spine were then performed. INDICATION: Patient is status post occipital craniectomy and extensive cervical spine 360 fusion approximately three weeks ago. There is skin blistering at the surgical site posteriorly. Altered mental status is also present. CT brain: Comparison is made with prior CT brain from 11/19/2008. FINDINGS: The ventricular size and sulcal pattern are appropriate for the patient's age. No sulcal effacement, midline shift, or hemorrhage is detected. The cisterns are patent. Postsurgical changes at the skull base posteriorly are noted and will be described on CT cervical spine. IMPRESSION: No acute intracranial process is detected. CT cervical spine: FINDINGS: Postsurgical changes of occipital craniectomy are noted. There is also extensive cervical spine surgery with ACDF noted with anterior plate and screws extending from C2 through C5. Posterior instrumented fusion is also seen with vertical stabilization rods and posterior element screws extending from C2 through T2. The surgical hardware appears to be intact. No definite fracture or loosening is identified. There has been partial resection of the posterior arch of C1 and C2. There has also been a decompression laminectomy at the C3 level. There is a fluid collection noted posteriorly at the surgical bed extending from the occiput to approximately the level of C4. This is in the midline measuring approximately 6 cm cephalocaudal x 4 cm AP x 4 cm transverse. The fluid collection does abut the posterior thecal sac at the level of C1 and also extends to the level of the occipital craniectomy. However, no mass effect is identified upon the thecal sac. No gas within the fluid collection is identified. No acute bony abnormality is identified. The prevertebral tissues are normal. IMPRESSION: 1. Extensive postsurgical changes to the cervical spine with ACDF C2 through C5 as well as posterior instrumented fusion from C2 through T2. There has also been an occipital craniectomy. There is a fluid collection at the surgical bed, likely postsurgical hematoma/seroma. No gas within the collection is seen. 2. No evidence of fracture or loosening of the orthopedic hardware. Dictated on workstation # [id number] Dict: 10/04/17 1533 Trans: 10/04/17 1603 [id number] Interpreted by: ERIKA ALEJANDRA MD Departure Communication (Admissions) Time/Spoke to Admitting Phy: 17:[address] Brown Impression Impression: Primary Impression: Acute renal failure Qualified Codes: N17.9 - Acute kidney failure, unspecified Additional Impressions: Altered mental status Qualified Codes: R41.82 - Altered mental status, unspecified Urinary tract infection Qualified Codes: N39.0 - Urinary tract infection, site not specified; R31.9 - Hematuria, unspecified Sleep apnea Qualified Codes: G47.30 - Sleep apnea, unspecified Acute headache Qualified Codes: R51 - Headache Disposition: 09 ADMITTED INPATIENT Condition: Stable Admissions Decision to Admit Reason: Admit from ER (General) Decision to Admit/Date: Oct 04, 2017 Time/Decision to Admit Time: 17:40 Departure-Patient Inst. Referrals: NO,LOCAL PHYSICIAN (PCP/Family) Primary Care Physician MAYRA CRONIN MD Oct 04, 2017 14:53
--- NOTE | 2017-10-04 16:03 | Diagnostic Imaging Report ---
PROCEDURE: CT head and CT cervical spine without contrast. TECHNIQUE: Multiple contiguous axial images were obtained through the brain and cervical spine without the use of intravenous contrast. Sagittal and coronal reformations through the cervical spine were then performed. INDICATION: Patient is status post occipital craniectomy and extensive cervical spine 360 fusion approximately three weeks ago. There is skin blistering at the surgical site posteriorly. Altered mental status is also present. CT brain: Comparison is made with prior CT brain from 11/19/2008. FINDINGS: The ventricular size and sulcal pattern are appropriate for the patient's age. No sulcal effacement, midline shift, or hemorrhage is detected. The cisterns are patent. Postsurgical changes at the skull base posteriorly are noted and will be described on CT cervical spine. IMPRESSION: No acute intracranial process is detected. CT cervical spine: FINDINGS: Postsurgical changes of occipital craniectomy are noted. There is also extensive cervical spine surgery with ACDF noted with anterior plate and screws extending from C2 through C5. Posterior instrumented fusion is also seen with vertical stabilization rods and posterior element screws extending from C2 through T2. The surgical hardware appears to be intact. No definite fracture or loosening is identified. There has been partial resection of the posterior arch of C1 and C2. There has also been a decompression laminectomy at the C3 level. There is a fluid collection noted posteriorly at the surgical bed extending from the occiput to approximately the level of C4. This is in the midline measuring approximately 6 cm cephalocaudal x 4 cm AP x 4 cm transverse. The fluid collection does abut the posterior thecal sac at the level of C1 and also extends to the level of the occipital craniectomy. However, no mass effect is identified upon the thecal sac. No gas within the fluid collection is identified. No acute bony abnormality is identified. The prevertebral tissues are normal. IMPRESSION: 1. Extensive postsurgical changes to the cervical spine with ACDF C2 through C5 as well as posterior instrumented fusion from C2 through T2. There has also been an occipital craniectomy. There is a fluid collection at the surgical bed, likely postsurgical hematoma/seroma. No gas within the collection is seen. 2. No evidence of fracture or loosening of the orthopedic hardware. Dictated by: Dictated on workstation # [id number]
[2017-10-04 16:32] LABS: CLARITY,URINE CLEAR; COLOR,URINE YELLOW; GLUCOSE, URINE (UA) NEGATIVE (NEGATIVE); KETONES,URINE 2+ (NEGATIVE); LEUKOCYTE ESTERASE ,URINE 1+ (NEGATIVE); NITRITE,URINE NEGATIVE (NEGATIVE); PH,URINE 5 (5-9); PROTEIN,URINE 2+ (NEGATIVE); UROBILINOGEN,URINE NORMAL (NORMAL)
[2017-10-04 17:12] LABS: BILIRUBIN,URINE 1+ (NEGATIVE)
[2017-10-04 17:13] LABS: BACTERIA,URINE FEW /HPF
[2017-10-04] MEDS ORDERED: cefTRIAXone INJECTION 1,000 MG in NS (IVPB) 100 ML IV ONE (17:30)
[2017-10-04] MEDS ORDERED: RT-ALBUTEROL/IPRATROPIUM 3 ML (DUONEB) VIAL INH ONE (18:15)
[2017-10-04 19:05] VITALS: BP 120/86
[2017-10-04] MEDS ORDERED: ONDANSETRON 4 MG/2 ML (SDV) Z0FRAN IVP PRN (19:15)
[2017-10-04] MEDS ORDERED: RT-ALBUTEROL SULF 2.5 MG/3 ML PRE-MIX VIAL INH PRN (19:15)
[2017-10-04] MEDS: NS IV 1000 ML 1,000 ML IV SCH (20:34)
[2017-10-04] MEDS: RT-ALBUTEROL/IPRATROPIUM 3 ML (DUONEB) VIAL INH SCH (21:45)
[2017-10-05] VITALS: BP 150/96
[2017-10-05] MEDS ORDERED: TIZA4CAP8 PO (00:10)
[2017-10-05] MEDS ORDERED: DICL75TA2 PO (00:10)
[2017-10-05] MEDS: NS IV 1000 ML 1,000 ML IV SCH ×2 (03:21→10:04)
[2017-10-05] MEDS ORDERED: NAPROXEN 250 MG (NAPROSYN) TABLET PO PRN (03:45)
[2017-10-05 04:00] VITALS: BP 146/78
[2017-10-05] MEDS: RT-ALBUTEROL/IPRATROPIUM 3 ML (DUONEB) VIAL INH SCH ×2 (05:05→10:01)
[2017-10-05 08:00] VITALS: BP 169/104
[2017-10-05 08:38] LABS: BASOPHILS % (AUTO) 0 % (0-10); EOSINOPHILS # (AUTO) 0.1 10^3/uL (0.0-0.3); EOSINOPHILS % (AUTO) 1 % (0-10); HEMATOCRIT 33 % (40-54); HEMOGLOBIN 10.5 G/DL (13.3-17.7); LYMPHOCYTES # (AUTO) 1.8 X 10^3 (1.0-4.0); LYMPHOCYTES % (AUTO) 19 % (12-44); MEAN CORPUSCULAR HEMOGLOBIN 28 PG (25-34); MEAN CORPUSCULAR HGB CONC 32 G/DL (32-36); MEAN CORPUSCULAR VOLUME 90 FL (80-99); MEAN PLATELET VOLUME 10.2 FL (7.4-10.4); MONOCYTES # (AUTO) 0.7 X 10^3 (0.0-1.0); MONOCYTES % (AUTO) 7 % (0-12); NEUTROPHILS # (AUTO) 6.6 X 10^3 (1.8-7.8); NEUTROPHILS % (AUTO) 73 % (42-75); PLATELET COUNT 265 10^3/uL (130-400); RED BLOOD COUNT 3.71 10^6/uL (4.35-5.85); RED CELL DISTRIBUTION WIDTH 13.1 % (10.0-14.5); WHITE BLOOD COUNT 9.1 10^3/uL (4.3-11.0)
[2017-10-05 08:57] LABS: BUN/CREATININE RATIO 23; CALCIUM 8.8 MG/DL (8.5-10.1); CARBON DIOXIDE 19 MMOL/L (21-32); CHLORIDE 110 MMOL/L (98-107); GFR ESTIMATED > 60; GLUCOSE 83 MG/DL (70-105); POTASSIUM 4.1 MMOL/L (3.6-5.0); SODIUM 139 MMOL/L (135-145)
[2017-10-05] MEDS: oxyCODONE ER 40 MG (oxyCONTIN CR) TAB PO SCH ×2 (09:23→14:28)
[2017-10-05] MEDS ORDERED: ALBUTEROL/IPRATROP (COMBIVENT RESPIMAT) 4 GM INHALER INH PRN (09:45)
[2017-10-05] MEDS ORDERED: PATIENT MAY USE OWN MEDS, ALL MC SCH (09:45)
[2017-10-05] MEDS ORDERED: meTOprolol TARTRATE 25 MG (LOPRESSOR) TABLET PO SCH (10:00)
[2017-10-05] MEDS ORDERED: RT-SYMBICORT 160/4.5 MCG INHALER PER PUFF IH SCH (10:00)
[2017-10-05] MEDS ORDERED: VALSARTAN 160 MG (DIOVAN) TABLET PO SCH (10:00)
--- NOTE | 2017-10-05 11:13 | Short Stay Summary-Hospitalist ---
History of Present Illness Date Seen 10/05/17 Time Seen by Provider: 08:20 Attending Physician Yin Brown MD PCP No,Local Physician Referring Physician Date of Admission Oct 04, 2017 at 6:30 pm Home Medications & Allergies Home Medications Reviewed patient Home Medication Reconciliation performed by pharmacy medication reconciliations mobile service rv technician and/or nursing. Patients Allergies have been reviewed. Allergies Allergies Coded Allergies amitriptyline (Verified Allergy, Unknown, 02/08/16) duloxetine (Verified Allergy, Unknown, 02/08/16) fluticasone (Verified Allergy, Unknown, 02/08/16) salmeterol (Verified Allergy, Unknown, 02/08/16) Past Tskqyeq-Dnflvn-Ixzyln Hx Patient Social History Alcohol Use: Denies Use Recreational Drug Use: No Smoking Status: Former Smoker Former Smoker, Quit: Aug 11, 2016 Type Used: Cigarettes Physical Abuse Screen: No Sexual Abuse: No Recent Foreign Travel: No Contact w/other who traveled: No Recent Hopitalizations: Yes (D/C FROM [facility] 09/20/17) Recent Infectious Disease Expo: No Immunizations Up To Date Tetanus Booster (TDap): Unknown Pediatric: No Date of Pneumonia Vaccine: May 07, 2017 Date of Influenza Vaccine: Apr 29, 2017 Seasonal Allergies Seasonal Allergies: No Past Medical History Surgeries: Abdominal, Neurological, Orthopedic Respiratory: COPD, Pneumonia, Sleep Apnea Currently Using CPAP: No Currently Using BIPAP: No Cardiac: Hypertension Neurological: Meningitis Reproductive: No Gastrointestinal: Abdominal Hernia Psychosocial: Anxiety History of Blood Disorders: No Family History FH: cancer 19 MOTHER Mother- lung cancer Father- HTN and CVA Physical Exam Physical Exam Vital Signs Vital Signs - First Documented 10/04/17 10/04/17 13:25 18:12 Temp 98.3 Pulse 115 Resp 18 B/P (MAP) 120/85 (97) Pulse Ox 99 O2 Delivery Nasal Cannula O2 Flow Rate 2.00 Capillary Refill : Less Than 3 Seconds Results Results/Procedures Labs Laboratory Tests 10/04/17 13:49 10/05/17 08:30 Patient resulted labs reviewed. Clinical Quality Measures DVT/VTE Risk/Contraindication: Risk Factor Score Per Nursin RFS Level Per Nursing on Admit: 4+=Very High YIN BROWN MD Oct 05, 2017 11:13 am
--- NOTE | 2017-10-05 11:15 | Discharge Instructions ---
Discharge Instructions Discharge Medications New, Converted or Re-Newed RX: Call to Patients Pharmacy Patient Instructions Patient Instructions Pt take your medications as prescribed. It is important to maintain your hydration as well. If you symptoms return or worse please return to the ER. Goal/Follow Up Appt: Please keep your follow up apointment with your neurosurgeon on 10/07 at 11:30am in the [place] office and with your pain management doctor on 10/07 at 2:45pm. Activity & Diet Discharge Diet: No Restrictions Activity as Tolerated: Yes YIN ARELLANO MD Oct 05, 2017 11:15 am
[2017-10-05 12:00] VITALS: BP 149/81
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
[2017-10-05] MEDS ORDERED: cefTRIAXone 1 GM/NS 100 ML IVPB IV SCH ×2 (19:00)
== END 2017-10-05 11:21 | disposition home or self-care (01) ==
LOC: EDUNIT# 11:31 → ER 11:33 → 4TH 18:30 → UNDOADMOB 18:30 → 4TH 18:50 → UNDODISOB 10-05 14:45
PROVIDERS: ADMIT Family Medicine; ATTEND Family Medicine
DX: N17.9 Acute kidney failure, unspecified (principal); R41.82 Altered mental status, unspecified; N39.0 Urinary tract infection, site not specified; G47.30 Sleep apnea, unspecified; R51 Headache; J44.9 Chronic obstructive pulmonary disease, unspecified; Z87.891 Personal history of nicotine dependence; Z88.8 Allergy status to other drugs, medicaments and biological substances; Z79.899 Other long term (current) drug therapy
CPT/HCPCS: 36415; 70450; 71045; 72125; 80048; 80053; 80320; 81000; 82805; 83735; 85025; 86141; 87088; 87186; 94640; 94760; 96361; 96365; G0378

== ENCOUNTER 2017-12-23 12:19 | Emergency (ER) | payer OTHER, MEDICARE, MEDICAID ==
[~2017-12-23] VITALS: Ht 165.1 cm; Wt 81.6 kg
[~2017-12-23 12:19] MED LIST changes: +TIZA4CAP8 PO
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
[2017-12-23] MEDS ORDERED: CYCL5TAB PO (14:12)
[2017-12-23 14:15] VITALS: BP 159/115
== END 2017-12-23 14:17 | disposition home or self-care (01) ==
LOC: EDUNIT# 12:19 → ER 12:21
DX: S16.1XXA Strain of muscle, fascia and tendon at neck level, initial encounter (principal); S39.012A Strain of muscle, fascia and tendon of lower back, initial encounter; J43.9 Emphysema, unspecified; G47.30 Sleep apnea, unspecified; I10 Essential (primary) hypertension; F41.9 Anxiety disorder, unspecified; Z80.1 Family history of malignant neoplasm of trachea, bronchus and lung; Z87.19 Personal history of other diseases of the digestive system; Z87.01 Personal history of pneumonia (recurrent); Z88.8 Allergy status to other drugs, medicaments and biological substances; Z79.51 Long term (current) use of inhaled steroids; Z87.891 Personal history of nicotine dependence; V43.52XA Car driver injured in collision with other type car in traffic accident, initial encounter
CPT/HCPCS: 70450; 72125; 72131

== ENCOUNTER 2019-04-11 15:35 | Emergency (ER) | payer MEDICARE, MEDICAID ==
[~2019-04-11] VITALS: Ht 165.1 cm; Wt 85.5 kg
[~2019-04-11 15:35] MED LIST changes: -AMLO5TAB2 PO; +AMLO5TAB9 PO; +CYCL5TAB PO; -GABA600T2 PO; +GBPN600T PO; -IPRA3AMP IH; +IPRA3AMP31 IH; -VALS160T28 PO; +VALS160T29 PO
[2019-04-11] MEDS ORDERED: NS IV 1000 ML 1,000 ML IV SCH (17:15)
[2019-04-11 17:20] LABS: BILIRUBIN,URINE NEGATIVE (NEGATIVE); CLARITY,URINE CLEAR; COLOR,URINE YELLOW; GLUCOSE, URINE (UA) NEGATIVE (NEGATIVE); KETONES,URINE NEGATIVE (NEGATIVE); LEUKOCYTE ESTERASE ,URINE NEGATIVE (NEGATIVE); NITRITE,URINE NEGATIVE (NEGATIVE); PH,URINE 6 (5-9); PROTEIN,URINE 1+ (NEGATIVE); UROBILINOGEN,URINE NORMAL (NORMAL)
--- NOTE | 2019-04-11 17:25 | ED Abdominal Pain ---
General Chief Complaint: Abdominal/GI Problems Stated Complaint: STOMACH PAIN/DIARRHEA Nursing Triage Note: Pt c/o abd cramping with diarrhea x1 week. Sepsis Screen: No Definite Risk Source of Information: Patient Exam Limitations: No Limitations History of Present Illness Date Seen by Provider: Apr 11, 2019 Time Seen by Provider: 17:24 Initial Comments a one-week history of generalized abdominal pain and diarrhea, no vomiting. Timing/Duration: 1-2 Days Severity/Quality: Moderate Location: Generalized Abdomen Radiation: No Radiation Activities at Onset: None Allergies and Home Medications Allergies Coded Allergies: amitriptyline (Verified Allergy, Unknown, 02/08/16) duloxetine (Verified Allergy, Unknown, 02/08/16) fluticasone (Verified Allergy, Unknown, 02/08/16) salmeterol (Verified Allergy, Unknown, 02/08/16) Home Medications Albuterol/Ipratropium 4 Gm Aero, 1 PUFF INH Q6H PRN for SHORTNESS OF BREATH, (Reported) Budesonide/Formoterol Fumarate 10.2 Gm Hfa.aer.ad, 1 PUFF INH BID, (Reported) Cyclobenzaprine HCl 10 Mg Tablet, 10 MG PO TID PRN for MUSCLE SPASMS, (Reported) Cyclobenzaprine HCl 5 Mg Tablet, 5 MG PO TID PRN for PAIN-MODERATE TO SEVERE Prescribed by: GIULIANA GOODMAN on 12/23/17 1412 Gabapentin 600 Mg Tablet, 1,200 MG PO TID, (Reported) TAKES 2 (600 MG) TABLETS Metoprolol Tartrate 25 Mg Tablet, 25 MG PO DAILY, (Reported) Naloxone HCl 2 Mg/0.4 Ml Auto.injct, INJ UD PRN for OPIOID OVERDOSE, (Reported) INJECT 1 AUTO INJECTOR (2MG) AT ONSET OF OPIOID EMERGENCY, REPEAT IN 2 MINS DIRECTED Naproxen Sodium 220 Mg Tablet, 440 MG PO BID PRN for PAIN-MILD, (Reported) Oxycodone HCl 80 Mg Tab.er.12h, 80 MG PO BID, (Reported) Tiotropium [place] 1 Inh Aerp, 1 CAP INH DAILY, (Reported) Valsartan 160 Mg Tablet, 160 MG PO DAILY, (Reported) LAST FILLED #90 06-04-17 Patient Home Medication List Home Medication List Reviewed: Yes Review of Systems Review of Systems Constitutional: see HPI EENTM: No Symptoms Reported Respiratory: No Symptoms Reported Cardiovascular: No Symptoms Reported Gastrointestinal: See HPI, Diarrhea Genitourinary: No Symptoms Reported Musculoskeletal: no symptoms reported Skin: no symptoms reported Psychiatric/Neurological: No Symptoms Reported Endocrine: No Symptoms Reported Hematologic/Lymphatic: No Symptoms Reported Past Mzatzoj-Arnere-Fuzhwb Hx Patient Social History Type Used: Cigarettes Former Smoker, Quit: Aug 11, 2016 Recent Foreign Travel: No Contact w/Someone Who Travel: No Recent Infectious Disease Expo: No Recent Hopitalizations: Yes (D/C FROM [facility] 09/20/17) Immunizations Up To Date Tetanus Booster (TDap): Unknown PED Vaccines UTD: No Date of Pneumonia Vaccine: May 07, 2017 Date of Influenza Vaccine: Apr 29, 2017 Seasonal Allergies Seasonal Allergies: No Past Medical History Surgeries: Yes (surgical repair of Chiari malformation) Abdominal, Neurological, Orthopedic Respiratory: Yes (RESPIRATORY FAILURE ON VENT AND BIPAP SEVERAL TIMES) Pneumonia, Chronic Bronchitis, Sleep Apnea, COPD, Emphysema Currently Using CPAP: No Currently Using BIPAP: No Cardiac: Yes Hypertension Neurological: Yes (MENINGITIS POSTOP 2004 FOR CYST ON BRAINSTEM & CHIARI MALFORMATION. SHUNT) Meningitis Reproductive Disorders: No Genitourinary: No Gastrointestinal: Yes (HERNIA REPAIR) Abdominal Hernia Musculoskeletal: Yes (CHRONIC HEAD/NECK PAIN ) Endocrine: No HEENT: No Cancer: No Psychosocial: Yes Anxiety Integumentary: No Blood Disorders: No Family Medical History FH: cancer 19 MOTHER Mother- lung cancer Father- HTN and CVA Physical Exam Vital Signs Vital Signs - First Documented 04/11/19 16:12 Temp 36.8 Pulse 84 Resp 14 B/P (MAP) 177/110 (132) Pulse Ox 97 Capillary Refill : Less Than 3 Seconds Height/Weight/BMI Height: 5'5.00" Weight: 180lbs. 0.0oz. 81.284788ca; 31.00 BMI Method:Stated General Appearance: WD/WN, no apparent distress Respiratory: no respiratory distress, no accessory muscle use Cardiovascular: regular rate, rhythm, no murmur Gastrointestinal: normal bowel sounds, soft Extremities: normal range of motion, non-tender Neurologic/Psychiatric: alert, normal mood/affect Skin: normal color, warm/dry Progress/Results/Core Measures Results/Orders Lab Results Laboratory Tests Test 04/11/19 16:45 04/11/19 17:38 Range/Units Urine Color YELLOW Urine Clarity CLEAR Urine pH 6 5-9 Urine Specific [place] 1.020 1.016-1.022 Urine Protein 1+ H NEGATIVE Urine Glucose (UA) NEGATIVE NEGATIVE Urine Ketones NEGATIVE NEGATIVE Urine Nitrite NEGATIVE NEGATIVE Urine Bilirubin NEGATIVE NEGATIVE Urine Urobilinogen NORMAL NORMAL MG/DL Urine Leukocyte Esterase NEGATIVE NEGATIVE Urine RBC (Auto) NEGATIVE NEGATIVE Urine RBC NONE /HPF Urine WBC RARE /HPF Urine Crystals NONE /LPF Urine Bacteria TRACE /HPF Urine Casts NONE /LPF Urine Mucus NEGATIVE /LPF Urine Culture Indicated NO White Blood Count 8.4 4.3-11.0 10^3/uL Red Blood Count 5.16 4.35-5.85 10^6/uL Hemoglobin 14.6 13.3-17.7 G/DL Hematocrit 45 40-54 % Mean Corpuscular Volume 87 80-99 FL Mean Corpuscular Hemoglobin 28 25-34 PG Mean Corpuscular Hemoglobin Concent 32 32-36 G/DL Red Cell Distribution Width 13.0 10.0-14.5 % Platelet Count 269 130-400 10^3/uL Mean Platelet Volume 10.3 7.4-10.4 FL Neutrophils (%) (Auto) 71 42-75 % Lymphocytes (%) (Auto) 21 12-44 % Monocytes (%) (Auto) 8 0-12 % Eosinophils (%) (Auto) 0 0-10 % Basophils (%) (Auto) 0 0-10 % Neutrophils # (Auto) 5.9 1.8-7.8 X 10^3 Lymphocytes # (Auto) 1.7 1.0-4.0 X 10^3 Monocytes # (Auto) 0.7 0.0-1.0 X 10^3 Eosinophils # (Auto) 0.0 0.0-0.3 10^3/uL Basophils # (Auto) 0.0 0.0-0.1 10^3/uL Sodium Level 140 135-145 MMOL/L Potassium Level 4.3 3.6-5.0 MMOL/L Chloride Level 105 98-107 MMOL/L Carbon Dioxide Level 26 21-32 MMOL/L Anion Gap 9 5-14 MMOL/L Blood Urea Nitrogen 20 H 7-18 MG/DL Creatinine 0.95 0.60-1.30 MG/DL Estimat Glomerular Filtration Rate > 60 BUN/Creatinine Ratio 21 Glucose Level 101 70-105 MG/DL Calcium Level 10.6 H 8.5-10.1 MG/DL Corrected Calcium 8.5-10.1 MG/DL Total Bilirubin 0.4 0.1-1.0 MG/DL Aspartate Amino Transf (AST/SGOT) 27 5-34 U/L Alanine Aminotransferase (ALT/SGPT) 57 H 0-55 U/L Alkaline Phosphatase 94 40-136 U/L Total Protein 9.0 H 6.4-8.2 GM/DL Albumin 5.0 H 3.2-4.5 GM/DL Lipase 17 8-78 U/L My Orders Orders - GIULIANA GOODMAN APRN Cbc With Automated Diff (04/11/19 17:13) Comprehensive Metabolic Panel (04/11/19 17:13) Ed Iv/Invasive Line Start (04/11/19 17:13) Lipase (04/11/19 17:13) Ua Culture If Indicated (04/11/19 17:13) Ns Iv 1000 Ml (Sodium Chloride 0.9%) (04/11/19 17:15) Ct Abdomen/Pelvis Wo (04/11/19 17:13) Vital Signs/I&O 04/11/19 16:12 Temp 36.8 Pulse 84 Resp 14 B/P (MAP) 177/110 (132) Pulse Ox 97 Blood Pressure Mean: 132 Diagnostic Imaging Diagonstic Imaging: Xray Comments NAME: GIOVANNI BRENNAN [facility] REC#: [id number] PT STATUS: REG ER : 1965 PHYSICIAN: GIULIANA GOODMAN APRN ADMIT DATE: 04/11/19/ER Draft Date of Exam:04/11/19 CT ABDOMEN/PELVIS WO PROCEDURE: CT abdomen and pelvis without contrast. TECHNIQUE: Multiple contiguous axial images were obtained through the abdomen and pelvis without the use of intravenous contrast. Auto Exposure Controls were utilized during the CT exam to meet ALARA standards for radiation dose reduction. INDICATION: Abdominal pain, diarrhea. COMPARISON: 04/09/2008. FINDINGS: There is an intraluminal mass seen involving a loop of small bowel in the anterior abdomen (image 55, series 3). The lesion measures approximately 3.5 cm. There is no associated obstruction or obvious inflammation. The remainder of the large and small bowel appear normal. There is no significant constipation. The appendix is grossly unremarkable. There is no lymphadenopathy. Lung bases are clear. The gallbladder, solid organs, vascular structures, and urinary bladder are normal. There is mild prostate enlargement. There is no hernia. Osseous structures are age appropriate. IMPRESSION: 1. Indeterminate small bowel mass involving a loop of small bowel in the anterior abdomen, mid aspect. Nonemergent small bowel follow-through recommended. 2. No bowel obstruction, free air, or free fluid. 3. Prostate enlargement. Dictated on workstation # [id number] Dict: 04/11/19 1810 Trans: 04/11/19 1820 AS6 [id number] Interpreted by: ISRA ADAIR Electronically signed by: Departure Impression Primary Impression: Diarrhea Qualified Codes: R19.7 - Diarrhea, unspecified Disposition: 01 HOME, SELF-CARE Condition: Stable Departure-Patient Inst. Decision time for Depature: 18:34 Referrals: TIMUR BURNHAM,LOCAL PHYSICIAN (PCP) Primary Care Physician Patient Instructions: No Instuctions Given Add. Discharge Instructions: 1. Return to ER for any concerns 2. . Call Dr Burnham tomorrow to make an appointment to be seen. There is question of a mass in a loop of small bowel, you need to have a small bowel follow-through ordered by primary care in the next few days. There is no bowel obstruction or other emergent complication from this. All discharge instructions reviewed with patient and/or family. Voiced understanding. Copy Copies To 1: TIMUR BURNHAM PETER J APRN Apr 11, 2019 17:25
[2019-04-11 17:40] LABS: BACTERIA,URINE TRACE /HPF; WBC,URINE RARE /HPF
[2019-04-11 17:44] LABS: BASOPHILS % (AUTO) 0 % (0-10); EOSINOPHILS % (AUTO) 0 % (0-10); HEMATOCRIT 45 % (40-54); HEMOGLOBIN 14.6 G/DL (13.3-17.7); LYMPHOCYTES # (AUTO) 1.7 X 10^3 (1.0-4.0); LYMPHOCYTES % (AUTO) 21 % (12-44); MEAN CORPUSCULAR HEMOGLOBIN 28 PG (25-34); MEAN CORPUSCULAR HGB CONC 32 G/DL (32-36); MEAN CORPUSCULAR VOLUME 87 FL (80-99); MEAN PLATELET VOLUME 10.3 FL (7.4-10.4); MONOCYTES # (AUTO) 0.7 X 10^3 (0.0-1.0); MONOCYTES % (AUTO) 8 % (0-12); NEUTROPHILS # (AUTO) 5.9 X 10^3 (1.8-7.8); NEUTROPHILS % (AUTO) 71 % (42-75); PLATELET COUNT 269 10^3/uL (130-400); WHITE BLOOD COUNT 8.4 10^3/uL (4.3-11.0)
[2019-04-11 18:07] LABS: ALANINE AMINOTRANSFERASE 57 U/L (0-55); ALKALINE PHOSPHATASE 94 U/L (40-136); BILIRUBIN,TOTAL 0.4 MG/DL (0.1-1.0); BUN/CREATININE RATIO 21; CALCIUM 10.6 MG/DL (8.5-10.1); CARBON DIOXIDE 26 MMOL/L (21-32); CHLORIDE 105 MMOL/L (98-107); CREATININE SERUM 0.95 MG/DL (0.60-1.30); GFR ESTIMATED > 60; GLUCOSE 101 MG/DL (70-105); LIPASE 17 U/L (8-78); POTASSIUM 4.3 MMOL/L (3.6-5.0); SODIUM 140 MMOL/L (135-145)
--- NOTE | 2019-04-11 18:21 | Diagnostic Imaging Report ---
PROCEDURE: CT abdomen and pelvis without contrast. TECHNIQUE: Multiple contiguous axial images were obtained through the abdomen and pelvis without the use of intravenous contrast. Auto Exposure Controls were utilized during the CT exam to meet ALARA standards for radiation dose reduction. INDICATION: Abdominal pain, diarrhea. COMPARISON: 04/09/2008. FINDINGS: There is an intraluminal mass seen involving a loop of small bowel in the anterior abdomen (image 55, series 3). The lesion measures approximately 3.5 cm. There is no associated obstruction or obvious inflammation. The remainder of the large and small bowel appear normal. There is no significant constipation. The appendix is grossly unremarkable. There is no lymphadenopathy. Lung bases are clear. The gallbladder, solid organs, vascular structures, and urinary bladder are normal. There is mild prostate enlargement. There is no hernia. Osseous structures are age appropriate. IMPRESSION: 1. Indeterminate small bowel mass involving a loop of small bowel in the anterior abdomen, mid aspect. Nonemergent small bowel follow-through recommended. 2. No bowel obstruction, free air, or free fluid. 3. Prostate enlargement. Dictated by: Dictated on workstation # [id number]
[2019-04-11 18:55] VITALS: BP 168/122
[2019-04-11] MEDS ORDERED: HYDROcodone/APAP 5 MG/325 MG (LORTAB) TAB PO ONE (19:00)
== END 2019-04-11 18:55 | disposition home or self-care (01) ==
LOC: EDUNIT# 15:35 → ER 15:36
DX: R19.7 Diarrhea, unspecified (principal); I10 Essential (primary) hypertension; J43.9 Emphysema, unspecified; G47.30 Sleep apnea, unspecified; F41.9 Anxiety disorder, unspecified; Z99.89 Dependence on other enabling machines and devices; Z88.8 Allergy status to other drugs, medicaments and biological substances; Z87.891 Personal history of nicotine dependence; Z80.1 Family history of malignant neoplasm of trachea, bronchus and lung
CPT/HCPCS: 36415; 74176; 80053; 81000; 83690; 85025; 96360

== ENCOUNTER → 2019-04-14 | Outpatient (CLI) | payer MEDICARE, MEDICAID ==
--- NOTE | 2019-04-14 12:08 | Diagnostic Imaging Report ---
PROCEDURE: CT abdomen and pelvis without contrast. TECHNIQUE: Multiple contiguous axial images were obtained through the abdomen and pelvis without the use of intravenous contrast. Auto Exposure Controls were utilized during the CT exam to meet ALARA standards for radiation dose reduction. INDICATION: Abdominal pain for one week and diarrhea. Patient had a recent abnormal CT abdomen and pelvis study describing questionable small bowel mass. This study is performed for further evaluation. COMPARISON: Correlation is made with prior CT from 04/11/2019. FINDINGS: Study was performed with oral contrast. There is moderate stool throughout the colon. There is opacification of multiple small bowel loops. The area of questionable mass in the midline abdomen inferiorly is no longer appreciated. This may have represented bowel contents. The appendix is unremarkable. There is no free fluid present. Lung bases are free of acute infiltrates. The liver and gallbladder are unremarkable. There is no biliary ductal dilatation. The pancreas and spleen are unremarkable. No adrenal mass is detected. No definite renal calculi or hydronephrosis is seen. The aorta is non-aneurysmal. There is no ascites. Bladder is decompressed. Prostate remains enlarged. IMPRESSION: 1. No evidence of small bowel mass on today's CT. The density noted on recent CT may represent bowel contents. 2. Prostatomegaly. 3. No acute features detected. Dictated by: Dictated on workstation # [id number]
== END ==
LOC: RAD 11:14
PROVIDERS: ATTEND Surgery
DX: N40.0 Benign prostatic hyperplasia without lower urinary tract symptoms (principal); R19.7 Diarrhea, unspecified; R19.00 Intra-abdominal and pelvic swelling, mass and lump, unspecified site
CPT/HCPCS: 74176

== ENCOUNTER 2019-05-30 05:41 | Outpatient (CLI) | payer MEDICARE, MEDICAID ==
[~2019-05-30] VITALS: Ht 165 cm; Wt 86.4 kg
== END 2019-05-30 15:47 | disposition home or self-care (01) ==
LOC: PREOP 05:41
PROVIDERS: ATTEND Surgery
DX: Z01.818 Encounter for other preprocedural examination (principal)

== ENCOUNTER 2019-06-06 09:29 | Day surgery (SDC) | payer MEDICARE, MEDICAID ==
[~2019-06-06] VITALS: Ht 165 cm; Wt 86.4 kg
[2019-06-06] VITALS (9 sets, daily range): BP systolic 113–154; BP diastolic 66–109
[2019-06-06] MEDS ORDERED: LACTATED RINGERS 1,000 ML IV ONE (09:35)
[2019-06-06] MEDS ORDERED: LACTATED RINGERS 1,000 ML IV STA (09:37)
[2019-06-06] MEDS ORDERED: PROPOFOL INJECTION 50 ML IV ONE (09:50)
[2019-06-06] MEDS ORDERED: MIDAZOLAM 2 MG/2 ML (VERSED) VIAL ONE (09:52)
[2019-06-06] MEDS ORDERED: LABETALOL HCL 20 MG/4 ML VIAL ONE (10:17)
--- NOTE | 2019-06-06 10:21 | Progress Note-Pre Operative ---
Pre-Operative Progress Note H&P Reviewed The H&P was reviewed, patient examined and no changes noted. Date Seen by Provider: Jun 06, 2019 Time Seen by Provider: 10: Date H&P Reviewed: Jun 06, 2019 Time H&P Reviewed: 10:21 Pre-Operative Diagnosis: screening colonoscopy TIMUR BURNHAM DO Jun 06, 2019 10:21 POS
--- NOTE | 2019-06-06 11:02 | Progress Note-Post Operative ---
Post-Operative Progess Note Surgeon (s)/Body Wirer (s) Surgeon TIMUR BURNHAM DO Body Wirer: NA Pre-Operative Diagnosis screening colonoscopy Post-Operative Diagnosis Sigmoid Polyp Procedure & Operative Findings Date of Procedure 06/06/19 Procedure Performed/Findings Colonoscopy with hot biopsy polypectomy Anesthesia Type per [employer] WORKER Estimated Blood Loss Estimated blood loss (mL): None Specimens/Packing Specimens Removed Sigmoid Biopsy x 1 TIMUR BURNHAM DO Jun 06, 2019 11:02 POS
--- NOTE | 2019-06-06 11:06 | Discharge Inst-Simple/Standard ---
Discharge Inst-Standard Patient Instructions/Follow Up Plan of Care/Instructions/FU: 2 weeks Mervin Activity as Tolerated: Yes Discharge Diet: Regular Diet TIMUR BURNHAM DO Jun 06, 2019 11:06 POS
--- NOTE | 2019-06-06 11:23 | Anesthesia-General Post-Op ---
MAC Patient Condition Mental Status/LOC: Same as Preop Cardiovascular: Satisfactory Nausea/Vomiting: Absent Respiratory: Satisfactory Pain: Controlled Complications: Absent Post Op Complications Complications None Follow Up Care/Instructions Patient Instructions None needed. Anesthesiology Discharge Order Discharge Order Patient is doing well, no complaints, stable vital signs, no apparent adverse anesthesia problems. No complications reported per nursing. ZACK MURILLO CRNA Jun 06, 2019 11:23 POS
--- NOTE | 2019-06-06 18:18 | OPERATIVE REPORT ---
DATE OF SERVICE: 06/06/2019 PREOPERATIVE DIAGNOSIS: Screening colonoscopy. POSTOPERATIVE DIAGNOSIS: Sigmoid colon polyp. PROCEDURE: Colonoscopy with hot biopsy polypectomy. SURGEON: Timur Jeffries DO ANESTHESIA: Per MEMBERSHIP ASSISTANT. ESTIMATED BLOOD LOSS: None. COMPLICATIONS: None. SPECIMENS: Sigmoid biopsy polyp. INDICATIONS: The patient is a 54-year-old male who has not had screening colonoscopy. He understands risks and benefits of procedure and wished to proceed with procedure. Consent was signed in the chart. DESCRIPTION OF PROCEDURE: The patient was taken to the endoscopy suite, placed in left lateral recumbent position. Timeout was performed. Digital rectal exam was performed. There were no palpable polyps, masses or ulcerations. Scope was inserted into the rectum, advanced all the way to the cecum with minimal difficulty. Prep was adequate. Scope was slowly retracted back. There were no polyps, mass or ulceration of the cecum, ascending, transverse and descending colon. In the sigmoid, small polyp was present, which hot biopsy polypectomy was performed. Scope was then continued to be slowly retracted back into the rectum, where it was also retroflexed noting no other pathology. Scope was then returned to its normal position, slowly withdrawn until completely removed. The patient tolerated procedure well without any complications, taken to recovery room in stable condition. RECOMMENDATIONS: The patient will need repeat colonoscopy in 5 years for followup and biopsy in a couple of weeks. Any issues before that be seen at that time. Job ID: [id number] DocumentID: [id number] Dictated Date: 06/06/2019 11:02:56 Aircraft Engine Technician Date: 06/06/2019 18:16:38 Dictated By: TIMUR JEFFRIES DO
== END 2019-06-06 11:50 | disposition home or self-care (01) ==
LOC: ENDO 09:29
PROVIDERS: ATTEND Surgery
DX: Z12.11 Encounter for screening for malignant neoplasm of colon (principal); K63.5 Polyp of colon; I10 Essential (primary) hypertension; G47.33 Obstructive sleep apnea (adult) (pediatric); J44.9 Chronic obstructive pulmonary disease, unspecified; Z99.81 Dependence on supplemental oxygen; F32.9 Major depressive disorder, single episode, unspecified; F41.9 Anxiety disorder, unspecified; E66.9 Obesity, unspecified; Z68.32 Body mass index [BMI] 32.0-32.9, adult; Z87.891 Personal history of nicotine dependence; Z79.899 Other long term (current) drug therapy

== ENCOUNTER 2020-06-30 10:30 | Emergency (ER) | payer MEDICARE, MEDICAID ==
[~2020-06-30] VITALS: Ht 165.1 cm; Wt 95.2 kg
[~2020-06-30 10:30] MED LIST changes: +AMLO-250 PO; -AMLO5TAB9 PO; -CLIN300C11 PO; +CLIN300C12 PO; -METO-370 PO; +METO50TA7 PO; -NICO-588 TD; +NICO-685 TD; +OXYC-527 PO; -OXYC30TA80 PO
--- NOTE | 2020-06-30 11:20 | NUR ---
Pt 02 adjusted to 4 L; pt now 96% O2 sat. Pt breathing easier at this time.
--- NOTE | 2020-06-30 11:39 | Diagnostic Imaging Report ---
INDICATION: Chest pain, low 02 saturations COMPARISON STUDY: Chest from 10/04/2017. FINDINGS: Frontal view of the chest demonstrates heart size to be a little smaller than previously. Previous pleural effusions have resolved. There still are residual infiltrates or atelectasis in left base. Postoperative changes present in the spine. IMPRESSION: The pleural effusions and cardiomegaly have resolved. There is still a left basilar infiltrate or atelectasis. Dictated by: Dictated on workstation # [id number]
[2020-06-30] MEDS ORDERED: ACETAMINOPHEN 500 MG TAB (TYLENOL) ONE (11:40)
[2020-06-30] MEDS ORDERED: CEFEPIME 1 GM/10 ML (MAXIPIME) VIAL ONE (11:40)
[2020-06-30] MEDS ORDERED: WATER (STERILE) FOR INJECTION 10 ML ONE (11:40)
[2020-06-30] MEDS ORDERED: ACETAMINOPHEN 500 MG TAB (TYLENOL) PO PRN (11:45)
[2020-06-30] MEDS ORDERED: ASPIRIN 81 MG CHEW (CHILDREN'S ASA) PO ONE (11:45)
[2020-06-30] MEDS ORDERED: CEFEPIME INJECTION 1,000 MG in WATER (STERILE) FOR INJECTION 10 ML IV ONE (11:45)
[2020-06-30] MEDS ORDERED: NS IV 1000 ML 1,000 ML IV SCH (11:45)
[2020-06-30] MEDS ORDERED: VANCOMYCIN INJECTION 1,000 MG in NS (IVPB) 250 ML IV SCH (11:45)
[2020-06-30 11:50] LABS: BASOPHILS % (AUTO) 0 % (0-10); EOSINOPHILS % (AUTO) 0 % (0-10); HEMATOCRIT 39 % (40-54); HEMOGLOBIN 12.2 g/dL (13.3-17.7); LYMPHOCYTES % (AUTO) 11 % (12-44); MEAN CORPUSCULAR HEMOGLOBIN 29 pg (25-34); MEAN CORPUSCULAR HGB CONC 32 g/dL (32-36); MEAN CORPUSCULAR VOLUME 90 fL (80-99); MEAN PLATELET VOLUME 10.3 fL (9.0-12.2); MONOCYTES # (AUTO) 0.6 10^3/uL (0.0-1.0); MONOCYTES % (AUTO) 6 % (0-12); NEUTROPHILS % (AUTO) 83 % (42-75); PLATELET COUNT 213 10^3/uL (130-400); WHITE BLOOD COUNT 9.7 10^3/uL (4.3-11.0)
[2020-06-30 11:52] LABS: CHLORIDE 102 MMOL/L (98-107); SODIUM 137 MMOL/L (135-145)
[2020-06-30 11:53] LABS: CALCIUM 8.9 MG/DL (8.5-10.1)
[2020-06-30 11:54] LABS: GLUCOSE 133 MG/DL (70-105); TOTAL PROTEIN 7.7 GM/DL (6.4-8.2)
[2020-06-30 11:56] LABS: BILIRUBIN,TOTAL 0.7 MG/DL (0.1-1.0); CARBON DIOXIDE 24 MMOL/L (21-32)
[2020-06-30 11:58] LABS: ALKALINE PHOSPHATASE 64 U/L (40-136); CREATININE SERUM 0.88 MG/DL (0.60-1.30); GFR ESTIMATED > 60
[2020-06-30 11:59] LABS: BUN/CREATININE RATIO 23
[2020-06-30] MEDS ORDERED: VANCOMYCIN IV NR (12:00)
[2020-06-30] MEDS ORDERED: NS IV NR (12:00)
[2020-06-30 12:01] LABS: ALANINE AMINOTRANSFERASE 19 U/L (0-55)
[2020-06-30 12:06] LABS: PROTHROMBIN TIME PATIENT 13.9 SEC (12.2-14.7)
--- NOTE | 2020-06-30 12:26 | ED Respiratory ---
General Chief Complaint: Respiratory Problems Stated Complaint: CP,SOB, LOSS OF TASTE Nursing Triage Note: Pt ambulatory to ED with c/o SOB, "feeling sick", and no smell or taste for two days. Source: patient Exam Limitations: no limitations History of Present Illness Date Seen by Provider: Jun 30, 2020 Time Seen by Provider: 11:35 Initial Comments Patient presents ER by private conveyance walk-in with chief complaint of shortness of breath worsening over the last 2 days and cough this productive. He quit smoking 3 years ago. He is having a fever today per nursing. He has not taken anything for that. He does not know of any sick contacts or people with COVID-19. He did lose his sense of taste today. He is not having any diarrhea but he is having some mild nausea but does not want anything for it. He has a history of COPD and known to a senior commissary agent and primary care by Dr. Mustafa. He denies chest pain. He says he is supposed to be wearing oxygen throughout the day but for the past year or so because of embarrassment he says he only wears it at night when he sleeps with his CPAP. Nursing reports he was 77% and winded after walking into the ER on room air. They got him up with a oxygen mask and then titrated it back down to 3 L by nasal cannula. Typically he wears 2 L by nasal cannula at home. He and his doctor have been working on getting his edema down but he does not member the name of the medicine he is taking for it. Allergies and Home Medications Allergies Coded Allergies: amitriptyline (Verified Allergy, Unknown, 02/08/16) duloxetine (Verified Allergy, Unknown, 02/08/16) fluticasone (Verified Allergy, Unknown, 02/08/16) salmeterol (Verified Allergy, Unknown, 02/08/16) Home Medications No Active Prescriptions or Reported Meds Patient Home Medication List Home Medication List Reviewed: Yes Review of Systems Review of Systems Constitutional: No chills, No diaphoresis EENTM: No ear discharge, No hearing loss, No ear pain Respiratory: cough, short of breath Cardiovascular: No chest pain; Hx of Intervention; No palpitations Gastrointestinal: No abdominal pain, No constipation, No diarrhea, No nausea, No vomiting Genitourinary: No discharge, No dysuria Musculoskeletal: No back pain, No joint pain Psychiatric/Neurological: Denies Anxiety, Denies Depressed All Other Systems Reviewed Negative Unless Noted: Yes Past Pzzfdqf-Lqjosy-Anowwf Hx Patient Social History Alcohol Use: Occasionally Uses Recreational Drug Use: No Smoking Status: Former Smoker Type Used: Cigarettes Former Smoker, Quit: Aug 11, 2016 2nd Hand Smoke Exposure: Yes Recent Foreign Travel: No Contact w/Someone Who Travel: No Recent Infectious Disease Expo: No Recent Hopitalizations: No Immunizations Up To Date Tetanus Booster (TDap): Unknown PED Vaccines UTD: No Date of Pneumonia Vaccine: May 07, 2017 Date of Influenza Vaccine: Apr 29, 2017 Seasonal Allergies Seasonal Allergies: No Past Medical History Surgeries: Yes (surgical repair of Chiari malformation, knee sx, hernia, shoulder,hand) Abdominal, Neurological, Orthopedic Respiratory: Yes (RESPIRATORY FAILURE ON VENT AND BIPAP SEVERAL TIMES) Pneumonia, Chronic Bronchitis, Sleep Apnea, COPD, Emphysema Currently Using CPAP: No Currently Using BIPAP: No Cardiac: Yes Hypertension Neurological: Yes (MENINGITIS POSTOP 2004 FOR CYST ON BRAINSTEM & CHIARI MALFORMATION. SHUNT) Meningitis Reproductive Disorders: No Genitourinary: No Gastrointestinal: Yes (HERNIA REPAIR) Abdominal Hernia Musculoskeletal: Yes (CHRONIC HEAD/NECK PAIN ) Arthritis Endocrine: No HEENT: No Cancer: No Psychosocial: Yes Anxiety Integumentary: No Blood Disorders: No Family Medical History FH: cancer 19 MOTHER Mother- lung cancer Father- HTN and CVA Physical Exam Vital Signs - First Documented 06/30/20 06/30/20 11:00 11:01 Temp 38.6 Pulse 117 Resp 27 B/P (MAP) 136/103 (114) Pulse Ox 75 O2 Delivery Room Air O2 Flow Rate 10.00 Capillary Refill : Less Than 3 Seconds Height: 5'5.00" Weight: 180lbs. 0.0oz. 81.347667id; 34.00 BMI Method:Stated General Appearance: WD/WN, mild distress Eyes: Bilateral Eye Normal Inspection, Bilateral Eye PERRL, Bilateral Eye EOMI HEENT: PERRL/EOMI, normal ENT inspection, TMs normal, pharynx normal (Oropharynx is mildly dry) Neck: full range of motion, supple, normal inspection Respiratory: no respiratory distress, no accessory muscle use, decreased breath sounds Cardiovascular: normal peripheral pulses, regular rate, rhythm Gastrointestinal: non tender, soft Extremities: no calf tenderness, normal capillary refill, pedal edema (3+ bilateral pedal edema) Neurologic/Psychiatric: alert, normal mood/affect, oriented x 3 Skin: normal color, warm/dry Focused Exam Sepsis Stage: Sepsis Possible Source: Pulmonary Lactate Level 06/30/20 11:10: Lactic Acid Level 0.69 Time of Focused Exam: 12:29 Respiratory: No Accessory Muscle Use, No Respiratory Distress (2 L by nasal cannula satting in the mid to upper 90s.), Decreased Breath Sounds Cardiovascular: Regular Rate, Rhythm, Normal Peripheral Pulses Capillary Refill: Less Than 3 Seconds Skin: normal color, warm/dry Lactic Acid Level Laboratory Tests Test 06/30/20 11:10 Lactic Acid Level 0.69 MMOL/L (0.50-2.00) Within 3hrs of presentation: Admin fluids, Admin 30ml/kg IBW due to BMI>30 (Because of the peripheral edema we are being very cautious with fluids and checking a BNP), Admin ABX, Blood cultures prior to ABX's, Focus exam, Lactate level Progress/Results/Core Measures Suspected Sepsis Recent Fever Within 48 Hours: Yes Infection Criteria Present: Suspected New Infection New/Unexplained Altered Menta: No Sepsis Screen: Possible Severe Sepsis Risk SIRS Temperature: Pulse: 117 Respiratory Rate: 27 Laboratory Tests 06/30/20 11:10: White Blood Count 9.7 Blood Pressure 136 /103 Mean: 114 06/30/20 11:10: Lactic Acid Level 0.69 Laboratory Tests 06/30/20 11:10: Creatinine 0.88, INR Comment 1.0, Platelet Count 213, Total Bilirubin 0.7 Results/Orders Lab Results Laboratory Tests Test 06/30/20 11:07 06/30/20 11:10 Range/Units Coronavirus 2019 (LETICIA) Negative Negative White Blood Count 9.7 4.3-11.0 10^3/uL Red Blood Count 4.27 L 4.30-5.52 10^6/uL Hemoglobin 12.2 L 13.3-17.7 g/dL Hematocrit 39 L 40-54 % Mean Corpuscular Volume 90 80-99 fL Mean Corpuscular Hemoglobin 29 25-34 pg Mean Corpuscular Hemoglobin Concent 32 32-36 g/dL Red Cell Distribution Width 12.9 10.0-14.5 % Platelet Count 213 130-400 10^3/uL Mean Platelet Volume 10.3 9.0-12.2 fL Immature Granulocyte % (Auto) 1 % Neutrophils (%) (Auto) 83 H 42-75 % Lymphocytes (%) (Auto) 11 L 12-44 % Monocytes (%) (Auto) 6 0-12 % Eosinophils (%) (Auto) 0 0-10 % Basophils (%) (Auto) 0 0-10 % Neutrophils # (Auto) 8.0 H 1.8-7.8 10^3/uL Lymphocytes # (Auto) 1.0 1.0-4.0 10^3/uL Monocytes # (Auto) 0.6 0.0-1.0 10^3/uL Eosinophils # (Auto) 0.0 0.0-0.3 10^3/uL Basophils # (Auto) 0.0 0.0-0.1 10^3/uL Immature Granulocyte # (Auto) 0.1 0.0-0.1 10^3/uL Prothrombin Time 13.9 12.2-14.7 SEC INR Comment 1.0 0.8-1.4 Activated Partial Thromboplast Time 35 24-35 SEC Sodium Level 137 135-145 MMOL/L Potassium Level 4.0 3.6-5.0 MMOL/L Chloride Level 102 98-107 MMOL/L Carbon Dioxide Level 24 21-32 MMOL/L Anion Gap 11 5-14 MMOL/L Blood Urea Nitrogen 20 H 7-18 MG/DL Creatinine 0.88 0.60-1.30 MG/DL Estimat Glomerular Filtration Rate > 60 BUN/Creatinine Ratio 23 Glucose Level 133 H 70-105 MG/DL Lactic Acid Level 0.69 0.50-2.00 MMOL/L Calcium Level 8.9 8.5-10.1 MG/DL Corrected Calcium 8.9 8.5-10.1 MG/DL Total Bilirubin 0.7 0.1-1.0 MG/DL Aspartate Amino Transf (AST/SGOT) 16 5-34 U/L Alanine Aminotransferase (ALT/SGPT) 19 0-55 U/L Alkaline Phosphatase 64 40-136 U/L Troponin I < 0.028 <0.028 NG/ML B-Type Natriuretic Peptide 15.8 <100.0 PG/ML Total Protein 7.7 6.4-8.2 GM/DL Albumin 4.0 3.2-4.5 GM/DL Micro Results Microbiology 06/30/20 Influenza Types A,B Antigen (KANDI) - Final, Complete My Orders Orders - BALDO CUEVAS Chest 1 View, Ap/Pa Only (06/30/20 11:02) Influenza A And B Antigens (06/30/20 11:07) Covid 19 Inhouse Test (06/30/20 11:07) Ekg Tracing (06/30/20 11:21) Cbc With Automated Diff (06/30/20 11:39) Comprehensive Metabolic Panel (06/30/20 11:39) Blood Culture (06/30/20 11:39) Sputum Culture (06/30/20 11:39) Urinalysis (06/30/20 11:39) Urine Culture (06/30/20 11:39) Protime With Inr (06/30/20 11:39) Partial Thromboplastin Time (06/30/20 11:39) Acetaminophen Tablet (Tylenol Tablet) (06/30/20 11:45) Ed Iv/Invasive Line Start (06/30/20 11:39) Ed Iv/Invasive Line Start (06/30/20 11:39) Vital Signs Adult Sepsis Patie Q15M (06/30/20 11:39) O2 (06/30/20 11:39) Remove Rings In Anticipation O (06/30/20 11:39) Lactic Acid Analyzer (06/30/20 11:39) Ns Iv 1000 Ml (Sodium Chloride 0.9%) (06/30/20 11:45) Cefepime Injection (Maxipime Injection) (06/30/20 11:45) Vancomycin Injection (Vancomycin Injecti (06/30/20 11:45) Coronavirus Sars-Cov-2 So 2019 (06/30/20 11:39) BNP (06/30/20 11:39) Troponin I (06/30/20 11:39) Aspirin Chewable Tablet (Baby Aspirin Ch (06/30/20 11:45) Cefepime Injection (Maxipime Injection) (06/30/20 11:40) Acetaminophen Tablet (Tylenol Tablet) (06/30/20 11:40) Water (Sterile) For Injection (Sterile W (06/30/20 11:40) Vancomycin Injection (Vancomycin Injecti (06/30/20 12:00) Medications Given in ED Current Medications Medications Dose Ordered Sig/Isabel Route Start Time Stop Time Status Last Admin Dose Admin Acetaminophen 1,000 mg ONCE PRN PO 06/30/20 11:45 06/30/20 11:48 DC 06/30/20 11:47 1,000 MG Aspirin 324 mg ONCE ONCE PO 06/30/20 11:45 06/30/20 11:46 DC 06/30/20 11:55 324 MG Cefepime HCl 1000 mg/Sterile Water 10 ml @ 200 mls/hr ONCE ONCE IV 06/30/20 11:45 06/30/20 11:47 DC 06/30/20 11:46 200 MLS/HR Vital Signs/I&O 06/30/20 06/30/20 11:00 11:01 Temp 38.6 Pulse 117 Resp 27 B/P (MAP) 136/103 (114) Pulse Ox 75 98 O2 Delivery Room Air OxyMask O2 Flow Rate 10.00 Capillary Refill : Less Than 3 Seconds Blood Pressure Mean: 114 Progress Note #1: Time: 12:26 Progress Note Or starting a septic work-up. Initial rapid Covid was negative as well as influenza but will do a send out. Has a left lower lobe pneumonia on the chest x-ray but no significant white count. The patient is adamant he does not want to stay if he does not have to. He is practically on his baseline oxygen. He says he promises to wear it and come back if he gets worse. We will give him his initial dose of cefepime and vancomycin and then switch him to oral pills if he insists on going home for outpatient therapy. It is not unreasonable to attempt outpatient therapy. Progress Note #2: Time: 12:40 Progress Note Patient is on 2 to 3 L still satting 96 to 98% with nonlabored breathing. This would be at baseline for him. He is comfortable and has no wheezing. We did offer him a stay in the hospital but he would still like to try outpatient therapy. We're going to put him on cefdinir and azithromycin. We have given him strict return precautions. We have also encouraged him to follow-up by Wednesday or with his primary care provider. The send out COVID-19 swab should be back by that time. ECG Initial ECG Impression Date: Jun 30, 2020 Initial ECG Impression Time: 11:17 Initial ECG Rate: 109 Initial ECG Rhythm: S.Tach Initial ECG Intervals: Normal Initial ECG Impression: Normal Comment Normal sinus tachycardia with no clinically relevant ST changes. 1/2-[address] in leads V1, V2 and V3. These findings are preserved from the EKG in 2018. Diagnostic Imaging Diagonstic Imaging: Xray Plain Films/CT/US/NM/MRI: chest Comments NAME: GIOVANNI BRENNAN [facility] REC#: [id number] PT STATUS: REG ER : 1965 PHYSICIAN: BALDO CUEVAS MD ADMIT DATE: 06/30/20/ER Signed Date of Exam:06/30/20 CHEST 1 VIEW, AP/PA ONLY INDICATION: Chest pain, low 02 saturations COMPARISON STUDY: Chest from 10/04/2017. FINDINGS: Frontal view of the chest demonstrates heart size to be a little smaller than previously. Previous pleural effusions have resolved. There still are residual infiltrates or atelectasis in left base. Postoperative changes present in the spine. IMPRESSION: The pleural effusions and cardiomegaly have resolved. There is still a left basilar infiltrate or atelectasis. Dictated by: Dictated on workstation # [id number] Dict: 06/30/20 1133 Trans: 06/30/20 1150 CVB [id number] Interpreted by: PRETTY KIMBLE MD Electronically signed by: PRETTY KIMBLE MD 06/30/20 1150 Reviewed: Reviewed by Me Departure Impression Primary Impression: Pneumonia Qualified Codes: J18.9 - Pneumonia, unspecified organism Additional Impression: Sepsis Qualified Codes: A41.9 - Sepsis, unspecified organism Disposition: 01 HOME, SELF-CARE Condition: Stable Departure-Patient Inst. Decision time for Depature: 12:41 Referrals: JOSIANE MUSTAFA MD (PCP/Family) Primary Care Physician Patient Instructions: Pneumonia, Adult (DC) Add. 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 Start taking it tonight with food. Cefdinir twice a day for 10 days. Azithromycin take 2 tablets today and then 1 tablet every day afterwards until it is gone. Return to the ER if you are having worsening shortness of breath, oxygen saturations consistently less than 94%, chest pain or increasing need to turn your oxygen up. Plan on following up next week with Dr. Mustafa in the office. You should have the results of your COVID-19 swab called to you by Wednesday or Wednesday. All discharge instructions reviewed with patient and/or family. Voiced understanding. Scripts Azithromycin (Azithromycin) 250 Mg Tablet 250 MG PO UD, #6 TAB 0 Refills TAKE 2 TABLETS ON DAY ONE THEN TAKE 1 TABLET DAILY FOR FOUR MORE DAYS Prov: BALDO CUEVAS 06/30/20 Cefdinir (Cefdinir) 300 Mg Capsule 300 MG PO BID for 10 Days, #20 CAP 0 Refills Prov: BALDO CUEVAS 06/30/20 Copy Copies To 1: JOSIANE MUSTAFA MD, TITUS J Jun 30, 2020 12:26
[2020-06-30] MEDS ORDERED: CEFD300C3 PO (12:51)
[2020-06-30] MEDS ORDERED: AZIT250T12 PO (12:51)
[2020-06-30] MEDS ORDERED: morphine INJ 10 MG/ML 1ML (SYR OR VIAL) IVP STA (12:57)
[2020-06-30] MEDS ORDERED: CLOPIDOGREL 300 MG (PLAVIX) TABLET PO ONE (13:00)
[2020-06-30] MEDS ORDERED: ENOXAPARIN 100 MG/1 ML (LOVENOX) SYR SC ONE (13:00)
[2020-06-30 14:24] VITALS: BP 160/83
== END 2020-06-30 14:50 | disposition home or self-care (01) ==
LOC: EDUNIT# 10:30 → ER 10:31
DX: J18.9 Pneumonia, unspecified organism (principal); A41.9 Sepsis, unspecified organism; U07.1 COVID-19; Z80.1 Family history of malignant neoplasm of trachea, bronchus and lung; Z82.49 Family history of ischemic heart disease and other diseases of the circulatory system; Z87.891 Personal history of nicotine dependence; Z88.8 Allergy status to other drugs, medicaments and biological substances
CPT/HCPCS: 71045; 80053; 83605; 83880; 84484; 85025; 85610; 85730; 87040; 87804; 93005; 99284; U0002; 36415; 87635

== ENCOUNTER 2020-07-02 08:19 | Inpatient (IN) | payer MEDICARE, MEDICAID ==
[~2020-07-02] VITALS: Ht 165.1 cm; Wt 96.1 kg
[~2020-07-02 08:19] MED LIST changes: +AZIT250T12 PO
--- NOTE | 2020-07-02 08:46 | NUR ---
Attempted to reach about COVID pos. Left Message
[2020-07-02] MEDS ORDERED: NS IV 1000 ML 1,000 ML IV SCH (09:00)
[2020-07-02] MEDS ORDERED: ACETAMINOPHEN 500 MG TAB (TYLENOL) PO ONE (09:00)
[2020-07-02] MEDS: RT-ALBUTEROL INHALER HFA (VENTOLIN HFA) 18 GM IH SCH ×2 (09:04→14:54)
[2020-07-02 09:09] LABS: BASOPHILS % (AUTO) 0 % (0-10); EOSINOPHILS % (AUTO) 0 % (0-10); HEMATOCRIT 38 % (40-54); HEMOGLOBIN 11.3 g/dL (13.3-17.7); LYMPHOCYTES # (AUTO) 1.2 10^3/uL (1.0-4.0); LYMPHOCYTES % (AUTO) 18 % (12-44); MEAN CORPUSCULAR HEMOGLOBIN 28 pg (25-34); MEAN CORPUSCULAR HGB CONC 30 g/dL (32-36); MEAN CORPUSCULAR VOLUME 95 fL (80-99); MEAN PLATELET VOLUME 10.5 fL (9.0-12.2); MONOCYTES # (AUTO) 1.1 10^3/uL (0.0-1.0); MONOCYTES % (AUTO) 16 % (0-12); NEUTROPHILS # (AUTO) 4.6 10^3/uL (1.8-7.8); NEUTROPHILS % (AUTO) 66 % (42-75); PLATELET COUNT 220 10^3/uL (130-400)
[2020-07-02 09:15] LABS: ALBUMIN 3.8 GM/DL (3.2-4.5); CHLORIDE 100 MMOL/L (98-107); POTASSIUM 4.6 MMOL/L (3.6-5.0); SODIUM 136 MMOL/L (135-145)
[2020-07-02 09:17] LABS: CALCIUM 9.1 MG/DL (8.5-10.1)
[2020-07-02 09:18] LABS: GLUCOSE 108 MG/DL (70-105); TOTAL PROTEIN 7.7 GM/DL (6.4-8.2)
[2020-07-02 09:19] LABS: CARBON DIOXIDE 27 MMOL/L (21-32)
[2020-07-02 09:20] LABS: BILIRUBIN,TOTAL 0.6 MG/DL (0.1-1.0)
[2020-07-02 09:21] LABS: ALKALINE PHOSPHATASE 65 U/L (40-136)
--- NOTE | 2020-07-02 09:21 | Diagnostic Imaging Report ---
HISTORY: Sepsis, fever. COMPARISON: 06/30/2020 TECHNIQUE: Frontal view of the chest. FINDINGS: There are airspace opacities in the left lung base. There is a small left pleural effusion. The cardiac silhouette is stable in size. The right lung is clear. Fusion hardware is seen in the cervicothoracic spine. There is no pneumothorax. IMPRESSION: 1. Small left pleural effusion with left basilar airspace opacities, may represent infection. Dictated by: Dictated on workstation # [id number]
[2020-07-02 09:22] LABS: GFR ESTIMATED > 60
[2020-07-02 09:23] LABS: BUN/CREATININE RATIO 19
[2020-07-02 09:24] LABS: ALANINE AMINOTRANSFERASE 24 U/L (0-55)
[2020-07-02 09:32] LABS: FIBRIN DEGRADATION PRODUCTS 1.49 UG/ML (0.00-0.49); PROTHROMBIN TIME PATIENT 13.7 SEC (12.2-14.7)
[2020-07-02] MEDS ORDERED: IOHEXOL 350 MG/ML 100 ML (OMNIPAQUE 350) VIAL IV ONE (10:00)
[2020-07-02] MEDS ORDERED: NS 100 ML (IVPB) BAG IV ONE (10:00)
[2020-07-02] MEDS ORDERED: HOLD METFORMIN - RECEIVED CONTRAST 20 ML VIAL IV SCH (10:00)
[2020-07-02] MEDS ORDERED: CATHETER FLUSH 10 ML SYR IV PRN ×2 (10:00→14:00)
--- NOTE | 2020-07-02 10:35 | NUR ---
PT IS TALKING TO FAMILY VIA CELLPHONE.
--- NOTE | 2020-07-02 11:01 | Diagnostic Imaging Report ---
PROCEDURE: CT angiography Chest TECHNIQUE: After intravenous administration of contrast, thin section axial CT angiography of the chest was performed. 3D MIP reconstructions were made. All CT scans use one or more of the following dose optimizing techniques: automated exposure control, MA and/or KvP adjustment based on a patient size and exam type, or iterative reconstruction. INDICATION: Fever and chills COMPARISON: CT abdomen of 04/14/2019 FINDINGS: Vasculature: No pulmonary emboli to the level of the segmental pulmonary arteries. The segmental and subsegmental pulmonary arteries are suboptimally evaluated, particularly in the lung bases due to poor opacification and respiratory motion artifact. Thoracic aorta is normal in caliber. No aortic dissection or pseudoaneurysm. Heart and mediastinum: Visualized thyroid is normal. No supraclavicular, axillary, or intra-thoracic lymphadenopathy. The heart is normal in size without pericardial effusion. Pleura: No pleural effusion or pneumothorax. Lungs and airway: No endoluminal lesion in the trachea or central bronchi. Scattered groundglass opacities and mosaic attenuation within the upper lung zones. Linear atelectasis is present. A small region of consolidation is present in the posterior left lower lobe. Paraseptal emphysema with bulla present in the right apex. Upper abdomen: Heterogeneous attenuation liver is suggestive of areas of fatty infiltration. Musculoskeletal: No concerning osseous lesion. IMPRESSION: 1. No central pulmonary emboli. Respiratory motion artifact and poor opacification limits assessment of the segmental and subsegmental pulmonary arteries. 2. Scattered groundglass opacities within the lungs have an indeterminate appearance for COVID 19 pneumonia. Differential would include viral or bacterial infections, along with other inflammatory process. Faxed to [facility]/Infection control at 11:01 a.m. by cvb. Dictated by: Dictated on workstation # [id number]
--- NOTE | 2020-07-02 12:00 | NUR ---
TECH REPORTS PT PULLED IV OUT ACCIDENTLY. APPX 500 CC OF FLUID ON FLOOR.
[2020-07-02] MEDS ORDERED: cefTRIAXone FOR IV USE 1,000 MG in WATER (STERILE) FOR INJECTION 10 ML IV ONE (12:15)
--- NOTE | 2020-07-02 12:23 | ED General ---
General Chief Complaint: Respiratory Problems Stated Complaint: FEVER,CHILLS,SOB Nursing Triage Note: ARRIVED VIA WC TO ROOM 10. COMPLAINS OF FEVER ET SOA. STATES HE WAS SEEN HERE YESTERDAY AND HIS RAPID COVID WAS NEG. ALSO COMPLAINS OF RIGHT LOWER LEG PAIN AFTER SHUTTING IT IN A CAR DOOR A FEW DAYS AGO. Nursing Sepsis Screen: No Definite Risk Source of Information: Patient Exam Limitations: No Limitations History of Present Illness Date Seen by Provider: Jul 02, 2020 Time Seen by Provider: 08:45 Initial Comments This 55-year-old gentleman presents to the emergency room with complaints of shortness of breath and fever. He had been seen June 30 for similar s ymptoms. He had been placed on antibiotics at that time. His influenza screen and rapid Covid screen were negative. However, his backup Covid PCR test returned positive. He was not yet aware. On initial assessment his oxygen saturation on room air was in the low 70s. He reports normally using 2 L by nasal cannula at home but he has elected not to use it recently. He has COPD requiring the oxygen supplementation. Allergies and Home Medications Allergies Coded Allergies: amitriptyline (Verified Allergy, Unknown, 02/08/16) duloxetine (Verified Allergy, Unknown, 02/08/16) fluticasone (Verified Allergy, Unknown, 02/08/16) salmeterol (Verified Allergy, Unknown, 02/08/16) Home Medications Azithromycin 250 Mg Tablet, 250 MG PO UD TAKE 2 TABLETS ON DAY ONE THEN TAKE 1 TABLET DAILY FOR FOUR MORE DAYS Prescribed by: BALDO CUEVAS on 06/30/20 1251 Cefdinir 300 Mg Capsule, 300 MG PO BID Prescribed by: BALDO CUEVAS on 06/30/20 1251 Patient Home Medication List Home Medication List Reviewed: Yes Review of Systems Review of Systems Constitutional: see HPI, fever, weakness EENTM: no symptoms reported Respiratory: see HPI Cardiovascular: no symptoms reported Gastrointestinal: no symptoms reported Genitourinary: no symptoms reported Musculoskeletal: no symptoms reported Skin: no symptoms reported Psychiatric/Neurological: No Symptoms Reported Hematologic/Lymphatic: No Symptoms Reported Immunological/Allergic: no symptoms reported Past Sgrpaxc-Jpdtvq-Hhbrmy Hx Past Med/Social Hx: Reviewed Nursing Past Med/Soc Hx Patient Social History Type Used: Cigarettes Former Smoker, Quit: Aug 11, 2016 2nd Hand Smoke Exposure: Yes Recent Foreign Travel: No Contact w/Someone Who Travel: No Recent Infectious Disease Expo: No Recent Hopitalizations: No Immunizations Up To Date Tetanus Booster (TDap): Unknown PED Vaccines UTD: No Date of Pneumonia Vaccine: May 07, 2017 Date of Influenza Vaccine: Apr 29, 2017 Seasonal Allergies Seasonal Allergies: No Past Medical History Surgeries: Yes (surgical repair of Chiari malformation, knee sx, hernia, shoulder,hand) Abdominal, Neurological, Orthopedic Respiratory: Yes (RESPIRATORY FAILURE ON VENT AND BIPAP SEVERAL TIMES) Pneumonia, Chronic Bronchitis, Sleep Apnea, COPD, Emphysema Currently Using CPAP: No Currently Using BIPAP: No Cardiac: Yes Hypertension Neurological: Yes (MENINGITIS POSTOP 2004 FOR CYST ON BRAINSTEM & CHIARI MALFORMATION. SHUNT) Meningitis Reproductive Disorders: No Genitourinary: No Gastrointestinal: Yes (HERNIA REPAIR) Abdominal Hernia Musculoskeletal: Yes (CHRONIC HEAD/NECK PAIN ) Arthritis Endocrine: No HEENT: No Cancer: No Psychosocial: Yes Anxiety Integumentary: No Blood Disorders: No Family Medical History FH: cancer 19 MOTHER Mother- lung cancer Father- HTN and CVA Physical Exam-Suspected Sepsis Physical Exam Vital Signs Vital Signs - First Documented 07/02/20 08:35 Temp 38.8 Pulse 101 Resp 16 B/P (MAP) 152/92 (112) Pulse Ox 74 O2 Delivery Room Air O2 Flow Rate 4.00 Capillary Refill : Less Than 3 Seconds Blood Pressure Mean: 112 Height, Weight, BMI Height: 5'5.00" Weight: 180lbs. 0.0oz. 81.281662xg; 35.00 BMI Method:Stated General Appearance: No Apparent Distress, WD/WN, Other (Appears weak, generally ill) HEENT: PERRL/EOMI, Normal ENT Inspection, Pharynx Normal Neck: Normal Inspection Respiratory: No Accessory Muscle Use, No Respiratory Distress, Decreased Breath Sounds (Decreased air movement), Rhonci, Wheezing Cardiovascular: Regular Rate, Rhythm, No Edema, No Murmur Gastrointestinal: Normal Bowel Sounds, Non Tender, Soft Extremity: Other (Left lower extremity is unremarkable. 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 See exam above.) Focused Exam Lactate Level 07/02/20 08:40: Lactic Acid Level 0.64 Lactic Acid Level Progress/Results/Core Measures Suspected Sepsis Recent Fever Within 48 Hours: No Infection Criteria Present: None New/Unexplained Altered Menta: No Sepsis Screen: No Definite Risk SIRS Temperature: Pulse: 101 Respiratory Rate: 16 Laboratory Tests 07/02/20 08:40: White Blood Count 7.0 Blood Pressure 152 /92 Mean: 112 07/02/20 08:40: Lactic Acid Level 0.64 Laboratory Tests 07/02/20 08:40: Creatinine 1.00, INR Comment 1.0, Platelet Count 220, Total Bilirubin 0.6 Results/Orders Lab Results Laboratory Tests Test 07/02/20 08:40 Range/Units White Blood Count 7.0 4.3-11.0 10^3/uL Red Blood Count 3.99 L 4.30-5.52 10^6/uL Hemoglobin 11.3 L 13.3-17.7 g/dL Hematocrit 38 L 40-54 % Mean Corpuscular Volume 95 80-99 fL Mean Corpuscular Hemoglobin 28 25-34 pg Mean Corpuscular Hemoglobin Concent 30 L 32-36 g/dL Red Cell Distribution Width 13.5 10.0-14.5 % Platelet Count 220 130-400 10^3/uL Mean Platelet Volume 10.5 9.0-12.2 fL Immature Granulocyte % (Auto) 0 % Neutrophils (%) (Auto) 66 42-75 % Lymphocytes (%) (Auto) 18 12-44 % Monocytes (%) (Auto) 16 H 0-12 % Eosinophils (%) (Auto) 0 0-10 % Basophils (%) (Auto) 0 0-10 % Neutrophils # (Auto) 4.6 1.8-7.8 10^3/uL Lymphocytes # (Auto) 1.2 1.0-4.0 10^3/uL Monocytes # (Auto) 1.1 H 0.0-1.0 10^3/uL Eosinophils # (Auto) 0.0 0.0-0.3 10^3/uL Basophils # (Auto) 0.0 0.0-0.1 10^3/uL Immature Granulocyte # (Auto) 0.0 0.0-0.1 10^3/uL Prothrombin Time 13.7 12.2-14.7 SEC INR Comment 1.0 0.8-1.4 Activated Partial Thromboplast Time 41 H 24-35 SEC D-Dimer 1.49 H 0.00-0.49 UG/ML Sodium Level 136 135-145 MMOL/L Potassium Level 4.6 3.6-5.0 MMOL/L Chloride Level 100 98-107 MMOL/L Carbon Dioxide Level 27 21-32 MMOL/L Anion Gap 9 5-14 MMOL/L Blood Urea Nitrogen 19 H 7-18 MG/DL Creatinine 1.00 0.60-1.30 MG/DL Estimat Glomerular Filtration Rate > 60 BUN/Creatinine Ratio 19 Glucose Level 108 H 70-105 MG/DL Lactic Acid Level 0.64 0.50-2.00 MMOL/L Calcium Level 9.1 8.5-10.1 MG/DL Corrected Calcium 9.3 8.5-10.1 MG/DL Total Bilirubin 0.6 0.1-1.0 MG/DL Aspartate Amino Transf (AST/SGOT) 24 5-34 U/L Alanine Aminotransferase (ALT/SGPT) 24 0-55 U/L Alkaline Phosphatase 65 40-136 U/L Lactate Dehydrogenase 215 125-220 U/L C-Reactive Protein High Sensitivity 14.71 H 0.00-0.50 MG/DL B-Type Natriuretic Peptide 30.6 <100.0 PG/ML Total Protein 7.7 6.4-8.2 GM/DL Albumin 3.8 3.2-4.5 GM/DL Procalcitonin 0.79 H <0.10 NG/ML Micro Results Microbiology 07/02/20 Influenza Types A,B Antigen (KANDI) - Final, Complete My Orders Orders - MAYRA CRONIN MD Acetaminophen Tablet (Tylenol Tablet) (07/02/20 09:00) Ed Iv/Invasive Line Start (07/02/20 08:52) Ns Iv 1000 Ml (Sodium Chloride 0.9%) (07/02/20 09:00) Dexamethasone Injection (Decadron Inje (07/02/20 09:00) Albuterol Inhaler (Ventolin Hfa) (07/02/20 10:00) Fibrin Degradation Products (07/02/20 08:55) Procalcitonin (Pct) (07/02/20 08:55) Hs C Reactive Protein (07/02/20 08:55) LDH (07/02/20 08:55) Influenza A And B Antigens (07/02/20 08:55) Cbc With Automated Diff (07/02/20 08:55) Comprehensive Metabolic Panel (07/02/20 08:55) Blood Culture (07/02/20 08:55) Sputum Culture (07/02/20 08:55) Urinalysis (07/02/20 08:55) Urine Culture (07/02/20 08:55) Protime With Inr (07/02/20 08:55) Partial Thromboplastin Time (07/02/20 08:55) Chest 1 View, Ap/Pa Only (07/02/20 08:55) Vital Signs Adult Sepsis Patie Q15M (07/02/20 08:55) O2 (07/02/20 08:55) Remove Rings In Anticipation O (07/02/20 08:55) Lactic Acid Analyzer (07/02/20 08:55) BNP (07/02/20 09:49) Ct Angio Chest W (07/02/20 09:50) Iohexol Injection (Omnipaque 350 Mg/Ml 1 (07/02/20 10:00) Received Contrast (Hold Metformin- Contr (07/02/20 10:00) Sodium Chloride Flush (Catheter Flush Sy (07/02/20 10:00) Ns (Ivpb) (Sodium Chloride 0.9% Ivpb Bag (07/02/20 10:00) Tibia/Fibula, Right, 2 Views (07/02/20 11:08) Us Venous Lower Ext Rt (07/02/20 11:08) Ceftriaxone For Iv Use (Rocephin For I (07/02/20 12:15) Ketorolac Injection (Toradol Injection) (07/02/20 13:30) Medications Given in ED Current Medications Medications Dose Ordered Sig/Isabel Route Start Time Stop Time Status Last Admin Dose Admin Acetaminophen 1,000 mg ONCE ONCE PO 07/02/20 09:00 07/02/20 09:01 DC 07/02/20 09:05 1,000 MG Ceftriaxone Sodium 1000 mg/ Sterile Water 10 ml @ 200 mls/hr ONCE ONCE IV 07/02/20 12:15 07/02/20 12:17 DC 07/02/20 13:03 200 MLS/HR Dexamethasone Sodium Phosphate 6 mg ONCE ONCE IV 07/02/20 09:00 07/02/20 09:01 DC 07/02/20 09:06 6 MG Iohexol 75 ml ONCE ONCE IV 07/02/20 10:00 07/02/20 10:01 DC 07/02/20 10:36 81 ML Sodium Chloride 100 ml ONCE ONCE IV 07/02/20 10:00 07/02/20 10:01 DC 07/02/20 10:36 80 ML Vital Signs/I&O 07/02/20 07/02/20 07/02/20 07/02/20 08:35 08:35 13:35 14:04 Temp 38.8 36.4 36.1 Pulse 101 68 89 Resp 16 16 18 B/P (MAP) 152/92 (112) 120/78 143/80 Pulse Ox 74 97 100 O2 Delivery Room Air Nasal Cannula Nasal Cannula Nasal Cannula O2 Flow Rate 4.00 4.00 3.00 Capillary Refill : Less Than 3 Seconds Blood Pressure Mean: 112 Progress Note : Time: 12:35 Progress Note Septic work-up was pursued. Patient was treated with Covid precautions. Albuterol inhaler was provided which improved his breathing. Patient does note he has been using inhaled bronchodilators at home. Dexamethasone was administered along with a liter of IV fluid. His right leg symptoms were evaluated with ultrasound and x-ray of the tib-fib. No fractures or DVT was i dentified. Symptoms are likely related to cellulitis. Rocephin was given for initial treatment. D-dimer was elevated prompting a CT angiogram of the chest. No PE was identified. This patient is at high risk for decompensation. He has already had 2 ER visits and was rather hypoxic on presentation. He is also -German, male, has COPD, and is in his 50s. He additionally has the comorbidity of cellulitis. This profile warrants admission for further treatment and close monitoring. Case was discussed with Dr. Brown who agrees. At least 2 midnights would be anticipated for this patient. Diagnostic Imaging Diagonstic Imaging: Xray Plain Films/CT/US/NM/MRI: chest Comments NAME: GIOVANNI BRENNAN [facility] REC#: [id number] PT STATUS: REG ER : 1965 PHYSICIAN: MAYRA CRONIN MD ADMIT DATE: 07/02/20/ER Signed Date of Exam:07/02/20 CHEST 1 VIEW, AP/PA ONLY HISTORY: Sepsis, fever. COMPARISON: 06/30/2020 TECHNIQUE: Frontal view of the chest. FINDINGS: There are airspace opacities in the left lung base. There is a small left pleural effusion. The cardiac silhouette is stable in size. The right lung is clear. Fusion hardware is seen in the cervicothoracic spine. There is no pneumothorax. IMPRESSION: 1. Small left pleural effusion with left basilar airspace opacities, may represent infection. Dictated by: Dictated on workstation # [id number] Dict: 07/02/20910 Trans: 07/02/20934 [id number] Interpreted by: COURTNEY MCCANN MD Electronically signed by: COURTNEY MCCANN MD 07/02/20934 Reviewed: Reviewed by Az Diagonstic Imaging: CT Plain Films/CT/US/NM/MRI: chest Comments NAME: GIOVANNI BRENNAN [facility] REC#: [id number] PT STATUS: REG ER : 1965 PHYSICIAN: MAYRA CRONIN MD ADMIT DATE: 07/02/20/ER Signed Date of Exam:07/02/20 CT ANGIO CHEST W PROCEDURE: CT angiography Chest TECHNIQUE: After intravenous administration of contrast, thin section axial CT angiography of the chest was performed. 3D MIP reconstructions were made. All CT scans use one or more of the following dose optimizing techniques: automated exposure control, MA and/or KvP adjustment based on a patient size and exam type, or iterative reconstruction. INDICATION: Fever and chills COMPARISON: CT abdomen of 04/14/2019 FINDINGS: Vasculature: No pulmonary emboli to the level of the segmental pulmonary arteries. The segmental and subsegmental pulmonary arteries are suboptimally evaluated, particularly in the lung bases due to poor opacification and respiratory motion artifact. Thoracic aorta is normal in caliber. No aortic dissection or pseudoaneurysm. Heart and mediastinum: Visualized thyroid is normal. No supraclavicular, axillary, or intra-thoracic lymphadenopathy. The heart is normal in size without pericardial effusion. Pleura: No pleural effusion or pneumothorax. Lungs and airway: No endoluminal lesion in the trachea or central bronchi. Scattered groundglass opacities and mosaic attenuation within the upper lung zones. Linear atelectasis is present. A small region of consolidation is present in the posterior left lower lobe. Paraseptal emphysema with bulla present in the right apex. Upper abdomen: Heterogeneous attenuation liver is suggestive of areas of fatty infiltration. Musculoskeletal: No concerning osseous lesion. IMPRESSION: 1. No central pulmonary emboli. Respiratory motion artifact and poor opacification limits assessment of the segmental and subsegmental pulmonary arteries. 2. Scattered groundglass opacities within the lungs have an indeterminate appearance for COVID 19 pneumonia. Differential would include viral or bacterial infections, along with other inflammatory process. Faxed to [facility]Infection control at 11:01 a.m. by cvb. Dictated by: Dictated on workstation # [id number] Dict: 07/02/20 1054 Trans: 07/02/20 1311 CVB [id number] Interpreted by: ALICE RAMOS MD Electronically signed by: ALICE RAMOS MD 07/02/20 1311 Reviewed: Reviewed by Me Diagonstic Imaging: Xray Plain Films/CT/US/NM/MRI: leg Comments Right tib-fib x-ray viewed by me and report reviewed. See report below: NAME: GIOVANNI BRENNAN [facility] REC#: [id number] PT STATUS: REG ER : 1965 PHYSICIAN: MAYRA CRONIN MD ADMIT DATE: 07/02/20/ER Draft Date of Exam:07/02/20 TIBIA/FIBULA, RIGHT, 2 VIEWS Right tibia-fibula at 11:45. Indication: Leg pain. AP and lateral views were obtained. There are no prior studies available for comparison. There is no fracture, dislocation or acute bony abnormality evident. There is mild degenerative disease involving the knee joint. The ankle joint is fairly well-maintained. There does seem to be generalized soft tissue edema about the ankle joint. The soft tissues are otherwise unremarkable. Impression: There is no evidence for an acute bony abnormality. Dictated on workstation # [id number] Dict: 07/02/20 1216 Trans: 07/02/20 1224 CV [id number] Interpreted by: ABRAHAM HEWITT MD Diagonstic Imaging: Ultrasound Plain Films/CT/US/NM/MRI: leg Comments NAME: GIOVANNI BRENNAN [facility] REC#: [id number] PT STATUS: REG ER : 1965 PHYSICIAN: MAYRA CRONIN MD ADMIT DATE: 07/02/20/ER Draft Date of Exam:07/02/20 US VENOUS LOWER EXT RT PROCEDURE: US right lower extremity venous. TECHNIQUE: Multiple real-time grayscale images were obtained over the right lower extremity in various projections. Additional spectral analysis and color Doppler duplex images were also obtained. INDICATION: Leg pain and swelling There are no prior studies for comparison. EXAMINATION: The deep venous system of the right lower extremity was visualized from the distal common femoral vein to the popliteal vein. FINDINGS: There was good flow and compressibility at all levels and no evidence for a deep venous thrombosis. IMPRESSION: Negative right lower extremity for deep venous thrombosis. Dictated on workstation # [id number] Dict: 07/02/20 1242 Trans: 07/02/20 1244 CV [id number] Interpreted by: ABRAHAM HEWITT MD Departure Communication (Admissions) Time/Spoke to Admitting Phy: 12:20 Dr. Brown Impression Primary Impression: Hypoxia Additional Impressions: COVID-19 Cellulitis of right lower extremity COPD exacerbation Generalized weakness Disposition: ADMITTED INPATIENT Condition: Improved Admissions Decision to Admit Reason: Admit from ER (General) Decision to Admit/Date: Jul 02, 2020 Time/Decision to Admit Time: 08:50 Departure-Patient Inst. Referrals: JOSIANE MUSTAFA MD (PCP/Family) Primary Care Physician MAYRA CRONIN MD Jul 02, 2020 12:23
--- NOTE | 2020-07-02 12:44 | Diagnostic Imaging Report ---
PROCEDURE: US right lower extremity venous. TECHNIQUE: Multiple real-time grayscale images were obtained over the right lower extremity in various projections. Additional spectral analysis and color Doppler duplex images were also obtained. INDICATION: Leg pain and swelling There are no prior studies for comparison. EXAMINATION: The deep venous system of the right lower extremity was visualized from the distal common femoral vein to the popliteal vein. FINDINGS: There was good flow and compressibility at all levels and no evidence for a deep venous thrombosis. IMPRESSION: Negative right lower extremity for deep venous thrombosis. Dictated by: Dictated on workstation # [id number]
--- NOTE | 2020-07-02 12:46 | NUR ---
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
[2020-07-02] MEDS ORDERED: KETOROLAC 30 MG/ML VIAL IVP ONE (13:30)
[2020-07-02] MEDS ORDERED: LACTATED RINGERS 1,000 ML IV SCH (13:45)
[2020-07-02] MEDS ORDERED: VANCOMYCIN 2000 MG/NS 500 ML IVPB IV NR ×2 (14:00)
[2020-07-02] MEDS ORDERED: ONDANSETRON 4 MG/2 ML (SDV) Z0FRAN IV PRN (14:00)
[2020-07-02] MEDS ORDERED: ACETAMINOPHEN 500 MG TAB (TYLENOL) PO PRN (14:00)
[2020-07-02 14:04] VITALS: BP 143/80
--- NOTE | 2020-07-02 14:44 | NUR ---
VANCOMYCIN DOSING SCR 1.0; ADJ BW 76; CRCL ~ 88; BOLUS VANC 20 MG/KG X 98 KG ~ 2 MG THEN VANC 15 MG/KG ~ 1500 MG Q12H CHECK TROUGH LEVEL 07/04 1300 HOLD DOSE AND CONTACT PHARMACY IF LEVEL IS GREATER THAN 20
[2020-07-02] MEDS ORDERED: FUROSEMIDE 40 MG/4 ML INJ (LASIX) IVP NR (14:45)
[2020-07-02] MEDS: ENOXAPARIN 40 MG/0.4 ML (LOVENOX) SYR SC SCH (14:52)
[2020-07-02 16:00] VITALS: BP 143/55
[2020-07-02] MEDS ORDERED: REMDESIVIR INJ 200 MG in NS (IVPB) 210 ML IV NR ×2 (16:30→21:00)
--- NOTE | 2020-07-02 16:44 | History & Physical-Hospitalist ---
History of Present Illness HPI/Chief Complaint Pt is a 55yoAAM with a PMH of HTN, COPD on oxygen who presented to the ER due to SOB and hypoxia. He was quite sleepy when I saw him and said he's very tired and was up a lot overnight. He was easily arousable but drowsy. History is somewhat limited by this. He states his symptoms started roughly 5 days ago and he was seen in the ER here on 06/30. He was swabbed for COVID and the rapid was negative but send out was positive. He continued to worsen at home and had not been wearing his oxygen and on arrival to the ER was found to have sats of 72%. He responded well to 5lpm and has maintained his sats with this. He states he feels better since arrival but would like to rest. Source: patient Date Seen 07/02/20 Time Seen by a Provider: 16:37 Attending Physician Yin Brown MD PCP Gabriel Richard MD Referring Physician Date of Admission Jul 02, 2020 at 12:30 Home Medications & Allergies Home Medications Reviewed patient Home Medication Reconciliation performed by pharmacy medication reconciliations metallurgical technician and/or nursing. Patients Allergies have been reviewed. Allergies Allergies Coded Allergies amitriptyline (Verified Allergy, Unknown, 02/08/16) duloxetine (Verified Allergy, Unknown, 02/08/16) fluticasone (Verified Allergy, Unknown, 02/08/16) salmeterol (Verified Allergy, Unknown, 02/08/16) Past Gyiffkw-Cycwkg-Kyknvw Hx Past Med/Social Hx: Reviewed Nursing Past Med/Soc Hx Patient Social History Former Smoker, Quit: Aug 11, 2016 Type Used: Cigarettes 2nd Hand Smoke Exposure: Yes Recent Foreign Travel: No Contact w/other who traveled: No Recent Hopitalizations: No Recent Infectious Disease Expo: No Immunizations Up To Date Tetanus Booster (TDap): Unknown Pediatric: No Date of Pneumonia Vaccine: May 07, 2017 Date of Influenza Vaccine: Apr 29, 2017 Seasonal Allergies Seasonal Allergies: No Past Medical History Surgeries: Abdominal, Neurological, Orthopedic Respiratory: COPD, Pneumonia, Sleep Apnea Currently Using CPAP: No Currently Using BIPAP: No Cardiac: Hypertension Neurological: Meningitis Reproductive: No Gastrointestinal: Abdominal Hernia Musculoskeletal: Arthritis Psychosocial: Anxiety History of Blood Disorders: No Family History Reviewed Nursing Family Hx FH: cancer 19 MOTHER Mother- lung cancer Father- HTN and CVA Review of Systems Constitutional: chills, fever, malaise EENTM: no symptoms reported Respiratory: cough, short of breath Cardiovascular: no symptoms reported Gastrointestinal: No abdominal pain; loss of appetite; No nausea Genitourinary: no symptoms reported Musculoskeletal: other (leg pain after shutting in car door) Skin: no symptoms reported Psychiatric/Neurological: No Symptoms Reported Physical Exam Physical Exam Vital Signs Vital Signs - First Documented 07/02/20 08:35 Temp 38.8 Pulse 101 Resp 16 B/P (MAP) 152/92 (112) Pulse Ox 74 O2 Delivery Room Air O2 Flow Rate 4.00 Capillary Refill : Less Than 3 Seconds Height, Weight, BMI Height: 5'5.00" Weight: 180lbs. 0.0oz. 81.488828vq; 35.25 BMI Method:Stated General Appearance: No Apparent Distress, WD/WN HEENT: PERRL/EOMI, Moist Mucous Membranes; No Scleral Icterus (L), No Scleral Icterus (R) Neck: Normal Inspection, Supple Respiratory: Lungs Clear, No Accessory Muscle Use, Other (on NC) Cardiovascular: Regular Rate, Rhythm, No JVD, No Murmur Gastrointestinal: Normal Bowel Sounds, Non Tender, Soft Extremity: Other (right leg tenderness, b/l lower extremity edema) Neurologic/Psychiatric: Alert (but drowsy), Oriented x3, Normal Mood/Affect Results Results/Procedures Labs Laboratory Tests 07/02/20 08:40 Patient resulted labs reviewed. Imaging: Reviewed Imaging Report Imaging [facility], [place] NAME: GIOVANNI BRENNAN [facility] REC#: [id number] PT STATUS: REG ER : 1965 PHYSICIAN: MAYRA CRONIN MD ADMIT DATE: 07/02/20/ER Signed Date of Exam:07/02/20 CHEST 1 VIEW, AP/PA ONLY HISTORY: Sepsis, fever. COMPARISON: 06/30/2020 TECHNIQUE: Frontal view of the chest. FINDINGS: There are airspace opacities in the left lung base. There is a small left pleural effusion. The cardiac silhouette is stable in size. The right lung is clear. Fusion hardware is seen in the cervicothoracic spine. There is no pneumothorax. IMPRESSION: 1. Small left pleural effusion with left basilar airspace opacities, may represent infection. Dictated by: Dictated on workstation # [id number] Dict: 07/02/20910 Trans: 07/02/20934 [id number] Interpreted by: COURTNEY MCCANN MD Electronically signed by: COURTNEY MCCANN MD 07/02/2035 [facility], [place] NAME: GIOVANNI BRENNAN [facility] REC#: [id number] PT STATUS: REG ER : 1965 PHYSICIAN: MAYRA CRONIN MD ADMIT DATE: 07/02/20/ER Signed Date of Exam:07/02/20 CT ANGIO CHEST W PROCEDURE: CT angiography Chest TECHNIQUE: After intravenous administration of contrast, thin section axial CT angiography of the chest was performed. 3D MIP reconstructions were made. All CT scans use one or more of the following dose optimizing techniques: automated exposure control, MA and/or KvP adjustment based on a patient size and exam type, or iterative reconstruction. INDICATION: Fever and chills COMPARISON: CT abdomen of 04/14/2019 FINDINGS: Vasculature: No pulmonary emboli to the level of the segmental pulmonary arteries. The segmental and subsegmental pulmonary arteries are suboptimally evaluated, particularly in the lung bases due to poor opacification and respiratory motion artifact. Thoracic aorta is normal in caliber. No aortic dissection or pseudoaneurysm. Heart and mediastinum: Visualized thyroid is normal. No supraclavicular, axillary, or intra-thoracic lymphadenopathy. The heart is normal in size without pericardial effusion. Pleura: No pleural effusion or pneumothorax. Lungs and airway: No endoluminal lesion in the trachea or central bronchi. Scattered groundglass opacities and mosaic attenuation within the upper lung zones. Linear atelectasis is present. A small region of consolidation is present in the posterior left lower lobe. Paraseptal emphysema with bulla present in the right apex. Upper abdomen: Heterogeneous attenuation liver is suggestive of areas of fatty infiltration. Musculoskeletal: No concerning osseous lesion. IMPRESSION: 1. No central pulmonary emboli. Respiratory motion artifact and poor opacification limits assessment of the segmental and subsegmental pulmonary arteries. 2. Scattered groundglass opacities within the lungs have an indeterminate appearance for COVID 19 pneumonia. Differential would include viral or bacterial infections, along with other inflammatory process. Faxed to [facility] at 11:01 a.m. by cvb. Dictated by: Dictated on workstation # [id number] Dict: 07/02/20 1054 Trans: 07/02/20 1311 [id number] [id number] Interpreted by: ALICE RAMOS MD Electronically signed by: ALICE RAMOS MD 07/02/20 1311 Assessment/Plan Admission Diagnosis Acute on Chronic Hypoxic Respiratory Failure Admission Status: Inpatient Order (span 2 midnights) Reason for Inpatient Admission: see below Assessment and Plan Acute on Chronic Hypoxic Respiratory Failure COPD with LRTI On 3lpm, wean as able Reportedly wears 2lpm at home Start on Remdesivir and decadron MAT protocol Lovenox IS Lasix this PM and responded well Cellulitis, RLE Continue Vanc and Rocephin Await blood cultures HTN Resume home meds Chronic pain Appears to take 30mg oxycodone TID, 1200mg gabapentin TID, flexeril prn, and wear a fentanyl patch per fill history Denies any pain right now and quite sleepy so will hold pain DVT ppx: Lovenox Diagnosis/Problems Diagnosis/Problems (1) Cellulitis of right lower extremity Status: Acute (2) COVID-19 Status: Acute (3) Essential (primary) hypertension (4) Acute on chronic respiratory failure Status: Acute (5) COPD (chronic obstructive pulmonary disease) Status: Chronic (6) Chronic pain (7) Prophylactic measure YIN BROWN MD Jul 02, 2020 16:44
[2020-07-02 17:25] VITALS: BP 143/80
[2020-07-02] MEDS ORDERED: RT-ALBUTEROL INHALER HFA (VENTOLIN HFA) 18 GM IH PRN (18:30)
[2020-07-02 20:00] VITALS: BP 140/59
[2020-07-02] MEDS ORDERED: RT-ALBUTEROL INHALER HFA (VENTOLIN HFA) 18 GM IH SCH (21:00)
[2020-07-03] VITALS: BP 143/89
[2020-07-03] MEDS ORDERED: VANCOMYCIN 1500 MG/NS 500 ML IVPB IV SCH ×2 (02:00)
[2020-07-03 04:00] VITALS: BP 149/91
[2020-07-03 05:29] LABS: ALBUMIN 3.6 GM/DL (3.2-4.5); CHLORIDE 103 MMOL/L (98-107); SODIUM 139 MMOL/L (135-145)
[2020-07-03 05:30] LABS: CALCIUM 8.8 MG/DL (8.5-10.1)
[2020-07-03 05:31] LABS: GLUCOSE 108 MG/DL (70-105)
[2020-07-03 05:32] LABS: TOTAL PROTEIN 7.9 GM/DL (6.4-8.2)
[2020-07-03 05:33] LABS: BILIRUBIN,TOTAL 0.5 MG/DL (0.1-1.0); CARBON DIOXIDE 25 MMOL/L (21-32)
[2020-07-03 05:35] LABS: ALKALINE PHOSPHATASE 60 U/L (40-136); CREATININE SERUM 0.79 MG/DL (0.60-1.30); GFR ESTIMATED > 60
[2020-07-03 05:36] LABS: BUN/CREATININE RATIO 25
[2020-07-03 05:38] LABS: ALANINE AMINOTRANSFERASE 28 U/L (0-55)
--- NOTE | 2020-07-03 06:45 | NUR ---
talked to dr juarez about pt pain meds, and pt increasing pain. Dr. juarez ordered oxycodone IR 30 mg PO TID PRN
[2020-07-03] MEDS: ALBUTEROL/IPRATROP (COMBIVENT RESPIMAT) 4 GM INHALER IH SCH ×4 (07:13→21:26)
[2020-07-03 08:00] VITALS: BP 143/81
[2020-07-03] MEDS: AZITHROMYCIN 250 MG TAB (ZITHROMAX) PO SCH (09:26)
[2020-07-03] MEDS: IBUPROFEN 600 MG (MOTRIN) TAB PO PRN (09:29)
[2020-07-03] MEDS: meTOprolol SUCCINATE 100 MG (TOPROL XL) TAB PO SCH (09:31)
[2020-07-03] MEDS: VANCOMYCIN 1500 MG/NS 500 ML IVPB IV SCH ×4 (09:37→21:17)
--- NOTE | 2020-07-03 09:41 | NUR ---
[facility] FOR C/O NAUSEA. CONT TO MONITOR.
[2020-07-03] MEDS ORDERED: GBPN600T PO (10:53)
--- NOTE | 2020-07-03 11:09 | NUR ---
RELIEF FROM [facility], DENIES C/O NAUSEA AT THIS TIME. ATTEMPT TO COMPLETE MED REC. PATIENT REPORTS HE HAS [facility] AND [facility]. OBTAINED CURRENT LIST FROM PHARMACIES
[2020-07-03] MEDS ORDERED: PANT40TA52 PO (11:15)
[2020-07-03] MEDS ORDERED: BUDE10.2 IH (11:15)
[2020-07-03] MEDS ORDERED: IPRA4AER IH (11:15)
[2020-07-03] MEDS ORDERED: OXYC-527 PO (11:21)
[2020-07-03] MEDS ORDERED: FENT1PAT57 TD (11:21)
[2020-07-03] MEDS ORDERED: CYCL10TA9 PO (11:21)
[2020-07-03] MEDS ORDERED: RIZA10TA37 PO (11:21)
[2020-07-03] MEDS: cefTRIAXone 1,000 MG/SWFI 10 ML IV PUSH IV SCH ×2 (11:59)
[2020-07-03] MEDS: GABAPENTIN 600 MG (NEURONTIN) TAB PO SCH ×2 (12:00→21:16)
--- NOTE | 2020-07-03 12:51 | Progress Note - Hospitalist ---
Subjective HPI/CC On Admission Date Seen by Provider: Jul 03, 2020 Time Seen by Provider: 12:45 Pt is a 55yoAAM with a PMH of HTN, COPD on oxygen who presented to the ER due to SOB and hypoxia. He was quite sleepy when I saw him and said he's very tired and was up a lot overnight. He was easily arousable but drowsy. History is somewhat limited by this. He states his symptoms started roughly 5 days ago and he was seen in the ER here on 06/30. He was swabbed for COVID and the rapid was negative but send out was positive. He continued to worsen at home and had not been wearing his oxygen and on arrival to the ER was found to have sats of 72%. He responded well to 5lpm and has maintained his sats with this. He states he feels better since arrival but would like to rest. Subjective/Events-last exam Pt reports feeling much better today. Down to just 1lpm. Has oxygen at home but hasn't needed it in months and had been doing well until this past week without it. Otherwise complains of his chronic pain. Focused Exam Lactate Level 07/02/20 08:40: Lactic Acid Level 0.64 Objective Exam Vital Signs Vital Signs Date Time Temp Pulse Resp B/P (MAP) Pulse Ox O2 Delivery O2 Flow Rate FiO2 07/03/20 11:13 95 Nasal Cannula 1.00 07/03/20 08:00 36.0 81 18 143/81 (101) Capillary Refill : Less Than 3 Seconds General Appearance: No Apparent Distress, Chronically ill, Obese Respiratory: Lungs Clear, No Accessory Muscle Use, Other (on 1lpm NC) Cardiovascular: Regular Rate, Rhythm, No Murmur Neurologic/Psychiatric: Alert, Oriented x3 Results/Procedures Lab Laboratory Tests 07/03/20 05:00 Patient resulted labs reviewed. Imaging: Reviewed Imaging Report Assessment/Plan Assessment and Plan Assess & Plan/Chief Complaint Acute on Chronic Hypoxic Respiratory Failure COPD with LRTI On 1lpm NC, doing well Continue Remdesivir and decadron MAT protocol Lovenox IS Cellulitis, RLE Continue Vanc and Rocephin Await blood cultures still HTN Continue home meds Chronic pain Much more alert, resume home meds DVT ppx: Lovenox Diagnosis/Problems Diagnosis/Problems (1) Cellulitis of right lower extremity Status: Acute (2) COVID-19 Status: Acute (3) Essential (primary) hypertension (4) Acute on chronic respiratory failure Status: Acute (5) COPD (chronic obstructive pulmonary disease) Status: Chronic (6) Chronic pain (7) Prophylactic measure Clinical Quality Measures DVT/VTE Risk/Contraindication: Risk Factor Score Per Nursin RFS Level Per Nursing on Admit: 4+=Very High YIN ARELLANO MD Jul 03, 2020 12:51
[2020-07-03] MEDS ORDERED: fentaNYL PATCH 25 MCG (DURAGESIC) TD SCH (15:00)
[2020-07-03] MEDS: ENOXAPARIN 40 MG/0.4 ML (LOVENOX) SYR SC SCH (15:06)
[2020-07-03 16:34] VITALS: BP 135/85
[2020-07-03] MEDS: REMDESIVIR INJ 100 MG in NS (IVPB) 230 ML IV SCH (17:38)
[2020-07-03 19:48] VITALS: BP 136/87
[2020-07-03 23:30] VITALS: BP 155/86
[2020-07-04 03:59] VITALS: BP 122/67
[2020-07-04 07:13] LABS: ALANINE AMINOTRANSFERASE 31 U/L (0-55); ALBUMIN 3.5 GM/DL (3.2-4.5); ALKALINE PHOSPHATASE 58 U/L (40-136); BILIRUBIN,TOTAL 0.3 MG/DL (0.1-1.0); BUN/CREATININE RATIO 23; CALCIUM 8.6 MG/DL (8.5-10.1); CARBON DIOXIDE 24 MMOL/L (21-32); CHLORIDE 107 MMOL/L (98-107); GFR ESTIMATED > 60; GLUCOSE 93 MG/DL (70-105); POTASSIUM 3.9 MMOL/L (3.6-5.0); SODIUM 140 MMOL/L (135-145); TOTAL PROTEIN 7.1 GM/DL (6.4-8.2)
[2020-07-04] MEDS: ALBUTEROL/IPRATROP (COMBIVENT RESPIMAT) 4 GM INHALER IH SCH ×4 (07:13→19:35)
[2020-07-04 08:00] VITALS: BP 130/80
[2020-07-04] MEDS ORDERED: TROUGH ORDER-PHARMACY XX NR (08:00)
[2020-07-04] MEDS: IBUPROFEN 600 MG (MOTRIN) TAB PO PRN (08:32)
[2020-07-04] MEDS: AZITHROMYCIN 250 MG TAB (ZITHROMAX) PO SCH (09:12)
[2020-07-04] MEDS: meTOprolol SUCCINATE 100 MG (TOPROL XL) TAB PO SCH (09:12)
[2020-07-04] MEDS: GABAPENTIN 600 MG (NEURONTIN) TAB PO SCH ×3 (09:12→19:54)
[2020-07-04] MEDS: VANCOMYCIN 1500 MG/NS 500 ML IVPB IV SCH ×2 (09:16)
--- NOTE | 2020-07-04 10:11 | NUR ---
VANCOMYCIN DOSING TROUGH LEVEL 14.6 - CONTINUE CURRENT DOSE OF VANC 1500 MG Q12H
--- NOTE | 2020-07-04 11:19 | NUR ---
"RD ASSESSMENT PMHx: HTN; COPD; pneumonia; PT INTERACTION: Note pt is currently in COVID isolation, per chart review. Note all diet information for nutrition assessment is per Ranjit RN, or per chart review. Ranjit states current appetite appears good. Note avg PO intake 75% x1d, per chart review. Ranjit states no issues with nausea, vomiting, constipation, or diarrhea that she is aware of. Not last BM was 07/03, and pt not currently on bowel regimen per chart review. Note unable to determine recent wt hx, per chart review. Note presence of wound (RLE), but Ranjit states it is healing well. ABNORMAL NUTRITION-RELATED LAB VALUES LOW: HIGH: BUN 21; Est. kcal needs: 0330-4599 kcal | 15-18 kcal/kg Est. Pro needs: 96-115 g Pro | 1.0-1.2 g Pro/kg PES STATEMENT: Given current PO intake, no nutrition diagnosis at this time (NO-1.1). INTERVENTION: Continue with current diet order of Regular diet. Pt may benefit from protein supplementation if wound gets worse. Will continue to follow and reassess as pt needs, intake, and status change. Anthony PETERSON, MS RD LD [phone] cell"
[2020-07-04 12:00] VITALS: BP 130/85
--- NOTE | 2020-07-04 13:36 | Progress Note - Hospitalist ---
Subjective HPI/CC On Admission Date Seen by Provider: Jul 04, 2020 Time Seen by Provider: 13:32 Pt is a 55yoAAM with a PMH of HTN, COPD on oxygen who presented to the ER due to SOB and hypoxia. He was quite sleepy when I saw him and said he's very tired and was up a lot overnight. He was easily arousable but drowsy. History is somewhat limited by this. He states his symptoms started roughly 5 days ago and he was seen in the ER here on 06/30. He was swabbed for COVID and the rapid was negative but send out was positive. He continued to worsen at home and had not been wearing his oxygen and on arrival to the ER was found to have sats of 72%. He responded well to 5lpm and has maintained his sats with this. He states he feels better since arrival but would like to rest. Subjective/Events-last exam Pt reports feeling much better. No complaints. Now off oxygen. Focused Exam Lactate Level 07/02/20 08:40: Lactic Acid Level 0.64 Objective Exam Vital Signs Vital Signs Date Time Temp Pulse Resp B/P (MAP) Pulse Ox O2 Delivery O2 Flow Rate FiO2 07/04/20 10:57 93 Room Air 07/04/20 08:00 35.6 75 18 130/80 (97) 07/04/20 03:59 2.00 Capillary Refill : Less Than 3 Seconds General Appearance: No Apparent Distress Respiratory: Lungs Clear, No Respiratory Distress Cardiovascular: Regular Rate, Rhythm, No Murmur Neurologic/Psychiatric: Alert, Oriented x3 Results/Procedures Lab Laboratory Tests 07/04/20 06:33 Patient resulted labs reviewed. Imaging: Reviewed Imaging Report Assessment/Plan Assessment and Plan Assess & Plan/Chief Complaint Acute on Chronic Hypoxic Respiratory Failure COPD with LRTI On room air Continue Remdesivir day 3/5 and decadron MAT protocol Lovenox IS Cellulitis, RLE Continue Rocephin, will trial off Vanc BC NGTD HTN Continue home meds Chronic pain Continue home meds DVT ppx: Lovenox Diagnosis/Problems Diagnosis/Problems (1) Cellulitis of right lower extremity Status: Acute (2) COVID-19 Status: Acute (3) Essential (primary) hypertension (4) Acute on chronic respiratory failure Status: Acute (5) COPD (chronic obstructive pulmonary disease) Status: Chronic (6) Chronic pain (7) Prophylactic measure Clinical Quality Measures DVT/VTE Risk/Contraindication: Risk Factor Score Per Nursin RFS Level Per Nursing on Admit: 4+=Very High YIN ARELLANO MD Jul 04, 2020 13:36
[2020-07-04] MEDS: cefTRIAXone 1,000 MG/SWFI 10 ML IV PUSH IV SCH ×2 (13:45)
[2020-07-04] MEDS: ENOXAPARIN 40 MG/0.4 ML (LOVENOX) SYR SC SCH (13:45)
[2020-07-04 16:24] VITALS: BP 157/90
[2020-07-04] MEDS: REMDESIVIR INJ 100 MG in NS (IVPB) 230 ML IV SCH (17:34)
[2020-07-04 20:19] VITALS: BP 130/83
[2020-07-05 00:07] VITALS: BP 135/79
[2020-07-05 03:57] VITALS: BP 158/90
[2020-07-05 05:51] LABS: ALBUMIN 3.4 GM/DL (3.2-4.5); CHLORIDE 108 MMOL/L (98-107); SODIUM 139 MMOL/L (135-145)
[2020-07-05 05:52] LABS: CALCIUM 8.2 MG/DL (8.5-10.1)
[2020-07-05 05:53] LABS: GLUCOSE 117 MG/DL (70-105); TOTAL PROTEIN 6.8 GM/DL (6.4-8.2)
[2020-07-05 05:54] LABS: CARBON DIOXIDE 22 MMOL/L (21-32)
[2020-07-05 05:55] LABS: BILIRUBIN,TOTAL 0.3 MG/DL (0.1-1.0)
[2020-07-05 05:57] LABS: ALKALINE PHOSPHATASE 66 U/L (40-136); CREATININE SERUM 0.82 MG/DL (0.60-1.30); GFR ESTIMATED > 60
[2020-07-05 05:58] LABS: BUN/CREATININE RATIO 22
[2020-07-05 06:00] LABS: ALANINE AMINOTRANSFERASE 79 U/L (0-55)
[2020-07-05] MEDS ORDERED: dexAMETHasone 6 MG TAB (DECADRON) PO SCH (07:00)
[2020-07-05 08:00] VITALS: BP 158/89
[2020-07-05] MEDS: AZITHROMYCIN 250 MG TAB (ZITHROMAX) PO SCH (09:10)
[2020-07-05] MEDS: GABAPENTIN 600 MG (NEURONTIN) TAB PO SCH ×2 (09:10→13:14)
[2020-07-05] MEDS: meTOprolol SUCCINATE 100 MG (TOPROL XL) TAB PO SCH (09:10)
--- NOTE | 2020-07-05 09:23 | NUR ---
Patient walked 300 feet on room air. Patient didn't need oxygen at this time. Addendum: 07/05/20 at 0924 by IJEOMA MILLER RT Amended: Links added.
[2020-07-05] MEDS: ALBUTEROL/IPRATROP (COMBIVENT RESPIMAT) 4 GM INHALER IH SCH ×2 (09:24→12:43)
[2020-07-05 12:00] VITALS: BP 145/68
[2020-07-05] MEDS: cefTRIAXone 1,000 MG/SWFI 10 ML IV PUSH IV SCH ×2 (13:14)
[2020-07-05] MEDS: ENOXAPARIN 40 MG/0.4 ML (LOVENOX) SYR SC SCH (13:16)
[2020-07-05] MEDS ORDERED: DEXA6TAB PO (14:02)
--- NOTE | 2020-07-05 14:03 | Discharge Inst-Simple/Standard ---
Discharge Inst-Standard Patient Instructions/Follow Up Plan of Care/Instructions/FU: Please continue to take your medications as written. Please follow up with your primary care doctor to follow up this hospital stay. Activity as Tolerated: Yes Discharge Diet: Cardiac Diet Return to The Hospital For: Chest pain, shortness of breath, fever, confusion, weakness, if you feel you are getting worse. YIN ARELLANO MD Jul 05, 2020 14:03
--- NOTE | 2020-07-05 15:45 | NUR ---
GIOVANNI BRENNAN demonstrates understanding of discharge instructions and accurately returns instructions upon questioning. Copy of Post-Discharge Instructions and Medication Discharge Instructions given to PATIENT. GIOVANNI BRENNAN is able to manage continuing needs after discharge. Patients belongings returned to PATIENT. Skin dry and intact; no breakdown noted. Patient discharged from [facility] on 07/05 at .1545 GIOVANNI BRENNAN left floor via , accompanied by STAFF.
[2020-07-06] MEDS ORDERED: FENTANYL PATCH REMOVAL TP SCH (14:59)
--- NOTE | 2020-07-10 11:42 | Physician Query Clarification ---
PQ-Uncertain Diagnosis Admission/Discharge Admission Date: Jul 02, 2020 at 12:30 Discharge Date: Jul 05, 2020 at 15:45 Dr. Arellano, The medical record reflects the following clinical scenario: History/Risk Factors: Covid, pneumonia, acute on chronic respiratory failure with hypoxia Clinical Findings: 06/30 ER [id number] T38.6, P 117, R 27, WBC 9.7, Lactic acid 0.69. 07/02 T 38.8, p 101, R 16, WBC 7.0, Lactic 0.64 Treatment: IV Cefepime, IV Ceftriazone, IV Vancomycin Question: Is Sepsis a clinically valid diagnosis? sepsis was documented in the 06/[address] Bailey with no further documentation in the medical record. Due to readmission within 2 days the 06/30 is combined with this 07/02 encounter. Please document a response in Progress Note or Discharge Summary. 1. Yes, clinically valid, condition resolved. 2. No, condition ruled out. 3. Other, with explanation of clinical findings. 4. Undetermined, no explanation for clinical findings. PHYSICIAN RESPONSE Diagnosis clinically valid: Yes, Conditon resolved Please remember a lack of response to the above will prompt a phone page by [facility]/Coding staff. In responding to this query, please exercise your independent professional judgment. The purpose of this communication is to more accurately reflect the complexity of your patients condition. The fact that a question is asked does not imply that any particular answer is desired or expected. Thank you for your timely response to this clarification. Requestors name: Mary [email or web address] THIS PHYSICIAN QUERY FORM IS A PERMANENT PART OF THE MEDICAL RECORD MARY FLANAGAN Jul 10, 2020 11:42 YIN ARELLANO MD Jul 15, 2020 18:36
== END 2020-07-05 15:45 | disposition home or self-care (01) | DRG 871 ==
LOC: EDUNIT# 08:19 → ER 08:21 → 4TH 12:30
PROVIDERS: ADMIT Family Medicine; ATTEND Family Medicine
PROC: XW033E5 Introduction of Remdesivir Anti-infective into Peripheral Vein, Percutaneous Approach, New Technology Group 5 (ICD-10-PCS; principal; 2020-07-02)
DX: A41.9 Sepsis, unspecified organism (principal); U07.1 COVID-19; J96.21 Acute and chronic respiratory failure with hypoxia; J18.9 Pneumonia, unspecified organism; L03.115 Cellulitis of right lower limb; J43.9 Emphysema, unspecified; I10 Essential (primary) hypertension; F41.9 Anxiety disorder, unspecified; M19.91 Primary osteoarthritis, unspecified site; G89.29 Other chronic pain; Z87.891 Personal history of nicotine dependence; Z73.0 Burn-out; Z88.6 Allergy status to analgesic agent; Z88.8 Allergy status to other drugs, medicaments and biological substances; Z99.81 Dependence on supplemental oxygen; Z80.1 Family history of malignant neoplasm of trachea, bronchus and lung; Z82.49 Family history of ischemic heart disease and other diseases of the circulatory system
CPT/HCPCS: 36415; 71045; 71275; 73590; 76937; 80053; 80202; 83605; 83615; 83880; 84145; 85025; 85379; 85610; 85730; 86141; 87040; 87804; 94640; 94760; 94761; 96361; 96374; 96375

== ENCOUNTER 2021-05-11 13:46 | Emergency (ER) | payer MEDICARE, MEDICAID ==
[~2021-05-11] VITALS: Ht 165.1 cm; Wt 95.2 kg
[~2021-05-11 13:46] MED LIST changes: +BUDE10.2 IH; +DEXA6TAB PO; +FENT1PAT57 TD; +IPRA4AER IH; +PANT40TA52 PO; +RIZA10TA37 PO; -SULF1TAB35 PO; +SULF1TAB38 PO
[2021-05-11] MEDS ORDERED: fentaNYL INJ 100 MCG/2 ML AMP IVP ONE ×2 (14:45→16:30)
[2021-05-11 15:15] LABS: BASOPHILS % (AUTO) 0 % (0-10); EOSINOPHILS # (AUTO) 0.1 10^3/uL (0.0-0.3); EOSINOPHILS % (AUTO) 1 % (0-10); HEMATOCRIT 39 % (40-54); HEMOGLOBIN 12.7 g/dL (13.3-17.7); LYMPHOCYTES # (AUTO) 1.7 10^3/uL (1.0-4.0); LYMPHOCYTES % (AUTO) 19 % (12-44); MEAN CORPUSCULAR HEMOGLOBIN 30 pg (25-34); MEAN CORPUSCULAR HGB CONC 32 g/dL (32-36); MEAN CORPUSCULAR VOLUME 92 fL (80-99); MEAN PLATELET VOLUME 9.5 fL (9.0-12.2); MONOCYTES # (AUTO) 0.8 10^3/uL (0.0-1.0); MONOCYTES % (AUTO) 9 % (0-12); NEUTROPHILS # (AUTO) 6.3 10^3/uL (1.8-7.8); NEUTROPHILS % (AUTO) 70 % (42-75); PLATELET COUNT 251 10^3/uL (130-400); WHITE BLOOD COUNT 8.9 10^3/uL (4.3-11.0)
[2021-05-11] MEDS ORDERED: NS 100 ML (IVPB) BAG IV ONE (15:15)
[2021-05-11] MEDS ORDERED: IOHEXOL 350 MG/ML 100 ML (OMNIPAQUE 350) VIAL IV ONE (15:15)
[2021-05-11] MEDS ORDERED: HOLD METFORMIN - RECEIVED CONTRAST 20 ML VIAL IV SCH (15:15)
[2021-05-11 15:16] LABS: POTASSIUM 4.8 MMOL/L (3.6-5.0)
[2021-05-11 15:18] LABS: CALCIUM 9.6 MG/DL (8.5-10.1)
[2021-05-11 15:22] LABS: CREATININE SERUM 1.21 MG/DL (0.60-1.30)
--- NOTE | 2021-05-11 15:55 | Diagnostic Imaging Report ---
INDICATION: Left-sided facial swelling for the last week. Question at dental abscess. EXAMINATION: CT maxillofacial with contrast. 05/11/2021 FINDINGS: There is diffuse soft tissue prominence about the anterior to the left aspect of the mandible surrounding the teeth in the inferior jaw. Within the abnormality there is a small focal fluid collection which extends from the region of the teeth more superficially with the abnormality measuring 1 x 2.4 cm on axial imaging and 1.7 cm in craniocaudal dimension. This is suspicious for early abscess formation. Lucencies noted along the posterior molar in the region suspicious for periodontal abscess. Within the remaining mouth there is overall poor dentition. There is mild thickening of the wall about the right maxillary sinus which appears chronic, perhaps due to chronic sinusitis. No air-fluid level is noted. Remaining sinuses are grossly unremarkable but somewhat limited by motion artifact. Visualized mastoid air cells clear. The post septal spaces unremarkable. Both globes intact. Within the neck mild soft tissue prominence is seen right paracentrally inferior to the mandible, likely asymmetry of the musculature. A few scattered shotty lymph nodes, likely reactive. There is diffuse postoperative change with anterior fusion throughout the cervical spine from C2 through C5. Interbody device is noted. Posterior fusion incompletely imaged. IMPRESSION: 1. Suspected periodontal abscess along the posterior most left molar with marked surrounding soft tissue abnormality in the adjacent anterior jaw and face. An overlying early abscess with surrounding inflammatory change suspected. 2. Reactive adenopathy in the neck with soft tissue prominence right paracentrally within the neck most likely due to asymmetry of the musculature. Other findings as above. Dictated by: Dictated on workstation # [id number]
[2021-05-11] MEDS ORDERED: CLINDAMYCIN 900 MG/50 ML IVPB 50 ML IV ONE (16:30)
[2021-05-11] MEDS ORDERED: LIDOCAINE/EPI 1%-1:100,000 (XYLOCAINE) 20ML INJ ONE (16:30)
[2021-05-11] MEDS ORDERED: CLIN300C12 PO (18:15)
[2021-05-11] MEDS ORDERED: KETOROLAC 30 MG/ML VIAL IVP ONE (18:15)
--- NOTE | 2021-05-11 18:16 | ED EENT ---
History of Present Illness General Chief Complaint: Dental Problems/Pain Stated Complaint: DENTAL SWELLING/PAIN Nursing Triage Note: OLD FILLING ON LEFT LOWER SIDE FELL OUT "QUITE A WHILE BACK" ABOUT 3 DASY AGO STARTED HAVING PAIN AND TODAY IS MUCH WORSE WITH NOTED SWELLING. TOOK "4 ALIEVE AT 1000 THIS MORINING" ALSO STATES HAS HAD GABEPENTIN AND HYDROCODONE AT HOME. Source: patient Exam Limitations: no limitations History of Present Illness Date Seen by Provider: May 11, 2021 Time Seen by Provider: 14:30 Initial Comments This 56-year-old gentleman presents to the emergency room with dental pain and associated facial swelling around the left mandible and maxilla. He reports losing a filling out of the most posterior molar on the left. For the past 3 days he has been experiencing pain and swelling. He denies any fever. There is no drainage of purulent material. Allergies and Home Medications Allergies Coded Allergies: amitriptyline (Verified Allergy, Unknown, 02/08/16) duloxetine (Verified Allergy, Unknown, 02/08/16) fluticasone (Verified Allergy, Unknown, 02/08/16) salmeterol (Verified Allergy, Unknown, 02/08/16) Patient Home Medication List Home Medication List Reviewed: Yes Albuterol/Ipratropium (Combivent Respimat Inhal [place]) 4 Gm Aero, 2 PUFF IH QID, (Reported) Entered as Reported by: JEREMI THAO on 07/03/20 111 Azithromycin (Azithromycin) 250 Mg Tablet, 250 MG PO UD Prescribed by: BALDO CUEVAS on 06/30/20 125 Budesonide/Formoterol Fumarate (Symbicort 160-4.5 Mcg Inhaler) 10.2 Gm Hfa.aer.ad, 2 PUFF IH BID, (Reported) Entered as Reported by: JEREMI THAO on 07/03/20 1115 Cefdinir (Cefdinir) 300 Mg Capsule, 300 MG PO BID Prescribed by: BALDO CUEVAS on 06/30/20 1251 Clindamycin HCl (Clindamycin HCl) 300 Mg Capsule, 300 MG PO Q6H Prescribed by: MAYRA HAND on 05/11/21 1815 Cyclobenzaprine HCl (Cyclobenzaprine HCl) 10 Mg Tablet, 10 MG PO BID, (Reported) Entered as Reported by: JEREMI THAO on 07/03/20 1121 Dexamethasone (Dexamethasone) 6 Mg Tablet, 6 MG PO DAILY@0700 Prescribed by: YIN ARELLANO on 07/05/20 1402 Fentanyl (Duragesic Patch 25MCG) 1 Each Patch.td72, 25 MCG TD Q72H, (Reported) Entered as Reported by: JEREMI THAO on 07/03/20 1121 Gabapentin (Gabapentin) 600 Mg Tablet, 600 MG PO TID, (Reported) Entered as Reported by: JEREMI THAO on 07/03/20 1053 Oxycodone HCl (Oxycodone HCl) 30 Mg Tablet, 30 MG PO Q6H, (Reported) Entered as Reported by: JEREMI THAO on 07/03/20 1121 Pantoprazole Sodium (Pantoprazole Sodium) 40 Mg Tablet.dr, 40 MG PO DAILY, (Reported) Entered as Reported by: JEREMI THAO on 07/03/20 1115 Rizatriptan Benzoate (Rizatriptan) 10 Mg Tablet, 10 MG PO PRN, (Reported) Entered as Reported by: JEREMI THAO on 07/03/20 1121 Review of Systems Review of Systems Constitutional: no symptoms reported Eyes: No Symptoms Reported Ears: No Symptoms Reported Nose: no symptoms reported Mouth: see HPI Throat: no symptoms reported Respiratory: no symptoms reported Cardiovascular: no symptoms reported Gastrointestinal: no symptoms reported Musculoskeletal: no symptoms reported Skin: no symptoms reported Neurological: No Symptoms Reported Hematologic/Lymphatic: No Symptoms Reported Past Azdwemz-Ksiwho-Sgmldo Hx Patient Social History Tobacco Use?: No Substance use?: No Alcohol Use?: Yes Alcohol type: Wine Alcohol Frequency: Once in a while Pt feels they are or have been: No Immunizations Up To Date Tetanus Booster (TDap): Unknown PED Vaccines UTD: No Influenza Vaccine Up-to-Date: No; Not Current First/Initial COVID19 Vaccinat: SEPTEMBER 2020 Second COVID19 Vaccination Rhett: SEPTEMBER 2020 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 SHUNT) Meningitis Reproductive Disorders: No Genitourinary: No Gastrointestinal: Yes (HERNIA REPAIR) Abdominal Hernia Musculoskeletal: Yes (CHRONIC HEAD/NECK PAIN ) Arthritis Endocrine: No HEENT: No Cancer: No Psychosocial: Yes Anxiety Integumentary: No Blood Disorders: No Family Medical History FH: cancer 19 MOTHER Mother- lung cancer Father- HTN and CVA Physical Exam Vital Signs Vital Signs - First Documented 05/11/21 13:50 Temp 36.3 Pulse 96 Resp 18 B/P (MAP) 138/90 (106) Pulse Ox 93 O2 Delivery Room Air Height, Weight, BMI Height: 5'5.00" Weight: 180lbs. 0.0oz. [id number]; 34.00 BMI Method:Stated General Appearance: WD/WN, mild distress Eyes: bilateral eye normal inspection, bilateral eye PERRL Ears: bilateral ear auricle normal Nose: normal inspection Mouth/Throat: other (Significant facial swelling on the lateral edge of the left mandible and over the maxilla. There is also swelling within the oral cavity on the mucosal side of these regions. There is not necessarily a discrete abscess palpable. No drainage was noted. 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 The gingiva and mucosal surface on the left was sprayed with Hurricaine spray. Approximately 2 mL of lidocaine with epinephrine was then injected along the area of concern at the left lateral posterior gingiva in the mucosal surface just above the gingiva. Based on the location of the abscess noted on CT scan aspiration was then attempted with an 18-gauge needle. Unfortunately, after multiple attempts, no purulent material was drained. Progress/Results/Core Measures Results/Orders Lab Results Laboratory Tests Test 05/11/21 14:55 Range/Units White Blood Count 8.9 4.3-11.0 10^3/uL Red Blood Count 4.26 L 4.30-5.52 10^6/uL Hemoglobin 12.7 L 13.3-17.7 g/dL Hematocrit 39 L 40-54 % Mean Corpuscular Volume 92 80-99 fL Mean Corpuscular Hemoglobin 30 25-34 pg Mean Corpuscular Hemoglobin Concent 32 32-36 g/dL Red Cell Distribution Width 12.4 10.0-14.5 % Platelet Count 251 130-400 10^3/uL Mean Platelet Volume 9.5 9.0-12.2 fL Immature Granulocyte % (Auto) 1 % Neutrophils (%) (Auto) 70 42-75 % Lymphocytes (%) (Auto) 19 12-44 % Monocytes (%) (Auto) 9 0-12 % Eosinophils (%) (Auto) 1 0-10 % Basophils (%) (Auto) 0 0-10 % Neutrophils # (Auto) 6.3 1.8-7.8 10^3/uL Lymphocytes # (Auto) 1.7 1.0-4.0 10^3/uL Monocytes # (Auto) 0.8 0.0-1.0 10^3/uL Eosinophils # (Auto) 0.1 0.0-0.3 10^3/uL Basophils # (Auto) 0.0 0.0-0.1 10^3/uL Immature Granulocyte # (Auto) 0.1 0.0-0.1 10^3/uL Sodium Level 138 135-145 MMOL/L Potassium Level 4.8 3.6-5.0 MMOL/L Chloride Level 102 98-107 MMOL/L Carbon Dioxide Level 24 21-32 MMOL/L Anion Gap 12 5-14 MMOL/L Blood Urea Nitrogen 16 7-18 MG/DL Creatinine 1.21 0.60-1.30 MG/DL Estimat Glomerular Filtration Rate 75 BUN/Creatinine Ratio 13 Glucose Level 143 H 70-105 MG/DL Calcium Level 9.6 8.5-10.1 MG/DL C-Reactive Protein High Sensitivity 4.38 H 0.00-0.50 MG/DL My Orders Orders - MAYRA CRONIN MD Basic Metabolic Panel (05/11/21 14:38) Cbc With Automated Diff (05/11/21 14:38) Hs C Reactive Protein (05/11/21 14:38) Ed Iv/Invasive Line Start (05/11/21 14:38) Fentanyl Inj (Sublimaze Injection) (05/11/21 14:45) Ct Maxillofacial W (05/11/21 14:39) Iohexol Injection (Omnipaque 350 Mg/Ml 1 (05/11/21 15:15) Received Contrast (Hold Metformin- Contr (05/11/21 15:15) Ns (Ivpb) (Sodium Chloride 0.9% Ivpb Bag (05/11/21 15:15) Lidocaine/Epi 1% 1:100,000 (Xylocaine /E (05/11/21 16:30) Fentanyl Inj (Sublimaze Injection) (05/11/21 16:30) Clindamycin 900 Mg/50 Ml Ivpb (Cleocin P (05/11/21 16:30) Ketorolac Injection (Toradol Injection) (05/11/21 18:15) Medications Given in ED Current Medications Medications Dose Ordered Sig/Isabel Route Start Time Stop Time Status Last Admin Dose Admin Clindamycin Phosphate/Dextrose 50 ml @ 100 mls/hr ONCE ONCE IV 05/11/21 16:30 05/11/21 16:59 DC 05/11/21 18:27 100 MLS/HR Fentanyl Citrate 50 mcg ONCE ONCE IVP 05/11/21 14:45 05/11/21 14:46 DC 05/11/21 15:00 50 MCG Fentanyl Citrate 75 mcg ONCE ONCE IVP 05/11/21 16:30 05/11/21 16:31 DC 05/11/21 17:03 75 MCG Iohexol 75 ml ONCE ONCE IV 05/11/21 15:15 05/11/21 15:30 DC 05/11/21 15:26 75 ML Ketorolac Tromethamine 30 mg ONCE ONCE IVP 05/11/21 18:15 05/11/21 18:16 DC 05/11/21 18:26 30 MG Lidocaine/ Epinephrine 20 ml ONCE ONCE INJ 05/11/21 16:30 05/11/21 16:31 DC 05/11/21 17:03 20 ML Sodium Chloride 100 ml ONCE ONCE IV 05/11/21 15:15 05/11/21 15:30 DC 05/11/21 15:26 100 ML Vital Signs/I&O 05/11/21 05/11/21 13:50 18:59 Temp 36.3 Pulse 96 94 Resp 18 18 B/P (MAP) 138/90 (106) 133/91 Pulse Ox 93 93 O2 Delivery Room Air Room Air Blood Pressure Mean: 106 Progress Progress Note : Progress Note Labs were evaluated and patient was treated with IV fentanyl for pain control. Labs and vital signs were relatively stable. CT of the face was obtained and revealed abscess that seem to be originating from the left most posterior lower molar. Attempt at aspirating this abscess was not successful. We administered clindamycin 900 mg by IV route to help treat this. I am referring him to Dr. Manuel for further evaluation and treatment. Departure Impression Primary Impression: Dental abscess Additional Impression: Cellulitis of face Disposition: HOME, SELF-CARE Condition: Improved Departure-Patient Inst. Decision time for Depature: 18:12 Referrals: SUMEET MANUEL DDS, RICK D MD (PCP/Family) Primary Care Physician Patient Instructions: Tooth Abscess ED Add. Discharge Instructions: Complete your antibiotics as prescribed. Contact Dr. Manuel's office first thing in the morning to arrange follow-up. Continue to brush your teeth gently twice daily. You may rinse with antiseptic mouthwash if tolerated. Return to the ER if you have worsening of symptoms including worsening facial swelling, escalating pain, fevers over 100 degrees, etc. Call with questions or concerns. Use your prescribed pain medications as previously directed. You may additionally use either ibuprofen up to 600 mg every 6 hours or naproxen (Aleve) up to 500 mg every 12 hours. All discharge instructions reviewed with patient and/or family. Voiced understanding. Scripts Clindamycin HCl (Clindamycin HCl) 300 Mg Capsule 300 MG PO Q6H, #40 CAP Prov: MAYRA CRONIN MD 05/11/21 Copy Copies To 1: SUMEET MANUEL DDS Copies To 2: JOSIANE MUSTAFA MD, JOSHUA T MD May 11, 2021 18:16
[2021-05-11 18:59] VITALS: BP 133/91
== END 2021-05-11 18:59 | disposition home or self-care (01) ==
LOC: EDUNIT# 13:46 → ER 13:47
DX: K04.7 Periapical abscess without sinus (principal); L03.211 Cellulitis of face; I10 Essential (primary) hypertension; J44.9 Chronic obstructive pulmonary disease, unspecified; G47.30 Sleep apnea, unspecified
CPT/HCPCS: 36415; 70487; 80048; 85025; 86141

== ENCOUNTER 2022-05-18 16:03 | Emergency (ER) | payer MEDICARE, MEDICAID ==
[~2022-05-18] VITALS: Ht 165.1 cm; Wt 95.2 kg
[~2022-05-18 16:03] MED LIST changes: +CLIN-144 PO; -CLIN300C12 PO; +CYCL10TA25 PO; -CYCL10TA9 PO
--- NOTE | 2022-05-18 16:40 | ED General ---
General Chief Complaint: Neurological Problems Stated Complaint: POSS ABSCESS ON BACK OF HEAD/NECK SWELLING Nursing Triage Note: PT TO RM 4 WITH CC OF NUMBNESS AND TINGLING IN BILAT HANDS FOR A MONTH. PT ALSO C/O AN AREA OF CONCERN ON R SIDE OF BACK OF HEAD. PT STATES AREA OF CONCERN IS SWOLLEN AND PARTNER STATES "WHILE CUTTING HIS HAIR PUS CAME OUT OF IT". PT A&OX4 Source of Information: Patient, Family, Old Records Exam Limitations: No Limitations History of Present Illness Date Seen by Provider: May 18, 2022 Time Seen by Provider: 16:22 Initial Comments This 57-year-old gentleman presents to the emergency room with apparent abscess at the posterior right scalp and upper neck which was noted over the past 2 days. 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 Patient denies any systemic symptoms but does report weakness and numbness of the upper extremities over the past month. He has history of Chiari mal formation and cervical spinal fusion. Allergies and Home Medications Allergies Coded Allergies: amitriptyline (Verified Allergy, Unknown, 02/08/16) duloxetine (Verified Allergy, Unknown, 02/08/16) fluticasone (Verified Allergy, Unknown, 02/08/16) salmeterol (Verified Allergy, Unknown, 02/08/16) Patient Home Medication List Home Medication List Reviewed: Yes Albuterol/Ipratropium (Combivent Respimat Inhal [place]) 4 Gm Aero, 2 PUFF IH QID, (Reported) Entered as Reported by: JEREMI THAO on 07/03/20 1115 Azithromycin (Azithromycin) 250 Mg Tablet, 250 MG PO UD Prescribed by: BALDO CUEVAS on 06/30/20 1251 Budesonide/Formoterol Fumarate (Symbicort 160-4.5 Mcg Inhaler) 10.2 Gm Hfa.aer.ad, 2 PUFF IH BID, (Reported) Entered as Reported by: JEREMI THAO on 07/03/20 1115 Cefdinir (Cefdinir) 300 Mg Capsule, 300 MG PO BID Prescribed by: BALDO CUEVAS on 06/30/20 1251 Clindamycin HCl (Clindamycin HCl) 300 Mg Capsule, 300 MG PO Q6H Prescribed by: MAYRA HAND on 05/11/21 1815 Clindamycin HCl (Clindamycin HCl) 300 Mg Capsule, 300 MG PO QID Prescribed by: MARYA HAND on 05/18/221812 Cyclobenzaprine HCl (Cyclobenzaprine HCl) 10 Mg Tablet, 10 MG PO BID, (Reported) Entered as Reported by: JEREMI THAO on 07/03/20 1121 Dexamethasone (Dexamethasone) 6 Mg Tablet, 6 MG PO DAILY@0700 Prescribed by: YIN ARELLANO on 07/05/20 1402 Fentanyl (Duragesic Patch 25MCG) 1 Each Patch.td72, 25 MCG TD Q72H, (Reported) Entered as Reported by: JEREMI THAO on 07/03/20 1121 Gabapentin (Gabapentin) 600 Mg Tablet, 600 MG PO TID, (Reported) Entered as Reported by: JEREMI THAO on 07/03/20 1053 Oxycodone HCl (Oxycodone HCl) 30 Mg Tablet, 30 MG PO Q6H, (Reported) Entered as Reported by: JEREMI THAO on 07/03/20 1121 Pantoprazole Sodium (Pantoprazole Sodium) 40 Mg Tablet.dr, 40 MG PO DAILY, (Reported) Entered as Reported by: JEREMI THAO on 07/03/20 1115 Rizatriptan Benzoate (Rizatriptan) 10 Mg Tablet, 10 MG PO PRN, (Reported) Entered as Reported by: JEREMI THAO on 07/03/20 1121 Sulfamethoxazole/Trimethoprim (Bactrim Ds Tablet) 1 Each Tablet, 1 EACH PO BID Prescribed by: MAYRA HAND on 05/18/221812 Review of Systems Review of Systems Constitutional: no symptoms reported EENTM: see HPI Respiratory: no symptoms reported Cardiovascular: no symptoms reported Gastrointestinal: no symptoms reported Genitourinary: no symptoms reported Musculoskeletal: no symptoms reported Skin: see HPI Psychiatric/Neurological: See HPI Hematologic/Lymphatic: No Symptoms Reported Past Ttfnfrq-Ahxpns-Oflozs Hx Patient Social History Tobacco Use?: No Smoking Status: Former Smoker Substance use?: No Alcohol Use?: No Pt feels they are or have been: No Immunizations Up To Date Tetanus Booster (TDap): Unknown PED Vaccines UTD: No First/Initial COVID19 Vaccinat: SEPTEMBER 2020 Second COVID19 Vaccination Rhett: SEPTEMBER 2020 Third COVID19 Vaccination Date: SEPTEMBER 2020 Seasonal Allergies Seasonal Allergies: No Past Medical History Surgery/Hospitalization HX: R SHOULDER HARWARE, R ANKLE HARWARE, L LEG HARWARE Surgeries: Yes (surgical repair of Chiari malformation, knee sx, hernia, shoulder,hand) Abdominal, Neurological, Orthopedic (Cervical spinal fusion) Respiratory: Yes (RESPIRATORY FAILURE ON VENT AND BIPAP SEVERAL TIMES) Pneumonia, Chronic Bronchitis, Sleep Apnea, COPD, Emphysema Currently Using CPAP: No Currently Using BIPAP: No Cardiac: Yes Hypertension Neurological: Yes (MENINGITIS POSTOP 2004 FOR CYST ON BRAINSTEM & CHIARI MALFORMATION. SHUNT) Meningitis Reproductive Disorders: No Genitourinary: No Gastrointestinal: Yes (HERNIA REPAIR) Abdominal Hernia Musculoskeletal: Yes (CHRONIC HEAD/NECK PAIN ) Arthritis Endocrine: No HEENT: No Cancer: No Psychosocial: Yes Anxiety Integumentary: No Blood Disorders: No Family Medical History FH: cancer 19 MOTHER Mother- lung cancer Father- HTN and CVA Physical Exam Vital Signs Vital Signs - First Documented 05/18/22 16:16 Temp 36.6 Pulse 84 Resp 16 B/P (MAP) 147/110 (122) Pulse Ox 94 O2 Delivery Room Air Capillary Refill : Less Than 3 Seconds Height, Weight, BMI Height: 5'5.00" Weight: 180lbs. 0.0oz. [id number]; 34.00 BMI Method:Stated General Appearance: No Apparent Distress, WD/WN HEENT: PERRL/EOMI, TMs Normal, Other (Abscess with small opening draining purulent material from the right inferior posterior scalp with surrounding edema) Neck: Non Tender, Other (Edema of the right upper posterior neck near the draining abscess. Large surgical scar over the cervical spine) Respiratory: Lungs Clear, Normal Breath Sounds, No Accessory Muscle Use Cardiovascular: Regular Rate, Rhythm, No Edema, No Murmur Gastrointestinal: Normal Bowel Sounds, Non Tender, Soft Extremity: Normal Inspection, No Pedal Edema Neurologic/Psychiatric: Alert, Oriented x3, Normal Mood/Affect, validation specialist II-XII Norm as Tested, Motor Weakness (Decreased moving worker strength bilaterally and decreased range of motion with abduction due to weakness.) Skin: Normal Color, Warm/Dry Procedures/Interventions I&D : Blade Size: 11 Progress Purulent material had been expressed from the wound prior to incision and drainage and wound culture was collected. Skin was scrubbed thoroughly with alcohol. A 1 cm incision was then made over the port and extending deep to about 1 cm. Opening was widened with hemostats. Any remaining purulent material was expressed and irrigated from the wound with saline and chlorhexidine. A small wick of iodoform packing was placed within the wound and wound was dressed by nursing staff. Progress/Results/Core Measures Suspected Sepsis SIRS Temperature: Pulse: 84 Respiratory Rate: 16 Laboratory Tests 05/18/22 16:50: White Blood Count 3.6L Blood Pressure 147 /110 Mean: 122 Laboratory Tests 05/18/22 16:50: Creatinine 0.82, Platelet Count 220, Total Bilirubin 0.3 Results/Orders Lab Results Laboratory Tests Test 05/18/22 16:50 Range/Units White Blood Count 3.6 L 4.3-11.0 10^3/uL Red Blood Count 4.50 4.30-5.52 10^6/uL Hemoglobin 12.7 L 13.3-17.7 g/dL Hematocrit 41 40-54 % Mean Corpuscular Volume 91 80-99 fL Mean Corpuscular Hemoglobin 28 25-34 pg Mean Corpuscular Hemoglobin Concent 31 L 32-36 g/dL Red Cell Distribution Width 12.7 10.0-14.5 % Platelet Count 220 130-400 10^3/uL Mean Platelet Volume 10.4 9.0-12.2 fL Immature Granulocyte % (Auto) 0 % Neutrophils (%) (Auto) 51 42-75 % Lymphocytes (%) (Auto) 37 12-44 % Monocytes (%) (Auto) 8 0-12 % Eosinophils (%) (Auto) 3 0-10 % Basophils (%) (Auto) 1 0-10 % Neutrophils # (Auto) 1.8 1.8-7.8 10^3/uL Lymphocytes # (Auto) 1.3 1.0-4.0 10^3/uL Monocytes # (Auto) 0.3 0.0-1.0 10^3/uL Eosinophils # (Auto) 0.1 0.0-0.3 10^3/uL Basophils # (Auto) 0.0 0.0-0.1 10^3/uL Immature Granulocyte # (Auto) 0.0 0.0-0.1 10^3/uL Percent Immature Platelet Fraction 3.8 0.0-7.6 % Sodium Level 137 135-145 MMOL/L Potassium Level 4.5 3.6-5.0 MMOL/L Chloride Level 104 98-107 MMOL/L Carbon Dioxide Level 25 21-32 MMOL/L Anion Gap 8 5-14 MMOL/L Blood Urea Nitrogen 15 7-18 MG/DL Creatinine 0.82 0.60-1.30 MG/DL Estimat Glomerular Filtration Rate 102 BUN/Creatinine Ratio 18 Glucose Level 110 H 70-105 MG/DL Calcium Level 9.4 8.5-10.1 MG/DL Corrected Calcium 9.4 8.5-10.1 MG/DL Total Bilirubin 0.3 0.1-1.0 MG/DL Aspartate Amino Transf (AST/SGOT) 12 5-34 U/L Alanine Aminotransferase (ALT/SGPT) 11 0-55 U/L Alkaline Phosphatase 79 40-136 U/L C-Reactive Protein High Sensitivity 0.72 H 0.00-0.50 MG/DL Total Protein 7.8 6.4-8.2 GM/DL Albumin 4.0 3.2-4.5 GM/DL Smear Scan YES My Orders Orders - MAYRA CRONIN MD Ct Head W Wo/Neck W (05/18/22 16:37) Cbc With Automated Diff (05/18/22 16:40) Comprehensive Metabolic Panel (05/18/22 16:40) Hs C Reactive Protein (05/18/22 16:40) Ed Iv/Invasive Line Start (05/18/22 16:40) Iohexol Injection (Omnipaque 350 Mg/Ml 1 (05/18/22 16:45) Received Contrast (Hold Metformin- Contr (05/18/22 16:45) Sodium Chloride Flush (Catheter Flush Sy (05/18/22 16:45) Ns (Ivpb) (Sodium Chloride 0.9% Ivpb Bag (05/18/22 16:45) Wound Culture (05/18/22 16:54) Lidocaine 1% Inj 20 Ml (Xylocaine 1% Inj (05/18/22 18:15) Clindamycin 600 Mg/50 Ml Ivpb (Cleocin P (05/18/22 18:15) Medications Given in ED Current Medications Medications Dose Ordered Sig/Isabel Route Start Time Stop Time Status Last Admin Dose Admin Clindamycin Phosphate/Dextrose 50 ml @ 100 mls/hr ONCE ONCE IV 05/18/22 18:15 05/18/22 18:44 DC 05/18/22 18:22 100 MLS/HR Iohexol 75 ml ONCE ONCE IV 05/18/22 16:45 05/18/22 16:59 DC 05/18/22 17:18 75 ML Lidocaine HCl 20 ml ONCE ONCE INJ 05/18/22 18:15 05/18/22 18:16 DC 05/18/22 18:24 20 ML Sodium Chloride 10 ml NEEDED PRN IV 05/18/22 16:45 05/18/22 19:03 DC 05/18/22 17:19 10 ML Sodium Chloride 100 ml ONCE ONCE IV 05/18/22 16:45 05/18/22 16:59 DC 05/18/22 17:19 80 ML Vital Signs/I&O 05/18/22 05/18/22 16:16 19:02 Temp 36.6 Pulse 84 74 Resp 16 16 B/P (MAP) 147/110 (122) 130/110 Pulse Ox 94 94 O2 Delivery Room Air Room Air Capillary Refill : Less Than 3 Seconds Blood Pressure Mean: 122 Progress Note : Progress Note CT of the head and neck was obtained to evaluate for possible deep tissue involvement of the abscess which could be contributing to his weakness and paresthesias. CT did not reveal extension of the abscess into an area that could directly be contributing to his symptoms. If there is any contributing, it is likely secondary to generalized regional inflammation rather than extension of the abscess to the WELDER 2ND SHIFT or nearby structures. I discussed CT findings with Dr. Alvarez. I discussed the situation with Dr. Burnham who recommended opening the draining pore wider with incision and packing with iodoform. He recommended replacing the packing tomorrow and then having him see Dr. Burnham in the clinic on Wednesday. A dose of clindamycin was administered via IV route in the emergency room. Diagnostic Imaging Diagonstic Imaging: CT Plain Films/CT/US/NM/MRI: other (Head and neck) Comments CT scan head and neck viewed by me and report reviewed. See report below: NAME: GIOVANNI BRENNAN [facility] REC#: [id number] PT STATUS: REG ER : 1965 PHYSICIAN: MAYRA CRONIN MD ADMIT DATE: 05/18/22/ER Draft Date of Exam:05/18/22 CT HEAD W WO/NECK W INDICATION: Decreased range of motion in arms and hands. History of previous cervical spine surgery. COMPARISON: 12/23/2017. TECHNIQUE: Noncontrast CT of the head was performed followed by postcontrast CT of the head and neck. Contrast was injected intravenously. Auto Exposure Controls were utilized during the CT exam to meet ALARA standards for radiation dose reduction. FINDINGS: CT HEAD: Postsurgical changes of previous suboccipital craniectomy are noted. There is crowding of the foramen magnum, stable compared to prior exam. Ventricles and cortical sulci are normal in size and contour. There is no hydronephrosis. There is no mass effect or midline shift. Postcontrast images show no abnormal areas of enhancement. There is no large area of loss of normal briscoe-white matter junction differentiation to suggest evolving acute territorial infarct. No intra- or extra-axial intracranial hemorrhage is seen. The remainder of the bony calvarium is intact. Mastoid air cells are clear. Evaluation of the overlying soft tissue structures demonstrates a 7 mm spherical hyperdensity within the subcutaneous fat posteriorly to the right lateral of midline (image 8, series 5). CT NECK: Deep spaces of the neck are unremarkable. There are postsurgical changes of previous anterior fusion of the cervical spine from C2 through C5. Extensive posterior fusion is also seen extending from C2 to T2. No unexpected radiopaque foreign bodies are seen. No focal fluid collections are identified within the deep spaces of the neck. There is no compromise of the airway. No suspicious enhancing soft tissue masses are identified. No abnormal cervical adenopathy is seen. The parotid, submandibular, and thyroid glands have a normal symmetric appearance. Included portions of the lung apices show large bulla formation in the right apex. Note is also made of advanced dental caries. IMPRESSION: 1. Postsurgical changes of previous suboccipital craniectomy and 360-degree fusion of the cervical spine as described above. No suspicious postoperative fluid collections are seen. 2. No new acute intracranial abnormality. No CT evidence of acute infarct, mass, nor hemorrhage. 3. Unremarkable CT of the soft tissues of the neck. 4. Spherical density is noted within the subcutaneous fat of the posterior scalp on the right. By history, this corresponds to a pus-producing palpable lesion. This is concerning for a subcutaneous abscess. Not mentioned above, there is no significant extension beyond this. There is no underlying calvarial deformity. Dictated on workstation # [id number] Dict: 05/18/22 1731 Trans: 05/18/22 1800 [id number] Interpreted by: MANUELA ALVAREZ MD Departure Impression Primary Impression: Abscess or cellulitis of scalp Additional Impressions: Paresthesia of upper extremity Weakness of both upper extremities Encounter for incision and drainage procedure Disposition: HOME, SELF-CARE Condition: Improved Departure-Patient Inst. Referrals: TIMUR BURNHAM DO NO,LOCAL PHYSICIAN (PCP) Primary Care Physician Patient Instructions: Skin Abscess Add. Discharge Instructions: Return to the ER tomorrow to have your packing replaced. Start your antibiotics this evening as prescribed. Complete the entire course of antibiotics even if you are feeling better before they are finished. See Dr. Burnham in his office on Wednesday. Please call his office in the morning to obtain an appointment time. Please also follow-up with your primary care provider soon as possible. If treatment of the abscess does not improve the weakness and numbness of your upper extremities, you may need additional studies performed such as MRI of the head and neck. Return to the emergency room if you have worsening symptoms or develop new symptoms such as fever. All discharge instructions reviewed with patient and/or family. Voiced understanding. Scripts Clindamycin HCl (Clindamycin HCl) 300 Mg Capsule 300 MG PO QID, #40 CAP Prov: MAYRA CRONIN MD 05/18/22 Sulfamethoxazole/Trimethoprim (Bactrim Ds Tablet) 1 Each Tablet 1 EACH PO BID, #20 TAB Prov: MAYRA CRONIN MD 05/18/22 Copy Copies To 1: TIMUR BURNHAM DO Copies To 2: [facility]/MAYRA MOLINA MD May 18, 2022 16:40
[2022-05-18] MEDS ORDERED: NS 100 ML (IVPB) BAG IV ONE (16:45)
[2022-05-18] MEDS ORDERED: IOHEXOL 350 MG/ML 100 ML (OMNIPAQUE 350) VIAL IV ONE (16:45)
[2022-05-18] MEDS ORDERED: HOLD METFORMIN - RECEIVED CONTRAST 20 ML VIAL IV SCH (16:45)
[2022-05-18] MEDS ORDERED: CATHETER FLUSH 10 ML SYR IV PRN (16:45)
[2022-05-18 17:03] LABS: BASOPHILS % (AUTO) 1 % (0-10); EOSINOPHILS # (AUTO) 0.1 10^3/uL (0.0-0.3); EOSINOPHILS % (AUTO) 3 % (0-10); HEMATOCRIT 41 % (40-54); HEMOGLOBIN 12.7 g/dL (13.3-17.7); LYMPHOCYTES # (AUTO) 1.3 10^3/uL (1.0-4.0); LYMPHOCYTES % (AUTO) 37 % (12-44); MEAN CORPUSCULAR HEMOGLOBIN 28 pg (25-34); MEAN CORPUSCULAR HGB CONC 31 g/dL (32-36); MEAN CORPUSCULAR VOLUME 91 fL (80-99); MEAN PLATELET VOLUME 10.4 fL (9.0-12.2); MONOCYTES # (AUTO) 0.3 10^3/uL (0.0-1.0); MONOCYTES % (AUTO) 8 % (0-12); NEUTROPHILS # (AUTO) 1.8 10^3/uL (1.8-7.8); NEUTROPHILS % (AUTO) 51 % (42-75); PLATELET COUNT 220 10^3/uL (130-400); WHITE BLOOD COUNT 3.6 10^3/uL (4.3-11.0)
[2022-05-18 17:06] LABS: SMEAR SCAN COMMENT YES
[2022-05-18 17:18] LABS: POTASSIUM 4.5 MMOL/L (3.6-5.0)
[2022-05-18 17:19] LABS: CALCIUM 9.4 MG/DL (8.5-10.1)
[2022-05-18 17:20] LABS: TOTAL PROTEIN 7.8 GM/DL (6.4-8.2)
[2022-05-18 17:22] LABS: BILIRUBIN,TOTAL 0.3 MG/DL (0.1-1.0)
[2022-05-18 17:24] LABS: CREATININE SERUM 0.82 MG/DL (0.60-1.30)
--- NOTE | 2022-05-18 17:43 | Diagnostic Imaging Report ---
INDICATION: Decreased range of motion in arms and hands. History of previous cervical spine surgery. COMPARISON: 12/23/2017. TECHNIQUE: Noncontrast CT of the head was performed followed by postcontrast CT of the head and neck. Contrast was injected intravenously. Auto Exposure Controls were utilized during the CT exam to meet ALARA standards for radiation dose reduction. FINDINGS: CT HEAD: Postsurgical changes of previous suboccipital craniectomy are noted. There is crowding of the foramen magnum, stable compared to prior exam. Ventricles and cortical sulci are normal in size and contour. There is no hydronephrosis. There is no mass effect or midline shift. Postcontrast images show no abnormal areas of enhancement. There is no large area of loss of normal briscoe-white matter junction differentiation to suggest evolving acute territorial infarct. No intra- or extra-axial intracranial hemorrhage is seen. The remainder of the bony calvarium is intact. Mastoid air cells are clear. Evaluation of the overlying soft tissue structures demonstrates a 7 mm spherical hyperdensity within the subcutaneous fat posteriorly to the right lateral of midline (image 8, series 5). CT NECK: Deep spaces of the neck are unremarkable. There are postsurgical changes of previous anterior fusion of the cervical spine from C2 through C5. Extensive posterior fusion is also seen extending from C2 to T2. No unexpected radiopaque foreign bodies are seen. No focal fluid collections are identified within the deep spaces of the neck. There is no compromise of the airway. No suspicious enhancing soft tissue masses are identified. No abnormal cervical adenopathy is seen. The parotid, submandibular, and thyroid glands have a normal symmetric appearance. Included portions of the lung apices show large bulla formation in the right apex. Note is also made of advanced dental caries. IMPRESSION: 1. Postsurgical changes of previous suboccipital craniectomy and 360-degree fusion of the cervical spine as described above. No suspicious postoperative fluid collections are seen. 2. No new acute intracranial abnormality. No CT evidence of acute infarct, mass, nor hemorrhage. 3. Unremarkable CT of the soft tissues of the neck. 4. Spherical density is noted within the subcutaneous fat of the posterior scalp on the right. By history, this corresponds to a pus-producing palpable lesion. This is concerning for a subcutaneous abscess. Not mentioned above, there is no significant extension beyond this. There is no underlying calvarial deformity. Dictated by: Dictated on workstation # [id number]
[2022-05-18] MEDS ORDERED: CLIN-144 PO (18:13)
[2022-05-18] MEDS ORDERED: SULF1TAB38 PO (18:13)
[2022-05-18] MEDS ORDERED: LIDOCAINE 1% INJ 20 ML VIAL INJ ONE (18:15)
[2022-05-18] MEDS ORDERED: CLINDAMYCIN 600 MG/50 ML IVPB 50 ML IV ONE (18:15)
[2022-05-18 19:02] VITALS: BP 130/110
== END 2022-05-18 19:02 | disposition home or self-care (01) ==
LOC: EDUNIT# 16:03 → ER 16:07
DX: L02.811 Cutaneous abscess of head [any part, except face] (principal); L03.811 Cellulitis of head [any part, except face]; R20.2 Paresthesia of skin; R53.1 Weakness; Z48.03 Encounter for change or removal of drains; Z87.891 Personal history of nicotine dependence
CPT/HCPCS: 10061; 36415; 70470; 70491; 80053; 85025; 86141; 87070; 87205; 96365

== ENCOUNTER 2022-05-19 15:15 | Emergency (ER) | payer MEDICARE, MEDICAID ==
[~2022-05-19] VITALS: Ht 165.1 cm; Wt 95.3 kg
--- NOTE | 2022-05-19 15:53 | ED Integumentary General ---
General Chief Complaint: Skin/Wound Problems Stated Complaint: WOUND CHECK Nursing Triage Note: PT TO RM 5 SUGGESTED BY PROVIDER YESTERDAY TO GET WOUND PACKING REPLACED. PT DENIES ANY COMPLAINTS AT THIS TIME History of Present Illness Date Seen by Provider: May 19, 2022 Time Seen by Provider: 15:20 Initial Comments Patient is a 57-year-old male who presents to the emergency department for a recheck of his occipital scalp abscess that was incised and drained at this emergency department yesterday. Patient states he has had no issues and states the swelling is markedly improved from yesterday. Small amount of packing was placed in the wound after it was incised yesterday. Patient states he was instructed by the provider to follow-up today to have the packing replaced. Patient has an appointment with general surgery tomorrow for further evaluation and treatment. Patient denies any new complaints at this time. Allergies and Home Medications Allergies Coded Allergies: amitriptyline (Verified Allergy, Unknown, 02/08/16) duloxetine (Verified Allergy, Unknown, 02/08/16) fluticasone (Verified Allergy, Unknown, 02/08/16) salmeterol (Verified Allergy, Unknown, 02/08/16) Patient Home Medication List Home Medication List Reviewed: Yes Albuterol/Ipratropium (Combivent Respimat Inhal [place]) 4 Gm Aero, 2 PUFF IH QID, (Reported) Entered as Reported by: JEREMI THAO on 07/03/20 1115 Azithromycin (Azithromycin) 250 Mg Tablet, 250 MG PO UD Prescribed by: BALDO CUEVAS on 06/30/20 1251 Budesonide/Formoterol Fumarate (Symbicort 160-4.5 Mcg Inhaler) 10.2 Gm H fa.aer.ad, 2 PUFF IH BID, (Reported) Entered as Reported by: JEREMI THAO on 07/03/20 1115 Cefdinir (Cefdinir) 300 Mg Capsule, 300 MG PO BID Prescribed by: BALDO CUEVAS on 06/30/20 1251 Clindamycin HCl (Clindamycin HCl) 300 Mg Capsule, 300 MG PO Q6H Prescribed by: MAYRA HAND on 05/11/21 1815 Clindamycin HCl (Clindamycin HCl) 300 Mg Capsule, 300 MG PO QID Prescribed by: MAYRA HAND on 05/18/221812 Cyclobenzaprine HCl (Cyclobenzaprine HCl) 10 Mg Tablet, 10 MG PO BID, (Reported) Entered as Reported by: JEREMI THAO on 07/03/20 1121 Dexamethasone (Dexamethasone) 6 Mg Tablet, 6 MG PO DAILY@0700 Prescribed by: YIN ARELLANO on 07/05/20 1402 Fentanyl (Duragesic Patch 25MCG) 1 Each Patch.td72, 25 MCG TD Q72H, (Reported) Entered as Reported by: JEREMI THAO on 07/03/20 1121 Gabapentin (Gabapentin) 600 Mg Tablet, 600 MG PO TID, (Reported) Entered as Reported by: JEREMI THAO on 07/03/20 1053 Oxycodone HCl (Oxycodone HCl) 30 Mg Tablet, 30 MG PO Q6H, (Reported) Entered as Reported by: JEREMI THAO on 07/03/20 1121 Pantoprazole Sodium (Pantoprazole Sodium) 40 Mg Tablet.dr, 40 MG PO DAILY, (Reported) Entered as Reported by: JEREMI THAO on 07/03/20 1115 Rizatriptan Benzoate (Rizatriptan) 10 Mg Tablet, 10 MG PO PRN, (Reported) Entered as Reported by: JEREMI THAO on 07/03/20 1121 Sulfamethoxazole/Trimethoprim (Bactrim Ds Tablet) 1 Each Tablet, 1 EACH PO BID Prescribed by: MAYRA HAND on 05/18/221812 Review of Systems Review of Systems Constitutional: no symptoms reported EENTM: no symptoms reported Respiratory: no symptoms reported Cardiovascular: no symptoms reported Gastrointestinal: no symptoms reported Genitourinary: no symptoms reported Skin: see HPI Past Weahugj-Qdeksr-Lmtead Hx Immunizations Up To Date Tetanus Booster (TDap): Unknown PED Vaccines UTD: No First/Initial COVID19 Vaccinat: SEPTEMBER 2020 Second COVID19 Vaccination Rhett: SEPTEMBER 2020 Third COVID19 Vaccination Date: SEPTEMBER 2020 Seasonal Allergies Seasonal Allergies: No Past Medical History Surgery/Hospitalization HX: R SHOULDER HARWARE, R ANKLE HARWARE, L LEG HARWARE Surgeries: Yes (surgical repair of Chiari malformation, knee sx, hernia, shoulder,hand) Abdominal, Neurological, Orthopedic Respiratory: Yes (RESPIRATORY FAILURE ON VENT AND BIPAP SEVERAL TIMES) Pneumonia, Chronic Bronchitis, Sleep Apnea, COPD, Emphysema Currently Using CPAP: No Currently Using BIPAP: No Cardiac: Yes Hypertension Neurological: Yes (MENINGITIS POSTOP 2004 FOR CYST ON BRAINSTEM & CHIARI MALFORMATION. SHUNT) Meningitis Reproductive Disorders: No Genitourinary: No Gastrointestinal: Yes (HERNIA REPAIR) Abdominal Hernia Musculoskeletal: Yes (CHRONIC HEAD/NECK PAIN ) Arthritis Endocrine: No HEENT: No Cancer: No Psychosocial: Yes Anxiety Integumentary: No Blood Disorders: No Family Medical History FH: cancer 19 MOTHER Mother- lung cancer Father- HTN and CVA Physical Exam Vital Signs Vital Signs - First Documented 05/19/22 15:21 Temp 37.0 Pulse 75 Resp 18 B/P (MAP) 133/87 Pulse Ox 95 O2 Delivery Room Air Capillary Refill : General Appearance: WD/WN, no apparent distress HEENT: PERRL/EOMI, normal ENT inspection, TMs normal, pharynx normal Neck: non-tender, full range of motion, supple, normal inspection Cardiovascular: regular rate, rhythm Respiratory: chest non-tender, lungs clear, normal breath sounds, no respiratory distress Gastrointestinal: normal bowel sounds, non tender, soft Extremities: normal range of motion, non-tender Neurologic/Psychiatric: no motor/sensory deficits, alert, normal mood/affect, oriented x 3 Skin: normal color Comments Small amount of packing noted extending from in incision in the patient's occipital scalp; there is some mild swelling noted to the area; no marked erythema noted Progress/Results/Core Measures Results/Orders Vital Signs/I&O 05/19/22 05/19/22 05/19/22 15:21 15:46 15:56 Temp 37.0 37.0 37.0 Pulse 75 75 75 Resp 18 18 18 B/P (MAP) 133/87 133/87 (102) 133/87 Pulse Ox 95 95 95 O2 Delivery Room Air Blood Pressure Mean: 102 Progress Progress Note : Progress Note Patient is nontoxic and well-hydrated on exam. Incised area appears as expected. No cellulitic changes noted. The packing was replaced by nursing. Patient was encouraged to follow-up tomorrow with general surgery as scheduled. Return precautions for urgent symptomology discussed. Patient verbalized understanding. Departure Impression Primary Impression: Encounter for wound re-check Disposition: 01 HOME, SELF-CARE Condition: Stable Departure-Patient Inst. Decision time for Depature: 15:50 Referrals: NO,LOCAL PHYSICIAN (PCP/Family) Primary Care Physician Patient Instructions: Wound Care (DC) Add. Discharge Instructions: Follow-up with Dr. Jeffries as scheduled tomorrow. All discharge instructions reviewed with patient and/or family. Voiced understanding. MIO POWERS APRN May 19, 2022 15:53
[2022-05-19 15:56] VITALS: BP 133/87
== END 2022-05-19 15:57 | disposition home or self-care (01) ==
LOC: EDUNIT# 15:15 → ER 15:18
DX: Z48.01 Encounter for change or removal of surgical wound dressing (principal)

== ENCOUNTER 2022-09-23 21:56 | Emergency (ER) | payer MEDICARE, MEDICAID ==
[2022-09-23] MEDS ORDERED: LACTATED RINGERS 1,000 ML IV ONE (22:15)
[2022-09-23 22:20] LABS: BASOPHILS % (AUTO) 1 % (0-10); EOSINOPHILS # (AUTO) 0.1 10^3/uL (0.0-0.3); EOSINOPHILS % (AUTO) 2 % (0-10); HEMATOCRIT 45 % (40-54); HEMOGLOBIN 13.9 g/dL (13.3-17.7); LYMPHOCYTES % (AUTO) 46 % (12-44); MEAN CORPUSCULAR HEMOGLOBIN 28 pg (25-34); MEAN CORPUSCULAR HGB CONC 31 g/dL (32-36); MEAN CORPUSCULAR VOLUME 90 fL (80-99); MEAN PLATELET VOLUME 9.8 fL (9.0-12.2); MONOCYTES # (AUTO) 0.7 10^3/uL (0.0-1.0); MONOCYTES % (AUTO) 11 % (0-12); NEUTROPHILS # (AUTO) 2.6 10^3/uL (1.8-7.8); NEUTROPHILS % (AUTO) 40 % (42-75); PLATELET COUNT 308 10^3/uL (130-400); WHITE BLOOD COUNT 6.5 10^3/uL (4.3-11.0)
--- NOTE | 2022-09-23 22:24 | ED Cardiac General ---
History of Present Illness General Chief Complaint: Cardiac/General Problems Stated Complaint: LOW BLOOD PRESSURE Nursing Triage Note: PT AMB TO RM 5 WITH CC OF LOW BP, LH AND DIZZINESS. 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 PT DENIES RECENT CHANGE IN BP MEDS. DENIES CHEST PAIN. PT BP AT TIME OF TRIAGE 112/69. PT STATES HX OF SPINAL CYST CAUSING HIM TO NOT BE ABLE TO MOVE BILAT ARMS. PT STATES PCP AWARE OF PT NEURO SX, HAS NEURO APPT PENDING. Source: patient Exam Limitations: no limitations History of Present Illness Date Seen by Provider: Sep 23, 2022 Time Seen by Provider: 22:05 Initial Comments This 57-year-old gentleman presents to the emergency room with complaints of lightheadedness throughout much of the day with low blood pressure including systolic pressures into the 80s. He has had some changes to his inhaled medications but no changes to blood pressure medications, diuretics, etc. He denies any vomiting or diarrhea. He is unsure of why he may have hypotension. He has been recently struggling with bilateral upper extremity weakness related to a "cyst on the spine". He has history of Chiari malformation with 2 prior surgeries about 20 years ago. He reports an MRI was performed on his cervical spine in [place] previously and the cyst was identified. By history, it sounds like he has a syrinx that needs surgical consultation. He has a pending appointment with [facility] in [place]. Allergies and Home Medications Allergies Coded Allergies: amitriptyline (Verified Allergy, Unknown, 02/08/16) duloxetine (Verified Allergy, Unknown, 02/08/16) fluticasone (Verified Allergy, Unknown, 02/08/16) salmeterol (Verified Allergy, Unknown, 02/08/16) Patient Home Medication List Home Medication List Reviewed: Yes Albuterol/Ipratropium (Combivent Respimat Inhal [place]) 4 Gm Aero, 2 PUFF IH QID, (Reported) Entered as Reported by: JEREMI THAO on 07/03/20 1115 Azithromycin (Azithromycin) 250 Mg Tablet, 250 MG PO UD Prescribed by: BALDO CUEVAS on 06/30/20 1251 Budesonide/Formoterol Fumarate (Symbicort 160-4.5 Mcg Inhaler) 10.2 Gm Hfa.aer.ad, 2 PUFF IH BID, (Reported) Entered as Reported by: JEREMI THAO on 07/03/20 1115 Cefdinir (Cefdinir) 300 Mg Capsule, 300 MG PO BID Prescribed by: BALDO CUEVAS on 06/30/20 1251 Clindamycin HCl (Clindamycin HCl) 300 Mg Capsule, 300 MG PO Q6H Prescribed by: MAYRA HAND on 05/11/211814 Clindamycin HCl (Clindamycin HCl) 300 Mg Capsule, 300 MG PO QID Prescribed by: MAYRA HAND on 05/18/221812 Cyclobenzaprine HCl (Cyclobenzaprine HCl) 10 Mg Tablet, 10 MG PO BID, (Reported) Entered as Reported by: JEREMI THAO on 07/03/20 1121 Dexamethasone (Dexamethasone) 6 Mg Tablet, 6 MG PO DAILY@0700 Prescribed by: YIN ARELLANO on 07/05/20 1402 Fentanyl (Duragesic Patch 25MCG) 1 Each Patch.td72, 25 MCG TD Q72H, (Reported) Entered as Reported by: JEREMI THAO on 07/03/20 1121 Gabapentin (Gabapentin) 600 Mg Tablet, 600 MG PO TID, (Reported) Entered as Reported by: JEREMI THAO on 07/03/20 1053 Oxycodone HCl (Oxycodone HCl) 30 Mg Tablet, 30 MG PO Q6H, (Reported) Entered as Reported by: JEREMI THAO on 07/03/20 1121 Pantoprazole Sodium (Pantoprazole Sodium) 40 Mg Tablet.dr, 40 MG PO DAILY, (Reported) Entered as Reported by: JEREMI THAO on 07/03/20 1115 Rizatriptan Benzoate (Rizatriptan) 10 Mg Tablet, 10 MG PO PRN, (Reported) Entered as Reported by: JEREMI THAO on 07/03/20 1121 Sulfamethoxazole/Trimethoprim (Bactrim Ds Tablet) 1 Each Tablet, 1 EACH PO BID Prescribed by: MAYRA HAND on 05/18/221812 Review of Systems Review of Systems Constitutional: no symptoms reported EENTM: No Symptoms Reported Respiratory: No Symptoms Reported Cardiovascular: See HPI Gastrointestinal: No Symptoms Reported Genitourinary: No Symptoms Reported Musculoskeletal: no symptoms reported Skin: no symptoms reported Psychiatric/Neurological: See HPI Endocrine: No Symptoms Reported Hematologic/Lymphatic: No Symptoms Reported Past Wsdgmrw-Rejfjq-Hesgnj Hx Patient Social History Tobacco Use?: No Substance use?: No Alcohol Use?: No Immunizations Up To Date Tetanus Booster (TDap): Unknown PED Vaccines UTD: No First/Initial COVID19 Vaccinat: SEPTEMBER 2020 Second COVID19 Vaccination Rhett: SEPTEMBER 2020 Third COVID19 Vaccination Date: SEPTEMBER 2020 Seasonal Allergies Seasonal Allergies: No Past Medical History Surgery/Hospitalization HX: R SHOULDER HARWARE, R ANKLE HARWARE, L LEG HARWARE, CYST ON SPINAL CORD CAUSING HIM TO NO BE ABLE TO MOVE HIS ARMS Surgeries: Yes (surgical repair of Chiari malformation, knee sx, hernia, shoulder,hand) Abdominal, Neurological, Orthopedic Respiratory: Yes (RESPIRATORY FAILURE ON VENT AND BIPAP SEVERAL TIMES) Pneumonia, Chronic Bronchitis, Sleep Apnea, COPD, Emphysema Currently Using CPAP: No Currently Using BIPAP: No Cardiac: Yes Hypertension Neurological: Yes (MENINGITIS POSTOP 2004 FOR CYST ON BRAINSTEM & CHIARI MALFORMATION. SHUNT) Meningitis Reproductive Disorders: No Genitourinary: No Gastrointestinal: Yes (HERNIA REPAIR) Abdominal Hernia Musculoskeletal: Yes (CHRONIC HEAD/NECK PAIN ) Arthritis Endocrine: No HEENT: No Cancer: No Psychosocial: Yes Anxiety Integumentary: No Blood Disorders: No Family Medical History FH: cancer 19 MOTHER Mother- lung cancer Father- HTN and CVA Physical Exam Vital Signs Vital Signs - First Documented 09/23/22 09/24/22 22:00 03:00 Temp 36.6 Pulse 74 Resp 20 B/P (MAP) 112/69 (83) Pulse Ox 95 O2 Delivery Room Air Capillary Refill : Less Than 3 Seconds Height, Weight, BMI Height: 5'5.00" Weight: 180lbs. 0.0oz. [id number]; BMI Method:Stated General Appearance: No Apparent Distress, WD/WN HEENT: PERRL/EOMI, Normal ENT Inspection Neck: Normal Inspection; No JVD Respiratory: Lungs Clear, Normal Breath Sounds, No Accessory Muscle Use Cardiovascular: Regular Rate, Rhythm, No Murmur, Other (Trace upper and lower extremity edema) Extremity: Other (Trace lower extremity and upper extremity edema) Neurologic/Psychiatric: Alert, Oriented x3, Motor Weakness (Severe motor weakness of the bilateral upper extremities. Sensation preserved. 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) Skin: Normal Color, Warm/Dry Progress/Results/Core Measures Results/Orders Lab Results Laboratory Tests Test 09/23/22 22:10 Range/Units White Blood Count 6.5 4.3-11.0 10^3/uL Red Blood Count 4.95 4.30-5.52 10^6/uL Hemoglobin 13.9 13.3-17.7 g/dL Hematocrit 45 40-54 % Mean Corpuscular Volume 90 80-99 fL Mean Corpuscular Hemoglobin 28 25-34 pg Mean Corpuscular Hemoglobin Concent 31 L 32-36 g/dL Red Cell Distribution Width 12.6 10.0-14.5 % Platelet Count 308 130-400 10^3/uL Mean Platelet Volume 9.8 9.0-12.2 fL Immature Granulocyte % (Auto) 1 % Neutrophils (%) (Auto) 40 L 42-75 % Lymphocytes (%) (Auto) 46 H 12-44 % Monocytes (%) (Auto) 11 0-12 % Eosinophils (%) (Auto) 2 0-10 % Basophils (%) (Auto) 1 0-10 % Neutrophils # (Auto) 2.6 1.8-7.8 10^3/uL Lymphocytes # (Auto) 3.0 1.0-4.0 10^3/uL Monocytes # (Auto) 0.7 0.0-1.0 10^3/uL Eosinophils # (Auto) 0.1 0.0-0.3 10^3/uL Basophils # (Auto) 0.0 0.0-0.1 10^3/uL Immature Granulocyte # (Auto) 0.1 0.0-0.1 10^3/uL Sodium Level 139 135-145 MMOL/L Potassium Level 4.9 3.6-5.0 MMOL/L Chloride Level 101 98-107 MMOL/L Carbon Dioxide Level 25 21-32 MMOL/L Anion Gap 13 5-14 MMOL/L Blood Urea Nitrogen 30 H 7-18 MG/DL Creatinine 1.73 H 0.60-1.30 MG/DL Estimat Glomerular Filtration Rate 45 BUN/Creatinine Ratio 17 Glucose Level 88 70-105 MG/DL Calcium Level 9.4 8.5-10.1 MG/DL My Orders Orders - MAYRA CRONIN MD Basic Metabolic Panel (09/23/22 22:14) Cbc With Automated Diff (09/23/22 22:14) Ed Iv/Invasive Line Start (09/23/22 22:14) Lactated Ringers (Lr 1000 Ml Iv Solution (09/23/22 22:15) Ns Iv 1000 Ml (Sodium Chloride 0.9%) (09/23/22 23:00) Orthostatic Vital Signs (Adult (09/24/22 02:15) Medications Given in ED Vital Signs/I&O 09/23/22 09/24/22 09/24/22 22:00 02:33 03:00 Temp 36.6 Pulse 74 63 68 65 66 Resp 20 14 B/P (MAP) 112/69 (83) 127/80 (96) 116/83 129/84 (99) 124/80 (95) Pulse Ox 95 95 O2 Delivery Room Air Room Air Blood Pressure Mean: 83 Progress Progress Note : Progress Note Patient was interviewed and examined. Blood pressure was low with symptom of l ightheadedness. Fluid resuscitation with 2 L IV fluid bolus was provided. His blood pressures recovered and lightheadedness resolved after hydration. Labs were reviewed including BMP and CBC. Elevated creatinine above baseline was noted. Labs were otherwise unremarkable by my review. See discharge instructions for further discussion. Departure Impression Primary Impression: Orthostatic hypotension Additional Impressions: Hypovolemia Acute kidney injury Cervical radiculopathy Weakness of both upper extremities Disposition: 01 HOME, SELF-CARE Condition: Improved Departure-Patient Inst. Decision time for Depature: 02:40 Referrals: ELIOT WINN MD (PCP/Family) Primary Care Physician Patient Instructions: Acute Kidney Injury Add. Discharge Instructions: Your low blood pressures were likely due to poor hydration which was evidenced by your lab work in the ER. Drink plenty of clear liquids to stay well-hydrated and promote good blood pressure. Follow-up with your primary care provider soon as possible. See the neurosurgeon as soon as possible. If you have worsening of upper extremity numbness, weakness, or other neurologic function or if you develop symptoms of your lower body including leg weakness, loss of sensation in your legs or feet, problems controlling bowels or bladder, or numbness in your groin, return to the emergency room. If you are able to get to a facility with neurosurgery services such as [facility] in [place], that would be a preferable location. Call with questions or concerns. All discharge instructions reviewed with patient and/or family. Voiced understanding. Copy Copies To 1: ELIOT WINN MD, JOSHUA T MD Sep 23, 2022 22:24
[2022-09-23 22:30] LABS: POTASSIUM 4.9 MMOL/L (3.6-5.0)
[2022-09-23 22:32] LABS: CALCIUM 9.4 MG/DL (8.5-10.1)
[2022-09-23 22:36] LABS: CREATININE SERUM 1.73 MG/DL (0.60-1.30)
[2022-09-23] MEDS ORDERED: NS IV 1000 ML 1,000 ML IV SCH (23:00)
[2022-09-24 02:33] VITALS: BP_SYST 124; BP_SYST 127; BP_SYST 129; BP_DIAS 80; BP_DIAS 84
[2022-09-24 02:34] VITALS: BP 129/84
[2022-09-24 03:00] VITALS: BP 116/83
== END 2022-09-24 03:00 | disposition home or self-care (01) ==
LOC: EDUNIT# 21:56 → ER 21:57
DX: I95.1 Orthostatic hypotension (principal); E86.1 Hypovolemia; N17.9 Acute kidney failure, unspecified; M54.12 Radiculopathy, cervical region
CPT/HCPCS: 36415; 80048; 85025; 99282

== ENCOUNTER 2022-09-27 16:25 | Inpatient (IN) | payer MEDICARE, MEDICAID ==
[~2022-09-27] VITALS: Ht 165.1 cm; Wt 98.5 kg
--- NOTE | 2022-09-27 16:48 | ED Respiratory ---
General Chief Complaint: Respiratory Problems Stated Complaint: SOA LOW OXYGEN Source: patient Exam Limitations: no limitations (RANDA HALL MD) History of Present Illness Date Seen by Provider: Sep 27, 2022 Time Seen by Provider: 16:42 Initial Comments Patient is a 57-year-old male who presents to the emergency department with his significant other chief complaint she states he has been sleeping most of the afternoon and his oxygen has been "low" she reports "58". She also states that his blood pressure has been low. 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 He also has a history of COPD wearing oxygen at 2 L per nasal cannula all the time. He endorses productive cough that has turned a little bit bloody appearing since yesterday. No fevers or chills. No URI symptoms. No nausea, vomiting or diarrhea. He states his urine is "hard to get out". Denies dysuria or urgency. Has a little chronic swelling in his hands and lower extremities. He is scheduled for follow-up with pulmonology clinic tomorrow to get some testing done. Timing/Duration: this afternoon Severity: moderate Prior Episodes/Possible Cause: frequent episodes Modifying Factors: Improves With Albuterol Inhaler, Improves With Albuterol Nebulizer, Improves With Oxygen (2L) Associated Symptoms: cough, shortness of breath, other (phlegm occasionally bloody) (RANDA HALL MD) Allergies and Home Medications Allergies Coded Allergies: amitriptyline (Verified Allergy, Unknown, 02/08/16) duloxetine (Verified Allergy, Unknown, 02/08/16) fluticasone (Verified Allergy, Unknown, 02/08/16) salmeterol (Verified Allergy, Unknown, 02/08/16) Patient Home Medication List Home Medication List Reviewed: Yes (RANDA HALL MD) Albuterol/Ipratropium (Combivent Respimat Inhal [place]) 4 Gm Aero, 2 PUFF IH QID, (Reported) Entered as Reported by: JEREMI THAO on 07/03/20 1115 Azithromycin (Azithromycin) 250 Mg Tablet, 250 MG PO UD Prescribed by: BALDO CUEVAS on 06/30/20 1251 Budesonide/Formoterol Fumarate (Symbicort 160-4.5 Mcg Inhaler) 10.2 Gm Hfa.aer.ad, 2 PUFF IH BID, (Reported) Entered as Reported by: JEREMI THAO on 07/03/20 1115 Cefdinir (Cefdinir) 300 Mg Capsule, 300 MG PO BID Prescribed by: BALDO CUEVAS on 06/30/20 1251 Clindamycin HCl (Clindamycin HCl) 300 Mg Capsule, 300 MG PO Q6H Prescribed by: MAYRA HAND on 05/11/21 181 Clindamycin HCl (Clindamycin HCl) 300 Mg Capsule, 300 MG PO QID Prescribed by: MAYRA HAND on 05/18/22 181 Cyclobenzaprine HCl (Cyclobenzaprine HCl) 10 Mg Tablet, 10 MG PO BID, (Reported) Entered as Reported by: JEREMI THAO on 07/03/20 1121 Dexamethasone (Dexamethasone) 6 Mg Tablet, 6 MG PO DAILY@0700 Prescribed by: YIN ARELLANO on 07/05/20 1402 Fentanyl (Duragesic Patch 25MCG) 1 Each Patch.td72, 25 MCG TD Q72H, (Reported) Entered as Reported by: JEREMI THAO on 07/03/20 1121 Gabapentin (Gabapentin) 600 Mg Tablet, 600 MG PO TID, (Reported) Entered as Reported by: JEREMI THAO on 07/03/20 1053 Oxycodone HCl (Oxycodone HCl) 30 Mg Tablet, 30 MG PO Q6H, (Reported) Entered as Reported by: JEREMI THAO on 07/03/20 1121 Pantoprazole Sodium (Pantoprazole Sodium) 40 Mg Tablet.dr, 40 MG PO DAILY, (Reported) Entered as Reported by: JEREMI THAO on 07/03/20 1115 Rizatriptan Benzoate (Rizatriptan) 10 Mg Tablet, 10 MG PO PRN, (Reported) Entered as Reported by: JEREMI THAO on 07/03/20 112 Sulfamethoxazole/Trimethoprim (Bactrim Ds Tablet) 1 Each Tablet, 1 EACH PO BID Prescribed by: MAYRA HAND on 05/18/22 181 Review of Systems Review of Systems Constitutional: see HPI EENTM: no symptoms reported Respiratory: hemoptysis, phlegm, short of breath Cardiovascular: no symptoms reported Gastrointestinal: no symptoms reported Genitourinary: hesitancy Musculoskeletal: no symptoms reported Skin: no symptoms reported (RANDA HALL MD) Past Wfmpwjf-Aezlkj-Ggjitk Hx Immunizations Up To Date Tetanus Booster (TDap): Unknown PED Vaccines UTD: No First/Initial COVID19 Vaccinat: SEPTEMBER 2020 Second COVID19 Vaccination Rhett: SEPTEMBER 2020 Third COVID19 Vaccination Date: SEPTEMBER 2020 (RANDA HALL MD) Seasonal Allergies Seasonal Allergies: No (RANDA HALL MD) Past Medical History Surgery/Hospitalization HX: R SHOULDER HARWARE, R ANKLE HARWARE, L LEG HARWARE, CYST ON SPINAL CORD CAUSING HIM TO NO BE ABLE TO MOVE HIS ARMS Surgeries: Yes (surgical repair of Chiari malformation, knee sx, hernia, shoulder,hand) Abdominal, Neurological, Orthopedic Respiratory: Yes (RESPIRATORY FAILURE ON VENT AND BIPAP SEVERAL TIMES) Pneumonia, Chronic Bronchitis, Sleep Apnea, COPD, Emphysema Currently Using CPAP: No Currently Using BIPAP: No Cardiac: Yes Hypertension Neurological: Yes (MENINGITIS POSTOP 2004 FOR CYST ON BRAINSTEM & CHIARI MALFORMATION. SHUNT) Meningitis Reproductive Disorders: No Genitourinary: No Gastrointestinal: Yes (HERNIA REPAIR) Abdominal Hernia Musculoskeletal: Yes (CHRONIC HEAD/NECK PAIN ) Arthritis Endocrine: No HEENT: No Cancer: No Psychosocial: Yes Anxiety Integumentary: No Blood Disorders: No (RANDA HALL MD) Family Medical History FH: cancer 19 MOTHER Mother- lung cancer Father- HTN and CVA (RANDA HALL MD) Physical Exam Vital Signs - First Documented 09/27/22 16:32 Temp 36.5 Pulse 107 Resp 18 B/P (MAP) 123/70 (87) Pulse Ox 100 O2 Delivery Nasal Cannula O2 Flow Rate 3.00 (ENIDMALACHI K DO) Capillary Refill : (RANDA HALL MD) Height: 5'5.00" Weight: 180lbs. 0.0oz. 81.237898qk; BMI Method:Stated General Appearance: WD/WN, no apparent distress HEENT: PERRL/EOMI Respiratory: rhonchi (coarse ronchi throughout), other (Oxygen saturations on 2 L 97%, no increased work of breathing or respiratory distress is noted) Cardiovascular: regular rate, rhythm Gastrointestinal: non tender, soft Extremities: normal inspection Neurologic/Psychiatric: alert, normal mood/affect, oriented x 3, other (significant paresis bilateral UE) Skin: normal color, warm/dry (RANDA HALL MD) Focused Exam Sepsis Stage: Septic Shock Possible Source: Pulmonary Lactate Level 09/27/22 17:33: Lactic Acid Level 0.68 (MALACHI ROSSI DO) Time of Focused Exam: 18:20 Respiratory: Normal Breath Sounds, No Accessory Muscle Use, No Respiratory Distress, Other (SNORING WHEN ASLEEP) Cardiovascular: Regular Rate, Rhythm, No Murmur Skin: normal color (PT IS BLACK), warm/dry Lactic Acid Level Laboratory Tests Test 09/27/22 17:33 Lactic Acid Level 0.68 MMOL/L (0.50-2.00) (MALACHI ROSSI DO) Within 3hrs of presentation: Admin fluids, Admin ABX, Blood cultures prior to ABX's, Focus exam, Lactate level (MALACHI ROSSI DO) Progress/Results/Core Measures Suspected Sepsis SIRS Temperature: Pulse: Respiratory Rate: Blood Pressure / Mean: (RANDA HALL MD) Results/Orders Lab Results Laboratory Tests Test 09/27/22 17:30 09/27/22 17:33 09/27/22 17:51 09/27/22 17:52 Range/Units White Blood Count 11.2 H 4.3-11.0 10^3/uL Red Blood Count 3.75 L 4.30-5.52 10^6/uL Hemoglobin 10.7 #L 13.3-17.7 g/dL Hematocrit 34 L 40-54 % Mean Corpuscular Volume 90 80-99 fL Mean Corpuscular Hemoglobin 29 25-34 pg Mean Corpuscular Hemoglobin Concent 32 32-36 g/dL Red Cell Distribution Width 12.7 10.0-14.5 % Platelet Count 288 130-400 10^3/uL Mean Platelet Volume 11.5 9.0-12.2 fL Immature Granulocyte % (Auto) 1 % Neutrophils (%) (Auto) 80 H 42-75 % Lymphocytes (%) (Auto) 11 L 12-44 % Monocytes (%) (Auto) 6 0-12 % Eosinophils (%) (Auto) 1 0-10 % Basophils (%) (Auto) 0 0-10 % Neutrophils # (Auto) 8.9 H 1.8-7.8 10^3/uL Lymphocytes # (Auto) 1.2 1.0-4.0 10^3/uL Monocytes # (Auto) 0.7 0.0-1.0 10^3/uL Eosinophils # (Auto) 0.2 0.0-0.3 10^3/uL Basophils # (Auto) 0.0 0.0-0.1 10^3/uL Immature Granulocyte # (Auto) 0.2 H 0.0-0.1 10^3/uL Sodium Level 136 135-145 MMOL/L Potassium Level 4.5 3.6-5.0 MMOL/L Chloride Level 103 98-107 MMOL/L Carbon Dioxide Level 24 21-32 MMOL/L Anion Gap 9 5-14 MMOL/L Blood Urea Nitrogen 36 H 7-18 MG/DL Creatinine 1.65 H 0.60-1.30 MG/DL Estimat Glomerular Filtration Rate 48 BUN/Creatinine Ratio 22 Glucose Level 136 H 70-105 MG/DL Calcium Level 8.9 8.5-10.1 MG/DL Total Bilirubin 1.1 H 0.1-1.0 MG/DL Direct Bilirubin 0.5 H 0.0-0.3 MG/DL Indirect Bilirubin 0.6 MG/DL Aspartate Amino Transf (AST/SGOT) 10 5-34 U/L Alanine Aminotransferase (ALT/SGPT) 8 0-55 U/L Alkaline Phosphatase 69 40-136 U/L Total Creatine Kinase 180 30-200 U/L Creatine Kinase MB 4.2 <6.6 NG/ML Myoglobin 153.4 H 10.0-92.0 NG/ML Troponin I 0.043 H <0.028 NG/ML C-Reactive Protein High Sensitivity 18.90 H 0.00-0.50 MG/DL B-Type Natriuretic Peptide < 10.0 <100.0 PG/ML Total Protein 6.6 6.4-8.2 GM/DL Albumin 3.4 3.2-4.5 GM/DL Acetaminophen Level < 10 L 10-30 UG/ML Lactic Acid Level 0.68 0.50-2.00 MMOL/L Prothrombin Time 14.8 H 12.2-14.7 SEC INR Comment 1.1 0.8-1.4 Activated Partial Thromboplast Time 36 H 24-35 SEC Influenza Type A (RT-PCR) Not Detected Not Detecte Influenza Type B (RT-PCR) Not Detected Not Detecte SARS-CoV-2 RNA (RT-PCR) Not Detected Not Detecte Test 09/27/22 17:55 09/27/22 18:03 09/27/22 18:30 Range/Units Blood Gas Puncture Site LEFT WRIST Blood Gas Patient Temperature 36.5 Arterial Blood pH 7.32 *L 7.37-7.43 Arterial Blood Partial Pressure CO2 53 H 35-45 MMHG Arterial Blood Partial Pressure O2 61 L 79-93 MMHG Arterial Blood HCO3 27 23-27 MMOL/L Arterial Blood Total CO2 28.4 21.0-31.0 MMOL/L Arterial Blood Oxygen Saturation 94 94-100 % Arterial Blood Base Excess 1.2 -2.5-2.5 MMOL/L [place] Test YES-POS Blood Gas Ventilator Setting NO Blood Gas Inspired Oxygen UNK Magnesium Level 2.0 1.6-2.4 MG/DL Ammonia 22 11-32 UMOL/L C-Reactive Protein High Sensitivity 18.20 H 0.00-0.50 MG/DL TSH [place] Testing 0.40 0.35-4.94 UIU/ML Serum Alcohol < 10 <10 MG/DL Urine Color YELLOW Urine Clarity CLEAR Urine pH 6.0 5-9 Urine Specific [place] 1.010 L 1.016-1.022 Urine Protein NEGATIVE NEGATIVE Urine Glucose (UA) NEGATIVE NEGATIVE Urine Ketones NEGATIVE NEGATIVE Urine Nitrite NEGATIVE NEGATIVE Urine Bilirubin NEGATIVE NEGATIVE Urine Urobilinogen 0.2 < = 1.0 MG/DL Urine Leukocyte Esterase NEGATIVE NEGATIVE Urine RBC (Auto) NEGATIVE NEGATIVE Urine RBC NONE /HPF Urine WBC NONE /HPF Urine Squamous Epithelial Cells NONE /HPF Urine Crystals NONE /LPF Urine Bacteria NEGATIVE /HPF Urine Casts NONE /LPF Urine Mucus NEGATIVE /LPF Urine Culture Indicated CULTURE PENDING Urine Opiates Screen NEGATIVE NEGATIVE Urine Oxycodone Screen POSITIVE H NEGATIVE Urine Methadone Screen NEGATIVE NEGATIVE Urine Propoxyphene Screen NEGATIVE NEGATIVE Urine Barbiturates Screen NEGATIVE NEGATIVE Ur Tricyclic Antidepressants Screen POSITIVE H NEGATIVE Urine Phencyclidine Screen NEGATIVE NEGATIVE Urine Amphetamines Screen NEGATIVE NEGATIVE Urine Methamphetamines Screen NEGATIVE NEGATIVE Urine Benzodiazepines Screen NEGATIVE NEGATIVE Urine Cocaine Screen NEGATIVE NEGATIVE Urine Cannabinoids Screen NEGATIVE NEGATIVE (MALACHI ROSSI DO) My Orders Orders - MALACHI ROSSI DO Arterial Blood Gas (09/27/22 17:57) Catheter(Urinary) Insert & Ass 03,15 (09/27/22 17:58) Lidocaine 2% (Urojet) (Xylocaine Urojet) (09/27/22 18:00) Acetaminophen (09/27/22 17:58) Alcohol (09/27/22 17:58) Ammonia (09/27/22 17:58) Arterial Blood Gas (09/27/22 17:58) Drug Screen Stat (Urine) (09/27/22 17:58) Magnesium (09/27/22 17:58) Thyroid Analyzer (09/27/22 17:58) Ed Iv/Invasive Line Start (09/27/22 17:59) Ns Iv 1000 Ml (Sodium Chloride 0.9%) (09/27/22 18:00) Bnp Debi (09/27/22 18:04) Creatine Kinase (09/27/22 18:04) Creatine Kinase Mb (09/27/22 18:04) Myoglobin Serum (09/27/22 18:04) Troponin I Debi (09/27/22 18:04) Ekg Tracing (09/27/22 18:04) Monitor-Rhythm Ecg Trace Only (09/27/22 18:04) Hs C Reactive Protein (09/27/22 18:19) Erythrocyte Sedimentation Rate (09/27/22 18:19) Albuterol/Ipra Inhalation Soln (Duoneb I (09/27/22 18:30) Dexamethasone Injection (Decadron Injec (09/27/22 18:30) Rt Request For Service (09/27/22 18:19) Methylprednisolone Sod Succ (Solu-Medrol (09/27/22 18:19) Svn Small Volume Nebulizer (09/27/22 18:19) Cefepime Injection (Maxipime Injection) (09/27/22 19:15) (MALACHI ROSSI DO) Medications Given in ED Current Medications Medications Dose Ordered Sig/Isabel Route Start Time Stop Time Status Last Admin Dose Admin Albuterol/ Ipratropium 3 ml ONCE ONCE INH 09/27/22 18:30 09/27/22 18:31 DC 09/27/22 18:42 3 ML Dexamethasone Sodium Phosphate 20 mg ONCE ONCE IH 09/27/22 18:30 09/27/22 18:31 DC 09/27/22 18:42 20 MG Lidocaine HCl 10 ml ONCE ONCE TOP 09/27/22 18:00 09/27/22 18:01 DC 09/27/22 18:13 10 ML Sodium Chloride 1,000 ml @ STK-MED ONCE .ROUTE 09/27/22 17:51 09/27/22 17:54 DC 09/27/22 17:55 1,000 MLS/HR (MALACHI ROSSI DO) Vital Signs/I&O 09/27/22 09/27/22 09/27/22 16:32 16:42 18:40 Temp 36.5 Pulse 107 99 Resp 18 B/P (MAP) 123/70 (87) Pulse Ox 100 100 O2 Delivery Nasal Cannula Nasal Cannula O2 Flow Rate 3.00 3.00 28.00 (MALACHI ROSSI DO) Vital Signs/I&O Capillary Refill : (RANDA HALL MD) Progress Note #1: Time: 17:30 Progress Note Noted on reeval after looking at chest x-ray patient's blood pressure is 85/50. Still tachycardic. Will add septic protocol to patient's work-up. Fluid bolus. *Patient seen and evaluated. Evaluation today includes physical exam, septic protocol, CBC, Chem-12, coags, UA, chest x-ray, D-dimer, blood cultures, lactic acid. Patient presents slightly hypotensive with blood pressures in the 80s. Reports of hypoxemia. Usually on 2 L. Coarse rhonchus breath sounds bilaterally without increased work of breathing or distress. Appears adequately hydrated with moist oral mucosa. Abdomen is soft. Trace to 1+ edema in the hands and lower extremities bilaterally. Mentating appropriately, no focal neurologic deficits. Differential diagnosis based on history and physical exam pneumonia, COPD exacerbation, sepsis Work-up pending at the time of this dictation. Progress Note #2: Time: 17:40 Progress Note bladder scan 144ml per nurse (RANDA HALL MD) Progress Note : Progress Note 1800--ASSUMED CARE FROM DR. HALL. LAB PENDING. PT IS LETHARGIC/SOMNOLENT, BUT AWAKENS AND IS ORIENTED. SEPSIS PROTOCOL HAS BEEN INITIATED. ADDITIONAL LAB / TESTS ORDERED. BP > 100 SYSTOLIC O2 SAT 100% ON 2L/NC BP CUFF MOVED TO LEG, WITH IMPROVED READINGS, PT HAS CHRONIC BILATERAL UPPER EXTREMITY WEAKNESS. BIPAP INITIATED ON RECEIVING ABG RESULTS, PT IS STILL VERY SOMNOLENT. 1900--MUCH IMPROVEMENT IN MENTATION ON BIPAP, AND PT IS ALERT AND ORIENTED X 4. NO LONGER SOMNOLENT. PT STATES HE FEELS MUCH BETTER PT'S S.O. STATES HE HAS HAD DECREASED MENTATION THE LAST COUPLE OF DAYS. VITALS ESSENTIALLY NORMAL AT THIS TIME. HR 90-100, BP 120'S/70'S, RR 18-20, O2 SAT 98% ON BIPAP. PT VOICES NO COMPLAINTS FOR REMAINDER OF ER STAY PT HAS BEEN GIVEN: -IV FLUIDS -ANTIBIOTICS -NEB TREATMENT -IV AND INHALED STEROIDS PT IS A FULL CODE. REVIEWED PRIOR RECORDS, INCLUDING ER VISITS, ADMITS, H&P'S, CONSULTS, TESTS/PROCEDURES, DISCHARGE SUMMARIES DISCUSSED TEST RESULTS AND NEED FOR ADMIT AND PT IS AGREEABLE TO PLAN OF CARFE (MALACHI ROSSI DO) ECG Initial ECG Impression Date: Sep 27, 2022 Initial ECG Impression Time: 18:20 Initial ECG Rate: 98 Initial ECG Rhythm: Normal Sinus Initial ECG Comparisson: Unchanged Comment INTERPRETED BY ME (MALACHI ROSSI DO) Diagnostic Imaging Diagonstic Imaging: Xray Comments [facility], [place] NAME: GIOVANNI BRENNAN [facility] REC#: [id number] PT STATUS: REG ER : 1965 PHYSICIAN: RANDA HALL MD ADMIT DATE: 09/27/22/ER Draft Date of Exam:09/27/22 CHEST 1 VIEW, AP/PA ONLY Chest 1 view, AP/PA only Indication: Shortness of breath. Comparison: 07/02/2020. Findings: Bibasilar consolidations have developed. No pleural effusion or pneumothorax. Stable cardiomegaly. Impression: New bibasilar consolidations could represent edema, multifocal pneumonia, hemorrhage and/or aspiration. Dictated on workstation # [id number] Dict: 09/27/22 1719 Trans: 09/27/22 1720 [facility] [id number] Interpreted by: ALICE RAMOS MD Electronically signed by: (RANDA HALL MD) Reviewed: Reviewed by Me (MALACHI ROSSI DO) Departure Communication (Admissions) 1909--SPOKE WITH DR. ARELLANO, HOSPITALIST, ACCEPTS PT FOR ADMIT (MALACHI ROSSI DO) Impression Primary Impression: Pneumonia Additional Impressions: Acute kidney injury CHRONIC BILATERAL UPPER EXTREMITY PARTIAL PARALYSIS HX HTN COPD (chronic obstructive pulmonary disease) Altered mental status History of Chiari malformation Acute on chronic respiratory failure Severe sepsis CO2 narcosis Disposition: ADMITTED INPATIENT Condition: Improved Admissions Decision to Admit Reason: Admit from ER (General) Decision to Admit/Date: Sep 27, 2022 Time/Decision to Admit Time: 19:10 (MALACHI ROSSI DO) Departure-Patient Inst. Referrals: ELIOT WINN MD (PCP/Family) Primary Care Physician RANDA HALL MD Sep 27, 2022 16:48 MALACHI ROSSI DO Sep 27, 2022 18:08
[2022-09-27] MEDS ORDERED: NS IV 1000 ML 1,000 ML IV STA (17:12)
--- NOTE | 2022-09-27 17:21 | Diagnostic Imaging Report ---
Chest 1 view, AP/PA only Indication: Shortness of breath. Comparison: 07/02/2020. Findings: Bibasilar consolidations have developed. No pleural effusion or pneumothorax. Stable cardiomegaly. Impression: New bibasilar consolidations could represent edema, multifocal pneumonia, hemorrhage and/or aspiration. Dictated by: Dictated on workstation # [id number]
[2022-09-27 17:46] LABS: BASOPHILS % (AUTO) 0 % (0-10); EOSINOPHILS # (AUTO) 0.2 10^3/uL (0.0-0.3); EOSINOPHILS % (AUTO) 1 % (0-10); HEMATOCRIT 34 % (40-54); HEMOGLOBIN 10.7 g/dL (13.3-17.7); LYMPHOCYTES # (AUTO) 1.2 10^3/uL (1.0-4.0); LYMPHOCYTES % (AUTO) 11 % (12-44); MEAN CORPUSCULAR HEMOGLOBIN 29 pg (25-34); MEAN CORPUSCULAR HGB CONC 32 g/dL (32-36); MEAN CORPUSCULAR VOLUME 90 fL (80-99); MEAN PLATELET VOLUME 11.5 fL (9.0-12.2); MONOCYTES # (AUTO) 0.7 10^3/uL (0.0-1.0); MONOCYTES % (AUTO) 6 % (0-12); NEUTROPHILS # (AUTO) 8.9 10^3/uL (1.8-7.8); NEUTROPHILS % (AUTO) 80 % (42-75); PLATELET COUNT 288 10^3/uL (130-400); WHITE BLOOD COUNT 11.2 10^3/uL (4.3-11.0)
[2022-09-27] MEDS ORDERED: NS IV 1000 ML 1,000 ML ONE (17:51)
[2022-09-27 17:57] LABS: ALBUMIN 3.4 GM/DL (3.2-4.5)
[2022-09-27 17:58] LABS: POTASSIUM 4.5 MMOL/L (3.6-5.0)
[2022-09-27 17:59] LABS: CALCIUM 8.9 MG/DL (8.5-10.1)
[2022-09-27 18:00] LABS: TOTAL PROTEIN 6.6 GM/DL (6.4-8.2)
[2022-09-27] MEDS ORDERED: LIDOCAINE UROJET 2% GEL 10 ML PKG TOP ONE (18:00)
[2022-09-27] MEDS ORDERED: NS IV 1000 ML 1,000 ML IV SCH (18:00)
[2022-09-27 18:02] LABS: BILIRUBIN,TOTAL 1.1 MG/DL (0.1-1.0)
[2022-09-27 18:03] LABS: ABG BASE EXCESS 1.2 MMOL/L (-2.5-2.5); ABG OXYGEN SATURATION 94 % (94-100); ABG PCO2 53 MMHG (35-45); ABG PO2 61 MMHG (79-93); ABG TCO2 28.4 MMOL/L (21.0-31.0)
[2022-09-27 18:04] LABS: CREATININE SERUM 1.65 MG/DL (0.60-1.30)
[2022-09-27 18:05] LABS: BILIRUBIN,DIRECT 0.5 MG/DL (0.0-0.3); BILIRUBIN,INDIRECT 0.6 MG/DL
[2022-09-27 18:11] LABS: INR 1.1 (0.8-1.4); PROTHROMBIN TIME PATIENT 14.8 SEC (12.2-14.7)
[2022-09-27 18:18] LABS: ABG PH 7.32 (7.37-7.43); ALLENS TEST YES-POS; PATIENT TEMP 36.5; VENTILATOR NO
[2022-09-27] MEDS ORDERED: methylPREDNISolone 125 MG (Solu-MEDROL) VIAL IV STA (18:19)
[2022-09-27 18:24] LABS: AMMONIA 22 UMOL/L (11-32)
[2022-09-27] MEDS ORDERED: RT-ALBUTEROL/IPRATROPIUM 3 ML (DUONEB) VIAL INH ONE (18:30)
[2022-09-27 18:39] LABS: CREATINE KINASE MB 4.2 NG/ML (<6.6)
[2022-09-27 18:41] LABS: BILIRUBIN,URINE NEGATIVE (NEGATIVE); CLARITY,URINE CLEAR; COLOR,URINE YELLOW; GLUCOSE, URINE (UA) NEGATIVE (NEGATIVE); KETONES,URINE NEGATIVE (NEGATIVE); LEUKOCYTE ESTERASE ,URINE NEGATIVE (NEGATIVE); NITRITE,URINE NEGATIVE (NEGATIVE); PROTEIN,URINE NEGATIVE (NEGATIVE)
[2022-09-27 18:50] LABS: BACTERIA,URINE NEGATIVE /HPF
[2022-09-27 18:51] LABS: AMPHETAMINE SCREEN, URINE NEGATIVE (NEGATIVE); BARBITURATE SCREEN URINE NEGATIVE (NEGATIVE); BENZODIAZEPINES SCREEN URINE NEGATIVE (NEGATIVE); CANNABINOID SCREEN, URINE NEGATIVE (NEGATIVE); COCAINE SCREEN URINE NEGATIVE (NEGATIVE); METHADONE STAT NEGATIVE (NEGATIVE); OPIATE SCREEN URINE NEGATIVE (NEGATIVE); OXYCODONE STAT POSITIVE (NEGATIVE); TRICYCLIC ANTIDEPRESSANTS SCRE POSITIVE (NEGATIVE)
[2022-09-27 18:52] LABS: PROPOXYPHENE STAT NEGATIVE (NEGATIVE)
[2022-09-27] MEDS ORDERED: CEFEPIME INJECTION 1,000 MG in NS (IVPB) 50 ML IV ONE (19:15)
--- NOTE | 2022-09-27 20:55 | Tele-ICU Consult ---
History of Present Illness History of Present Illness Date Seen by Provider: Sep 27, 2022 Time Seen by Provider: 20:49 History of Present Illness 57 yo M came to ED with cc of SOB and low SpO2. He thinks it was 58. Pt has COPD and is on home oxygen @ 2 lpm. Also has paraplegia from cervical spinal cord tumor. weakness in UE's. Also has a productive cough with mild hemoptysis. Also has some urinary hesitancy. At home takes albuterol, Symbicort Has had Covid vaccines, Covid and flu serology negative CXR showed increased HS with straight left heart border, RLL collapse vs infiltrate, hardware in cervical spine WBC 11, ABG 7.32/52/61, Cr 1.65/BUN 38, BNP normal, trop normal, EKG poor R wave progression, LA 0.68, UDS + for TCA's Other PMH JEANNE, HTN, Hx of meningitis, On physical exam pt afebrile, lethargic but arousable other VS-BP 80/50, given IVF and starrted on 2l NC, given Decadron IV Cefepime, obese wit short thick neck Lungs described as diffuse rhonchi, Heart sinus tach, GI soft, no leg edema, neuro, A & O, has bilateral UE paresis A] Hypercaribc resp failure, acute exacerbation, PNA P] Admit note ICU,continue abx, steroids Allergies and Home Medications Allergies Coded Allergies: amitriptyline (Verified Allergy, Unknown, 02/08/16) duloxetine (Verified Allergy, Unknown, 02/08/16) fluticasone (Verified Allergy, Unknown, 02/08/16) salmeterol (Verified Allergy, Unknown, 02/08/16) Home Medications Albuterol/Ipratropium 4 Gm Aero, 2 PUFF IH QID, (Reported) Azithromycin 250 Mg Tablet, 250 MG PO UD TAKE 2 TABLETS ON DAY ONE THEN TAKE 1 TABLET DAILY FOR FOUR MORE DAYS Prescribed by: BALDO CUEVAS on 06/30/20 1251 Budesonide/Formoterol Fumarate 10.2 Gm Hfa.aer.ad, 2 PUFF IH BID, (Reported) Cefdinir 300 Mg Capsule, 300 MG PO BID Prescribed by: BALDO CUEVAS on 06/30/20 1251 Clindamycin HCl 300 Mg Capsule, 300 MG PO Q6H Prescribed by: MAYRA HAND on 05/11/211814 Clindamycin HCl 300 Mg Capsule, 300 MG PO QID Prescribed by: MAYRA HAND on 05/18/221812 Cyclobenzaprine HCl 10 Mg Tablet, 10 MG PO BID, (Reported) Dexamethasone 6 Mg Tablet, 6 MG PO DAILY@0700 Prescribed by: YIN ARELLANO on 07/05/20 1402 Fentanyl 1 Each Patch.td72, 25 MCG TD Q72H, (Reported) Gabapentin 600 Mg Tablet, 600 MG PO TID, (Reported) Oxycodone HCl 30 Mg Tablet, 30 MG PO Q6H, (Reported) Pantoprazole Sodium 40 Mg Tablet.dr, 40 MG PO DAILY, (Reported) Rizatriptan Benzoate 10 Mg Tablet, 10 MG PO PRN, (Reported) Sulfamethoxazole/Trimethoprim 1 Each Tablet, 1 EACH PO BID Prescribed by: MAYRA HAND on 05/18/221812 Past Medical/Social/Family Hx Patient Social History Tobacco Use?: No Smoking Status: Former Smoker Use of E-Cig and/or Vaping dev: No Substance use?: No Alcohol Use?: Yes Alcohol type: Hard Liquor Alcohol Frequency: Once in a while Pt stated abuse/neglect: No Immunizations Up To Date Influenza Vaccine Up-to-Date: Yes; Up-to-Date First/Initial COVID19 Vaccinat: SEPTEMBER 2020 Second COVID19 Vaccination Rhett: SEPTEMBER 2020 Tetanus Booster (TDap): Unknown Hepatitis A: No Hepatitis B: No TB Skin Test: None Date of Pneumonia Vaccine: Jun 18, 2015 Current Status Advance Directives: No Communicates: Verbally Primary Language: Andorran Preferred Spoken Language: Andorran Is interpretation needed?: No Implanted or Applied Medical D: CPAP, Orthopedic hardware Family Medical History Family Hx: Mother- lung cancer Father- HTN and CVA Review of Systems Constitutional: see HPI EENTM: see HPI Respiratory: see HPI Cardiovascular: see HPI Gastrointestinal: see HPI Genitourinary: see HPI Musculoskeletal: see HPI Skin: see HPI Psychiatric/Neurological: See HPI Focused Exam Lactate Level 09/27/22 17:33: Lactic Acid Level 0.68 Height, Weight, BMI Height: 5'5.00" Weight: 180lbs. 0.0oz. 81.438303kr; 37.56 BMI Method:Stated Time of Focused Exam: 18:20 Lactic Acid Level Laboratory Tests Test 09/27/22 17:33 Lactic Acid Level 0.68 MMOL/L (0.50-2.00) Exam Exam Patient acknowledged, consented, and participated in this virtual visit which was conducted using real time audio/video Vital Signs Date Time Temp Pulse Resp B/P (MAP) Pulse Ox O2 Delivery O2 Flow Rate FiO2 09/27/22 20:29 98 28 09/27/22 19:34 36.5 104 18 116/52 100 Nasal Cannula 3.00 3.00 09/27/22 18:40 99 100 28.00 09/27/22 16:42 Nasal Cannula 3.00 09/27/22 16:32 36.5 107 18 123/70 (87) 100 Nasal Cannula 3.00 Height & Weight Height: 5'5.00" Weight: 180lbs. 0.0oz. 81.141998gi; 37.56 BMI Method:Stated General Appearance: Mild Distress, Obese Respiratory: Normal Breath Sounds, No Accessory Muscle Use, No Respiratory Distress, Rhonci, Other (SNORING WHEN ASLEEP) Cardiovascular: Regular Rate, Rhythm, No Murmur, Tachycardia Gastrointestinal: non tender, soft Neurologic/Psychiatric: Other (UE are very weak, on both sides, legs, are ok) Results Lab Laboratory Tests 09/27/22 17:30 Assessment/Plan Assessment/Plan AECOPD with PNA, will continue BD'ssteroids and abx s/p spinal cord tumor with resulting UE weakness Critical Care: Critically Ill Patient Time spent with patient (mins): 25 CHRISTINE CUEVAS MD Sep 27, 2022 20:55
[2022-09-27 21:10] VITALS: BP 106/56
[2022-09-27] MEDS: RT-ALBUTEROL HFA 8.5 GM INHALER IH SCH (21:10)
[2022-09-27] MEDS ORDERED: ACETAMINOPHEN 500 MG TAB (TYLENOL) PO PRN (21:30)
[2022-09-27] MEDS: VASOPRESSIN INJECTION 20 UNIT in NS (IVPB) 100 ML IV SCH (21:30)
[2022-09-27] MEDS ORDERED: EPINEPHrine 1 MG INJECTION 4 MG in NS (IVPB) 248 ML IV SCH (21:30)
[2022-09-27] MEDS: NOREPINEPHRINE 8 MG/250 ML 250 ML IV SCH (21:30)
[2022-09-27 22:23] LABS: ABG BASE EXCESS 1.5 MMOL/L (-2.5-2.5); ABG OXYGEN SATURATION 91 % (94-100); ABG PCO2 55 MMHG (35-45); ABG PO2 58 MMHG (79-93); ABG TCO2 28.9 MMOL/L (21.0-31.0)
[2022-09-27 22:24] LABS: ABG PH 7.31 (7.37-7.43); INSPIRED O2 28%; PATIENT TEMP 36.5; VENTILATOR NO
--- NOTE | 2022-09-27 22:34 | Tele-ICU Progress Note ---
Subjective Date Seen by a Provider: Sep 27, 2022 Time Seen by a Provider: 22:32 Subjective/Events-last exam called for repeat ABG 7.31/53/58, on 28% FiO2, will raise FiO2 to 35% Hawk Cuevas MD Sepsis Event Evaluation Height, Weight, BMI Height: 5'5.00" Weight: 180lbs. 0.0oz. 81.313456dv; 37.56 BMI Method:Stated Focused Exam Lactate Level 09/27/22 17:33: Lactic Acid Level 0.68 Time of Focused Exam: 18:20 Exam Exam Patient acknowledged, consented, and participated in this virtual visit which was conducted using real time audio/video Vital Signs Date Time Temp Pulse Resp B/P (MAP) Pulse Ox O2 Delivery O2 Flow Rate FiO2 09/27/22 21:10 99 18 99 28.00 09/27/22 20:29 98 28 09/27/22 19:34 36.5 104 18 116/52 100 Nasal Cannula 3.00 3.00 09/27/22 18:40 99 100 28.00 09/27/22 16:42 Nasal Cannula 3.00 09/27/22 16:32 36.5 107 18 123/70 (87) 100 Nasal Cannula 3.00 Height & Weight Height: 5'5.00" Weight: 180lbs. 0.0oz. 81.166840fy; 37.56 BMI Method:Stated General Appearance: Mild Distress, Obese Respiratory: Normal Breath Sounds, No Accessory Muscle Use, No Respiratory Distress, Rhonci, Other (SNORING WHEN ASLEEP) Cardiovascular: Regular Rate, Rhythm, No Murmur, Tachycardia Gastrointestinal: non tender, soft Neurologic/Psychiatric: Other (UE are very weak, on both sides, legs, are ok) Results Lab Laboratory Tests 09/27/22 17:30 Assessment/Plan Assessment/Plan AECOPD, raise FiO2 to 35% Critical Care: Critically Ill Patient Time spent with patient (mins): 10 CHRISTINE CUEVAS MD Sep 27, 2022 22:34
[2022-09-27] MEDS: methylPREDNISolone 125 MG (Solu-MEDROL) VIAL IV SCH (23:33)
[2022-09-27] MEDS: NS IV 1000 ML 1,000 ML IV SCH (23:33)
--- NOTE | 2022-09-28 00:23 | Tele-ICU Progress Note ---
Subjective Date Seen by a Provider: Sep 28, 2022 Time Seen by a Provider: 00:20 Subjective/Events-last exam Pt now awake and fully alert, now watching TV, Has severe chronic pain for which takes Fentanyl patch 25 mcg and oxycodene 10 mg every 6 Due to pCO2 elevation in low 50, will give a lower dose of oxycodone Sepsis Event Evaluation Height, Weight, BMI Height: 5'5.00" Weight: 180lbs. 0.0oz. 81.110700ux; 37.56 BMI Method:Stated Focused Exam Lactate Level 09/27/22 17:33: Lactic Acid Level 0.68 Time of Focused Exam: 18:20 Exam Exam Patient acknowledged, consented, and participated in this virtual visit which was conducted using real time audio/video Vital Signs Date Time Temp Pulse Resp B/P (MAP) Pulse Ox O2 Delivery O2 Flow Rate FiO2 09/28/22 00:00 101 9 133/79 (94) 92 NIV Bilevel 35.00 09/27/22 23:00 101 14 114/66 (79) 91 NIV Bilevel 35.00 09/27/22 22:00 103 13 120/68 (81) 89 NIV Bilevel 28.00 09/27/22 21:30 101 114/66 09/27/22 21:30 101 114/66 09/27/22 21:30 104 13 127/72 (87) 93 NIV Bilevel 28.00 09/27/22 21:15 101 11 111/59 (73) NIV Bilevel 28.00 09/27/22 21:10 99 18 99 28.00 09/27/22 21:00 101 13 106/56 (74) 91 NIV Bilevel 28.00 09/27/22 20:45 101 12 83/56 (67) 90 NIV Bilevel 28.00 09/27/22 20:30 102 11 98/57 (69) 91 NIV Bilevel 28.00 09/27/22 20:29 98 28 09/27/22 20:15 100 11 109/59 (73) 93 NIV Bilevel 28.00 09/27/22 20:04 105 09/27/22 20:03 36.5 101 24 132/73 (91) 96 NIV Bilevel 28.00 09/27/22 19:34 36.5 104 18 116/52 100 Nasal Cannula 3.00 3.00 09/27/22 18:40 99 100 28.00 09/27/22 16:42 Nasal Cannula 3.00 09/27/22 16:32 36.5 107 18 123/70 (87) 100 Nasal Cannula 3.00 I & O 09/28/22 07:00 Intake Total 2050 ml Balance 2050 ml Height & Weight Height: 5'5.00" Weight: 180lbs. 0.0oz. 81.678531ek; 37.56 BMI Method:Stated General Appearance: Mild Distress, Obese Respiratory: Normal Breath Sounds, No Accessory Muscle Use, No Respiratory Distress, Rhonci, Other (SNORING WHEN ASLEEP) Cardiovascular: Regular Rate, Rhythm, No Murmur, Tachycardia Gastrointestinal: non tender, soft Neurologic/Psychiatric: Other (UE are very weak, on both sides, legs, are ok) Results Lab Laboratory Tests 09/27/22 17:30 Assessment/Plan Assessment/Plan severe pain from spinal cord compression, AECOPD will give fentanyl patch and 5 mg ocycodone Time spent with patient (mins): 15 CHRISTINE CUEVAS MD Sep 28, 2022 00:22
[2022-09-28] MEDS ORDERED: fentaNYL PATCH 25 MCG (DURAGESIC) TD SCH (00:30)
[2022-09-28] MEDS: oxyCODONE/APAP 5/325MG (PERCOCET 5) TABLET PO PRN ×4 (00:35→19:38)
[2022-09-28 02:28] VITALS: BP 118/68
[2022-09-28] MEDS: RT-ALBUTEROL HFA 8.5 GM INHALER IH SCH ×6 (02:28→22:03)
[2022-09-28] MEDS ORDERED: CEFEPIME 1,000 MG/NS 50 ML IVPB IV SCH ×2 (03:30)
[2022-09-28 03:59] LABS: BASOPHILS % (AUTO) 0 % (0-10); EOSINOPHILS % (AUTO) 0 % (0-10); HEMATOCRIT 36 % (40-54); HEMOGLOBIN 11.2 g/dL (13.3-17.7); LYMPHOCYTES # (AUTO) 0.5 10^3/uL (1.0-4.0); LYMPHOCYTES % (AUTO) 5 % (12-44); MEAN CORPUSCULAR HEMOGLOBIN 28 pg (25-34); MEAN CORPUSCULAR HGB CONC 31 g/dL (32-36); MEAN CORPUSCULAR VOLUME 92 fL (80-99); MEAN PLATELET VOLUME 10.8 fL (9.0-12.2); MONOCYTES # (AUTO) 0.1 10^3/uL (0.0-1.0); MONOCYTES % (AUTO) 1 % (0-12); NEUTROPHILS # (AUTO) 8.4 10^3/uL (1.8-7.8); NEUTROPHILS % (AUTO) 93 % (42-75); PLATELET COUNT 224 10^3/uL (130-400); WHITE BLOOD COUNT 9.1 10^3/uL (4.3-11.0)
[2022-09-28 04:21] LABS: ALBUMIN 3.4 GM/DL (3.2-4.5); POTASSIUM 5.3 MMOL/L (3.6-5.0)
[2022-09-28 04:23] LABS: CALCIUM 9.3 MG/DL (8.5-10.1)
[2022-09-28 04:24] LABS: TOTAL PROTEIN 6.8 GM/DL (6.4-8.2)
[2022-09-28 04:26] LABS: BILIRUBIN,TOTAL 0.7 MG/DL (0.1-1.0)
[2022-09-28 04:27] LABS: PHOSPHORUS 2.8 MG/DL (2.3-4.7)
[2022-09-28 04:28] LABS: CREATININE SERUM 1.04 MG/DL (0.60-1.30)
[2022-09-28 04:29] LABS: BAND NEUTROPHILS 3 %; LYMPHOCYTES % (MANUAL) 6 %; MONOCYTES % (MANUAL) 2 %; NEUTROPHILS % (MANUAL) 89 %; RBC MORPH NORMAL
[2022-09-28 04:30] LABS: MAGNESIUM 2.2 MG/DL (1.6-2.4)
[2022-09-28] MEDS: methylPREDNISolone 125 MG (Solu-MEDROL) VIAL IV SCH ×3 (06:27→17:45)
[2022-09-28] MEDS: VASOPRESSIN INJECTION 20 UNIT in NS (IVPB) 100 ML IV SCH ×2 (07:27→19:44)
[2022-09-28] MEDS: NS IV 1000 ML 1,000 ML IV SCH ×4 (07:27→21:51)
[2022-09-28 07:28] VITALS: BP 143/85
--- NOTE | 2022-09-28 08:36 | Diagnostic Imaging Report ---
INDICATION: Severe sepsis, acute on chronic respiratory failure. TECHNIQUE: Single view chest 4:29 AM. CORRELATION STUDY: 09/27/2022 FINDINGS: Heart size enlarged. Mediastinum stable. Vascular slightly increased. Bibasilar infiltrate-like opacities do persist but overall appear slightly improved. Probable small effusions right greater than left. Partially visualized cervical thoracic spinal fixation hardware. IMPRESSION: 1. Cardiac enlargement with vascular appearing slightly more prominent. 2. Bibasilar infiltrate-like opacities do persist but overall appearing slightly improved. May reflect residual pneumonia, edema and/or even aspiration along small effusions. Dictated by: Dictated on workstation # [id number]
[2022-09-28] MEDS: NOREPINEPHRINE 8 MG/250 ML 250 ML IV SCH ×2 (09:02→23:34)
[2022-09-28] MEDS ORDERED: IOHEXOL 350 MG/ML 100 ML (OMNIPAQUE 350) VIAL IV ONE (10:00)
[2022-09-28] MEDS ORDERED: NS 100 ML (IVPB) BAG IV ONE (10:00)
[2022-09-28] MEDS: CEFEPIME 1,000 MG/NS 50 ML IVPB IV SCH ×6 (10:02→21:51)
--- NOTE | 2022-09-28 10:54 | Diagnostic Imaging Report ---
TECHNIQUE: CTA of the chest was performed with contrast bolus timing optimized for evaluation of the pulmonary arteries. 3D reformats were obtained and reviewed. Dose reduction techniques were utilized. COMPARISON: 07/02/2020. REASON FOR THE EXAM: Respiratory failure. Hemoptysis. FINDINGS: No evidence of pulmonary emboli to the subsegmental pulmonary arteries. The heart size is prominent. No pericardial effusion. The thoracic aorta is normal. No pathologically enlarged lymphadenopathy in the chest. Patchy and consolidative opacities are seen in the mid and lower lungs bilaterally. No pleural effusion or pneumothorax. No central endobronchial obstructing lesion. Prominent bullae are seen in the right lung apex. Calcified granuloma is seen in the right lung base. No acute osseous abnormalities are seen in the chest. There is hepatic steatosis. IMPRESSION: 1. No evidence of pulmonary emboli to the subsegmental pulmonary arteries. 2. Patchy and consolidative opacities in the mid and lower lungs bilaterally, suggestive of multifocal pneumonia. 3. Prominent bullae are seen in the right lung apex, increased compared to the prior exam. No evidence of pneumothorax. 4. Hepatic steatosis. Dictated by: Dictated on workstation # [id number]
--- NOTE | 2022-09-28 12:07 | Tele-ICU Progress Note ---
Subjective Date Seen by a Provider: Sep 28, 2022 Time Seen by a Provider: 12:07 Subjective/Events-last exam (Tele-ICU Physician , Progress Note ) Service provided via interactive audio and video telecommunications E-CARE system to a patient admitted to ICU bed in [facility]. Patient is seen today due to persistent need of ICU care Available chart/ vitals / labs / Images reviewed Video assessment done using teleICU camera, rest of exam as per RN Discussed with RN Events overnight : Afebrile hemodynamically stable Respiratory - 2l NC I/O = pos 1 L Drips: Pressors- no Hospital course: (09/27) 57 Y/O Male with Hypoxia and Hypotension. Sepsis protocol initiated and placed on Bipap. BP improved after a liter of fluid. A/P Acute hypercapneic resp failure - suspect due to meds effect ( doubt significant chronic component due to resp muscle weakness, but undelying JEANNE can contribute to developing overlap syndrome ) - NIPPV at night anf for naps - monitor mental status and abg - started on high dose of stroids IV - consider to taper doen fast Possible RLL PNA - on CAP coverage Hemoptysis - possible due to PNA - not on AC - monitor LIONEL - cont hydration, consider to stop tomotrrow Chronic pain syndrome - meds adjustment as perPCP Lines : , (Central Line Necessity Reviewed) Ha: + ( ? retention OG: Nutrition: po Analgesia: Anxiety/ delirium VTE Prophylaxis: SCD - monitor hemoptysis - start kalie if doing ok Stress Ulcer Prophylaxis: na Plans in collaboration with bedside consultants and IM MDs. Discussed with RN to reach out if any questions or concerns A total of31 minutes of critical care time was devoted to this patient today, required to treat and/or prevent further deterioration of critical care condition ( as above ) . I am remotely monitoring this patient from another state. I am unable to do the bedside exam, and history/physical and pertinent information is taken from other notes in the computer and bedside staff. Sepsis Event Evaluation Height, Weight, BMI Height: 5'5.00" Weight: 180lbs. 0.0oz. 81.778405ib; 37.78 BMI Method:Stated Focused Exam Lactate Level 09/27/22 17:33: Lactic Acid Level 0.68 Time of Focused Exam: 18:20 Exam Exam Patient acknowledged, consented, and participated in this virtual visit which was conducted using real time audio/video Vital Signs Date Time Temp Pulse Resp B/P (MAP) Pulse Ox O2 Delivery O2 Flow Rate FiO2 09/28/22 11:46 36.8 09/28/22 11:02 97 Nasal Cannula 2.00 09/28/22 11:00 98 14 138/88 (105) 96 Nasal Cannula 2.00 09/28/22 10:00 96 15 160/85 (110) 98 Nasal Cannula 2.00 09/28/22 09:00 92 13 159/90 (113) 91 Nasal Cannula 4.00 09/28/22 08:24 Nasal Cannula 4.00 09/28/22 08:00 90 16 152/88 (109) 97 NIV Bilevel 35.00 09/28/22 08:00 98 NIV Bilevel 35 09/28/22 07:51 84 09/28/22 07:50 36.4 09/28/22 07:28 89 18 98 35.00 09/28/22 07:00 90 13 143/85 (104) 87 NIV Bilevel 35.00 09/28/22 06:00 85 13 143/88 (106) NIV Bilevel 35.00 09/28/22 05:00 90 15 127/74 (89) 89 NIV Bilevel 35.00 09/28/22 04:00 90 NIV Bilevel 35 09/28/22 04:00 96 14 123/69 (87) 89 NIV Bilevel 35.00 09/28/22 03:00 98 12 139/80 (101) 96 NIV Bilevel 35.00 09/28/22 02:28 99 19 96 35.00 09/28/22 02:00 105 14 138/81 (94) 90 NIV Bilevel 35.00 09/28/22 01:00 101 09/28/22 01:00 101 12 136/74 (95) 91 NIV Bilevel 35.00 09/28/22 00:00 101 9 133/79 (94) 92 NIV Bilevel 35.00 09/27/22 23:59 91 NIV Bilevel 35 09/27/22 23:00 101 14 114/66 (79) 91 NIV Bilevel 35.00 09/27/22 22:00 103 13 120/68 (81) 89 NIV Bilevel 28.00 09/27/22 21:30 101 114/66 09/27/22 21:30 101 114/66 09/27/22 21:30 104 13 127/72 (87) 93 NIV Bilevel 28.00 09/27/22 21:15 101 11 111/59 (73) NIV Bilevel 28.00 09/27/22 21:10 99 18 99 28.00 09/27/22 21:00 101 13 106/56 (74) 91 NIV Bilevel 28.00 09/27/22 20:45 101 12 83/56 (67) 90 NIV Bilevel 28.00 09/27/22 20:30 102 11 98/57 (69) 91 NIV Bilevel 28.00 09/27/22 20:29 98 28 09/27/22 20:15 100 11 109/59 (73) 93 NIV Bilevel 28.00 09/27/22 20:05 88 NIV Bilevel 28 09/27/22 20:04 105 09/27/22 20:03 36.5 101 24 132/73 (91) 96 NIV Bilevel 28.00 09/27/22 19:34 36.5 104 18 116/52 100 Nasal Cannula 3.00 3.00 09/27/22 18:40 99 100 28.00 09/27/22 16:42 Nasal Cannula 3.00 09/27/22 16:32 36.5 107 18 123/70 (87) 100 Nasal Cannula 3.00 I & O 09/28/22 07:00 Intake Total 2990 ml Output Total 2675 ml Balance 315 ml Height & Weight Height: 5'5.00" Weight: 180lbs. 0.0oz. 81.503395th; 37.78 BMI Method:Stated General Appearance: Mild Distress, Obese Respiratory: Normal Breath Sounds, No Accessory Muscle Use, No Respiratory Distress, Rhonci, Other (SNORING WHEN ASLEEP) Cardiovascular: Regular Rate, Rhythm, No Murmur, Tachycardia Gastrointestinal: non tender, soft Neurologic/Psychiatric: Other (UE are very weak, on both sides, legs, are ok) Results Lab Laboratory Tests 09/27/22 17:30 09/28/22 03:30 Assessment/Plan Assessment/Plan 1 ANGELINE HUTTON MD Sep 28, 2022 12:07
[2022-09-28] MEDS ORDERED: LOSA1TAB26 PO (14:44)
[2022-09-28] MEDS ORDERED: MTP100TCR PO (14:44)
[2022-09-28] MEDS ORDERED: TIOT4MIS5 INH (14:44)
[2022-09-28] MEDS ORDERED: CELE-63 PO (14:44)
[2022-09-28] MEDS ORDERED: PROP15DR OD (14:44)
[2022-09-28] MEDS ORDERED: FENT1PAT9 TD (14:44)
[2022-09-28] MEDS: ONDANSETRON 4 MG/2 ML (SDV) Z0FRAN IV PRN (18:45)
--- NOTE | 2022-09-28 18:51 | History & Physical-Hospitalist ---
History of Present Illness HPI/Chief Complaint Adán Fofana is a 57 year old male with PMH HTN, COPD, chronic respiratory failure with hypoxia, JEANNE, chronic pain, partial paraplegia, history of cervical spinal fusion, who presented with weakness. He had been sleeping quite a bit. He reports shortness of breath. He reports a cough. He has coughed up some blood. He denies fevers and chills. He denies chest pain. He denies abdominal pain, nausea, vomiting, and diarrhea. He has a history of JEANNE but is non-compliant with his CPAP for the past year. He also reports that he has not been compliant with his oxygen and only wears it at night, 2 L. He is scheduled to establish with a neurologist at [place]. He is also scheduled to have some pulmonary testing performed. Source: patient, family Exam Limitations: no limitations Date Seen 09/28/22 Time Seen by a Provider: 09:40 Attending Physician Reyes Angeles MD PCP Admitting Physician: Suzette Brown MD Attending Physician: Shahid Orr MD Referring Physician Date of Admission Sep 27, 2022 at 19:42 Home Medications & Allergies Home Medications Reviewed patient Home Medication Reconciliation performed by pharmacy medication reconciliations oil processing technician and/or nursing. Patients Allergies have been reviewed. Allergies Allergies Coded Allergies amitriptyline (Verified Allergy, Unknown, 02/08/16) duloxetine (Verified Allergy, Unknown, 02/08/16) fluticasone (Verified Allergy, Unknown, 02/08/16) salmeterol (Verified Allergy, Unknown, 02/08/16) Past Djghesi-Mstooy-Phjotu Hx Patient Social History Tobacco Use?: No Smoking Status: Former Smoker Use of E-Cig and/or Vaping dev: No Substance use?: No Alcohol Use?: Yes Alcohol type: Hard Liquor Alcohol Frequency: Once in a while Pt feels they are or have been: No Immunizations Up To Date Date of Influenza Vaccine: May 02, 2022 First/Initial COVID19 Vaccinat: SEPTEMBER 2020 Second COVID19 Vaccination Rhett: SEPTEMBER 2020 Tetanus Booster (TDap): Unknown Hepatitis A: No Hepatitis B: No PED Vaccines UTD: No Date of Pneumonia Vaccine: Jun 18, 2015 Seasonal Allergies Seasonal Allergies: No Current Status Advance Directives: No Communicates: Verbally Primary Language: Chinese Preferred Spoken Language: Chinese Is interpretation needed?: No Implanted or Applied Medical D: CPAP, Orthopedic hardware Past Medical History Surgeries: Abdominal, Neurological, Orthopedic Pneumonia, Chronic Bronchitis, Sleep Apnea, COPD, Emphysema Currently Using CPAP: No Currently Using BIPAP: No Hypertension Meningitis Abdominal Hernia Arthritis Anxiety Blood Disorders: No Family Medical History FH: cancer 19 MOTHER Mother- lung cancer Father- HTN and CVA Review of Systems Constitutional: weakness Respiratory: cough, hemoptysis, short of breath Cardiovascular: no symptoms reported Gastrointestinal: no symptoms reported Physical Exam Physical Exam Vital Signs Vital Signs - First Documented 09/27/22 09/27/22 16:32 20:05 Temp 36.5 Pulse 107 Resp 18 B/P (MAP) 123/70 (87) Pulse Ox 100 O2 Delivery Nasal Cannula O2 Flow Rate 3.00 FiO2 28 Capillary Refill : Height, Weight, BMI Height: 5'5.00" Weight: 180lbs. 0.0oz. 81.026075bc; 37.78 BMI Method:Stated General Appearance: No Apparent Distress, Obese HEENT: PERRL/EOMI, Pharynx Normal Neck: Normal Inspection, Supple Respiratory: No Accessory Muscle Use, No Respiratory Distress, Decreased Breath Sounds Cardiovascular: Regular Rate, Rhythm, No Edema, No Murmur, Normal Peripheral Pulses Gastrointestinal: Normal Bowel Sounds, Non Tender, Soft Extremity: Normal Inspection, No Pedal Edema Neurologic/Psychiatric: Alert, No Motor/Sensory Deficits, Normal Mood/Affect Skin: Normal Color, Warm/Dry Results Results/Procedures Labs Laboratory Tests 09/27/22 17:30 09/28/22 03:30 Patient resulted labs reviewed. Imaging: Reviewed Imaging Report Assessment/Plan Admission Diagnosis Acute on chronic respiratory failure with hypoxia and hypercapnia Admission Status: Inpatient Order (span 2 midnights) Reason for Inpatient Admission: Respiratory failure Pneumonia Assessment and Plan Acute on chronic respiratory failure with hypoxia and hypercapnia Multifocal pneumonia COPD LIONEL HTN Chronic pain JEANNE Obesity Supplemental oxygen as needed BiPAP as needed TeleICU following Cefepime Renal function improved Decrease IV fluids MAT protocol Critical Care Critically Ill Patient Diagnosis/Problems Diagnosis/Problems (1) Acute on chronic respiratory failure Status: Acute Qualifiers: Respiratory failure complication: hypoxia and hypercapnia Qualified Codes: J96.21 - Acute and chronic respiratory failure with hypoxia; J96.22 - Acute and chronic respiratory failure with hypercapnia (2) Multifocal pneumonia Status: Acute (3) CO2 narcosis Status: Acute (4) COPD (chronic obstructive pulmonary disease) Status: Chronic (5) Acute kidney injury Status: Acute (6) JEANNE (obstructive sleep apnea) Status: Chronic (7) Chronic pain Status: Chronic (8) Cervical radiculopathy Status: Chronic (9) Obesity Status: Chronic SHAHID ORR MD Sep 28, 2022 18:51
[2022-09-29] MEDS: oxyCODONE/APAP 5/325MG (PERCOCET 5) TABLET PO PRN ×2 (01:32→08:00)
[2022-09-29] MEDS: RT-ALBUTEROL HFA 8.5 GM INHALER IH SCH ×6 (02:03→22:33)
[2022-09-29 04:01] LABS: BASOPHILS % (AUTO) 0 % (0-10); EOSINOPHILS % (AUTO) 0 % (0-10); HEMATOCRIT 35 % (40-54); HEMOGLOBIN 10.8 g/dL (13.3-17.7); LYMPHOCYTES # (AUTO) 0.9 10^3/uL (1.0-4.0); LYMPHOCYTES % (AUTO) 8 % (12-44); MEAN CORPUSCULAR HEMOGLOBIN 28 pg (25-34); MEAN CORPUSCULAR HGB CONC 31 g/dL (32-36); MEAN CORPUSCULAR VOLUME 90 fL (80-99); MEAN PLATELET VOLUME 10.8 fL (9.0-12.2); MONOCYTES # (AUTO) 0.5 10^3/uL (0.0-1.0); MONOCYTES % (AUTO) 5 % (0-12); NEUTROPHILS # (AUTO) 9.2 10^3/uL (1.8-7.8); NEUTROPHILS % (AUTO) 86 % (42-75); PLATELET COUNT 231 10^3/uL (130-400); WHITE BLOOD COUNT 10.6 10^3/uL (4.3-11.0)
[2022-09-29 04:09] LABS: ALBUMIN 3.2 GM/DL (3.2-4.5)
[2022-09-29 04:10] LABS: POTASSIUM 4.3 MMOL/L (3.6-5.0)
[2022-09-29 04:11] LABS: CALCIUM 9.2 MG/DL (8.5-10.1)
[2022-09-29 04:12] LABS: TOTAL PROTEIN 6.5 GM/DL (6.4-8.2)
[2022-09-29 04:14] LABS: BILIRUBIN,TOTAL 0.4 MG/DL (0.1-1.0)
[2022-09-29 04:15] LABS: PHOSPHORUS 2.6 MG/DL (2.3-4.7)
[2022-09-29 04:16] LABS: CREATININE SERUM 0.79 MG/DL (0.60-1.30)
[2022-09-29 04:18] LABS: MAGNESIUM 2.1 MG/DL (1.6-2.4)
[2022-09-29] MEDS: CEFEPIME 1,000 MG/NS 50 ML IVPB IV SCH ×8 (04:32→21:49)
[2022-09-29] MEDS: VASOPRESSIN INJECTION 20 UNIT in NS (IVPB) 100 ML IV SCH (07:25)
[2022-09-29] MEDS: NS IV 1000 ML 1,000 ML IV SCH (07:39)
[2022-09-29] MEDS ORDERED: CATHETER FLUSH 10 ML SYR IVP PRN (07:45)
--- NOTE | 2022-09-29 08:44 | Diagnostic Imaging Report ---
EXAM: CHEST 1 VIEW, AP/PA ONLY INDICATION: Sepsis. Acute on chronic respiratory failure. COMPARISON: 09/28/2022. FINDINGS: Low lung volumes with perihilar and bibasilar atelectasis, greater on the right. Small bilateral pleural effusions, greater on the right. No pneumothorax. Normal heart size and pulmonary vascularity. No acute osseous findings. IMPRESSION: 1. Low lung volumes with perihilar and bibasilar atelectasis. 2. Small bilateral pleural effusions are similar to yesterday, greater on the right. Dictated by: Dictated on workstation # [id number]
[2022-09-29] MEDS ORDERED: CYCLOBENZAPRINE 10 MG (FLEXERIL) TAB PO PRN (09:30)
[2022-09-29] MEDS ORDERED: PANTOPRAZOLE 40 MG (PROTONIX) TAB PO PRN (09:30)
[2022-09-29] MEDS ORDERED: fentaNYL PATCH 50 MCG (DURAGESIC) TD SCH (09:30)
[2022-09-29] MEDS: ONDANSETRON 4 MG/2 ML (SDV) Z0FRAN IV PRN (10:10)
--- NOTE | 2022-09-29 10:34 | Tele-ICU Progress Note ---
Subjective Date Seen by a Provider: Sep 29, 2022 Time Seen by a Provider: 10:34 Subjective/Events-last exam (Tele-ICU Physician , Progress Note ) Service provided via interactive audio and video telecommunications E-CARE system to a patient admitted to ICU bed in [facility]. Patient is seen today due to persistent need of ICU care Available chart/ vitals / labs / Images reviewed Video assessment done using teleICU camera, rest of exam as per RN Discussed with RN Events overnight : Afebrile hemodynamically stable Respiratory - 2l NC I/O = pos 1 L Drips: Pressors- no Hospital course: (09/27) 57 Y/O Male with Hypoxia and Hypotension. Sepsis protocol initiated and placed on Bipap. BP improved after a liter of fluid. A/P Acute hypercapneic resp failure ( PNA , neg for PE ) - suspect due to meds effect ( doubt significant chronic component due to resp muscle weakness, but undelying JEANNE can contribute to developing overlap syndrome ) - planned for NIPPV at night anf for naps BUT was OFF NIPPV last night : " did not sleep " check ABG this am - started on high dose of stroids IV x1 day 09/28 Possible RLL PNA > L , seen on CT chest 09/28 - on CAP coverage - short course = blood cx + coag +, suspected contaminant Hemoptysis - possible due to PNA , CT neg for PE - - not on AC -resolved LIONEL - stop hydration Chronic pain syndrome - meds adjustment as perPCP Lines : , (Central Line Necessity Reviewed) Ha: + ( ? retention OG: Nutrition: po Analgesia: Anxiety/ delirium VTE Prophylaxis: SCD - hemoptysis resolved - start kalie if doing ok Stress Ulcer Prophylaxis: na Plans in collaboration with bedside consultants and IM MDs. Discussed with RN to reach out if any questions or concerns A total of31 minutes of critical care time was devoted to this patient today, required to treat and/or prevent further deterioration of critical care condition ( as above ) . I am remotely monitoring this patient from another state. I am unable to do the bedside exam, and history/physical and pertinent information is taken from other notes in the computer and bedside staff. Sepsis Event Evaluation Height, Weight, BMI Height: 5'5.00" Weight: 180lbs. 0.0oz. 81.644774ou; 38.33 BMI Method:Stated Focused Exam Lactate Level 3/12/23 17:33: Lactic Acid Level 0.68 Time of Focused Exam: 18:20 Exam Exam Patient acknowledged, consented, and participated in this virtual visit which was conducted using real time audio/video Vital Signs Date Time Temp Pulse Resp B/P (MAP) Pulse Ox O2 Delivery O2 Flow Rate FiO2 09/29/22 10:00 101 16 130/80 (97) 96 Nasal Cannula 2.00 09/29/22 09:49 100 Nasal Cannula 1.00 09/29/22 09:00 96 13 143/87 (105) 97 Nasal Cannula 2.00 09/29/22 08:09 36.4 09/29/22 08:00 110 13 136/78 (97) 97 Nasal Cannula 2.00 09/29/22 08:00 96 Nasal Cannula 2.00 09/29/22 07:32 105 09/29/22 07:00 107 20 131/86 (101) 97 Nasal Cannula 2.00 09/29/22 06:59 100 Nasal Cannula 1.00 09/29/22 06:00 69 14 144/93 (110) 96 Nasal Cannula 2.00 09/29/22 05:00 108 20 133/89 (104) 99 Nasal Cannula 2.00 09/29/22 04:00 96 Nasal Cannula 2.00 09/29/22 04:00 99 12 133/74 (91) 97 Nasal Cannula 2.00 09/29/22 03:29 36.6 09/29/22 03:00 130/80 (96) Nasal Cannula 2.00 09/29/22 02:00 98 17 139/83 (100) 98 Nasal Cannula 2.00 09/29/22 01:00 100 20 143/81 (93) Nasal Cannula 2.00 09/29/22 01:00 100 09/29/22 00:00 98 16 140/81 (100) 95 Nasal Cannula 2.00 09/28/22 23:59 36.9 09/28/22 23:59 97 Nasal Cannula 2.00 09/28/22 23:34 108 143/85 09/28/22 23:30 108 17 139/93 (101) 95 09/28/22 23:00 106 13 131/85 (94) 96 Nasal Cannula 2.00 09/28/22 22:30 110 21 135/78 (94) 94 09/28/22 22:03 98 Nasal Cannula 1.00 09/28/22 22:00 106 13 138/79 (93) 98 Nasal Cannula 2.00 09/28/22 21:30 93 20 153/86 (107) 97 09/28/22 21:00 101 14 146/84 (101) 100 Nasal Cannula 2.00 09/28/22 20:30 109 15 146/81 (100) 96 09/28/22 20:00 98 Nasal Cannula 2.00 09/28/22 20:00 116 12 120/88 (98) 94 Nasal Cannula 2.00 09/28/22 19:30 116 17 126/69 (81) 95 09/28/22 19:00 108 09/28/22 19:00 108 20 135/87 (100) 93 Nasal Cannula 2.00 09/28/22 18:54 96 Nasal Cannula 2.00 09/28/22 18:00 105 11 147/98 (114) 99 Nasal Cannula 2.00 09/28/22 17:00 99 15 144/81 (102) 98 Nasal Cannula 2.00 09/28/22 16:04 36.0 09/28/22 16:00 96 Nasal Cannula 2.00 09/28/22 16:00 102 12 133/76 (95) 94 Nasal Cannula 2.00 09/28/22 15:07 95 Nasal Cannula 2.00 09/28/22 15:00 107 18 144/84 (104) 97 Nasal Cannula 2.00 09/28/22 14:00 105 16 153/82 (105) 97 Nasal Cannula 2.00 09/28/22 13:00 104 14 137/77 (97) 96 Nasal Cannula 2.00 09/28/22 12:13 112 09/28/22 12:00 114 17 131/75 (93) 95 Nasal Cannula 2.00 09/28/22 12:00 95 Nasal Cannula 2.00 09/28/22 11:46 36.8 09/28/22 11:02 97 Nasal Cannula 2.00 09/28/22 11:00 98 14 138/88 (105) 96 Nasal Cannula 2.00 I & O 09/29/22 07:00 Intake Total 4600 ml Output Total 2950 ml Balance 1650 ml Height & Weight Height: 5'5.00" Weight: 180lbs. 0.0oz. 81.129184ly; 38.33 BMI Method:Stated General Appearance: No Apparent Distress, Obese HEENT: PERRL/EOMI, Pharynx Normal Neck: Normal Inspection, Supple Respiratory: No Accessory Muscle Use, No Respiratory Distress, Decreased Breath Sounds Cardiovascular: Regular Rate, Rhythm, No Edema, No Murmur, Normal Peripheral Pulses Gastrointestinal: non tender, soft Extremity: Normal Inspection, No Pedal Edema Neurologic/Psychiatric: Alert, No Motor/Sensory Deficits, Normal Mood/Affect Skin: Normal Color, Warm/Dry Results Lab Laboratory Tests 09/27/22 17:30 09/28/22 03:30 09/29/22 03:42 Assessment/Plan Assessment/Plan 1 ANGELINE HUTTON MD Sep 29, 2022 10:34
[2022-09-29] MEDS ORDERED: SUMAtriptan 50 MG (IMITREX) TAB PO PRN (10:45)
[2022-09-29] MEDS: HydroCHLOROthiazide CAP/TABLET 12.5 MG TAB PO SCH (11:33)
[2022-09-29] MEDS: LOSARTAN 100 MG (COZAAR) TABLET PO SCH (11:33)
[2022-09-29] MEDS: GABAPENTIN 600 MG (NEURONTIN) TAB PO SCH ×2 (13:45→21:49)
--- NOTE | 2022-09-29 15:32 | Progress Note - Hospitalist ---
Subjective HPI/CC On Admission Date Seen by Provider: Sep 29, 2022 Time Seen by Provider: 09:15 Adán Fofana is a 57 year old male with PMH HTN, COPD, chronic respiratory failure with hypoxia, JEANNE, chronic pain, partial paraplegia, history of cervical spinal fusion, who presented with weakness. He had been sleeping quite a bit. He reports shortness of breath. He reports a cough. He has coughed up some blood. He denies fevers and chills. He denies chest pain. He denies abdominal pain, nausea, vomiting, and diarrhea. He has a history of JEANNE but is non-compliant with his CPAP for the past year. He also reports that he has not been compliant with his oxygen and only wears it at night, 2 L. He is scheduled to establish with a neurologist at [place]. He is also scheduled to have some pulmonary testing performed. Subjective/Events-last exam He didn't sleep much last night. He wants his home meds to be restarted. He is feeling better. He denies shortness of breath. He hasn't been coughing anymore. He denies fevers. Focused Exam Lactate Level 09/27/22 17:33: Lactic Acid Level 0.68 Time of Focused Exam: 18:20 Objective Exam Vital Signs Vital Signs Date Time Temp Pulse Resp B/P (MAP) Pulse Ox O2 Delivery O2 Flow Rate FiO2 09/29/22 14:26 100 Nasal Cannula 1.00 09/29/22 11:28 36.8 97 18 150/86 (107) 09/28/22 08:00 35 Capillary Refill : General Appearance: No Apparent Distress, Obese Respiratory: Lungs Clear, No Respiratory Distress Cardiovascular: Regular Rate, Rhythm, No Murmur Gastrointestinal: Normal Bowel Sounds, Soft Extremity: Normal Inspection, No Pedal Edema Neurologic/Psychiatric: Alert, Normal Mood/Affect Skin: Normal Color, Warm/Dry Results/Procedures Lab Laboratory Tests 09/29/22 03:42 Patient resulted labs reviewed. Imaging: Reviewed Imaging Report Assessment/Plan Assessment and Plan Assess & Plan/Chief Complaint Acute on chronic respiratory failure with hypoxia and hypercapnia Multifocal pneumonia COPD LIONEL HTN Chronic pain JEANNE Obesity Supplemental oxygen as needed, at baseline Cefepime Stop IV fluids MAT protocol Transfer to medical floor Diagnosis/Problems Diagnosis/Problems (1) Acute on chronic respiratory failure Status: Resolved Qualifiers: Respiratory failure complication: hypoxia and hypercapnia Qualified Codes: J96.21 - Acute and chronic respiratory failure with hypoxia; J96.22 - Acute and chronic respiratory failure with hypercapnia Resolution Date/Time: 09/29/22 @ 15:32 (2) Multifocal pneumonia Status: Acute (3) CO2 narcosis Status: Resolved Resolution Date/Time: 09/29/22 @ 15:32 (4) COPD (chronic obstructive pulmonary disease) Status: Chronic (5) Acute kidney injury Status: Resolved Resolution Date/Time: 09/29/22 @ 15:32 (6) JEANNE (obstructive sleep apnea) Status: Chronic (7) Chronic pain Status: Chronic (8) Cervical radiculopathy Status: Chronic (9) Obesity Status: Chronic SHAHID ORR MD Sep 29, 2022 15:32
[2022-09-29 16:24] VITALS: BP 129/84
[2022-09-29 19:31] VITALS: BP 134/65
[2022-09-29 23:17] VITALS: BP 109/56
[2022-09-30] MEDS: RT-ALBUTEROL HFA 8.5 GM INHALER IH SCH ×3 (02:53→11:17)
[2022-09-30 03:43] VITALS: BP 117/63
[2022-09-30] MEDS: CEFEPIME 1,000 MG/NS 50 ML IVPB IV SCH ×4 (03:44→10:28)
[2022-09-30 04:44] LABS: BASOPHILS % (AUTO) 0 % (0-10); EOSINOPHILS # (AUTO) 0.1 10^3/uL (0.0-0.3); EOSINOPHILS % (AUTO) 1 % (0-10); HEMATOCRIT 33 % (40-54); HEMOGLOBIN 10.2 g/dL (13.3-17.7); LYMPHOCYTES # (AUTO) 1.9 10^3/uL (1.0-4.0); LYMPHOCYTES % (AUTO) 30 % (12-44); MEAN CORPUSCULAR HEMOGLOBIN 28 pg (25-34); MEAN CORPUSCULAR HGB CONC 31 g/dL (32-36); MEAN CORPUSCULAR VOLUME 90 fL (80-99); MEAN PLATELET VOLUME 11.3 fL (9.0-12.2); MONOCYTES # (AUTO) 0.5 10^3/uL (0.0-1.0); MONOCYTES % (AUTO) 8 % (0-12); NEUTROPHILS # (AUTO) 3.8 10^3/uL (1.8-7.8); NEUTROPHILS % (AUTO) 61 % (42-75); PLATELET COUNT 184 10^3/uL (130-400); WHITE BLOOD COUNT 6.2 10^3/uL (4.3-11.0)
[2022-09-30 04:58] LABS: ALBUMIN 2.9 GM/DL (3.2-4.5)
[2022-09-30 04:59] LABS: CALCIUM 8.7 MG/DL (8.5-10.1)
[2022-09-30 05:01] LABS: TOTAL PROTEIN 5.5 GM/DL (6.4-8.2)
[2022-09-30 05:02] LABS: BILIRUBIN,TOTAL 0.3 MG/DL (0.1-1.0)
[2022-09-30 05:04] LABS: CREATININE SERUM 0.79 MG/DL (0.60-1.30)
[2022-09-30 07:44] VITALS: BP 126/78
[2022-09-30] MEDS ORDERED: UMECLIDINIUM BROMIDE (INCRUSE ELLIPTA) 7'S IH SCH (08:00)
[2022-09-30] MEDS: HydroCHLOROthiazide CAP/TABLET 12.5 MG TAB PO SCH (08:13)
[2022-09-30] MEDS: LOSARTAN 100 MG (COZAAR) TABLET PO SCH (08:14)
[2022-09-30] MEDS: GABAPENTIN 600 MG (NEURONTIN) TAB PO SCH (08:14)
[2022-09-30] MEDS ORDERED: meTOprolol SUCCINATE 100 MG (TOPROL XL) TAB PO SCH (09:00)
[2022-09-30] MEDS ORDERED: AMOX1TAB12 PO (09:43)
[2022-09-30 11:42] VITALS: BP 167/95
--- NOTE | 2022-09-30 13:23 | Discharge Summary ---
Discharge Summary Hospital Course Was the Problem List Reviewed?: Yes Problems/Dx: (1) Acute on chronic respiratory failure Status: Resolved Qualifiers: Qualified Codes: J96.21 - Acute and chronic respiratory failure with hypoxia; J96.22 - Acute and chronic respiratory failure with hypercapnia (2) Multifocal pneumonia Status: Acute (3) CO2 narcosis Status: Resolved (4) COPD (chronic obstructive pulmonary disease) Status: Chronic (5) Acute kidney injury Status: Resolved (6) JEANNE (obstructive sleep apnea) Status: Chronic (7) Chronic pain Status: Chronic (8) Cervical radiculopathy Status: Chronic (9) Obesity Status: Chronic Hospital Course Date of Admission: Sep 27, 2022 at 19:42 Admission Diagnosis : Acute on chronic respiratory failure with hypoxia and hypercapnia due to multifocal pneumonia Family Physician/Provider: Eliot Angeles MD Date of Discharge: 09/30/22 Discharge Diagnosis: Acute on chronic respiratory failure with hypoxia and hypercapnia due to multifocal pneumonia Hospital Course: Adán Fofana is a 57 year old male with PMH HTN, COPD, JEANNE not using his CPAP, chronic pain, cervical radiculopathy, obesity, who was admitted with acute on chronic respiratory failure with hypoxia and hypercapnia due to multifocal pneumonia. He initially required ICU admission and BiPAP. His respiratory failure improved. He was given IV Cefepime for pneumonia. He was transitioned to oral Augmentin. He had an acute kidney injury that resolved with IV fluids. He has not been using his CPAP for at least one year because he does not like the mask. He was encouraged to follow up with his domestic travel consultant to get set up with a new CPAP that will work for him. He should follow up with his PCP, Dr. Angeles, in about a week. He was discharged home in stable condition. Labs and Pending Lab Test: Laboratory Tests 09/30/22 04:17: White Blood Count 6.2, Red Blood Count 3.68L, Hemoglobin 10.2L, Hematocrit 33L, Mean Corpuscular Volume 90, Mean Corpuscular Hemoglobin 28, Mean Corpuscular Hemoglobin Concent 31L, Red Cell Distribution Width 13.0, Platelet Count 184, Mean Platelet Volume 11.3, Immature Granulocyte % (Auto) 1, Neutrophils (%) (Auto) 61, Lymphocytes (%) (Auto) 30, Monocytes (%) (Auto) 8, Eosinophils (%) (Auto) 1, Basophils (%) (Auto) 0, Neutrophils # (Auto) 3.8, Lymphocytes # (Auto) 1.9, Monocytes # (Auto) 0.5, Eosinophils # (Auto) 0.1, Basophils # (Auto) 0.0, Immature Granulocyte # (Auto) 0.0, Sodium Level 140, Potassium Level 4.0, Chloride Level 108H, Carbon Dioxide Level 22, Anion Gap 10, Blood Urea Nitrogen 21H, Creatinine 0.79, Estimat Glomerular Filtration Rate 103, BUN/Creatinine Ratio 27, Glucose Level 109H, Calcium Level 8.7, Corrected Calcium 9.6, Total Bilirubin 0.3, Aspartate Amino Transf (AST/SGOT) 5, Alanine Aminotransferase (ALT/SGPT) 7, Alkaline Phosphatase 58, Total Protein 5.5L, Albumin 2.9L Microbiology 09/27/22 MRSA Screen - Final, Complete MRSA not isolated 09/27/22 Urine Culture - Final, Complete NO GROWTH 09/27/22 Blood Culture - Preliminary, Resulted No growth Home Meds Active Amox Tr-K Clv 875-125 mg Tab (Amoxicillin/Potassium Clav) 875 Mg-125 Mg Tablet 1 Each PO BID 5 Days Reported Systane 0.3-0.4% Eye Drops (Propylene Glycol/Peg 400) 0.3 %-0.4 % Drops 1-2 Drops OD UD PRN Spiriva Respimat 1.25MCG/ACTUATION (Tiotropium [place]) 1.25 Mcg/Actuation Mist.inhal 2 Puff INH DAILY LAST FILLED 07-08-2022 #08/17 DAY SUPPLY Metoprolol Succinate 100 Mg Tab.er.24h 100 Mg PO DAILY LAST FILLED 07-08-2022 #3030 DAY SUPPLY Losartan-Hctz 100-12.5 mg Tab (Losartan/Hydrochlorothiazide) 100 Mg-12.5 Mg Tablet 1 Ea PO DAILY Fentanyl Patch 50 MCG (Fentanyl) 50 Mcg/Hour Patch.td72 50 Mcg TD Q72H Celecoxib 200 Mg Capsule 200 Mg PO BID Oxycodone HCl 30 Mg Tablet 30 Mg PO Q6H Cyclobenzaprine HCl 10 Mg Tablet 10 Mg PO TID PRN Rizatriptan (Rizatriptan Benzoate) 10 Mg Tablet 10 Mg PO DAILY PRN Pantoprazole Sodium 40 Mg Tablet.dr 40 Mg PO DAILY PRN Combivent Respimat Inhal [place] (Albuterol/Ipratropium) 20 Mcg-100 Mcg/Actuation Aero 1 Puff IH BID LAST FILLED 04-15-2022 #1 Gabapentin 600 Mg Tablet 600 Mg PO TID Assessment/Pt Instructions See instructions Discharge Planning: <30 minutes discharge planning Discharge Instructions Discharge Diet: Low Sodium Diet Activity as Tolerated: Yes Discharge Physical Examination Vital Signs Vital Signs Date Time Temp Pulse Resp B/P (MAP) Pulse Ox O2 Delivery O2 Flow Rate FiO2 09/30/22 11:55 09/30/22 11:42 36.4 75 18 93 High Flow N/C 1.00 09/28/22 08:00 35 General Appearance: No Apparent Distress, Obese Respiratory: Lungs Clear, No Respiratory Distress Cardiovascular: Regular Rate, Rhythm, No Murmur Gastrointestinal: Normal Bowel Sounds, Soft Extremity: Normal Inspection, No Pedal Edema Skin: Normal Color, Warm/Dry Neurologic/Psychiatric: Alert, Normal Mood/Affect Allergies: Coded Allergies: amitriptyline (Verified Allergy, Unknown, 02/08/16) duloxetine (Verified Allergy, Unknown, 02/08/16) fluticasone (Verified Allergy, Unknown, 02/08/16) salmeterol (Verified Allergy, Unknown, 02/08/16) Copy Copies To 1: ELIOT ANGELES MD Discharge Summary Date of Admission Sep 27, 2022 at 19:42 Date of Discharge Discharge Date: Sep 30, 2022 Discharge Time: 12:00 Admission Diagnosis Acute on chronic respiratory failure with hypoxia and hypercapnia Discharge Diagnosis Acute on chronic respiratory failure with hypoxia and hypercapnia Multifocal pneumonia COPD LIONEL HTN Chronic pain JEANNE Obesity (1) Acute on chronic respiratory failure Status: Resolved Qualifiers: Qualified Codes: J96.21 - Acute and chronic respiratory failure with hypoxia; J96.22 - Acute and chronic respiratory failure with hypercapnia (2) Multifocal pneumonia Status: Acute (3) CO2 narcosis Status: Resolved (4) COPD (chronic obstructive pulmonary disease) Status: Chronic (5) Acute kidney injury Status: Resolved (6) JEANNE (obstructive sleep apnea) Status: Chronic (7) Chronic pain Status: Chronic (8) Cervical radiculopathy Status: Chronic (9) Obesity Status: Chronic SHAHID ORR MD Sep 30, 2022 13:21
[2022-10-02] MEDS ORDERED: FENTANYL PATCH REMOVAL TP SCH (09:29)
== END 2022-09-30 12:20 | disposition home or self-care (01) | DRG 193 ==
LOC: EDUNIT# 16:25 → ER 16:27 → ICU 19:42 → 4TH 09-29 11:07
PROVIDERS: ADMIT Family Medicine; ATTEND Internal Medicine
PROC: 5A09357 Assistance with Respiratory Ventilation, Less than 24 Consecutive Hours, Continuous Positive Airway Pressure (ICD-10-PCS; principal; 2022-09-27)
DX: J18.9 Pneumonia, unspecified organism (principal); J96.21 Acute and chronic respiratory failure with hypoxia; J96.22 Acute and chronic respiratory failure with hypercapnia; G82.20 Paraplegia, unspecified; G95.20 Unspecified cord compression; R04.2 Hemoptysis; N17.9 Acute kidney failure, unspecified; I10 Essential (primary) hypertension; G89.4 Chronic pain syndrome; G47.33 Obstructive sleep apnea (adult) (pediatric); J43.9 Emphysema, unspecified; I95.9 Hypotension, unspecified; E66.9 Obesity, unspecified; M54.12 Radiculopathy, cervical region; Z68.37 Body mass index [BMI] 37.0-37.9, adult; Z99.81 Dependence on supplemental oxygen; Z87.891 Personal history of nicotine dependence; Z79.891 Long term (current) use of opiate analgesic; Z79.899 Other long term (current) drug therapy; Z98.1 Arthrodesis status; Z91.199 Patient's noncompliance with other medical treatment and regimen due to unspecified reason; Z79.51 Long term (current) use of inhaled steroids
CPT/HCPCS: 36415; 51702; 71045; 71275; 80048; 80053; 80076; 80306; 80320; 80329; 81000; 82140; 82550; 82553; 82805; 83605; 83735; 83874; 83880; 84100; 84443; 84484; 85007; 85025; 85027; 85610; 85652; 85730; 86141; 87040; 87081; 87088; 87636; 93005; 93041; 94640; 94660; 99291

== ENCOUNTER 2022-11-11 03:57 | Observation (INO) | payer MEDICARE, MEDICAID ==
[~2022-11-11] VITALS: Ht 165 cm; Wt 100.0 kg
[~2022-11-11 03:57] MED LIST changes: +AMOX1TAB12 PO; +CELE-63 PO; +FENT1PAT9 TD; +LOSA1TAB26 PO; +MTP100TCR PO; +PROP15DR OD; +TIOT4MIS5 INH
--- NOTE | 2022-11-11 04:10 | ED Respiratory ---
General Stated Complaint: COUGH/SOA Source: patient, old records History of Present Illness Date Seen by Provider: Nov 11, 2022 Time Seen by Provider: 04:07 Initial Comments PT ARRIVES VIA POV FROM HOME PT HAS COPD, AND IS ON O2 AT 2L/NC CONTINUOUSLY HE HAS HAD A PRODUCTIVE COUGH WITH COLORED SPUTUM FOR THE LAST COUPLE OF DAYS HE HAS HAD INCREASED SHORTNESS OF BREATH SINCE YESTERDAY NO KNOWN FEVER NO SWELLING IN LEGS NO CHEST PAIN OR PAIN WITH BREATHING PT USED COMBIVENT INHALER WITH SPACER AND SYMBICORT INHALER A FEW HOURS AGO PT HOSPITALIZED 09/27-09/30/22 FOR PNEUMONIA HE HAS BEEN ON VENTILATOR IN THE PAST, WELL ON BIPAP MULTIPLE TIMES FOR ACUTE ON CHRONIC RESPIRATORY FAILURE. HE HAD SURGERY AT ON 11/05/22 AND WAS DISMISSED Wednesday11/09/22--HE HAD CHIARI MALFORMATION SURGERY WITH CRANIECTOMY WITH CERVICAL LAMINECTOMY DECOMPRESSION SURGERY NO PROBLEMS WITH THE WOUND. PT HAS HAD COVID VACCINE X 2, NO FLU VACCINE NO KNOWN SICK CONTACTS. PCP: DR IWNN IN [place] Allergies and Home Medications Allergies Coded Allergies: amitriptyline (Verified Allergy, Unknown, 02/08/16) duloxetine (Verified Allergy, Unknown, 02/08/16) fluticasone (Verified Allergy, Unknown, 02/08/16) salmeterol (Verified Allergy, Unknown, 02/08/16) Patient Home Medication List Home Medication List Reviewed: Yes Albuterol/Ipratropium (Combivent Respimat Inhal [place]) 20 Mcg-100 Mcg/Actuation Aero, 2 PUFF IH BID, (Reported) Entered as Reported by: JEREMI THAO on 07/03/20 1115 Last Action: Reviewed Celecoxib (Celecoxib) 200 Mg Capsule, 200 MG PO BID, (Reported) Entered as Reported by: MADDIE TATE on 09/28/22 1444 Last Action: Reviewed Cyclobenzaprine HCl (Cyclobenzaprine HCl) 10 Mg Tablet, 10 MG PO TID PRN for MUSCLE SPASMS, (Reported) Entered as Reported by: JEREMI THAO on 07/03/20 1121 Last Action: Reviewed Fentanyl (Fentanyl Patch 50 MCG) 50 Mcg/Hour Patch.td72, 50 MCG TD Q72H, (Reported) Entered as Reported by: MADDIE TATE on 09/28/22 144 Last Action: Reviewed Gabapentin (Gabapentin) 600 Mg Tablet, 600 MG PO TID, (Reported) Entered as Reported by: JEREMI THAO on 07/03/20 1053 Last Action: Reviewed Losartan/Hydrochlorothiazide (Losartan-Hctz 100-12.5 mg Tab) 100 Mg-12.5 Mg Tablet, 1 EA PO DAILY, (Reported) Entered as Reported by: MADDIE TATE on 09/28/22 1444 Last Action: Reviewed Metoprolol Succinate (Metoprolol Succinate) 100 Mg Tab.er.24h, 100 MG PO DAILY, (Reported) Entered as Reported by: MADDIE TATE on 09/28/22 144 Last Action: Reviewed Ondansetron HCl (Ondansetron HCl) 4 Mg Tablet, 4 MG PO Q6H PRN for NICHOLE SEA/VOMITING-1ST LINE, (Reported) Entered as Reported by: MADDIE TATE on 11/11/22 1238 Last Action: Reviewed Oxycodone HCl (Oxycodone HCl) 30 Mg Tablet, 30 MG PO Q6H, (Reported) Entered as Reported by: JEREMI THAO on 07/03/20 1121 Last Action: Reviewed Pantoprazole Sodium (Pantoprazole Sodium) 40 Mg Tablet.dr, 40 MG PO DAILY, (Reported) Entered as Reported by: JEREMI THAO on 07/03/20 1115 Last Action: Reviewed Propylene Glycol/Peg 400 (Systane 0.3-0.4% Eye Drops) 0.3 %-0.4 % Drops, 1-2 DROPS OD UD PRN for DRY EYES, (Reported) Entered as Reported by: MADDIE TAET on 09/28/22 144 Last Action: Reviewed Rizatriptan Benzoate (Rizatriptan) 10 Mg Tablet, 10 MG PO DAILY PRN for MIGRAINE, (Reported) Entered as Reported by: JEREMI THAO on 07/03/20 1121 Last Action: Reviewed Tamsulosin HCl (Flomax) 0.4 Mg Cap, 0.4 MG PO HS, (Reported) Entered as Reported by: MADDIE TATE on 11/11/22 1238 Last Action: Reviewed Tiotropium [place] (Spiriva Respimat 1.25MCG/ACTUATION) 1.25 Mcg/Actuation Mist.inhal, 2 PUFF INH DAILY, (Reported) Entered as Reported by: MADDIE TATE on 09/28/22 1444 Last Action: Reviewed Discontinued Medications Amoxicillin/Potassium Clav (Amox Tr-K Clv 875-125 mg Tab) 875 Mg-125 Mg Tablet, 1 EACH PO BID Discontinued Reason: No Longer Taking Prescribed by: SHAHID ORR on 09/30/22 0970 Last Action: Discontinued Review of Systems Review of Systems Constitutional: no symptoms reported; No chills, No diaphoresis, No fever EENTM: no symptoms reported Respiratory: see HPI, cough, phlegm, short of breath Cardiovascular: no symptoms reported; No chest pain, No edema, No palpitations, No syncope Gastrointestinal: no symptoms reported Genitourinary: no symptoms reported Musculoskeletal: see HPI Skin: no symptoms reported Psychiatric/Neurological: No Symptoms Reported Hematologic/Lymphatic: No Symptoms Reported Immunological/Allergic: no symptoms reported Past Rchyrsu-Tgfzdx-Hvakxl Hx Patient Social History Tobacco Use?: Yes Tobacco type used: Cigarettes Smoking Status: Former Smoker Use of E-Cig and/or Vaping dev: No Substance use?: No Alcohol Use?: No Immunizations Up To Date Tetanus Booster (TDap): Unknown PED Vaccines UTD: No First/Initial COVID19 Vaccinat: SEPTEMBER 2020 Second COVID19 Vaccination Rhett: SEPTEMBER 2020 Third COVID19 Vaccination Date: SEPTEMBER 2020 Seasonal Allergies Seasonal Allergies: No Past Medical History Surgery/Hospitalization HX: MULTIPLE ORTHOPEDIC SURGERIES/CHIARI MALFORMATION/ABDOMINAL HERNIA Surgeries: Yes Abdominal, Neurological, Orthopedic Respiratory: Yes (RESPIRATORY FAILURE ON VENT AND BIPAP MULTIPLE TIMES) Pneumonia, Chronic Bronchitis, Sleep Apnea, COPD, Emphysema Currently Using CPAP: No Currently Using BIPAP: No Cardiac: Yes Hypertension Neurological: Yes (MENINGITIS POSTOP 2004 FOR CYST ON BRAINSTEM & CHIARI MALFORMATION. SHUNT) Meningitis Reproductive Disorders: No Genitourinary: No Gastrointestinal: Yes (HERNIA REPAIR) Abdominal Hernia Musculoskeletal: Yes (CHRONIC HEAD/NECK & KNEE PAIN; CHIARI MALFORMATION;MULTIPLE ORTHO SURGERIES) Arthritis Endocrine: No (OBESITY) HEENT: No Cancer: No Psychosocial: Yes Anxiety Integumentary: No Blood Disorders: No Family Medical History FH: cancer 19 MOTHER Mother- lung cancer Father- HTN and CVA SOCIAL HISTORY: -SMOKED 1 1/2 PPD---QUIT 5 YEARS AGO -ETOH--HISTORY OF ABUSE, QUIT A FEW YEARS AGO -DENIES DRUG USE PAST SURGICAL HISTORY: -HERNIA REPAIR -MULTIPLE ORTHOPEDIC SURGERIES--RIGHT SHOULDER, BOTH KNEES, HAND SURGERY -2 BRAIN SURGERIES IN 2004--CHIARI MALFORMATION AND CYST AROUND BRAINSTEM REMOVED; PT HAD POST OP MENINGITIS -C-SPINE SURGERY X 2 IN 2014 AT [facility] -REPEAT SURGERY FOR CHIARI MALFORMATION 09/13/2017 AT [facility] PT HAD SURGERY FOR CHIARI MALFORMATION AT [facility] ON 09/13/17 AND WAS DISMISSED TO HOME ON Wednesday09/20/17 PT HAD BEEN ON VENT POST OP, THEN WAS TAKEN OFF THE VENT, THEN PT BEGAN TO HAVE DECREASED RESPONSIVENESS AND DIFFICULTY BREATHING AND HAD TO BE PUT BACK ON THE VENT AN ADDITIONAL 3 DAYS -SURGERY 11/05/22 AT FOR CHIARI MALFORMATION WITH CRANIECTOMY AND CERVICAL LAMINECTOMY AND DECOMPRESSION. Physical Exam Vital Signs - First Documented 11/11/22 11/11/22 04:00 04:10 Temp 36.4 Pulse 95 Resp 33 B/P (MAP) 164/110 (128) Pulse Ox 96 O2 Delivery OxyMask O2 Flow Rate 4.00 Capillary Refill : Height: 5'5.00" Weight: 180lbs. 0.0oz. 81.675076pi; 36.13 BMI Method:Stated General Appearance: WD/WN, no apparent distress, obese Neck: other (POSTERIOR NECK WITH SURGICAL WOUND WITH NO SIGNS OF INFECTION; ANTERIOR NECK WNL. ) Respiratory: no respiratory distress, no accessory muscle use, other (BILATERAL RALES AND COARSE WHEEZING BILATERALLY) Cardiovascular: regular rate, rhythm, no edema, no JVD, no murmur Gastrointestinal: non tender, soft Extremities: normal inspection, no pedal edema, normal capillary refill Neurologic/Psychiatric: poke in II-XII nml as tested, no motor/sensory deficits, alert, normal mood/affect, oriented x 3 Skin: normal color (PT IS BLACK), warm/dry, other (SURGICAL WOUND TO POSTERIOR SCALP AND POSTERIOR NECK IS INTACT, WITHOUT SIGNS OF INFECTION. ) Focused Exam Sepsis Stage: Ruled Out Reason for ruling out sepsis: DOES NOT MEET CRITERIA Possible Source: Pulmonary Lactate Level 11/11/22 04:20: Lactic Acid Level 0.79 Time of Focused Exam: 05:25 Respiratory: No Accessory Muscle Use, No Respiratory Distress, Other ( RALES AND COARSE WHEEZING BILATERALLY) Cardiovascular: Regular Rate, Rhythm, No Edema, No JVD, No Murmur Capillary Refill: Less Than 3 Seconds Skin: normal color, warm/dry Lactic Acid Level Laboratory Tests Test 11/11/22 04:20 Lactic Acid Level 0.79 MMOL/L (0.50-2.00) Within 3hrs of presentation: Admin fluids, Admin ABX, Blood cultures prior to ABX's, Focus exam, Lactate level Progress/Results/Core Measures Suspected Sepsis SIRS Temperature: Pulse: Respiratory Rate: Laboratory Tests 11/11/22 04:20: White Blood Count 4.3 Blood Pressure / Mean: 11/11/22 04:20: Lactic Acid Level 0.79 Laboratory Tests 11/11/22 04:20: Creatinine 0.75, INR Comment 1.0, Platelet Count 235, Total Bilirubin 0.8 Results/Orders Lab Results Laboratory Tests Test 11/11/22 04:20 11/11/22 04:25 11/11/22 05:32 Range/Units White Blood Count 4.3 4.3-11.0 10^3/uL Red Blood Count 3.94 L 4.30-5.52 10^6/uL Hemoglobin 11.1 L 13.3-17.7 g/dL Hematocrit 36 L 40-54 % Mean Corpuscular Volume 90 80-99 fL Mean Corpuscular Hemoglobin 28 25-34 pg Mean Corpuscular Hemoglobin Concent 31 L 32-36 g/dL Red Cell Distribution Width 12.3 10.0-14.5 % Platelet Count 235 130-400 10^3/uL Mean Platelet Volume 10.2 9.0-12.2 fL Immature Granulocyte % (Auto) 1 % Neutrophils (%) (Auto) 39 L 42-75 % Lymphocytes (%) (Auto) 43 12-44 % Monocytes (%) (Auto) 14 H 0-12 % Eosinophils (%) (Auto) 4 0-10 % Basophils (%) (Auto) 0 0-10 % Neutrophils # (Auto) 1.7 L 1.8-7.8 10^3/uL Lymphocytes # (Auto) 1.8 1.0-4.0 10^3/uL Monocytes # (Auto) 0.6 0.0-1.0 10^3/uL Eosinophils # (Auto) 0.2 0.0-0.3 10^3/uL Basophils # (Auto) 0.0 0.0-0.1 10^3/uL Immature Granulocyte # (Auto) 0.0 0.0-0.1 10^3/uL Prothrombin Time 13.4 12.2-14.7 SEC INR Comment 1.0 0.8-1.4 Activated Partial Thromboplast Time 35 24-35 SEC Urine Color YELLOW Urine Clarity CLEAR Urine pH 7.0 5-9 Urine Specific [place] 1.015 L 1.016-1.022 Urine Protein NEGATIVE NEGATIVE Urine Glucose (UA) NEGATIVE NEGATIVE Urine Ketones 1+ H NEGATIVE Urine Nitrite NEGATIVE NEGATIVE Urine Bilirubin NEGATIVE NEGATIVE Urine Urobilinogen 1.0 < = 1.0 MG/DL Urine Leukocyte Esterase NEGATIVE NEGATIVE Urine RBC (Auto) NEGATIVE NEGATIVE Urine RBC NONE /HPF Urine WBC NONE /HPF Urine Crystals PRESENT H /LPF Urine Amorphous Sediment FEW ALVAREZ URATES H /LPF Urine Bacteria NEGATIVE /HPF Urine Casts NONE /LPF Urine Mucus NEGATIVE /LPF Urine Culture Indicated NO Sodium Level 138 135-145 MMOL/L Potassium Level 4.5 3.6-5.0 MMOL/L Chloride Level 97 L 98-107 MMOL/L Carbon Dioxide Level 28 21-32 MMOL/L Anion Gap 13 5-14 MMOL/L Blood Urea Nitrogen 15 7-18 MG/DL Creatinine 0.75 0.60-1.30 MG/DL Estimat Glomerular Filtration Rate 105 BUN/Creatinine Ratio 20 Glucose Level 94 70-105 MG/DL Lactic Acid Level 0.79 0.50-2.00 MMOL/L Calcium Level 10.4 H 8.5-10.1 MG/DL Corrected Calcium 10.5 H 8.5-10.1 MG/DL Magnesium Level 2.2 1.6-2.4 MG/DL Total Bilirubin 0.8 0.1-1.0 MG/DL Aspartate Amino Transf (AST/SGOT) 13 5-34 U/L Alanine Aminotransferase (ALT/SGPT) 8 0-55 U/L Alkaline Phosphatase 68 40-136 U/L Troponin I < 0.028 <0.028 NG/ML B-Type Natriuretic Peptide < 10.0 <100.0 PG/ML Total Protein 8.1 6.4-8.2 GM/DL Albumin 3.9 3.2-4.5 GM/DL Influenza Type A (RT-PCR) Not Detected Not Detecte Influenza Type B (RT-PCR) Not Detected Not Detecte SARS-CoV-2 RNA (RT-PCR) Not Detected Not Detecte Procalcitonin 0.55 H <0.10 NG/ML Blood Gas Puncture Site LR Blood Gas Patient Temperature 36.4 Arterial Blood pH 7.37 7.37-7.43 Arterial Blood Partial Pressure CO2 58 H 35-45 MMHG Arterial Blood Partial Pressure O2 95 H 79-93 MMHG Arterial Blood HCO3 33 H 23-27 MMOL/L Arterial Blood Total CO2 34.6 H 21.0-31.0 MMOL/L Arterial Blood Oxygen Saturation 99 94-100 % Arterial Blood Base Excess 7.4 H -2.5-2.5 MMOL/L Damion Test YES-POS Blood Gas Ventilator Setting NO Blood Gas Inspired Oxygen 4L My Orders Orders - MALACHI ROSSI DO Monitor-Rhythm Ecg Trace Only (11/11/22 04:07) Covid 19 Inhouse Test (11/11/22 04:07) Chest 1 View, Ap/Pa Only (11/11/22 04:07) Influenza A And B By Pcr (11/11/22 04:07) Isolation Central Supply Req (11/11/22 04:07) Cbc With Automated Diff (11/11/22 04:19) Comprehensive Metabolic Panel (11/11/22 04:19) Blood Culture (11/11/22 04:19) Sputum Culture (11/11/22 04:19) Urinalysis (11/11/22 04:19) Urine Culture (11/11/22 04:19) Protime With Inr (11/11/22 04:19) Partial Thromboplastin Time (11/11/22 04:19) Ed Iv/Invasive Line Start (11/11/22 04:19) Ed Iv/Invasive Line Start (11/11/22 04:19) Ekg Tracing (11/11/22 04:19) Vital Signs Adult Sepsis Patie Q15M (11/11/22 04:19) O2 (11/11/22 04:19) Remove Rings In Anticipation O (11/11/22 04:19) Lactic Acid Analyzer (11/11/22 04:19) Cefepime Injection (Maxipime Injection) (11/11/22 04:30) Albuterol/Ipra Inhalation Soln (Duoneb I (11/11/22 04:30) Dexamethasone Injection (Decadron Injec (11/11/22 04:30) Rt Request For Service (11/11/22 04:19) Methylprednisolone Sod Succ (Solu-Medrol (11/11/22 04:19) Svn Small Volume Nebulizer (11/11/22 04:19) Bnp Rabun (11/11/22 04:19) Magnesium (11/11/22 04:19) Troponin I Debi (11/11/22 04:19) Ed Iv/Invasive Line Start (11/11/22 04:19) Ns Iv 1000 Ml (Sodium Chloride 0.9%) (11/11/22 04:30) Arterial Blood Gas (11/11/22 05:26) Arterial Blood Draw - Obtain (11/11/22 05:32) Ed Admission (Communication) (11/11/22 05:50) Rt Request For Service (11/11/22 05:51) Medications Given in ED Vital Signs/I&O 11/11/22 11/11/22 11/11/22 11/11/22 04:00 04:10 04:10 04:10 Temp 36.4 Pulse 95 Resp 33 B/P (MAP) 164/110 (128) Pulse Ox 96 91 91 O2 Delivery OxyMask Nasal Cannula Nasal Cannula Nasal Cannula O2 Flow Rate 4.00 3.00 2.00 3.00 11/11/22 11/11/22 11/11/22 11/11/22 05:57 07:41 08:20 08:24 Pulse 91 88 Resp 18 18 Pulse Ox 96 91 97 O2 Flow Rate 30.00 40.00 40.00 30.00 Capillary Refill : Progress Note : Progress Note PLACED IN ISOLATION ROOM PPE WORN COVID AND FLU TESTING DONE SEPSIS PROTOCOL INITIATED BASED ON PT'S SYMPTOMS AND HISTORY GIVEN: -IV FLUIDS -SOLU-MEDROL -CEFEPIME -NEB TREATMENTS PT DID HAVE DROP IN O2 SATS DURING NEB TREATMENTS, PLACED ON OXIMASK AT 4 1/2 L AND O2 SATS UP TO 98% PT STATES HE FEELS MUCH BETTER AFTER NEB TREATMENT AND O2 LUNG SOUNDS AFTER NEB TREATMENT ARE UNCHANGED, BUT RESPIRATIONS ARE EVEN AND UNLABORED. VITALS ARE STABLE BIPAP INITIATED AFTER RECEIVING ABG RESULTS. O2 SATS UP TO UPPER 90'S. OTHER VITALS STABLE 0600--CARE TURNED OVER TO DR. HALL, PENDING TRANSFER TO THE FLOOR. ECG Initial ECG Impression Date: Nov 11, 2022 Initial ECG Impression Time: 04:41 Initial ECG Rate: 90 Initial ECG Rhythm: Normal Sinus Initial ECG Intervals: Normal Initial ECG Comparisson: Unchanged (ANTERIOR Q-WAVES) Comment INTERPRETED BY ME Diagnostic Imaging Comments CXR--BIBASILAR INFILTRATES OR ATELECTASIS, PENDING RADIOLOGIST REVIEW Reviewed: Reviewed by Me Departure Communication (Admissions) [id number]--RTIEN WITH DR. WHITE, HOSPITALIST, ACCEPTS PT FOR ADMIT. SHE WILL DO ADMIT ORDERS. WILL HAVE TO HOLD PT IN ER UNTIL AFTER 0700 WHEN BED BECOMES AVAILABLE. Impression Primary Impression: Acute on chronic respiratory failure Additional Impressions: Acute bronchitis with chronic obstructive pulmonary disease (COPD) History of recent neurosurgical procedure Disposition: ADMITTED INPATIENT Condition: Stable Admissions Decision to Admit Reason: Admit from ER (General) Decision to Admit/Date: Nov 11, 2022 Time/Decision to Admit Time: 05:45 Departure-Patient Inst. Referrals: ELIOT WINN MD (PCP/Family) Primary Care Physician MALACHI ROSSI DO Nov 11, 2022 04:10
[2022-11-11] MEDS ORDERED: methylPREDNISolone 125 MG (Solu-MEDROL) VIAL IV STA (04:19)
[2022-11-11] MEDS ORDERED: RT-ALBUTEROL/IPRATROPIUM 3 ML (DUONEB) VIAL INH ONE (04:30)
[2022-11-11] MEDS ORDERED: CEFEPIME INJECTION 1,000 MG in NS (IVPB) 50 ML IV ONE (04:30)
[2022-11-11] MEDS ORDERED: NS IV 1000 ML 1,000 ML IV SCH (04:30)
[2022-11-11 04:48] LABS: BASOPHILS % (AUTO) 0 % (0-10); EOSINOPHILS # (AUTO) 0.2 10^3/uL (0.0-0.3); EOSINOPHILS % (AUTO) 4 % (0-10); HEMATOCRIT 36 % (40-54); HEMOGLOBIN 11.1 g/dL (13.3-17.7); LYMPHOCYTES # (AUTO) 1.8 10^3/uL (1.0-4.0); LYMPHOCYTES % (AUTO) 43 % (12-44); MEAN CORPUSCULAR HEMOGLOBIN 28 pg (25-34); MEAN CORPUSCULAR HGB CONC 31 g/dL (32-36); MEAN CORPUSCULAR VOLUME 90 fL (80-99); MEAN PLATELET VOLUME 10.2 fL (9.0-12.2); MONOCYTES # (AUTO) 0.6 10^3/uL (0.0-1.0); MONOCYTES % (AUTO) 14 % (0-12); NEUTROPHILS # (AUTO) 1.7 10^3/uL (1.8-7.8); NEUTROPHILS % (AUTO) 39 % (42-75); PLATELET COUNT 235 10^3/uL (130-400); WHITE BLOOD COUNT 4.3 10^3/uL (4.3-11.0)
[2022-11-11 04:49] LABS: BILIRUBIN,URINE NEGATIVE (NEGATIVE); CLARITY,URINE CLEAR; COLOR,URINE YELLOW; GLUCOSE, URINE (UA) NEGATIVE (NEGATIVE); KETONES,URINE 1+ (NEGATIVE); LEUKOCYTE ESTERASE ,URINE NEGATIVE (NEGATIVE); NITRITE,URINE NEGATIVE (NEGATIVE); PROTEIN,URINE NEGATIVE (NEGATIVE)
[2022-11-11 04:54] LABS: ALBUMIN 3.9 GM/DL (3.2-4.5); CHLORIDE 97 MMOL/L (98-107); POTASSIUM 4.5 MMOL/L (3.6-5.0); SODIUM 138 MMOL/L (135-145)
[2022-11-11 04:55] LABS: CALCIUM 10.4 MG/DL (8.5-10.1)
[2022-11-11 04:56] LABS: GLUCOSE 94 MG/DL (70-105); TOTAL PROTEIN 8.1 GM/DL (6.4-8.2)
[2022-11-11 04:57] LABS: CARBON DIOXIDE 28 MMOL/L (21-32); PROTHROMBIN TIME PATIENT 13.4 SEC (12.2-14.7)
[2022-11-11 04:58] LABS: AMORPHOUS SEDIMENT,UR FEW AMOR URATES /LPF; BACTERIA,URINE NEGATIVE /HPF
[2022-11-11 05:00] LABS: ALKALINE PHOSPHATASE 68 U/L (40-136); CREATININE SERUM 0.75 MG/DL (0.60-1.30); GFR ESTIMATED 105
[2022-11-11 05:01] LABS: BUN/CREATININE RATIO 20
[2022-11-11 05:02] LABS: MAGNESIUM 2.2 MG/DL (1.6-2.4)
[2022-11-11 05:03] LABS: ALANINE AMINOTRANSFERASE 8 U/L (0-55)
[2022-11-11 05:42] LABS: BILIRUBIN,TOTAL 0.8 MG/DL (0.1-1.0)
[2022-11-11 05:42] LABS: ABG BASE EXCESS 7.4 MMOL/L (-2.5-2.5); ABG OXYGEN SATURATION 99 % (94-100); ABG PCO2 58 MMHG (35-45); ABG PH 7.37 (7.37-7.43); ABG PO2 95 MMHG (79-93); ABG TCO2 34.6 MMOL/L (21.0-31.0)
[2022-11-11 05:43] LABS: ALLENS TEST YES-POS; INSPIRED O2 4L; PATIENT TEMP 36.4; VENTILATOR NO
[2022-11-11 05:57] VITALS: BP 149/88
--- NOTE | 2022-11-11 06:53 | Diagnostic Imaging Report ---
EXAM: CHEST 1 VIEW, AP/PA ONLY INDICATION: Cough. Shortness of breath. COMPARISON: 09/29/2022. FINDINGS: Low lung volumes with perihilar and bibasilar atelectasis or infiltrate. Small bilateral pleural effusions. No pneumothorax. Cardiomegaly. No acute osseous findings. IMPRESSION: Low lung volumes with perihilar and bibasilar atelectasis or infiltrate. Cardiomegaly. Small bilateral pleural effusions. Dictated by: Dictated on workstation # [id number]
[2022-11-11 08:20] VITALS: BP 158/95
[2022-11-11] MEDS ORDERED: diphenhydrAMINE 25 MG TAB (BENADRYL) PO PRN (09:30)
[2022-11-11] MEDS ORDERED: BISACODYL 10 MG SUPP (DULCOLAX) PR PRN (09:30)
[2022-11-11] MEDS ORDERED: ACETAMINOPHEN 325 MG TABLET PO PRN (09:30)
[2022-11-11] MEDS ORDERED: MELATONIN 3 MG TABLET PO PRN (09:30)
[2022-11-11] MEDS ORDERED: cloNIDine 0.1 MG (CATAPRES) TAB PO PRN (09:30)
[2022-11-11] MEDS ORDERED: ONDANSETRON 4 MG (ZOFRAN) ORAL DISSOLVE TAB PO PRN (09:30)
[2022-11-11] MEDS ORDERED: diphenhydrAMINE 50 MG/ML INJ (BENADRYL) IVP PRN (09:30)
[2022-11-11] MEDS ORDERED: LACTULOSE SYRUP 10GM/15ML (ENULOSE) 30ML UDC PO PRN (09:30)
[2022-11-11] MEDS ORDERED: HYDROmorphone 2 MG/ML VIAL (DILAUDID) IV PRN (09:30)
[2022-11-11] MEDS ORDERED: MILK OF MAGNESIA 400 MG/5 ML 30 ML UDC PO PRN (09:30)
[2022-11-11] MEDS ORDERED: PHARMACY TO DOSE IV SCH (09:30)
[2022-11-11] MEDS ORDERED: LORazepam 0.5 MG (ATIVAN) TABLET PO PRN (09:30)
[2022-11-11] MEDS ORDERED: LORazepam INJ 2 MG/ML (ATIVAN) VIAL IVP PRN (09:30)
[2022-11-11] MEDS ORDERED: ANTACID SUSP 30 ML UDC (MYLANTA) PO PRN (09:30)
[2022-11-11] MEDS ORDERED: ONDANSETRON 4 MG/2 ML (SDV) Z0FRAN IV PRN (09:30)
[2022-11-11] MEDS ORDERED: polyethylene glycoL POWDER 17 GM (MIRALAX) PACK PO PRN (09:30)
[2022-11-11] MEDS ORDERED: CALCIUM CARBONATE 500 MG (TUMS) TAB.CHEW PO PRN (09:30)
[2022-11-11 09:38] VITALS: BP 150/90
[2022-11-11] MEDS ORDERED: VANCOMYCIN 2000 MG/NS 500 ML IVPB IV NR ×2 (10:00)
[2022-11-11] MEDS ORDERED: RT-ALBUTEROL/IPRATROPIUM 3 ML (DUONEB) VIAL INH PRN (10:00)
[2022-11-11] MEDS ORDERED: RT-ALBUTEROL/IPRATROPIUM 3 ML (DUONEB) VIAL INH SCH (10:00)
[2022-11-11] MEDS: NS IV 1000 ML 1,000 ML IV SCH (10:17)
--- NOTE | 2022-11-11 10:21 | Tele-ICU Consult ---
History of Present Illness History of Present Illness Date Seen by Provider: Nov 11, 2022 Time Seen by Provider: 10:20 Date of Admission History of Present Illness (Tele-ICU Physician , consultation as per request of PCP Service provided via interactive audio and video telecommunications E-CARE system to a patient admitted to ICU bed in [facility]. Available chart/ vitals / labs / Images reviewed H&P is from ER notes Patient's information available about PMH, Shx, Fhx allergy reviewed inEMR. ROS as per chart and RN report Now in ICU, hemodynamically stable Video assessment done using teleICU camera, rest of exam as per RN Discussed with RN. Hospital course: 57 y/o male discharged 11/09 after lami and crani for chiari malformation, admitted with ARF and possible PNA + AECOPD A/P Dyspnea , Acute hypercapneic resp failure - suspect due to meds effect ( doubt significant chronic component due to resp muscle weakness, but undelying JEANNE can contribute to developing overlap syndrome ) in addition to possible PNA and AECOPD - NIPPV 15/ 21% rr16 tv 590 MV 9 L - ABG reviewed - patien tis AAO - will try off bipap, might need at night Possible RLL PNA > L , seen on CT chest 09/28 and on present cxr looks more as atelectasis and effusion - covid/ flu NEG - on cefepime and vanco - but at risk for HAP - monitor AECOPD ? - conr nebs , cont IV steroids S/P cervical lami / nick 11/05/22-in [facility] - d/c 11/09/22 ( with h/o muliple sx for Chiari malformation ) - pain control? was on steroids ? Chronic pain syndrome - meds adjustment as perPCP Lines : periph , (Central Line Necessity Reviewed) Ha: OG: Nutrition: Analgesia: Anxiety/ delirium VTE Prophylaxis: scd Stress Ulcer Prophylaxis: Glycemic Control: Plans in collaboration with bedside consultants and IM MDs. Discussed with RN to reach out if any questions or concerns A total of 35 minutes of critical care time was devoted to this patient today, required to treat and/or prevent further deterioration of critical care condition ( as above ) . I am remotely monitoring this patient from another state. I am unable to do the bedside exam, and history/physical and pertinent information is taken from other notes in the computer and bedside staff. . Allergies and Home Medications Allergies Coded Allergies: amitriptyline (Verified Allergy, Unknown, 02/08/16) duloxetine (Verified Allergy, Unknown, 02/08/16) fluticasone (Verified Allergy, Unknown, 02/08/16) salmeterol (Verified Allergy, Unknown, 02/08/16) Home Medications Albuterol/Ipratropium 20 Mcg-100 Mcg/Actuation Aero, 1 PUFF IH BID, (Reported) LAST FILLED 04-15-2022 #1 Amoxicillin/Potassium Clav 875 Mg-125 Mg Tablet, 1 EACH PO BID Prescribed by: SHAHID ORR on 09/30/22 0943 Celecoxib 200 Mg Capsule, 200 MG PO BID, (Reported) Cyclobenzaprine HCl 10 Mg Tablet, 10 MG PO TID PRN for MUSCLE SPASMS, (Reported) Fentanyl 50 Mcg/Hour Patch.td72, 50 MCG TD Q72H, (Reported) Gabapentin 600 Mg Tablet, 600 MG PO TID, (Reported) Losartan/Hydrochlorothiazide 100 Mg-12.5 Mg Tablet, 1 EA PO DAILY, (Reported) Metoprolol Succinate 100 Mg Tab.er.24h, 100 MG PO DAILY, (Reported) LAST FILLED 07-08-2022 #30/30 DAY SUPPLY Oxycodone HCl 30 Mg Tablet, 30 MG PO Q6H, (Reported) Pantoprazole Sodium 40 Mg Tablet.dr, 40 MG PO DAILY PRN for HEARTBURN, (Reported) Propylene Glycol/Peg 400 0.3 %-0.4 % Drops, 1-2 DROPS OD UD PRN for DRY EYES, (Reported) Rizatriptan Benzoate 10 Mg Tablet, 10 MG PO DAILY PRN for MIGRAINE, (Reported) Tiotropium [place] 1.25 Mcg/Actuation Mist.inhal, 2 PUFF INH DAILY, (Reported) LAST FILLED 07-08-2022 #1/ DAY SUPPLY Past Medical/Social/Family Hx Patient Social History Tobacco Use?: Yes Tobacco type used: Cigarettes Smoking Status: Former Smoker Use of E-Cig and/or Vaping dev: No Substance use?: No Alcohol Use?: No Immunizations Up To Date First/Initial COVID19 Vaccinat: SEPTEMBER 2020 Second COVID19 Vaccination Rhett: SEPTEMBER 2020 Tetanus Booster (TDap): Unknown Hepatitis A: No Hepatitis B: No TB Skin Test: None Date of Pneumonia Vaccine: Jun 18, 2015 Current Status Communicates: Verbally Primary Language: Kyrgyz Preferred Spoken Language: Kyrgyz Family Medical History Family Hx: Mother- lung cancer Father- HTN and CVA SOCIAL HISTORY: -SMOKED 1 1/2 PPD---QUIT 5 YEARS AGO -ETOH--HISTORY OF ABUSE, QUIT A FEW YEARS AGO -DENIES DRUG USE PAST SURGICAL HISTORY: -HERNIA REPAIR -MULTIPLE ORTHOPEDIC SURGERIES--RIGHT SHOULDER, BOTH KNEES, HAND SURGERY -2 BRAIN SURGERIES IN 2004--CHIARI MALFORMATION AND CYST AROUND BRAINSTEM REMOVED; PT HAD POST OP MENINGITIS -C-SPINE SURGERY X 2 IN 2014 AT [facility] -REPEAT SURGERY FOR CHIARI MALFORMATION 09/13/2017 AT [facility] PT HAD SURGERY FOR CHIARI MALFORMATION AT [facility] ON 09/13/17 AND WAS DISMISSED TO HOME ON Wednesday09/20/17 PT HAD BEEN ON VENT POST OP, THEN WAS TAKEN OFF THE VENT, THEN PT BEGAN TO HAVE DECREASED RESPONSIVENESS AND DIFFICULTY BREATHING AND HAD TO BE PUT BACK ON THE VENT AN ADDITIONAL 3 DAYS -SURGERY 11/05/22 AT FOR CHIARI MALFORMATION WITH CRANIECTOMY AND CERVICAL LAMINECTOMY AND DECOMPRESSION. Review of Systems Constitutional: see HPI Focused Exam Lactate Level 11/11/22 04:20: Lactic Acid Level 0.79 Height, Weight, BMI Height: 5'5.00" Weight: 180lbs. 0.0oz. 81.505427za; 41.00 BMI Method:Stated Time of Focused Exam: 05:25 Exam Exam Patient acknowledged, consented, and participated in this virtual visit which was conducted using real time audio/video Vital Signs Date Time Temp Pulse Resp B/P (MAP) Pulse Ox O2 Delivery O2 Flow Rate FiO2 11/11/22 10:15 88 13 144/95 (111) 95 NIV Bilevel 21.00 11/11/22 10:00 89 17 155/95 (115) 94 NIV Bilevel 21.00 11/11/22 09:45 95 15 148/96 (113) 97 NIV Bilevel 21.00 11/11/22 09:38 36.4 95 100 11/11/22 09:33 91 11/11/22 09:30 93 15 148/86 (106) 98 NIV Bilevel 21.00 11/11/22 09:25 21.00 11/11/22 09:20 90 16 150/90 96 NIV Bilevel 11/11/22 09:20 95 16 100 30.00 11/11/22 09:15 91 15 155/94 (114) 98 NIV Bilevel 21.00 11/11/22 08:24 30.00 11/11/22 08:20 88 18 97 40.00 11/11/22 07:41 91 40.00 11/11/22 05:57 91 18 96 30.00 11/11/22 04:10 36.4 95 33 164/110 (128) 91 Nasal Cannula 3.00 11/11/22 04:10 Nasal Cannula 2.00 11/11/22 04:10 91 Nasal Cannula 3.00 11/11/22 04:00 96 OxyMask 4.00 Height & Weight Height: 5'5.00" Weight: 180lbs. 0.0oz. 81.833902eo; 41.00 BMI Method:Stated General Appearance: No Apparent Distress Respiratory: No Accessory Muscle Use, No Respiratory Distress, Other ( RALES AND COARSE WHEEZING BILATERALLY) Cardiovascular: Regular Rate, Rhythm, No Edema, No JVD, No Murmur Capillary Refill: Less Than 3 Seconds Gastrointestinal: non tender, soft Results Lab Laboratory Tests 11/11/22 04:20 Assessment/Plan Assessment/Plan 1 ANGELINE HUTTON MD Nov 11, 2022 10:20
[2022-11-11] MEDS: RT-ALBUTEROL/IPRATROPIUM 3 ML (DUONEB) VIAL INH SCH ×4 (10:50→22:29)
[2022-11-11] MEDS ORDERED: GABAPENTIN 600 MG (NEURONTIN) TAB PO ONE (11:00)
[2022-11-11] MEDS ORDERED: CATHETER FLUSH 10 ML SYR IVP PRN (11:15)
[2022-11-11] MEDS: inSUlin ASPART (NovoLOG) 1 UNIT/0.01 ML (CHARGE PER UNIT) SC SCH ×3 (11:22→21:41)
[2022-11-11] MEDS ORDERED: TMSL.4C PO ×2 (12:38)
[2022-11-11] MEDS ORDERED: ONDA-105 PO ×2 (12:38)
--- NOTE | 2022-11-11 13:21 | History & Physical-Hospitalist ---
CASTILLO PEDERSEN 11/11/22 1321: History of Present Illness HPI/Chief Complaint Adán Fofana is a 57yo male with past medical history of COPD and DM presenting due to trouble breathing, persistent cough, and change in sputum that began 2 days ago. Pt was accompanied by his fiance. Around a couple months ago, pt had a hospitalization due to Sepsis Secondary to Pneumonia. Today pt describe his sputum as yellowish - brown color w/o blood. Pt did recieve NIPPV therapy upon being admitted to the ED; pt normally requires 2L of oxygen. Denies any aggravating/alleviating symptoms. Pt had a Surgery for Chiari Malformation last wednesday at [facility]. Pt denies N/V/D, Chest Pain, Fever and Chills. Date Seen 11/11/22 Attending Physician Reyes Angeles MD PCP Admitting Physician: Stephanie Bautista DO Attending Physician: Shahid Orr MD Referring Physician Date of Admission Nov 11, 2022 at 09:11 Home Medications & Allergies Home Medications Reviewed patient Home Medication Reconciliation performed by pharmacy medication reconciliations server support technician and/or nursing. Patients Allergies have been reviewed. Allergies Allergies Coded Allergies amitriptyline (Verified Allergy, Unknown, 02/08/16) duloxetine (Verified Allergy, Unknown, 02/08/16) fluticasone (Verified Allergy, Unknown, 02/08/16) salmeterol (Verified Allergy, Unknown, 02/08/16) Past Dopyjjf-Giylnd-Pnmavr Hx Patient Social History Tobacco Use?: Yes Tobacco type used: Cigarettes Smoking Status: Former Smoker Use of E-Cig and/or Vaping dev: No Substance use?: No Alcohol Use?: No Pt feels they are or have been: No Immunizations Up To Date Date of Influenza Vaccine: May 02, 2022 First/Initial COVID19 Vaccinat: SEPTEMBER 2020 Second COVID19 Vaccination Rhett: SEPTEMBER 2020 Tetanus Booster (TDap): Unknown Hepatitis A: No Hepatitis B: No PED Vaccines UTD: No Date of Pneumonia Vaccine: Jun 18, 2015 Seasonal Allergies Seasonal Allergies: No Current Status Advance Directives: No Communicates: Verbally Primary Language: [place] Preferred Spoken Language: [place] Is interpretation needed?: No Implanted or Applied Medical D: None Past Medical History Surgeries: Abdominal, Neurological, Orthopedic Pneumonia, Chronic Bronchitis, Sleep Apnea, COPD, Emphysema Currently Using CPAP: No Currently Using BIPAP: No Hypertension Meningitis Abdominal Hernia Arthritis Anxiety Blood Disorders: No Family Medical History FH: cancer 19 MOTHER Mother- lung cancer Father- HTN and CVA SOCIAL HISTORY: -SMOKED 1 1/2 PPD---QUIT 5 YEARS AGO -ETOH--HISTORY OF ABUSE, QUIT A FEW YEARS AGO -DENIES DRUG USE PAST SURGICAL HISTORY: -HERNIA REPAIR -MULTIPLE ORTHOPEDIC SURGERIES--RIGHT SHOULDER, BOTH KNEES, HAND SURGERY -2 BRAIN SURGERIES IN 2004--CHIARI MALFORMATION AND CYST AROUND BRAINSTEM REMOVED; PT HAD POST OP MENINGITIS -C-SPINE SURGERY X 2 IN 2014 AT [facility] -REPEAT SURGERY FOR CHIARI MALFORMATION 09/13/2017 AT [facility] PT HAD SURGERY FOR CHIARI MALFORMATION AT [facility] ON 09/13/17 AND WAS DISMISSED TO HOME ON Wednesday09/20/17 PT HAD BEEN ON VENT POST OP, THEN WAS TAKEN OFF THE VENT, THEN PT BEGAN TO HAVE DECREASED RESPONSIVENESS AND DIFFICULTY BREATHING AND HAD TO BE PUT BACK ON THE VENT AN ADDITIONAL 3 DAYS -SURGERY 11/05/22 AT FOR CHIARI MALFORMATION WITH CRANIECTOMY AND CERVICAL LAMINECTOMY AND DECOMPRESSION. Review of Systems Constitutional: No chills, No dizziness, No fever Respiratory: cough, dyspnea on exertion; No hemoptysis; phlegm, short of breath Cardiovascular: No chest pain, No palpitations, No syncope Gastrointestinal: No abdominal pain, No diarrhea, No nausea, No vomiting Physical Exam Physical Exam Vital Signs Vital Signs - First Documented 11/11/22 11/11/22 11/11/22 04:00 04:10 09:30 Temp 36.4 Pulse 95 Resp 33 B/P (MAP) 164/110 (128) Pulse Ox 96 O2 Delivery OxyMask O2 Flow Rate 4.00 FiO2 21 Capillary Refill : Less Than 3 Seconds Height, Weight, BMI Height: 5'5.00" Weight: 180lbs. 0.0oz. 81.967197om; 41.61 BMI Method:Stated General Appearance: No Apparent Distress Respiratory: Chest Non Tender, Lungs Clear, Normal Breath Sounds Cardiovascular: Regular Rate, Rhythm, No Edema, No Murmur, Normal Peripheral Pulses Gastrointestinal: Normal Bowel Sounds, Non Tender, Soft Extremity: Non Tender, No Calf Tenderness, No Pedal Edema Neurologic/Psychiatric: Alert, Oriented x3, Normal Mood/Affect Skin: Normal Color, Warm/Dry Results Results/Procedures Labs Laboratory Tests 11/11/22 04:20 Patient resulted labs reviewed. Imaging CHEST 1 VIEW, AP/PA ONLY EXAM: CHEST 1 VIEW, AP/PA ONLY INDICATION: Cough. Shortness of breath. COMPARISON: 09/29/2022. FINDINGS: Low lung volumes with perihilar and bibasilar atelectasis or infiltrate. Small bilateral pleural effusions. No pneumothorax. Cardiomegaly. No acute osseous findings. IMPRESSION: Low lung volumes with perihilar and bibasilar atelectasis or infiltrate. Cardiomegaly. Small bilateral pleural effusions. Assessment/Plan Assessment and Plan Acute COPD Exacerbation Acute on Chronic Hypoxic Hypercapnic Respiratory Failure Increased Coughing, Dyspnea, and Change in Sputum Consistency Started NIPPV Therapy in ED Off BiPAP; On 2L NC Systemic Corticosteroids High Dose Bronchodilators Health Care Acquired Pneumonia v. Ateleticis CXR 11/11/22- Perihilar and Bibasilar Atlecticis or Infiltrates Pt had previous surgery this weekend Could potentially due to lack of mobility and use of IS Normal WBC and Normal Temperature without infectious signs Treating to cover for Potential Health Care Acquired Pneumonia for 24hrs Ordering Procalcintonin; If normal pneumonia is unlikely and will discontinue IV abx and treat conservatively; If abnormal will continue Antibiotic Treatment Start IV Antibiotics IS ordered Anemia Secondary to Unknown Cause Could be Anemia of Chronic Disease; Pt has PMH of COPD Continue to Monitor Hgb If decreases further workup can be done Obese Clinical Quality Measures DVT/VTE Risk/Contraindication: Contraindications-Pharm: Other *list below* Other: recent c-spine surgery high risk for hematoma SHAHID ORR MD 11/11/22 1904: History of Present Illness Source: patient, family Exam Limitations: no limitations Time Seen by a Provider: 10:40 Past Dauiqpz-Rnrexc-Jidsco Hx Family Medical History FH: cancer 19 MOTHER Results Results/Procedures Imaging: Reviewed Imaging Report Assessment/Plan Admission Diagnosis COPD exacerbation Admission Status: Inpatient Order (span 2 midnights) Reason for Inpatient Admission: Pneumonia Assessment and Plan Admitted with acute on chronic respiratory failure due to COPD exacerbation and healthcare associated pneumonia. He was not septic. He was recently discharged after a surgery for Chiari malformation. He wore BiPAP last night and improved. He is at his baseline oxygen requirement. He is feeling much better. Transfer to the medical floor today. Diagnosis/Problems Diagnosis/Problems (1) Acute on chronic respiratory failure Status: Acute Qualifiers: Respiratory failure complication: hypoxia and hypercapnia Qualified Codes: J96.21 - Acute and chronic respiratory failure with hypoxia; J96.22 - Acute and chronic respiratory failure with hypercapnia (2) HCAP (healthcare-associated pneumonia) Status: Acute (3) COPD exacerbation Status: Acute (4) History of Chiari malformation Status: Acute (5) Obesity Status: Chronic Supervisory-Addendum Brief Verification & Attestation Participated in pt care: history, MDM, physical Personally performed: exam, history, MDM, supervision of care Care discussed with: Medical Student Procedures: n/a Results interpretation: Verified all documentation A medical student performed and documented this service in my presence. I reviewed and verified all information documented by the medical student and made modifications to such information, when appropriate. I personally performed the physical exam and medical decision making. CASTILLO PEDERSEN Nov 11, 2022 13:21 SHAHID ORR MD Nov 11, 2022 19:04
[2022-11-11 19:30] VITALS: BP 141/73
[2022-11-11] MEDS ORDERED: CEFEPIME INJECTION 2,000 MG in NS (IVPB) 50 ML IV SCH (21:00)
[2022-11-11] MEDS: SENNOSIDES 8.6 MG (SENOKOT) TAB PO SCH (21:40)
[2022-11-11] MEDS: DOCUSATE SODIUM 100 MG (COLACE) CAP PO SCH (21:40)
[2022-11-11] MEDS: GABAPENTIN 600 MG (NEURONTIN) TAB PO SCH (21:41)
[2022-11-11] MEDS: VANCOMYCIN 1500MG/300ML PREMIX IV SCH (22:00)
[2022-11-12] VITALS (7 sets, daily range): BP systolic 126–174; BP diastolic 69–91
[2022-11-12] MEDS: NS IV 1000 ML 1,000 ML IV SCH
[2022-11-12] MEDS: RT-ALBUTEROL/IPRATROPIUM 3 ML (DUONEB) VIAL INH SCH ×2 (03:06→06:54)
[2022-11-12 05:58] LABS: BASOPHILS % (AUTO) 0 % (0-10); EOSINOPHILS % (AUTO) 1 % (0-10); HEMATOCRIT 30 % (40-54); HEMOGLOBIN 9.6 g/dL (13.3-17.7); LYMPHOCYTES # (AUTO) 1.9 10^3/uL (1.0-4.0); LYMPHOCYTES % (AUTO) 30 % (12-44); MEAN CORPUSCULAR HEMOGLOBIN 28 pg (25-34); MEAN CORPUSCULAR HGB CONC 32 g/dL (32-36); MEAN CORPUSCULAR VOLUME 88 fL (80-99); MEAN PLATELET VOLUME 10.3 fL (9.0-12.2); MONOCYTES # (AUTO) 0.8 10^3/uL (0.0-1.0); MONOCYTES % (AUTO) 12 % (0-12); NEUTROPHILS # (AUTO) 3.8 10^3/uL (1.8-7.8); NEUTROPHILS % (AUTO) 58 % (42-75); PLATELET COUNT 239 10^3/uL (130-400); WHITE BLOOD COUNT 6.5 10^3/uL (4.3-11.0)
[2022-11-12] MEDS: inSUlin ASPART (NovoLOG) 1 UNIT/0.01 ML (CHARGE PER UNIT) SC SCH ×2 (06:06→11:27)
[2022-11-12 06:29] LABS: ALBUMIN 3.5 GM/DL (3.2-4.5)
[2022-11-12 06:30] LABS: CALCIUM 9.3 MG/DL (8.5-10.1)
[2022-11-12 06:31] LABS: TOTAL PROTEIN 6.9 GM/DL (6.4-8.2)
[2022-11-12 06:33] LABS: BILIRUBIN,TOTAL 0.4 MG/DL (0.1-1.0)
[2022-11-12 06:35] LABS: CREATININE SERUM 0.72 MG/DL (0.60-1.30)
--- NOTE | 2022-11-12 08:19 | Diagnostic Imaging Report ---
INDICATION: Pneumonia Frontal chest obtained at 5:48 a.m. and compared to yesterday. There is cardiomegaly. There is central vascular congestion with some mild bibasilar infiltrate versus atelectasis. There is no pneumothorax or pleural fluid. IMPRESSION: Cardiomegaly with central vascular congestion and mild bibasilar infiltrate versus atelectasis. No pneumothorax or pleural fluid. Right apical bullous changes are again noted. Dictated by: Dictated on workstation # [id number]
[2022-11-12] MEDS: GABAPENTIN 600 MG (NEURONTIN) TAB PO SCH (08:41)
[2022-11-12] MEDS ORDERED: CEFEPIME INJECTION 1,000 MG in NS (IVPB) 50 ML IV SCH (09:00)
--- NOTE | 2022-11-12 09:27 | Progress Note - Hospitalist ---
Subjective HPI/CC On Admission Date Seen by Provider: Nov 12, 2022 Subjective/Events-last exam Pt was seen and interviewed today. Pt was accompanied by diamante in room. Upon entering room both were sleeping. Pt states that he is doing well and seem to almost back to normal. Pt isn't having any trouble breathing. Pt has been using the urinal since being admitted, but has not had a bowel movement since being admitted. When asked if he thinks that he is able to walk to restroom, pt states that he hasn't tried, but thinks that he would be able to do so without issue. Review of Systems HEENT: No Head Aches Cardiovascular: No: Chest Pain, Palpitations, Edema Gastrointestinal: No: Nausea, Vomiting, Abdominal Pain, Diarrhea Genitourinary: No Dysuria Neurological: No: Weakness, Numbness Focused Exam Lactate Level 11/11/22 04:20: Lactic Acid Level 0.79 Time of Focused Exam: 05:25 Objective Exam Vital Signs Vital Signs Date Time Temp Pulse Resp B/P (MAP) Pulse Ox O2 Delivery O2 Flow Rate FiO2 11/12/22 10:19 36.9 102 91 11/12/22 08:00 Nasal Cannula 2.00 11/12/22 07:34 18 126/69 (88) 11/11/22 09:30 21 Capillary Refill : Less Than 3 Seconds General Appearance: No Apparent Distress Respiratory: Chest Non Tender, Lungs Clear, Normal Breath Sounds Cardiovascular: Regular Rate, Rhythm, No Murmur, Normal Peripheral Pulses Gastrointestinal: Normal Bowel Sounds, Non Tender, Soft Neurologic/Psychiatric: Alert, Oriented x3 Skin: Normal Color, Warm/Dry Results/Procedures Lab Laboratory Tests 11/12/22 05:37 Patient resulted labs reviewed. Imaging: Reviewed Imaging Report Assessment/Plan Assessment and Plan Assess & Plan/Chief Complaint Acute COPD Exacerbation Acute on Chronic Hypoxic Hypercapnic Respiratory Failure Increased Coughing, Dyspnea, and Change in Sputum Consistency Started NIPPV Therapy in ED Off BiPAP; On 2L NC w/in normal oxygen saturation levels Continue Systemic Corticosteroids Continue High Dose Bronchodilators Health Care Acquired Pneumonia v. Ateleticis CXR 11/11/22- Perihilar and Bibasilar Atlecticis or Infiltrates Procalc Elevated; Inflammatory Process likely Continue IV Antibiotics for course IS Anemia Secondary to Unknown Cause Could be Anemia of Chronic Disease; Pt has PMH of COPD Continue to Monitor Hgb Not sure if it's due to dilution from IVF or bleeding from unknown source. No pallor, fatigue, or weakness noted Obese Clinical Quality Measures DVT/VTE Risk/Contraindication: Contraindications-Pharm: Other *list below* Other: recent c-spine surgery high risk for hematoma CASTILLO PEDERSEN Nov 12, 2022 09:27
[2022-11-12] MEDS: DOCUSATE SODIUM 100 MG (COLACE) CAP PO SCH (09:55)
[2022-11-12] MEDS: SENNOSIDES 8.6 MG (SENOKOT) TAB PO SCH (09:55)
[2022-11-12] MEDS: VANCOMYCIN 1500MG/300ML PREMIX IV SCH (11:29)
[2022-11-12] MEDS ORDERED: PRED10TA22 PO ×2 (12:12)
[2022-11-12] MEDS ORDERED: CEFD300C3 PO ×2 (12:12)
--- NOTE | 2022-11-12 12:40 | Discharge Summary ---
CASTILLO PEDERSEN 11/12/22 1240: Diagnosis/Chief Complaint Date of Admission Nov 11, 2022 at 09:11 Date of Discharge Discharge Date: Nov 12, 2022 Admission Diagnosis COPD exacerbation Primary Care Eliot Winn MD Discharge Diagnosis Acute on Chronic Respiratory Failure (1) Acute on chronic respiratory failure Status: Acute (2) HCAP (healthcare-associated pneumonia) Status: Acute (3) COPD exacerbation Status: Acute (4) History of Chiari malformation Status: Acute (5) Obesity Status: Chronic Discharge Summary Discharge Physical Exam Allergies: Coded Allergies: amitriptyline (Verified Allergy, Unknown, 02/08/16) duloxetine (Verified Allergy, Unknown, 02/08/16) fluticasone (Verified Allergy, Unknown, 02/08/16) salmeterol (Verified Allergy, Unknown, 02/08/16) Vitals & I&Os Vital Signs Date Time Temp Pulse Resp B/P (MAP) Pulse Ox O2 Delivery O2 Flow Rate FiO2 11/12/22 11:57 36.7 99 18 127/70 (89) 92 Nasal Cannula 2.00 11/11/22 09:30 21 General Appearance: No Apparent Distress Respiratory: Chest Non Tender, Lungs Clear, Normal Breath Sounds, No Accessory Muscle Use, No Respiratory Distress Cardiovascular: Regular Rate, Rhythm, No Murmur, Normal Peripheral Pulses Gastrointestinal: Normal Bowel Sounds, Non Tender, Soft Skin: Normal Color, Warm/Dry Neurologic/Psychiatric: Alert, Oriented x3 Hospital Course Adán Fofana is a 57yo male with past medical history of COPD and DM whom presented due to trouble breathing, persistent cough, and change in sputum that began 3 days ago. Pt was accompanied by his fiance during his hospital stay at [facility]. Around a couple months ago, pt had a hospitalization due to Sepsis Secondary to Pneumonia. during admissions pt described his sputum as yellowish - brown color w/o blood. Pt did receive NIPPV therapy upon being admitted to the ED; pt normally requires 2L of oxygen. Denied any aggravating/alleviating symptoms. Pt had a Surgery for Chiari Malformation last wednesday at [facility]. During Adán's stay was weaned off of BiPAP and was supported with 2L NC. Pt was started on IV Antibiotics due to CXR showing bibasilar infiltrates concerning for atelectisis or pneumonia. Procal was ordered as well to rule out possibility of infection since pt didn't have other signs of infection including normal white count and normal temperature. Procal was elevated, so antibiotics were continued, and will be discharged with an oral antibiotic to finish his course. Pt Hgb was slightly low w/ history of chronic anemia, but not showing any signs of Anemia, so we continued to monitor. Pt stated today he feels better and is breathing about normal; thinks he is ready to be discharged. Pt's fiance commented that pt hadn't had a bowel movement since before admission at for surgery. Pt was consoled to add miralax his everyday routine. Pt's chronic conditions should be monitored by patients PCP. Acute COPD Exacerbation Acute on Chronic Hypoxic Hypercapnic RF Started NIPPV w/ BiPAP Pt Improved and transitioned to 2L NC Patient is at Baseline at 2L NC Health Care Associated Pneumonia CXR showed Bibasilar infiltrates Elevated Procal Continue Abx treatment w/ oral regimen Anemia Secondary to Unknown Cause Probable source COPD f/u with PCP Obesity f/u w/ PCP Labs (last 24 hrs) Laboratory Tests 11/11/22 16:09: Glucometer 117H 11/11/22 20:11: Glucometer 139H 11/12/22 05:37: White Blood Count 6.5, Red Blood Count 3.45L, Hemoglobin 9.6L, Hematocrit 30L, Mean Corpuscular Volume 88, Mean Corpuscular Hemoglobin 28, Mean Corpuscular Hemoglobin Concent 32, Red Cell Distribution Width 12.6, Platelet Count 239, Mean Platelet Volume 10.3, Immature Granulocyte % (Auto) 1, Neutrophils (%) (Auto) 58, Lymphocytes (%) (Auto) 30, Monocytes (%) (Auto) 12, Eosinophils (%) (Auto) 1, Basophils (%) (Auto) 0, Neutrophils # (Auto) 3.8, Lymphocytes # (Auto) 1.9, Monocytes # (Auto) 0.8, Eosinophils # (Auto) 0.0, Basophils # (Auto) 0.0, Immature Granulocyte # (Auto) 0.0, Sodium Level 138, Potassium Level 4.0, Chloride Level 103, Carbon Dioxide Level 24, Anion Gap 11, Blood Urea Nitrogen 19H, Creatinine 0.72, Estimat Glomerular Filtration Rate 106, BUN/Creatinine Ratio 26, Glucose Level 112H, Calcium Level 9.3, Corrected Calcium 9.7, Total Bilirubin 0.4, Aspartate Amino Transf (AST/SGOT) 11, Alanine Aminotransferase (ALT/SGPT) 7, Alkaline Phosphatase 55, Total Protein 6.9, Albumin 3.5 11/12/22 05:53: Glucometer 91 11/12/22 11:07: Glucometer 124H Microbiology 11/11/22 Gram Stain - Final, Resulted 11/11/22 Sputum Culture - Preliminary, Resulted Probable Klebsiella/Enterobact Gram Pos Mixed Bacterial Domonique Patient resulted labs reviewed. Pending Labs Laboratory Tests 11/12/22 05:37: White Blood Count 6.5, Red Blood Count 3.45, Hemoglobin 9.6, Hematocrit 30, Mean Corpuscular Volume 88, Mean Corpuscular Hemoglobin 28, Mean Corpuscular Hemoglobin Concent 32, Red Cell Distribution Width 12.6, Platelet Count 239, Mean Platelet Volume 10.3, Immature Granulocyte % (Auto) 1, Neutrophils (%) (Auto) 58, Lymphocytes (%) (Auto) 30, Monocytes (%) (Auto) 12, Eosinophils (%) (Auto) 1, Basophils (%) (Auto) 0, Neutrophils # (Auto) 3.8, Lymphocytes # (Auto) 1.9, Monocytes # (Auto) 0.8, Eosinophils # (Auto) 0.0, Basophils # (Auto) 0.0, Immature Granulocyte # (Auto) 0.0, Sodium Level 138, Potassium Level 4.0, Chloride Level 103, Carbon Dioxide Level 24, Anion Gap 11, Blood Urea Nitrogen 19, Creatinine 0.72, Estimat Glomerular Filtration Rate 106, BUN/Creatinine Ratio 26, Glucose Level 112, Calcium Level 9.3, Corrected Calcium 9.7, Total Bilirubin 0.4, Aspartate Amino Transf (AST/SGOT) 11, Alanine Aminotransferase (ALT/SGPT) 7, Alkaline Phosphatase 55, Total Protein 6.9, Albumin 3.5 11/12/22 05:53: Glucometer 91 11/12/22 11:07: Glucometer 124 Imaging: Reviewed Imaging Report Discharge Home Medications: Active Scripts Active Cefdinir 300 Mg Capsule 300 Mg PO BID 5 Days Prednisone 10 Mg Tab.ds.pk 10 Mg PO DAILY Take 6 tabs(60mg)daily,decrease by 1 tab(10MG)daily. Reported Flomax (Tamsulosin HCl) 0.4 Mg Cap 0.4 Mg PO HS Ondansetron HCl 4 Mg Tablet 4 Mg PO Q6H PRN Systane 0.3-0.4% Eye Drops (Propylene Glycol/Peg 400) 0.3 %-0.4 % Drops 1-2 Drops OD UD PRN Spiriva Respimat 1.25MCG/ACTUATION (Tiotropium [place]) 1.25 Mcg/Actuation Mist.inhal 2 Puff INH DAILY Metoprolol Succinate 100 Mg Tab.er.24h 100 Mg PO DAILY Losartan-Hctz 100-12.5 mg Tab (Losartan/Hydrochlorothiazide) 100 Mg-12.5 Mg Tablet 1 Ea PO DAILY Fentanyl Patch 50 MCG (Fentanyl) 50 Mcg/Hour Patch.td72 50 Mcg TD Q72H Celecoxib 200 Mg Capsule 200 Mg PO BID Oxycodone HCl 30 Mg Tablet 30 Mg PO Q6H Cyclobenzaprine HCl 10 Mg Tablet 10 Mg PO TID PRN Rizatriptan (Rizatriptan Benzoate) 10 Mg Tablet 10 Mg PO DAILY PRN Pantoprazole Sodium 40 Mg Tablet.dr 40 Mg PO DAILY Combivent Respimat Inhal [place] (Albuterol/Ipratropium) 20 Mcg-100 Mcg/Actuation Aero 2 Puff IH BID Gabapentin 600 Mg Tablet 600 Mg PO TID Instructions to patient/family Please see electronic discharge instructions given to patient. Clinical Quality Measures DVT/VTE Risk/Contraindication: Contraindications-Pharm: Other *list below* Other: recent c-spine surgery high risk for hematoma Copy Copies To 1: ELIOT WINN MD, JARIN M MD 11/12/22 4881: Diagnosis/Chief Complaint Discharge Time: 12:00 Discharge Diagnosis (1) Acute on chronic respiratory failure Status: Acute (2) HCAP (healthcare-associated pneumonia) Status: Acute (3) COPD exacerbation Status: Acute (4) History of recent neurosurgical procedure Status: Acute (5) Obesity Status: Chronic Discharge Summary Discharge Physical Exam Allergies: Coded Allergies: amitriptyline (Verified Allergy, Unknown, 02/08/16) duloxetine (Verified Allergy, Unknown, 02/08/16) fluticasone (Verified Allergy, Unknown, 02/08/16) salmeterol (Verified Allergy, Unknown, 02/08/16) Hospital Course Was the Problem List Reviewed?: Yes Admitted with acute on chronic respiratory failure. Will complete course of steroids and antibiotics. Follow up with PCP. Discharged in stable condition. Imaging: Reviewed Imaging Report Discussion & Recommendations Discharge Planning: <30 minutes discharge planning Copy Copies To 1: ELIOT WINN MD Supervisory-Addendum Brief Verification & Attestation Participated in pt care: history, MDM, physical Personally performed: exam, history, MDM, supervision of care Care discussed with: Medical Student Procedures: n/a Results interpretation: Verified all documentation A medical student performed and documented this service in my presence. I reviewed and verified all information documented by the medical student and made modifications to such information, when appropriate. I personally performed the physical exam and medical decision making. Problem Qualifiers (1) Acute on chronic respiratory failure: Respiratory failure complication: hypoxia and hypercapnia Qualified Codes: J96.21 - Acute and chronic respiratory failure with hypoxia; J96.22 - Acute and chronic respiratory failure with hypercapnia CASTILLO PEDERSEN Nov 12, 2022 12:40 SHAHID ORR MD Nov 12, 2022 17:18
[2022-11-12] MEDS ORDERED: RT-ALBUTEROL/IPRATROPIUM 3 ML (DUONEB) VIAL INH SCH (15:00)
[2022-11-12] MEDS ORDERED: TROUGH ORDER-PHARMACY XX NR (21:00)
== END 2022-11-12 16:45 | disposition home or self-care (01) ==
LOC: EDUNIT# 03:57 → ER 04:01 → ICU 09:11 → INTOOBSV 09:11 → 4TH 17:50
PROVIDERS: ADMIT Internal Medicine; ATTEND Internal Medicine
DX: J96.21 Acute and chronic respiratory failure with hypoxia (principal); J18.9 Pneumonia, unspecified organism; E66.9 Obesity, unspecified; J44.1 Chronic obstructive pulmonary disease with (acute) exacerbation; Z87.798 Personal history of other (corrected) congenital malformations; Z87.891 Personal history of nicotine dependence; Z98.890 Other specified postprocedural states; Z68.36 Body mass index [BMI] 36.0-36.9, adult
CPT/HCPCS: 36415; 36600; 71045; 80053; 81000; 82805; 82947; 83605; 83735; 83880; 84145; 84484; 85025; 85610; 85730; 87040; 87070; 87077; 87081; 87088; 87186; 87205; 87636; 93005; 93041; 94640; 94660; 94664; 96366; 96374; 96375; 96376; G0378

== ENCOUNTER 2022-11-15 14:42 | Emergency (ER) | payer MEDICARE, MEDICAID ==
[~2022-11-15] VITALS: Ht 165.1 cm; Wt 92.0 kg
[~2022-11-15 14:42] MED LIST changes: +ONDA-105 PO; +PRED10TA22 PO; +TMSL.4C PO
[2022-11-15 15:10] LABS: BASOPHILS % (AUTO) 0 % (0-10); EOSINOPHILS # (AUTO) 0.1 10^3/uL (0.0-0.3); EOSINOPHILS % (AUTO) 2 % (0-10); HEMATOCRIT 42 % (40-54); LYMPHOCYTES # (AUTO) 2.5 X 10^3 (1.0-4.0); LYMPHOCYTES % (AUTO) 38 % (12-44); MEAN CORPUSCULAR HEMOGLOBIN 28 pg (25-34); MEAN CORPUSCULAR HGB CONC 31 g/dL (32-36); MEAN CORPUSCULAR VOLUME 90 fL (80-99); MEAN PLATELET VOLUME 9.5 fL (9.0-12.2); MONOCYTES # (AUTO) 0.7 X 10^3 (0.0-1.0); MONOCYTES % (AUTO) 10 % (0-12); NEUTROPHILS # (AUTO) 3.1 X 10^3 (1.8-7.8); NEUTROPHILS % (AUTO) 46 % (42-75); PLATELET COUNT 324 10^3/uL (130-400); WHITE BLOOD COUNT 6.6 10^3/uL (4.3-11.0)
[2022-11-15 15:11] LABS: BILIRUBIN,URINE NEGATIVE (NEGATIVE); CLARITY,URINE CLEAR; COLOR,URINE YELLOW; GLUCOSE, URINE (UA) NEGATIVE (NEGATIVE); KETONES,URINE NEGATIVE (NEGATIVE); LEUKOCYTE ESTERASE ,URINE NEGATIVE (NEGATIVE); NITRITE,URINE NEGATIVE (NEGATIVE); PROTEIN,URINE NEGATIVE (NEGATIVE)
[2022-11-15 15:15] VITALS: BP 108/86
[2022-11-15 15:18] LABS: BACTERIA,URINE NEGATIVE /HPF; SQUAMOUS EPITHELIAL CELL,UR RARE /HPF
[2022-11-15 15:20] LABS: ALBUMIN 3.9 GM/DL (3.2-4.5); POTASSIUM 3.5 MMOL/L (3.6-5.0)
[2022-11-15 15:21] LABS: CALCIUM 9.7 MG/DL (8.5-10.1)
[2022-11-15 15:22] LABS: PROTHROMBIN TIME PATIENT 13.4 SEC (12.2-14.7)
[2022-11-15 15:23] LABS: TOTAL PROTEIN 7.8 GM/DL (6.4-8.2)
[2022-11-15 15:24] LABS: BILIRUBIN,TOTAL 0.4 MG/DL (0.1-1.0)
[2022-11-15 15:26] LABS: CREATININE SERUM 0.85 MG/DL (0.60-1.30)
[2022-11-15] MEDS ORDERED: NALOXONE 0.4 MG/ML 1 ML (NARCAN) VIAL IV ONE (15:30)
[2022-11-15 15:42] LABS: ABG BASE EXCESS 4.9 MMOL/L (-2.5-2.5); ABG OXYGEN SATURATION 96 % (94-100); ABG PCO2 53 MMHG (35-45); ABG PH 7.37 (7.37-7.43); ABG PO2 73 MMHG (79-93); ABG TCO2 31.8 MMOL/L (21.0-31.0)
[2022-11-15 15:43] LABS: ALLENS TEST YES-POS; INSPIRED O2 2.5L; PATIENT TEMP 36.3; VENTILATOR NO
--- NOTE | 2022-11-15 16:16 | Diagnostic Imaging Report ---
EXAMINATION: Chest 1 view. HISTORY: Pneumonia. COMPARISON: 11/12/2022. FINDINGS: Stable enlargement of the cardiac silhouette. There are low lung volumes with mild bibasilar opacities. May be blunting of the costophrenic angles, bilaterally. No pneumothorax. The osseous structures are intact. IMPRESSION: Cardiomegaly with low lung volumes. There may be trace bilateral pleural effusions or pleural thickening with bibasilar atelectasis or consolidation. Dictated by: Dictated on workstation # [id number]
--- NOTE | 2022-11-15 16:20 | Diagnostic Imaging Report ---
EXAMINATION: CT head and CT cervical spine without contrast. TECHNIQUE: Multiple contiguous axial images were obtained through the brain and cervical spine without the use of intravenous contrast. Sagittal and coronal reformations through the cervical spine were then performed. All CT scans use one or more of the following dose optimizing techniques: automated exposure control, MA and/or KvP adjustment based on patient size and exam type or iterative reconstruction. HISTORY: Head and neck pain after fall. COMPARISON: 05/18/2022. FINDINGS: HEAD: The ventricles and sulci are normal. No abnormal attenuation of brain parenchyma is present. No acute intracranial hemorrhage or abnormal extra-axial fluid collection is present. No hyperdense vessel. Surgical changes from posterior occipital craniectomy. Calvarium is otherwise intact. The mastoid air cells are clear. Mucosal thickening of the paranasal sinuses. The orbits are normal. C-SPINE: There is straightening of the normal cervical lordosis, likely postoperative. Surgical changes from C1 through C3 posterior laminectomy. There are surgical changes from multilevel cervical fusion. No acute fracture, dislocation, or destructive osseous process. No significant facet hypertrophy. There is mild cervical spondylosis. Small fluid collection within the upper neck and posterior fossa and suboccipital soft tissues measuring up to 3.2 x 2.5 cm. The visualized thyroid gland is normal. Emphysematous changes of the right lung apex. IMPRESSION: 1. No acute intracranial abnormality. 2. No cervical spine fracture. 3. Surgical changes of the occipital calvarium and cervical spine. There is a 3.2 x 2.5 cm fluid collection within the suboccipital soft tissues. Dictated by: Dictated on workstation # [id number]
[2022-11-15] MEDS ORDERED: NALO4SPR3 NS (17:56)
--- NOTE | 2022-11-15 17:58 | ED General ---
General Chief Complaint: General Problems/Pain Stated Complaint: BACK PAIN Nursing Triage Note: PT TO ED BY EMS WITH W/O WEAKNESS. EMS REPORTS PT HAD SPINAL SX ON 11/07 AND HAS HAD INCREASED WEAKNESS OVER THE LAST SEVERAL DAYS. REPORTS PT FELL A FEW DAYS AGO, DENIES PAIN OR INJURY FROM THAT FALL. WEAKNESS MUCH WORSE TODAY. PT RECENTLY DC FROM FOR SEPSIS. A&OX4. C/O LOWER BACK PAIN. Source of Information: Patient, Family, Old Records Exam Limitations: No Limitations History of Present Illness Date Seen by Provider: Nov 15, 2022 Time Seen by Provider: 14:52 Initial Comments This patient presents to the emergency room via EMS with concerns about progressive decrease in responsiveness and weakness. He had a suboccipital craniotomy with a cervical laminectomy for decompression on November [address] Jon Jimenez at [facility]. He was subsequently admitted for respiratory failure at this facility on November 11 and discharged November 12. He did fairly well upon discharge from the hospital but then rapidly decompensated according to his who provides much of the history. Outside records from [facility] were reviewed including his discharge instructions and medication list. He has borderline hypoxia and decreased respiratory rate at 8-12 during assessment. Oxygen saturation is stable on his usual 2 L by nasal cannula. He is noted to be incontinent of urine. reports patient had 2 falls 2 days ago and she is uncertain if he suffered any injury. These falls occurred after he was discharged from the hospital. Allergies and Home Medications Allergies Coded Allergies: amitriptyline (Verified Allergy, Unknown, 02/08/16) duloxetine (Verified Allergy, Unknown, 02/08/16) fluticasone (Verified Allergy, Unknown, 02/08/16) salmeterol (Verified Allergy, Unknown, 02/08/16) Patient Home Medication List Home Medication List Reviewed: Yes Albuterol/Ipratropium (Combivent Respimat Inhal [place]) 20 Mcg-100 Mcg/Actuation Aero, 2 PUFF IH BID, (Reported) Entered as Reported by: JEREMI THAO on 07/03/20 1115 Cefdinir (Cefdinir) 300 Mg Capsule, 300 MG PO BID Prescribed by: SHAHID ORR on 11/12/22 1212 Celecoxib (Celecoxib) 200 Mg Capsule, 200 MG PO BID, (Reported) Entered as Reported by: MADDIE TATE on 09/28/22 1444 Cyclobenzaprine HCl (Cyclobenzaprine HCl) 10 Mg Tablet, 10 MG PO TID PRN for MUSCLE SPASMS, (Reported) Entered as Reported by: JEREMI THAO on 07/03/20 1121 Fentanyl (Fentanyl Patch 50 MCG) 50 Mcg/Hour Patch.td72, 50 MCG TD Q72H, (Rep orted) Entered as Reported by: MADDIE TATE on 09/28/22 1444 Gabapentin (Gabapentin) 600 Mg Tablet, 600 MG PO TID, (Reported) Entered as Reported by: JEREMI THAO on 07/03/20 1053 Losartan/Hydrochlorothiazide (Losartan-Hctz 100-12.5 mg Tab) 100 Mg-12.5 Mg Tablet, 1 EA PO DAILY, (Reported) Entered as Reported by: MADDIE TATE on 09/28/22 1444 Metoprolol Succinate (Metoprolol Succinate) 100 Mg Tab.er.24h, 100 MG PO DAILY, (Reported) Entered as Reported by: MADDIE TATE on 09/28/22 1444 Naloxone HCl (Naloxone HCl) 4 Mg/Actuation [place], 4 MG NS UD Prescribed by: MAYRA HAND on 11/15/22 1756 Ondansetron HCl (Ondansetron HCl) 4 Mg Tablet, 4 MG PO Q6H PRN for NAUSEA/VOMITING-1ST LINE, (Reported) Entered as Reported by: MADDIE TATE on 11/11/22 1238 Oxycodone HCl (Oxycodone HCl) 30 Mg Tablet, 30 MG PO Q6H, (Reported) Entered as Reported by: JEREMI THAO on 07/03/20 1121 Pantoprazole Sodium (Pantoprazole Sodium) 40 Mg Tablet.dr, 40 MG PO DAILY, (Reported) Entered as Reported by: JEREMI THAO on 07/03/20 1115 Prednisone (Prednisone) 10 Mg Tab.ds.pk, 10 MG PO DAILY Prescribed by: SHAHID ORR on 11/12/22 1212 Propylene Glycol/Peg 400 (Systane 0.3-0.4% Eye Drops) 0.3 %-0.4 % Drops, 1-2 DROPS OD UD PRN for DRY EYES, (Reported) Entered as Reported by: MADDIE TATE on 09/28/22 1444 Rizatriptan Benzoate (Rizatriptan) 10 Mg Tablet, 10 MG PO DAILY PRN for MIGRAINE, (Reported) Entered as Reported by: JEREMI THAO on 07/03/20 1121 Tamsulosin HCl (Flomax) 0.4 Mg Cap, 0.4 MG PO HS, (Reported) Entered as Reported by: MADDIE TATE on 11/11/22 1238 Tiotropium [place] (Spiriva Respimat 1.25MCG/ACTUATION) 1.25 Mcg/Actuation Mist.inhal, 2 PUFF INH DAILY, (Reported) Entered as Reported by: MADDIE TATE on 09/28/22 1444 Discontinued Medications Amoxicillin/Potassium Clav (Amox Tr-K Clv 875-125 mg Tab) 875 Mg-125 Mg Tablet, 1 EACH PO BID Discontinued Reason: No Longer Taking Prescribed by: SHAHID ORR on 09/30/22 0943 Review of Systems Review of Systems Constitutional: see HPI EENTM: see HPI Respiratory: no symptoms reported Cardiovascular: no symptoms reported Gastrointestinal: no symptoms reported Genitourinary: see HPI Musculoskeletal: see HPI Skin: no symptoms reported Psychiatric/Neurological: See HPI Hematologic/Lymphatic: No Symptoms Reported Immunological/Allergic: no symptoms reported Past Ocxnoxn-Dodoal-Nufljh Hx Patient Social History Tobacco Use?: No Use of E-Cig and/or Vaping dev: No Substance use?: No Alcohol Use?: No Pt feels they are or have been: No Immunizations Up To Date Tetanus Booster (TDap): Unknown PED Vaccines UTD: No Influenza Vaccine Up-to-Date: No; Not Current First/Initial COVID19 Vaccinat: SEPTEMBER 2020 Second COVID19 Vaccination Rhett: SEPTEMBER 2020 Third COVID19 Vaccination Date: SEPTEMBER 2020 Seasonal Allergies Seasonal Allergies: No Past Medical History Surgery/Hospitalization HX: MULTIPLE ORTHOPEDIC SURGERIES/CHIARI MALFORMATION/ABDOMINAL HERNIA Surgeries: Yes (Craniotomy and cervical laminectomy for Chiari malformation surgery) Abdominal, Neurological, Orthopedic Respiratory: Yes (RESPIRATORY FAILURE ON VENT AND BIPAP MULTIPLE TIMES) Pneumonia, Chronic Bronchitis, Sleep Apnea, COPD, Emphysema Currently Using CPAP: No Currently Using BIPAP: No Cardiac: Yes Hypertension Neurological: Yes (MENINGITIS POSTOP 2004 FOR CYST ON BRAINSTEM & CHIARI MALFORMATION. SHUNT.) Meningitis, Paralysis (Chronic weakness of upper extremities, left greater than right) Reproductive Disorders: No Genitourinary: No Gastrointestinal: Yes (HERNIA REPAIR) Abdominal Hernia Musculoskeletal: Yes (CHRONIC HEAD/NECK & KNEE PAIN; CHIARI MALFORMATION;MULTIPLE ORTHO SURGERIES) Arthritis Endocrine: No (OBESITY) HEENT: No Cancer: No Psychosocial: Yes Anxiety Integumentary: No Blood Disorders: No Family Medical History FH: cancer 19 MOTHER Mother- lung cancer Father- HTN and CVA SOCIAL HISTORY: -SMOKED 1 1/2 PPD---QUIT 5 YEARS AGO -ETOH--HISTORY OF ABUSE, QUIT A FEW YEARS AGO -DENIES DRUG USE PAST SURGICAL HISTORY: -HERNIA REPAIR -MULTIPLE ORTHOPEDIC SURGERIES--RIGHT SHOULDER, BOTH KNEES, HAND SURGERY -2 BRAIN SURGERIES IN 2004--CHIARI MALFORMATION AND CYST AROUND BRAINSTEM REMOVED; PT HAD POST OP MENINGITIS -C-SPINE SURGERY X 2 IN 2014 AT [facility] -REPEAT SURGERY FOR CHIARI MALFORMATION 09/13/2017 AT [facility] PT HAD SURGERY FOR CHIARI MALFORMATION AT [facility] ON 09/13/17 AND WAS DISMISSED TO HOME ON Wednesday09/20/17 PT HAD BEEN ON VENT POST OP, THEN WAS TAKEN OFF THE VENT, THEN PT BEGAN TO HAVE DECREASED RESPONSIVENESS AND DIFFICULTY BREATHING AND HAD TO BE PUT BACK ON THE VENT AN ADDITIONAL 3 DAYS -SURGERY 11/05/22 AT FOR CHIARI MALFORMATION WITH CRANIECTOMY AND CERVICAL LAMINECTOMY AND DECOMPRESSION. Physical Exam Vital Signs Vital Signs - First Documented 11/15/22 11/15/22 14:45 15:13 Temp 36.3 Pulse 78 Resp 9 B/P (MAP) 108/86 (93) Pulse Ox 96 O2 Delivery Nasal Cannula O2 Flow Rate 2.50 FiO2 95 Capillary Refill : Less Than 3 Seconds Height, Weight, BMI Height: 5'5.00" Weight: 180lbs. 0.0oz. 81.283240ev; 33.00 BMI Method:Stated General Appearance: No Apparent Distress, Other (Decreased responsiveness and generalized weakness) HEENT: PERRL/EOMI, Normal ENT Inspection Neck: Normal Inspection; No JVD Respiratory: No Crackles; Decreased Breath Sounds, Rhonci; No Wheezing Cardiovascular: Regular Rate, Rhythm, No Murmur, Other (Mild to moderate generalized edema) Gastrointestinal: Normal Bowel Sounds, Non Tender, Soft, Distended Extremity: Non Tender, Swelling Neurologic/Psychiatric: Other (Responses are very sluggish. He is very somnolent. Upper extremities are weaker than baseline. There is chronic weakness of both upper extremities due to his cervical spinal stenosis, left greater than right) Skin: Normal Color, Warm/Dry Focused Exam Lactate Level 11/15/22 14:58: Lactic Acid Level 0.73 Lactic Acid Level Laboratory Tests Test 11/15/22 14:58 Lactic Acid Level 0.73 MMOL/L (0.50-2.00) Progress/Results/Core Measures Suspected Sepsis Recent Fever Within 48 Hours: No Infection Criteria Present: None New/Unexplained Altered Menta: No SIRS Temperature: Pulse: 78 Respiratory Rate: 9 Laboratory Tests 11/15/22 14:58: White Blood Count 6.6 Blood Pressure 108 /86 Mean: 93 11/15/22 14:58: Lactic Acid Level 0.73 Laboratory Tests 11/15/22 14:58: Creatinine 0.85, INR Comment 1.0, Platelet Count 324, Total Bilirubin 0.4 Results/Orders Lab Results Laboratory Tests Test 11/15/22 14:58 11/15/22 15:00 11/15/22 15:09 11/15/22 15:35 Range/Units White Blood Count 6.6 4.3-11.0 10^3/uL Red Blood Count 4.67 4.30-5.52 10^6/uL Hemoglobin 13.0 L 13.3-17.7 g/dL Hematocrit 42 40-54 % Mean Corpuscular Volume 90 80-99 fL Mean Corpuscular Hemoglobin 28 25-34 pg Mean Corpuscular Hemoglobin Concent 31 L 32-36 g/dL Red Cell Distribution Width 12.8 10.0-14.5 % Platelet Count 324 130-400 10^3/uL Mean Platelet Volume 9.5 9.0-12.2 fL Immature Granulocyte % (Auto) 4 % Neutrophils (%) (Auto) 46 42-75 % Lymphocytes (%) (Auto) 38 12-44 % Monocytes (%) (Auto) 10 0-12 % Eosinophils (%) (Auto) 2 0-10 % Basophils (%) (Auto) 0 0-10 % Neutrophils # (Auto) 3.1 1.8-7.8 X 10^3 Lymphocytes # (Auto) 2.5 1.0-4.0 X 10^3 Monocytes # (Auto) 0.7 0.0-1.0 X 10^3 Eosinophils # (Auto) 0.1 0.0-0.3 10^3/uL Basophils # (Auto) 0.0 0.0-0.1 10^3/uL Immature Granulocyte # (Auto) 0.2 H 0.0-0.1 10^3/uL Prothrombin Time 13.4 12.2-14.7 SEC INR Comment 1.0 0.8-1.4 Activated Partial Thromboplast Time 37 H 24-35 SEC Sodium Level 141 135-145 MMOL/L Potassium Level 3.5 L 3.6-5.0 MMOL/L Chloride Level 102 98-107 MMOL/L Carbon Dioxide Level 26 21-32 MMOL/L Anion Gap 13 5-14 MMOL/L Blood Urea Nitrogen 23 H 7-18 MG/DL Creatinine 0.85 0.60-1.30 MG/DL Estimat Glomerular Filtration Rate 101 BUN/Creatinine Ratio 27 Glucose Level 113 H 70-105 MG/DL Lactic Acid Level 0.73 0.50-2.00 MMOL/L Calcium Level 9.7 8.5-10.1 MG/DL Corrected Calcium 9.8 8.5-10.1 MG/DL Total Bilirubin 0.4 0.1-1.0 MG/DL Aspartate Amino Transf (AST/SGOT) 10 5-34 U/L Alanine Aminotransferase (ALT/SGPT) 12 0-55 U/L Alkaline Phosphatase 63 40-136 U/L C-Reactive Protein High Sensitivity 0.46 0.00-0.50 MG/DL Total Protein 7.8 6.4-8.2 GM/DL Albumin 3.9 3.2-4.5 GM/DL Urine Color YELLOW Urine Clarity CLEAR Urine pH 6.0 5-9 Urine Specific [place] 1.010 L 1.016-1.022 Urine Protein NEGATIVE NEGATIVE Urine Glucose (UA) NEGATIVE NEGATIVE Urine Ketones NEGATIVE NEGATIVE Urine Nitrite NEGATIVE NEGATIVE Urine Bilirubin NEGATIVE NEGATIVE Urine Urobilinogen 0.2 < = 1.0 MG/DL Urine Leukocyte Esterase NEGATIVE NEGATIVE Urine RBC (Auto) NEGATIVE NEGATIVE Urine RBC NONE /HPF Urine WBC NONE /HPF Urine Squamous Epithelial Cells RARE /HPF Urine Crystals NONE /LPF Urine Bacteria NEGATIVE /HPF Urine Casts NONE /LPF Urine Mucus NEGATIVE /LPF Urine Culture Indicated CULTURE PENDING Glucometer 106 70-110 MG/DL Blood Gas Puncture Site RIGHT RADIAL Blood Gas Patient Temperature 36.3 Arterial Blood pH 7.37 7.37-7.43 Arterial Blood Partial Pressure CO2 53 H 35-45 MMHG Arterial Blood Partial Pressure O2 73 L 79-93 MMHG Arterial Blood HCO3 30 H 23-27 MMOL/L Arterial Blood Total CO2 31.8 H 21.0-31.0 MMOL/L Arterial Blood Oxygen Saturation 96 94-100 % Arterial Blood Base Excess 4.9 H -2.5-2.5 MMOL/L Damion Test YES-POS Blood Gas Ventilator Setting NO Blood Gas Inspired Oxygen 2.5L My Orders Orders - MAYRA CRONIN MD Accucheck Stat ONCE (11/15/22 15:02) Hs C Reactive Protein (11/15/22 15:02) Cbc With Automated Diff (11/15/22 15:02) Comprehensive Metabolic Panel (11/15/22 15:02) Blood Culture (11/15/22 15:02) Sputum Culture (11/15/22 15:02) Urinalysis (11/15/22 15:02) Urine Culture (11/15/22 15:02) Protime With Inr (11/15/22 15:02) Partial Thromboplastin Time (11/15/22 15:02) Chest 1 View, Ap/Pa Only (11/15/22 15:02) Ed Iv/Invasive Line Start (11/15/22 15:02) Vital Signs Adult Sepsis Patie Q15M (11/15/22 15:02) O2 (11/15/22 15:02) Remove Rings In Anticipation O (11/15/22 15:02) Lactic Acid Analyzer (11/15/22 15:02) Naloxone Injection (Narcan Injection) (11/15/22 15:30) Ct Head/Cervical Spine Wo (11/15/22 15:26) Arterial Blood Gas (11/15/22 15:28) Arterial Blood Draw - Obtain (11/15/22 15:35) Medications Given in ED Vital Signs/I&O 11/15/22 11/15/22 11/15/22 14:45 15:13 15:15 Temp 36.3 36.3 Pulse 78 78 Resp 9 9 B/P (MAP) 108/86 (93) 108/86 Pulse Ox 96 96 O2 Delivery Nasal Cannula Nasal Cannula Nasal Cannula O2 Flow Rate 2.50 2.50 FiO2 95 Capillary Refill : Less Than 3 Seconds Blood Pressure Mean: 93 Point of Care Testing Finger Stick Blood Glucose: 106 Blood Glucose Action Taken: RN NOTIFIED Progress Note : Progress Note A comprehensive work-up was performed on this patient who is at high risk he given his chronic conditions and the recent surgery and multiple hospitalizations. CT of the head and cervical spine revealed no acute injuries. Labs were grossly unremarkable including CBC, CMP, CRP, lactic acid, and urinalysis. All labs reviewed by me and interpreted by me. ABG showed mild hypoxia and hypercarbia. CT of the head and C-spine was viewed by me. I appreciated no acute injuries. There was no intracranial hemorrhage or cervical spine fracture. Postoperative changes were noted with fluid collection posteriorly near the laminectomy site. This did not appear to cause any compression on the spinal cord. See radiologist's report below for further d etails. Patient was treated with Narcan with rapid and remarkable improvement. He was coughing well and clearing his secretions. He was conversational. He was eventually able to ambulate. His fentanyl patch was removed. He was advised to significantly reduce his opioid usage by eliminating the fentanyl patch and cutting his oxycodone dose in half. 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 See discharge instructions for further discussion. Diagnostic Imaging Diagonstic Imaging: CT Plain Films/CT/US/NM/MRI: c-spine, head Comments NAME: GIOVANNI BRENNAN [facility] REC#: [id number] PT STATUS: REG ER : 1965 PHYSICIAN: MAYRA CRONIN MD ADMIT DATE: 11/15/22/ER Signed Date of Exam:11/15/22 CT HEAD/CERVICAL SPINE WO EXAMINATION: CT head and CT cervical spine without contrast. TECHNIQUE: Multiple contiguous axial images were obtained through the brain and cervical spine without the use of intravenous contrast. Sagittal and coronal reformations through the cervical spine were then performed. All CT scans use one or more of the following dose optimizing techniques: automated exposure control, MA and/or KvP adjustment based on patient size and exam type or iterative reconstruction. HISTORY: Head and neck pain after fall. COMPARISON: 05/18/2022. FINDINGS: HEAD: The ventricles and sulci are normal. No abnormal attenuation of brain parenchyma is present. No acute intracranial hemorrhage or abnormal extra-axial fluid collection is present. No hyperdense vessel. Surgical changes from posterior occipital craniectomy. Calvarium is otherwise intact. The mastoid air cells are clear. Mucosal thickening of the paranasal sinuses. The orbits are normal. C-SPINE: There is straightening of the normal cervical lordosis, likely postoperative. Surgical changes from C1 through C3 posterior laminectomy. There are surgical changes from multilevel cervical fusion. No acute fracture, dislocation, or destructive osseous process. No significant facet hypertrophy. There is mild cervical spondylosis. Small fluid collection within the upper neck and posterior fossa and suboccipital soft tissues measuring up to 3.2 x 2.5 cm. The visualized thyroid gland is normal. Emphysematous changes of the right lung apex. IMPRESSION: 1. No acute intracranial abnormality. 2. No cervical spine fracture. 3. Surgical changes of the occipital calvarium and cervical spine. There is a 3.2 x 2.5 cm fluid collection within the suboccipital soft tissues. Dictated by: Dictated on workstation # [id number] Dict: 11/15/22 1613 Trans: 11/15/22 1639 [facility] [id number] Interpreted by: NICHOLAS SAUNDERS DO Electronically signed by: NICHOLAS SAUNDERS DO 11/15/22 1639 Diagonstic Imaging: Xray Plain Films/CT/US/NM/MRI: chest Comments NAME: GIOVANNI BRENNAN [facility] REC#: [id number] PT STATUS: REG ER : 1965 PHYSICIAN: MAYRA CRONIN MD ADMIT DATE: 11/15/22/ER Signed Date of Exam:11/15/22 CHEST 1 VIEW, AP/PA ONLY EXAMINATION: Chest 1 view. HISTORY: Pneumonia. COMPARISON: 11/12/2022. FINDINGS: Stable enlargement of the cardiac silhouette. There are low lung volumes with mild bibasilar opacities. May be blunting of the costophrenic angles, bilaterally. No pneumothorax. The osseous structures are intact. IMPRESSION: Cardiomegaly with low lung volumes. There may be trace bilateral pleural effusions or pleural thickening with bibasilar atelectasis or consolidation. Dictated by: Dictated on workstation # [id number] Dict: 11/15/22 1611 Trans: 11/15/22 1639 [facility] [id number] Interpreted by: NICHOLAS SAUNDERS DO Electronically signed by: NICHOLAS SAUNDERS DO 11/15/22 1639 Departure Impression Primary Impression: Opioid overdose Qualified Codes: T40.2X1A - Poisoning by other opioids, accidental (unintentional), initial encounter Additional Impressions: Altered mental status Qualified Codes: R41.82 - Altered mental status, unspecified Postoperative pain Fall on same level Qualified Codes: W18.30XA - Fall on same level, unspecified, initial encounter Disposition: HOME, SELF-CARE Condition: Improved Departure-Patient Inst. Decision time for Depature: 17:52 Referrals: ELIOT WINN MD (PCP/Family) Primary Care Physician Patient Instructions: Opioid Overdose ED Add. Discharge Instructions: Your sedation and decreased responsiveness appears to be caused by opioid overdose. Your fentanyl patch was removed. Do not restart your fentanyl patch without speaking with your prescribing doctor. Use the oxycodone at the lowest effective dose needed to make pain tolerable. Try using 15 mg every 6 hours as needed instead of 30 mg. Absence of pain is not a realistic expectation at this time, and trying to achieve absence of pain may cause life-threatening overdoses of opioids. Follow-up with your primary care provider and your surgeon as soon as possible. Use Narcan (naloxone) as prescribed for opioid overdose. [place] 1 actuation in the nose and activate emergency services if opioid overdose occurs again. Return to the emergency room if you have any other worsening of condition that requires urgent attention. All discharge instructions reviewed with patient and/or family. Voiced understanding. Scripts Naloxone HCl (Naloxone HCl) 4 Mg/Actuation [place] 4 MG NS UD, #2 SPRAY Prov: MAYRA CRONIN MD 11/15/22 Copy Copies To 1: ELIOT WINN MD, JOSHUA T MD Nov 15, 2022 17:58
== END 2022-11-15 19:31 | disposition home or self-care (01) ==
LOC: EDUNIT# 14:42 → ER 14:43
DX: T40.2X1A Poisoning by other opioids, accidental (unintentional), initial encounter (principal); R41.82 Altered mental status, unspecified; G89.18 Other acute postprocedural pain; R09.02 Hypoxemia; E66.9 Obesity, unspecified; Z87.891 Personal history of nicotine dependence; Z68.33 Body mass index [BMI] 33.0-33.9, adult; W18.30XA Fall on same level, unspecified, initial encounter
CPT/HCPCS: 36415; 36600; 51702; 70450; 71045; 72125; 80053; 81000; 82805; 82947; 83605; 85025; 85610; 85730; 86141; 87040; 87088

== ENCOUNTER 2022-12-03 03:16 | Inpatient (IN) | payer MEDICARE, MEDICAID ==
[~2022-12-03] VITALS: Ht 165.1 cm; Wt 95.2 kg
[~2022-12-03 03:16] MED LIST changes: +NALO4SPR3 NS
[2022-12-03] MEDS ORDERED: RT-ALBUTEROL/IPRATROPIUM 3 ML (DUONEB) VIAL INH ONE (03:30)
--- NOTE | 2022-12-03 03:33 | ED General ---
General Stated Complaint: SOB Source of Information: Patient Exam Limitations: No Limitations History of Present Illness Date Seen by Provider: December 03, 2022 Time Seen by Provider: 03:15 Initial Comments Here with report of shortness of air over the last 24 hours and much worse this morning. Patient does have a history of respiratory distress requiring BiPAP. Had recent surgery for Chiari malformation. Denies smoking. Has had similar incidents previous with pneumonia. Denies fever, chest pain, nausea, vomiting or diarrhea. Chronically on O2 at 2 L. Reports previous COVID and influenza vaccination. Last admission 2 to 3 weeks ago. He reports this was the last time he was on steroids as well. Does have history of COPD. Timing/Duration: 1-2 Days, Getting Worse Severity: Moderate, Severe Associated Systoms: No Chest Pain; Cough; No Fever/Chills, No Nausea/Vomiting; Shortness of Air; No Weakness Allergies and Home Medications Allergies Coded Allergies: amitriptyline (Verified Allergy, Unknown, 02/08/16) duloxetine (Verified Allergy, Unknown, 02/08/16) fluticasone (Verified Allergy, Unknown, 02/08/16) salmeterol (Verified Allergy, Unknown, 02/08/16) Patient Home Medication List Home Medication List Reviewed: Yes Albuterol/Ipratropium (Combivent Respimat Inhal [place]) 20 Mcg-100 Mcg/Actuation [place], 2 PUFF IH BID, (Reported) Entered as Reported by: JEREMI THAO on 07/03/20 1115 Cefdinir (Cefdinir) 300 Mg Capsule, 300 MG PO BID Prescribed by: SHAHID ORR on 11/12/22 1212 Celecoxib (Celecoxib) 200 Mg Capsule, 200 MG PO BID, (Reported) Entered as Reported by: MADDIE TATE on 09/28/22 1444 Cyclobenzaprine HCl (Cyclobenzaprine HCl) 10 Mg Tablet, 10 MG PO TID PRN for MUSCLE SPASMS, (Reported) Entered as Reported by: JEREMI THOA on 07/03/20 1121 Fentanyl (Fentanyl Patch 50 MCG) 50 Mcg/Hour Patch.td72, 50 MCG TD Q72H, (Reported) Entered as Reported by: MADDIE TATE on 09/28/22 1444 Gabapentin (Gabapentin) 600 Mg Tablet, 600 MG PO TID, (Reported) Entered as Reported by: JEREMI THAO on 07/03/20 1053 Losartan/Hydrochlorothiazide (Losartan-Hctz 100-12.5 mg Tab) 100 Mg-12.5 Mg Tablet, 1 EA PO DAILY, (Reported) Entered as Reported by: MADDIE TATE on 09/28/22 1444 Metoprolol Succinate (Metoprolol Succinate) 100 Mg Tab.er.24h, 100 MG PO DAILY, (Reported) Entered as Reported by: MADDIE TATE on 09/28/22 1444 Naloxone HCl (Naloxone HCl) 4 Mg/Actuation [place], 4 MG NS UD Prescribed by: MAYRA HAND on 11/15/22 1756 Ondansetron HCl (Ondansetron HCl) 4 Mg Tablet, 4 MG PO Q6H PRN for NAUSEA/VOMITING-1ST LINE, (Reported) Entered as Reported by: MADDIE TATE on 11/11/22 1238 Oxycodone HCl (Oxycodone HCl) 30 Mg Tablet, 30 MG PO Q6H, (Reported) Entered as Reported by: JEREMI THAO on 07/03/20 1121 Pantoprazole Sodium (Pantoprazole Sodium) 40 Mg Tablet.dr, 40 MG PO DAILY, (Reported) Entered as Reported by: JEREMI THAO on 07/03/20 1115 Prednisone (Prednisone) 10 Mg Tab.ds.pk, 10 MG PO DAILY Prescribed by: SHAHID ORR on 11/12/22 1212 Propylene Glycol/Peg 400 (Systane 0.3-0.4% Eye Drops) 0.3 %-0.4 % Drops, 1-2 DROPS OD UD PRN for DRY EYES, (Reported) Entered as Reported by: MADDIE TATE on 09/28/22 1444 Rizatriptan Benzoate (Rizatriptan) 10 Mg Tablet, 10 MG PO DAILY PRN for MIGRAINE, (Reported) Entered as Reported by: JEREMI THAO on 07/03/20 1121 Tamsulosin HCl (Flomax) 0.4 Mg Cap, 0.4 MG PO HS, (Reported) Entered as Reported by: MADDIE TATE on 11/11/22 1238 Tiotropium Victor (Spiriva Respimat 1.25MCG/ACTUATION) 1.25 Mcg/Actuation Mist.inhal, 2 PUFF INH DAILY, (Reported) Entered as Reported by: MADDIE TATE on 09/28/22 1444 Review of Systems Review of Systems Constitutional: see HPI; No chills, No fever EENTM: No nose congestion, No throat pain Respiratory: No cough; short of breath Cardiovascular: No chest pain, No edema Gastrointestinal: No nausea, No vomiting Genitourinary: no symptoms reported Musculoskeletal: back pain (Chronic) Skin: No see HPI Psychiatric/Neurological: No Symptoms Reported Past Bqvtnek-Ieeuqr-Bsehnm Hx Patient Social History Tobacco Use?: No Use of E-Cig and/or Vaping dev: No Substance use?: No Immunizations Up To Date Tetanus Booster (TDap): Unknown PED Vaccines UTD: No First/Initial COVID19 Vaccinat: SEPTEMBER 2020 Second COVID19 Vaccination Rhett: SEPTEMBER 2020 Third COVID19 Vaccination Date: SEPTEMBER 2020 Seasonal Allergies Seasonal Allergies: No Past Medical History Surgery/Hospitalization HX: MULTIPLE ORTHOPEDIC SURGERIES/CHIARI MALFORMATION/ABDOMINAL HERNIA Surgeries: Yes (Craniotomy and cervical laminectomy for Chiari malformation surgery) Abdominal, Neurological, Orthopedic Respiratory: Yes (RESPIRATORY FAILURE ON VENT AND BIPAP MULTIPLE TIMES) Pneumonia, Chronic Bronchitis, Sleep Apnea, COPD, Emphysema Currently Using CPAP: No Currently Using BIPAP: No Cardiac: Yes Hypertension Neurological: Yes (MENINGITIS POSTOP 2004 FOR CYST ON BRAINSTEM & CHIARI MALFORMATION. SHUNT.) Meningitis, Paralysis Reproductive Disorders: No Genitourinary: No Gastrointestinal: Yes (HERNIA REPAIR) Abdominal Hernia Musculoskeletal: Yes (CHRONIC HEAD/NECK & KNEE PAIN; CHIARI MALFORMATION;MULTIPLE ORTHO SURGERIES) Arthritis Endocrine: No (OBESITY) HEENT: No Cancer: No Psychosocial: Yes Anxiety Integumentary: No Blood Disorders: No Family Medical History Reviewed Nursing Family Hx FH: cancer 19 MOTHER Mother- lung cancer Father- HTN and CVA SOCIAL HISTORY: -SMOKED 1 1/2 PPD---QUIT 5 YEARS AGO -ETOH--HISTORY OF ABUSE, QUIT A FEW YEARS AGO -DENIES DRUG USE PAST SURGICAL HISTORY: -HERNIA REPAIR -MULTIPLE ORTHOPEDIC SURGERIES--RIGHT SHOULDER, BOTH KNEES, HAND SURGERY -2 BRAIN SURGERIES IN 2004--CHIARI MALFORMATION AND CYST AROUND BRAINSTEM REMOVED; PT HAD POST OP MENINGITIS -C-SPINE SURGERY X 2 IN 2014 AT [facility] -REPEAT SURGERY FOR CHIARI MALFORMATION 09/13/2017 AT [facility] PT HAD SURGERY FOR CHIARI MALFORMATION AT [facility] ON 09/13/17 AND WAS DISMISSED TO HOME ON Wednesday09/20/17 PT HAD BEEN ON VENT POST OP, THEN WAS TAKEN OFF THE VENT, THEN PT BEGAN TO HAVE DECREASED RESPONSIVENESS AND DIFFICULTY BREATHING AND HAD TO BE PUT BACK ON THE VENT AN ADDITIONAL 3 DAYS -SURGERY 11/05/22 AT FOR CHIARI MALFORMATION WITH CRANIECTOMY AND CERVICAL LAMINECTOMY AND DECOMPRESSION. Physical Exam-Suspected Sepsis Physical Exam Vital Signs Vital Signs - First Documented 12/03/22 03:56 O2 Flow Rate 60.00 Capillary Refill : Height, Weight, BMI Height: 5'5.00" Weight: 180lbs. 0.0oz. 81.655525ck; 33.00 BMI Method:Stated General Appearance: Chronically ill, Mild Distress, Obese HEENT: PERRL/EOMI Neck: Non Tender, Supple Respiratory: Decreased Breath Sounds, Other (Hypoxic in the 70s on arrival) Cardiovascular: Regular Rate, Rhythm, No Murmur Gastrointestinal: Non Tender, Soft Back: Normal Inspection, No CVA Tenderness, No Vertebral Tenderness Extremity: Normal Range of Motion, Non Tender, No Calf Tenderness, No Pedal E yoli Neurologic/Psychiatric: Alert, Oriented x3 Skin: normal color, warm/dry Focused Exam Lactate Level 12/03/22 03:43: Lactic Acid Level 1.65 Lactic Acid Level Laboratory Tests Test 12/03/22 03:43 Lactic Acid Level 1.65 MMOL/L (0.50-2.00) Progress/Results/Core Measures Suspected Sepsis SIRS Temperature: Pulse: Respiratory Rate: Laboratory Tests 12/03/22 03:25: White Blood Count 5.6 Blood Pressure / Mean: 12/03/22 03:43: Lactic Acid Level 1.65 Laboratory Tests 12/03/22 03:25: Creatinine 0.85, INR Comment 1.0, Platelet Count 246, Total Bilirubin 0.4 Results/Orders Lab Results Laboratory Tests Test 12/03/22 03:25 12/03/22 03:29 12/03/22 03:43 Range/Units White Blood Count 5.6 4.3-11.0 10^3/uL Red Blood Count 3.90 L 4.30-5.52 10^6/uL Hemoglobin 10.7 L 13.3-17.7 g/dL Hematocrit 35 L 40-54 % Mean Corpuscular Volume 91 80-99 fL Mean Corpuscular Hemoglobin 27 25-34 pg Mean Corpuscular Hemoglobin Concent 30 L 32-36 g/dL Red Cell Distribution Width 13.1 10.0-14.5 % Platelet Count 246 130-400 10^3/uL Mean Platelet Volume 10.0 9.0-12.2 fL Immature Granulocyte % (Auto) 0 % Neutrophils (%) (Auto) 56 42-75 % Lymphocytes (%) (Auto) 32 12-44 % Monocytes (%) (Auto) 8 0-12 % Eosinophils (%) (Auto) 4 0-10 % Basophils (%) (Auto) 0 0-10 % Neutrophils # (Auto) 3.1 1.8-7.8 10^3/uL Lymphocytes # (Auto) 1.8 1.0-4.0 10^3/uL Monocytes # (Auto) 0.4 0.0-1.0 10^3/uL Eosinophils # (Auto) 0.2 0.0-0.3 10^3/uL Basophils # (Auto) 0.0 0.0-0.1 10^3/uL Immature Granulocyte # (Auto) 0.0 0.0-0.1 10^3/uL Prothrombin Time 13.2 12.2-14.7 SEC INR Comment 1.0 0.8-1.4 Activated Partial Thromboplast Time 37 H 24-35 SEC Sodium Level 144 135-145 MMOL/L Potassium Level 3.6 3.6-5.0 MMOL/L Chloride Level 107 98-107 MMOL/L Carbon Dioxide Level 28 21-32 MMOL/L Anion Gap 9 5-14 MMOL/L Blood Urea Nitrogen 15 7-18 MG/DL Creatinine 0.85 0.60-1.30 MG/DL Estimat Glomerular Filtration Rate 101 BUN/Creatinine Ratio 18 Glucose Level 138 H 70-105 MG/DL Calcium Level 9.5 8.5-10.1 MG/DL Corrected Calcium 9.7 8.5-10.1 MG/DL Total Bilirubin 0.4 0.1-1.0 MG/DL Aspartate Amino Transf (AST/SGOT) 6 5-34 U/L Alanine Aminotransferase (ALT/SGPT) 6 0-55 U/L Alkaline Phosphatase 63 40-136 U/L Troponin I < 0.028 <0.028 NG/ML B-Type Natriuretic Peptide 31.5 <100.0 PG/ML Total Protein 7.2 6.4-8.2 GM/DL Albumin 3.8 3.2-4.5 GM/DL Blood Gas Puncture Site LT RADIAL Blood Gas Patient Temperature 36.1 Arterial Blood pH 7.34 *L 7.37-7.43 Arterial Blood Partial Pressure CO2 56 H 35-45 MMHG Arterial Blood Partial Pressure O2 63 L 79-93 MMHG Arterial Blood HCO3 30 H 23-27 MMOL/L Arterial Blood Total CO2 31.7 H 21.0-31.0 MMOL/L Arterial Blood Oxygen Saturation 93 L 94-100 % Arterial Blood Base Excess 4.3 H -2.5-2.5 MMOL/L Damion Test YES-POS Blood Gas Ventilator Setting NO Blood Gas Inspired Oxygen 15 Lactic Acid Level 1.65 0.50-2.00 MMOL/L My Orders Orders - MAO HALL MD Cbc With Automated Diff (12/03/22 03:25) Comprehensive Metabolic Panel (12/03/22 03:25) Blood Culture (12/03/22 03:25) Sputum Culture (12/03/22 03:25) Urinalysis (12/03/22 03:25) Urine Culture (12/03/22 03:25) Protime With Inr (12/03/22 03:25) Partial Thromboplastin Time (12/03/22 03:25) Chest 1 View, Ap/Pa Only (12/03/22 03:25) Ed Iv/Invasive Line Start (12/03/22 03:25) Troponin I Debi (12/03/22 03:25) Vital Signs Adult Sepsis Patie Q15M (12/03/22 03:25) O2 (12/03/22 03:25) Remove Rings In Anticipation O (12/03/22 03:25) Lactic Acid Analyzer (12/03/22 03:25) Albuterol/Ipra Inhalation Soln (Duoneb I (12/03/22 03:30) Svn Small Volume Nebulizer (12/03/22 03:25) Bnp Debi (12/03/22 03:25) Arterial Blood Gas (12/03/22 03:29) Albuterol Pre-Mix Nebs (Rt) (Proventil (12/03/22 04:08) Svn Small Volume Nebulizer (12/03/22 04:08) Cefepime Injection (Maxipime Injection) (12/03/22 05:00) Medications Given in ED Current Medications Medications Dose Ordered Sig/Isabel Route Start Time Stop Time Status Last Admin Dose Admin Albuterol/ Ipratropium 3 ml ONCE ONCE INH 12/03/22 03:30 12/03/22 03:31 DC 12/03/22 03:56 3 ML Vital Signs/I&O 12/03/22 12/03/22 12/03/22 12/03/22 03:16 03:16 03:56 04:26 Temp 36.1 Pulse 76 77 79 Resp 28 B/P (MAP) 144/84 (104) Pulse Ox 94 93 95 O2 Delivery NIV Bilevel Non Rebreather O2 Flow Rate 60.00 60.00 Capillary Refill : Progress Note : Progress Note Seen and evaluated. IV, sepsis protocol initiated including CBC, CMP, coags, troponin, BNP, blood cultures and lactic acid ordered. Patient initiated on high flow oxygen via mask initially and then increased to nonrebreather. Ultimately we were able to get him on BiPAP 16/6 and will titrate O2 to keep saturations greater than 92%. We will give DuoNeb. Monitor patient. Differential includes sepsis, COPD exacerbation 0326: Albuterol neb ordered. 0346: ABG ordered. 0408: Chest x-ray pain. Albuterol neb x3.. Patient on BiPAP at 14/8 and tolerating well. No acute laceration noted mid 90s. 0432: Chest x-ray concerning for right lower lobe pneumonia. Patient has improved and states he feels better. ABG resulted and shows pH of 7.34 with CO2 of 56 and otherwise normal. Coags are normal. CBC is grossly normal. Chemistries show slightly elevated glucose at 138 but otherwise grossly normal. I did discuss the case with Dr. Liu, on-call for hospitalist service and he accepts patient for admission, inpatient status to the ICU. This was discussed with the patient who agrees. Cefepime 1 g IV ordered. I did review previous history and he has no indications of MRSA as recently as last month. 0452: Patient currently 95% on BiPAP at 14/8 and FiO2 at 60%. I did discuss the case and findings with patient's and both agree to admission. I did discuss with the eICU team and gave report to eICU on-call doc, including current findings, therapy and progress. Diagnostic Imaging Diagonstic Imaging: Xray Plain Films/CT/US/NM/MRI: chest Comments Question of right lower lobe pneumonia. Interpreted by me. Pending radiology report. Reviewed: Reviewed by Me Critical Care Note Critical Care Start Time: 03:15 Stop Time: 04:52 Total Time (minutes) 30 minutes excluding separately billable procedures. See progress note for details. Departure Communication (Admissions) Time/Spoke to Admitting Phy: 04:32 Impression Primary Impression: Respiratory failure with hypoxia Qualified Codes: J96.01 - Acute respiratory failure with hypoxia Additional Impressions: Right lower lobe pneumonia Qualified Codes: J18.9 - Pneumonia, unspecified organism COPD exacerbation Disposition: ADMITTED INPATIENT Condition: Stable Admissions Decision to Admit Reason: Admit from ER (General) Decision to Admit/Date: December 03, 2022 Time/Decision to Admit Time: 04:32 Departure-Patient Inst. Referrals: ELIOT WINN MD (PCP/Family) Primary Care Physician MAO HALL MD December 03, 2022 03:33
[2022-12-03 03:38] LABS: BASOPHILS % (AUTO) 0 % (0-10); EOSINOPHILS # (AUTO) 0.2 10^3/uL (0.0-0.3); EOSINOPHILS % (AUTO) 4 % (0-10); HEMATOCRIT 35 % (40-54); HEMOGLOBIN 10.7 g/dL (13.3-17.7); LYMPHOCYTES # (AUTO) 1.8 10^3/uL (1.0-4.0); LYMPHOCYTES % (AUTO) 32 % (12-44); MEAN CORPUSCULAR HEMOGLOBIN 27 pg (25-34); MEAN CORPUSCULAR HGB CONC 30 g/dL (32-36); MEAN CORPUSCULAR VOLUME 91 fL (80-99); MONOCYTES # (AUTO) 0.4 10^3/uL (0.0-1.0); MONOCYTES % (AUTO) 8 % (0-12); NEUTROPHILS # (AUTO) 3.1 10^3/uL (1.8-7.8); NEUTROPHILS % (AUTO) 56 % (42-75); PLATELET COUNT 246 10^3/uL (130-400); WHITE BLOOD COUNT 5.6 10^3/uL (4.3-11.0)
[2022-12-03 03:48] LABS: ALBUMIN 3.8 GM/DL (3.2-4.5); CHLORIDE 107 MMOL/L (98-107); POTASSIUM 3.6 MMOL/L (3.6-5.0); SODIUM 144 MMOL/L (135-145)
[2022-12-03 03:49] LABS: CALCIUM 9.5 MG/DL (8.5-10.1); PROTHROMBIN TIME PATIENT 13.2 SEC (12.2-14.7)
[2022-12-03 03:51] LABS: ABG BASE EXCESS 4.3 MMOL/L (-2.5-2.5); ABG OXYGEN SATURATION 93 % (94-100); ABG PCO2 56 MMHG (35-45); ABG PO2 63 MMHG (79-93); ABG TCO2 31.7 MMOL/L (21.0-31.0)
[2022-12-03 03:51] LABS: GLUCOSE 138 MG/DL (70-105); TOTAL PROTEIN 7.2 GM/DL (6.4-8.2)
[2022-12-03 03:52] LABS: BILIRUBIN,TOTAL 0.4 MG/DL (0.1-1.0); CARBON DIOXIDE 28 MMOL/L (21-32)
[2022-12-03 03:52] LABS: ABG PH 7.34 (7.37-7.43); ALLENS TEST YES-POS; INSPIRED O2 15; PATIENT TEMP 36.1; VENTILATOR NO
[2022-12-03 03:54] LABS: ALKALINE PHOSPHATASE 63 U/L (40-136); CREATININE SERUM 0.85 MG/DL (0.60-1.30); GFR ESTIMATED 101
[2022-12-03 03:55] LABS: BUN/CREATININE RATIO 18
[2022-12-03 03:56] VITALS: BP 144/84
[2022-12-03 03:57] LABS: ALANINE AMINOTRANSFERASE 6 U/L (0-55)
[2022-12-03] MEDS ORDERED: RT-ALBUTEROL SULF 2.5 MG/3 ML PRE-MIX VIAL INH STA (04:08)
[2022-12-03] MEDS ORDERED: CEFEPIME INJECTION 1,000 MG in NS (IVPB) 50 ML IV ONE (05:00)
[2022-12-03 06:00] VITALS: BP 149/88
[2022-12-03] MEDS ORDERED: methylPREDNISolone 40 MG/ML (Solu-MEDROL) VIAL IV SCH (06:00)
[2022-12-03] MEDS ORDERED: LACTATED RINGERS 1,000 ML IV ONE (06:01)
[2022-12-03] MEDS ORDERED: EPINEPHrine 1 MG INJECTION 4 MG in NS (IVPB) 248 ML IV SCH (06:15)
[2022-12-03] MEDS ORDERED: LACTATED RINGERS 1,000 ML IV SCH (06:15)
[2022-12-03] MEDS: ENOXAPARIN 40 MG/0.4 ML (LOVENOX) SYR SC SCH (06:17)
--- NOTE | 2022-12-03 06:20 | Tele-ICU Consult ---
History of Present Illness History of Present Illness Date Seen by Provider: December 03, 2022 Time Seen by Provider: 06:18 Date of Admission 12/03/2022 History of Present Illness (Tele-ICU Physician , consultation) Available chart/ vitals / labs / Images reviewed H&P is from ER notes Patient's information available about PMH, allergy reviewed in EMR. ROS as per chart and RN report Video assessment done using teleICU camera, rest of exam as per RN Discussed with RN. He is a 52-year-old male with past medical history of severe chronic obstructive pulmonary disease on home oxygen 2 L nasal cannula presented to the emergency room with a complaint of shortness of breath which is worse in the last 24 hours and this a.m. he is even worse. In the emergency room he is found to have hypoxia and respiratory distress hence he is put on BiPAP ventilation. Arterial blood gases revealed hypercapnic and hyper hypoxic respiratory failure. He is admitted to the intensive care unit. Chest x-ray showed right basilar infiltrate suggestive of pneumonia. Impression 1. Pneumonia likely healthcare associated as he is admitted recently to the hospital 2. Acute and chronic hypoxic and hypercarbic respiratory failure 3. COPD exacerbation 4. History of type 2 diabetes mellitus 5. History of chronic pain syndrome 6. Recent GI artery malformation surgery. Also has a cervical spine surgery. Recommendations 1. We will continue BiPAP ventilation /8 with 60% FiO2. 2. Start on a cefepime 3. Bronchodilators with DuoNeb nebulizer treatment 4. IV Solu-Medrol 5. DVT prophylaxis with subcu Lovenox 6. Coordination of care with primary care and bedside consultants. Critical care time devoted to this patient this a.m. is approximately 40 minutes. Allergies and Home Medications Allergies Coded Allergies: amitriptyline (Verified Allergy, Unknown, 02/08/16) duloxetine (Verified Allergy, Unknown, 02/08/16) fluticasone (Verified Allergy, Unknown, 02/08/16) salmeterol (Verified Allergy, Unknown, 02/08/16) Home Medications Albuterol/Ipratropium 20 Mcg-100 Mcg/Actuation Aero, 2 PUFF IH BID, (Reported) Cefdinir 300 Mg Capsule, 300 MG PO BID Prescribed by: SHAHID ORR on 11/12/22 1212 Celecoxib 200 Mg Capsule, 200 MG PO BID, (Reported) Cyclobenzaprine HCl 10 Mg Tablet, 10 MG PO TID PRN for MUSCLE SPASMS, (Reported) Fentanyl 50 Mcg/Hour Patch.td72, 50 MCG TD Q72H, (Reported) Gabapentin 600 Mg Tablet, 600 MG PO TID, (Reported) Losartan/Hydrochlorothiazide 100 Mg-12.5 Mg Tablet, 1 EA PO DAILY, (Reported) Metoprolol Succinate 100 Mg Tab.er.24h, 100 MG PO DAILY, (Reported) Naloxone HCl 4 Mg/Actuation [place], 4 MG NS UD Prescribed by: MAYRA HAND on 11/15/22 1756 Ondansetron HCl 4 Mg Tablet, 4 MG PO Q6H PRN for NAUSEA/VOMITING-1ST LINE, (Reported) Oxycodone HCl 30 Mg Tablet, 30 MG PO Q6H, (Reported) Pantoprazole Sodium 40 Mg Tablet.dr, 40 MG PO DAILY, (Reported) Prednisone 10 Mg Tab.ds.pk, 10 MG PO DAILY Take 6 tabs(60mg)daily,decrease by 1 tab(10MG)daily. Prescribed by: SHAHID ORR on 11/12/22 1212 Propylene Glycol/Peg 400 0.3 %-0.4 % Drops, 1-2 DROPS OD UD PRN for DRY EYES, (Reported) Rizatriptan Benzoate 10 Mg Tablet, 10 MG PO DAILY PRN for MIGRAINE, (Reported) Tamsulosin HCl 0.4 Mg Cap, 0.4 MG PO HS, (Reported) Tiotropium [place] 1.25 Mcg/Actuation Mist.inhal, 2 PUFF INH DAILY, (Reported) Past Medical/Social/Family Hx Patient Social History Tobacco Use?: Yes Smoking Status: Former Smoker Use of E-Cig and/or Vaping dev: No Substance use?: No Alcohol Use?: Yes FORMER Pt stated abuse/neglect: No Immunizations Up To Date Influenza Vaccine Up-to-Date: No; Not Current First/Initial COVID19 Vaccinat: SEPTEMBER 2020 Second COVID19 Vaccination Rhett: SEPTEMBER 2020 Tetanus Booster (TDap): Unknown Hepatitis A: No Hepatitis B: No TB Skin Test: None Date of Pneumonia Vaccine: Jun 18, 2015 Current Status Advance Directives: No Communicates: Verbally Primary Language: Romanian Preferred Spoken Language: Romanian Is interpretation needed?: No Family Medical History Family Hx: Mother- lung cancer Father- HTN and CVA SOCIAL HISTORY: -SMOKED 1 1/2 PPD---QUIT 5 YEARS AGO -ETOH--HISTORY OF ABUSE, QUIT A FEW YEARS AGO -DENIES DRUG USE PAST SURGICAL HISTORY: -HERNIA REPAIR -MULTIPLE ORTHOPEDIC SURGERIES--RIGHT SHOULDER, BOTH KNEES, HAND SURGERY -2 BRAIN SURGERIES IN 2004--CHIARI MALFORMATION AND CYST AROUND BRAINSTEM REMOVED; PT HAD POST OP MENINGITIS -C-SPINE SURGERY X 2 IN 2014 AT [facility] -REPEAT SURGERY FOR CHIARI MALFORMATION 09/13/2017 AT [facility] PT HAD SURGERY FOR CHIARI MALFORMATION AT [facility] ON 09/13/17 AND WAS DISMISSED TO HOME ON Wednesday09/20/17 PT HAD BEEN ON VENT POST OP, THEN WAS TAKEN OFF THE VENT, THEN PT BEGAN TO HAVE DECREASED RESPONSIVENESS AND DIFFICULTY BREATHING AND HAD TO BE PUT BACK ON THE VENT AN ADDITIONAL 3 DAYS -SURGERY 11/05/22 AT FOR CHIARI MALFORMATION WITH CRANIECTOMY AND CERVICAL LAMINECTOMY AND DECOMPRESSION. Review of Systems Constitutional: see HPI Respiratory: see HPI, cough, short of breath, wheezing Focused Exam Lactate Level 12/03/22 03:43: Lactic Acid Level 1.65 12/03/22 06:04: Height, Weight, BMI Height: 5'5.00" Weight: 180lbs. 0.0oz. 81.479040sf; 35.25 BMI Method:Stated Lactic Acid Level Laboratory Tests Test 12/03/22 03:43 12/03/22 06:04 Lactic Acid Level 1.65 MMOL/L (0.50-2.00) Exam Exam Patient acknowledged, consented, and participated in this virtual visit which was conducted using real time audio/video Vital Signs Date Time Temp Pulse Resp B/P (MAP) Pulse Ox O2 Delivery O2 Flow Rate FiO2 12/03/22 06:06 99 NIV Bilevel 60 12/03/22 06:00 93 96 60.00 12/03/22 05:54 36.5 93 13 149/88 (108) 98 NIV Bilevel 60.00 12/03/22 05:49 94 12/03/22 05:40 95 20 137/86 95 NIV Bilevel 12/03/22 04:26 79 95 60.00 12/03/22 03:56 77 93 60.00 12/03/22 03:16 Non Rebreather 12/03/22 03:16 36.1 76 28 144/84 (104) 94 NIV Bilevel I & O 12/03/22 07:00 Intake Total 50 ml Balance 50 ml Height & Weight Height: 5'5.00" Weight: 180lbs. 0.0oz. 81.783722oa; 35.25 BMI Method:Stated General Appearance: Chronically ill, Mild Distress, Obese HEENT: PERRL/EOMI Neck: Non Tender, Supple Respiratory: Decreased Breath Sounds, Other (Hypoxic in the 70s on arrival) Cardiovascular: Regular Rate, Rhythm, No Murmur Capillary Refill: Less Than 3 Seconds Extremity: Normal Range of Motion, Non Tender, No Calf Tenderness, No Pedal Edema Neurologic/Psychiatric: Alert, Oriented x3 Results Lab Laboratory Tests 12/03/22 03:25 Assessment/Plan Assessment/Plan as above Critical Care: Critically Ill Patient Time spent with patient (mins): 40 DEEDEE MURPHY MD December 03, 2022 06:20
[2022-12-03] MEDS: VASOPRESSIN INJECTION 20 UNIT in NS (IVPB) 100 ML IV SCH ×2 (06:58→17:27)
[2022-12-03] MEDS: NOREPINEPHRINE 8 MG/250 ML 250 ML IV SCH ×2 (06:58→19:58)
--- NOTE | 2022-12-03 07:02 | Diagnostic Imaging Report ---
EXAMINATION: Chest radiograph, portable AP view. DATE: 12/03/2022 4:26 AM INDICATION: 57-year-old male, shortness breath, hypoxia. COMPARISON: November 15, 2022. FINDINGS: There is spinal hardware noted. Heart size and mediastinal contours are likely grossly unchanged. There is no identified pneumothorax. There is right mid and lower lung zone consolidation and consolidation in the left lung base. There are likely bilateral pleural effusions. IMPRESSION: 1. Nonspecific right mid and lower lung zone consolidation and consolidation in the left lung base which may reflect infiltrate and/or atelectasis. There are also likely bilateral pleural effusions. Dictated by: Dictated on workstation # [id number]
[2022-12-03 08:32] LABS: BILIRUBIN,URINE NEGATIVE (NEGATIVE); CLARITY,URINE CLEAR; COLOR,URINE YELLOW; GLUCOSE, URINE (UA) NEGATIVE (NEGATIVE); KETONES,URINE NEGATIVE (NEGATIVE); LEUKOCYTE ESTERASE ,URINE NEGATIVE (NEGATIVE); NITRITE,URINE NEGATIVE (NEGATIVE); PROTEIN,URINE TRACE (NEGATIVE)
[2022-12-03 08:40] LABS: BACTERIA,URINE NEGATIVE /HPF; SQUAMOUS EPITHELIAL CELL,UR RARE /HPF
[2022-12-03] MEDS: RT-ALBUTEROL/IPRATROPIUM 3 ML (DUONEB) VIAL INH SCH ×4 (10:31→22:44)
[2022-12-03] MEDS: CEFEPIME INJECTION 1,000 MG in NS (IVPB) 50 ML IV SCH ×3 (11:11→22:39)
--- NOTE | 2022-12-03 11:35 | History & Physical-Hospitalist ---
History of Present Illness HPI/Chief Complaint Patient is a 57-year-old male with past medical history of COPD, chronic respiratory failure, hypertension, chronic pain, recent admission who presented to the emergency department due to shortness of breath. He states symptoms started roughly 2 days ago and have been worsening since that time. He was admitted within the last month for similar symptoms. In the ER he was found to have a right-sided pneumonia and necessitated BiPAP to maintain oxygen saturations. He was admitted to the ICU for further management. This morning he remains on BiPAP but states he is feeling better and would like to trial off of it to eat breakfast. He normally wears 2 L of oxygen at home. He denies any fevers or chest pain. Source: patient Date Seen 12/03/22 Time Seen by a Provider: 11:27 Attending Physician Reyes Angeles MD PCP Admitting Physician: Addi Liu MD Attending Physician: Addi Liu MD Referring Physician Date of Admission December 03, 2022 at 05:16 Home Medications & Allergies Home Medications Reviewed patient Home Medication Reconciliation performed by pharmacy medication reconciliations gas plant technician and/or nursing. Patients Allergies have been reviewed. Allergies Allergies Coded Allergies amitriptyline (Verified Allergy, Unknown, 02/08/16) duloxetine (Verified Allergy, Unknown, 02/08/16) fluticasone (Verified Allergy, Unknown, 02/08/16) salmeterol (Verified Allergy, Unknown, 02/08/16) Past Wuzhpcx-Mzfjpb-Kljpta Hx Patient Social History Tobacco Use?: Yes Smoking Status: Former Smoker Use of E-Cig and/or Vaping dev: No Substance use?: No Alcohol Use?: Yes Additional Alcohol Comments: FORMER Pt feels they are or have been: No Immunizations Up To Date Date of Influenza Vaccine: May 02, 2022 First/Initial COVID19 Vaccinat: SEPTEMBER 2020 Second COVID19 Vaccination Rhett: SEPTEMBER 2020 Tetanus Booster (TDap): Unknown Hepatitis A: No Hepatitis B: No PED Vaccines UTD: No Date of Pneumonia Vaccine: Jun 18, 2015 Seasonal Allergies Seasonal Allergies: No Current Status Advance Directives: No Communicates: Verbally Primary Language: Arabic Preferred Spoken Language: Arabic Is interpretation needed?: No Past Medical History Surgeries: Abdominal, Neurological, Orthopedic Pneumonia, Chronic Bronchitis, Sleep Apnea, COPD, Emphysema Currently Using CPAP: No Currently Using BIPAP: No Hypertension Meningitis, Paralysis Abdominal Hernia Arthritis Anxiety Blood Disorders: No Family Medical History Reviewed Nursing Family Hx FH: cancer 19 MOTHER Mother- lung cancer Father- HTN and CVA SOCIAL HISTORY: -SMOKED 1 1/2 PPD---QUIT 5 YEARS AGO -[facility]OH--HISTORY OF ABUSE, QUIT A FEW YEARS AGO -DENIES DRUG USE PAST SURGICAL HISTORY: -HERNIA REPAIR -MULTIPLE ORTHOPEDIC SURGERIES--RIGHT SHOULDER, BOTH KNEES, HAND SURGERY -2 BRAIN SURGERIES IN 2004--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 Review of Systems Constitutional: see HPI Physical Exam Physical Exam Vital Signs Vital Signs - First Documented 12/03/22 06:06 FiO2 60 Capillary Refill : Less Than 3 Seconds Height, Weight, BMI Height: 5'5.00" Weight: 180lbs. 0.0oz. [id number]; 35.25 BMI Method:Stated General Appearance: No Apparent Distress, Chronically ill, Obese Respiratory: No Accessory Muscle Use; No Crackles; Decreased Breath Sounds; No Wheezing; Other (on BiPAP) Cardiovascular: Regular Rate, Rhythm, No Murmur Gastrointestinal: Normal Bowel Sounds, Soft Neurologic/Psychiatric: Alert, Oriented x3 Results Results/Procedures Labs Laboratory Tests 12/03/22 03:25 Patient resulted labs reviewed. Imaging: Reviewed Imaging Report Imaging [facility] [place] NAME: GIOVANNI BRENNAN [facility] REC#: [id number] PT STATUS: ADM IN : 1965 PHYSICIAN: MAO HALL MD ADMIT DATE: 12/03/22/ICU Signed Date of Exam:12/03/22 CHEST 1 VIEW, AP/PA ONLY EXAMINATION: Chest radiograph, portable AP view. DATE: 12/03/2022 4:26 AM INDICATION: 57-year-old male, shortness breath, hypoxia. COMPARISON: November 15, 2022. FINDINGS: There is spinal hardware noted. Heart size and mediastinal contours are likely grossly unchanged. There is no identified pneumothorax. There is right mid and lower lung zone consolidation and consolidation in the left lung base. There are likely bilateral pleural effusions. IMPRESSION: 1. Nonspecific right mid and lower lung zone consolidation and consolidation in the left lung base which may reflect infiltrate and/or atelectasis. There are also likely bilateral pleural effusions. Dictated by: Dictated on workstation # [id number] Dict: 12/03/22 0701 Trans: 12/03/22 0802 [facility] [id number] Interpreted by: BRENDA ORDOÑEZ MD Electronically signed by: BRENDA ORDOÑEZ MD 12/03/22 0802 Assessment/Plan Admission Diagnosis Acute on chronic respiratory failure Admission Status: Inpatient Order (span 2 midnights) Reason for Inpatient Admission: see below Assessment and Plan Acute on chronic respiratory failure RLL pneumonia COPD HTN Chronic pain JEANNE Obesity BiPAP as needed- trial off this AM TeleICU following Continue IV abx Continue steroids MAT protocol Continue home meds as appropriate when med rec done YIN ARELLANO MD December 03, 2022 11:35
[2022-12-03] MEDS ORDERED: NALO4SPR3 NS (14:54)
[2022-12-03] MEDS ORDERED: FENT1PAT10 TD (14:54)
[2022-12-04 02:25] VITALS: BP 153/87
[2022-12-04] MEDS: RT-ALBUTEROL/IPRATROPIUM 3 ML (DUONEB) VIAL INH SCH ×2 (02:28→06:32)
[2022-12-04] MEDS: VASOPRESSIN INJECTION 20 UNIT in NS (IVPB) 100 ML IV SCH ×2 (04:54→14:12)
[2022-12-04 05:00] LABS: BASOPHILS % (AUTO) 0 % (0-10); EOSINOPHILS % (AUTO) 0 % (0-10); HEMATOCRIT 32 % (40-54); HEMOGLOBIN 9.9 g/dL (13.3-17.7); LYMPHOCYTES # (AUTO) 1.7 10^3/uL (1.0-4.0); LYMPHOCYTES % (AUTO) 20 % (12-44); MEAN CORPUSCULAR HEMOGLOBIN 28 pg (25-34); MEAN CORPUSCULAR HGB CONC 31 g/dL (32-36); MEAN CORPUSCULAR VOLUME 89 fL (80-99); MEAN PLATELET VOLUME 10.3 fL (9.0-12.2); MONOCYTES # (AUTO) 0.5 10^3/uL (0.0-1.0); MONOCYTES % (AUTO) 6 % (0-12); NEUTROPHILS # (AUTO) 6.1 10^3/uL (1.8-7.8); NEUTROPHILS % (AUTO) 73 % (42-75); PLATELET COUNT 249 10^3/uL (130-400); WHITE BLOOD COUNT 8.4 10^3/uL (4.3-11.0)
[2022-12-04] MEDS: CEFEPIME INJECTION 1,000 MG in NS (IVPB) 50 ML IV SCH ×2 (05:17→12:35)
[2022-12-04 05:32] LABS: ALANINE AMINOTRANSFERASE < 6 U/L (0-55); ALBUMIN 3.2 GM/DL (3.2-4.5); ALKALINE PHOSPHATASE 59 U/L (40-136); BILIRUBIN,TOTAL 0.3 MG/DL (0.1-1.0); BUN/CREATININE RATIO 15; CALCIUM 9.1 MG/DL (8.5-10.1); CARBON DIOXIDE 28 MMOL/L (21-32); CHLORIDE 101 MMOL/L (98-107); CREATININE SERUM 0.71 MG/DL (0.60-1.30); GFR ESTIMATED 106; GLUCOSE 113 MG/DL (70-105); MAGNESIUM 1.9 MG/DL (1.6-2.4); PHOSPHORUS 3.1 MG/DL (2.3-4.7); POTASSIUM 3.9 MMOL/L (3.6-5.0); SODIUM 140 MMOL/L (135-145); TOTAL PROTEIN 6.6 GM/DL (6.4-8.2)
[2022-12-04] MEDS: ENOXAPARIN 40 MG/0.4 ML (LOVENOX) SYR SC SCH (06:00)
[2022-12-04 06:46] LABS: ABG OXYGEN SATURATION 99 % (94-100); ABG PCO2 55 MMHG (35-45); ABG PH 7.36 (7.37-7.43); ABG PO2 121 MMHG (79-93); ABG TCO2 31.8 MMOL/L (21.0-31.0)
[2022-12-04 07:03] LABS: ALLENS TEST Positive; INSPIRED O2 2; VENTILATOR NO
[2022-12-04] MEDS ORDERED: CYCLOBENZAPRINE 10 MG (FLEXERIL) TAB PO PRN (08:00)
--- NOTE | 2022-12-04 08:03 | Discharge Inst-Simple/Standard ---
Discharge Inst-Standard Discharge Medications New, Converted or Re-Newed RX: Transmitted to Pharmacy Patient Instructions/Follow Up Plan of Care/Instructions/FU: Please continue to take your medications as written. Please follow up with your primary care doctor to follow up this hospital stay. Activity as Tolerated: Yes Discharge Diet: Cardiac Diet Return to The Hospital For: Chest pain, shortness of breath, fever, weakness, if you feel you are getting worse. YIN ARELLANO MD December 04, 2022 08:03
[2022-12-04] MEDS ORDERED: PANTOPRAZOLE 40 MG (PROTONIX) TAB PO SCH (09:00)
[2022-12-04] MEDS ORDERED: CELECOXIB 100 MG (CeleBREX) CAP PO SCH (09:00)
[2022-12-04] MEDS: GABAPENTIN 600 MG (NEURONTIN) TAB PO SCH ×2 (09:07→12:36)
[2022-12-04 10:53] VITALS: BP 125/78
[2022-12-04] MEDS ORDERED: CEFD300C3 PO (13:14)
[2022-12-04] MEDS ORDERED: PRED10TA22 PO (13:14)
[2022-12-04] MEDS ORDERED: RT-ALBUTEROL/IPRATROPIUM 3 ML (DUONEB) VIAL INH SCH (14:00)
[2022-12-04] MEDS: NOREPINEPHRINE 8 MG/250 ML 250 ML IV SCH (14:11)
--- NOTE | 2022-12-04 14:55 | Discharge Summary ---
Diagnosis/Chief Complaint Date of Admission December 03, 2022 at 05:16 Date of Discharge Discharge Date: December 04, 2022 Admission Diagnosis Acute on chronic respiratory failure Primary Care Reyes Angeles MD Discharge Summary Discharge Physical Exam Allergies: Coded Allergies: amitriptyline (Verified Allergy, Unknown, 02/08/16) duloxetine (Verified Allergy, Unknown, 02/08/16) fluticasone (Verified Allergy, Unknown, 02/08/16) salmeterol (Verified Allergy, Unknown, 02/08/16) Vitals & I&Os Vital Signs Date Time Temp Pulse Resp B/P (MAP) Pulse Ox O2 Delivery O2 Flow Rate FiO2 12/04/22 14:43 95 Nasal Cannula 2.00 12/04/22 13:00 101 152/87 (105) 12/04/22 11:00 11 12/04/22 10:53 36.6 12/03/22 06:06 60 General Appearance: No Apparent Distress, WD/WN Cardiovascular: Regular Rate, Rhythm, No Murmur Gastrointestinal: Normal Bowel Sounds, Soft Neurologic/Psychiatric: Alert, Oriented x3 Hospital Course Patient was admitted to the hospital secondary to acute on chronic respiratory failure due to COPD exacerbation with pneumonia. He was treated with IV steroids and IV antibiotics and did well. He was originally on BiPAP but was titrated off of this quickly. He was back to his baseline oxygen and up and ambulating without difficulty. He was offered another night admission but he felt well and was ready for discharge. He was discharged home on a steroid taper and oral antibiotics and he is to follow-up with his panel sewer and his primary care physician to follow-up this hospital stay. He also reports noncompliance with his CPAP though states he will start wearing this more consistently now. Labs (last 24 hrs) Laboratory Tests 12/04/22 04:17: Sodium Level 140, Potassium Level 3.9, Chloride Level 101, Carbon Dioxide Level 28, Anion Gap 11, Blood Urea Nitrogen 11, Creatinine 0.71, Estimat Glomerular Filtration Rate 106, BUN/Creatinine Ratio 15, Glucose Level 113H, Calcium Level 9.1, Corrected Calcium 9.7, Phosphorus Level 3.1, Magnesium Level 1.9, Total Bilirubin 0.3, Aspartate Amino Transf (AST/SGOT) 7, Alanine Aminotransferase (ALT/SGPT) < 6, Alkaline Phosphatase 59, Total Protein 6.6, Albumin 3.2 12/04/22 04:47: White Blood Count 8.4, Red Blood Count 3.56L, Hemoglobin 9.9L, Hematocrit 32L, Mean Corpuscular Volume 89, Mean Corpuscular Hemoglobin 28, Mean Corpuscular Hemoglobin Concent 31L, Red Cell Distribution Width 12.9, Platelet Count 249, Mean Platelet Volume 10.3, Immature Granulocyte % (Auto) 1, Neutrophils (%) (Auto) 73, Lymphocytes (%) (Auto) 20, Monocytes (%) (Auto) 6, Eosinophils (%) (Auto) 0, Basophils (%) (Auto) 0, Neutrophils # (Auto) 6.1, Lymphocytes # (Auto) 1.7, Monocytes # (Auto) 0.5, Eosinophils # (Auto) 0.0, Basophils # (Auto) 0.0, Immature Granulocyte # (Auto) 0.1 12/04/22 06:40: Blood Gas Puncture Site L radial, Blood Gas Patient Temperature 37.0, Arterial Blood pH 7.36L, Arterial Blood Partial Pressure CO2 55H, Arterial Blood Partial Pressure O2 121H, Arterial Blood HCO3 30H, Arterial Blood Total CO2 31.8H, Arterial Blood Oxygen Saturation 99, Arterial Blood Base Excess 5.0H, Damion Test Positive, Blood Gas Ventilator Setting NO, Blood Gas Inspired Oxygen 2 Microbiology 12/03/22 Urine Culture - Preliminary, Resulted Probable E.coli Gram Pos Mixed Bacterial Domonique 12/03/22 MRSA Screen - Final, Complete MRSA not isolated Patient resulted labs reviewed. Imaging: Reviewed Imaging Report Discussion & Recommendations Discharge Planning: >30 minutes discharge planning Discharge Home Medications: Active Scripts Active Cefdinir 300 Mg Capsule 300 Mg PO BID Prednisone 10 Mg Tab.ds.pk 10 Mg PO DAILY Take 6 tabs(60mg)daily,decrease by 1 tab(10MG)daily. Reported Naloxone HCl 4 Mg/Actuation Schriever 1 Schriever NS UD PRN Fentanyl Patch 75MCG (Fentanyl) 75 Mcg/Hour Patch.td72 75 Mcg TD Q72H Flomax (Tamsulosin HCl) 0.4 Mg Cap 0.4 Mg PO HS Ondansetron HCl 4 Mg Tablet 4 Mg PO Q6H PRN Systane 0.3-0.4% Eye Drops (Propylene Glycol/Peg 400) 0.3 %-0.4 % Drops 1-2 Drops OD UD PRN Spiriva Respimat 1.25MCG/ACTUATION (Tiotropium Nisula) 1.25 Mcg/Actuation Mist.inhal 2 Puff INH DAILY Metoprolol Succinate 100 Mg Tab.er.24h 100 Mg PO DAILY Losartan-Hctz 100-12.5 mg Tab (Losartan/Hydrochlorothiazide) 100 Mg-12.5 Mg Tablet 1 Ea PO DAILY Celecoxib 200 Mg Capsule 200 Mg PO BID Oxycodone HCl 30 Mg Tablet 30 Mg PO Q6H Cyclobenzaprine HCl 10 Mg Tablet 10 Mg PO TID PRN Rizatriptan (Rizatriptan Benzoate) 10 Mg Tablet 10 Mg PO DAILY PRN Pantoprazole Sodium 40 Mg Tablet.dr 40 Mg PO DAILY Combivent Respimat Inhal Schriever (Albuterol/Ipratropium) 20 Mcg-100 Mcg/Actuation Aero 2 Puff IH BID Gabapentin 600 Mg Tablet 600 Mg PO TID Instructions to patient/family Please see electronic discharge instructions given to patient. YIN ARELLANO MD December 04, 2022 14:55
[2022-12-04] MEDS ORDERED: TAMSULOSIN 0.4 MG (FLOMAX) CAP PO SCH (21:00)
== END 2022-12-04 15:45 | disposition home health service (06) | DRG 193 ==
LOC: EDUNIT# 03:16 → ER 03:18 → ICU 05:16
PROVIDERS: ADMIT Internal Medicine; ATTEND Internal Medicine
PROC: 5A09357 Assistance with Respiratory Ventilation, Less than 24 Consecutive Hours, Continuous Positive Airway Pressure (ICD-10-PCS; principal; 2022-12-03)
DX: J18.9 Pneumonia, unspecified organism (principal); J96.21 Acute and chronic respiratory failure with hypoxia; J96.22 Acute and chronic respiratory failure with hypercapnia; Z91.199 Patient's noncompliance with other medical treatment and regimen due to unspecified reason; I10 Essential (primary) hypertension; Z87.891 Personal history of nicotine dependence; J43.9 Emphysema, unspecified; G83.9 Paralytic syndrome, unspecified; M19.90 Unspecified osteoarthritis, unspecified site; F41.9 Anxiety disorder, unspecified; G47.33 Obstructive sleep apnea (adult) (pediatric); E66.9 Obesity, unspecified; Z99.81 Dependence on supplemental oxygen; E11.9 Type 2 diabetes mellitus without complications; G89.4 Chronic pain syndrome; R51.9 Headache, unspecified; M54.2 Cervicalgia; M25.569 Pain in unspecified knee; Z68.35 Body mass index [BMI] 35.0-35.9, adult
CPT/HCPCS: 36415; 36600; 71045; 80053; 81000; 82805; 83605; 83735; 83880; 84100; 84484; 85025; 85610; 85730; 87040; 87077; 87081; 87088; 87186; 94640; 94660

== ENCOUNTER 2022-12-15 05:17 | Emergency (ER) | payer MEDICARE, MEDICAID ==
[~2022-12-15] VITALS: Ht 165.1 cm; Wt 95.2 kg
[~2022-12-15 05:17] MED LIST changes: +FENT1PAT10 TD
[2022-12-15] MEDS ORDERED: NALOXONE 0.4 MG/ML 1 ML (NARCAN) VIAL IV ONE (05:30)
--- NOTE | 2022-12-15 05:43 | ED General ---
General Chief Complaint: Altered Mental Status Stated Complaint: AMS Nursing Triage Note: brought in by [facility] for altered mental status x1hr. ems reports pt woke up approx. 0400 and was "not acting right" per s.o. pt ambulatiory to ambulance, glucose 130mg/dl. pt follows commands/lethargic. Source of Information: Patient, EMS, Old Records Exam Limitations: Physical Impairments (MAYRA CRONIN MD) History of Present Illness Date Seen by Provider: December 15, 2022 Time Seen by Provider: 05:18 Initial Comments This 57-year-old gentleman presents to the emergency room with altered mental status. His reports he woke at around 0400 and was "not acting right." EMS was activated to the home. Blood sugar was 130. Patient was seen by this provider on November 15 for opioid overdose. He had an extensive work-up at that time and symptoms resolved with Narcan. Patient had recent surgery for cervical spinal stenosis and Chiari malformation. He has had notable upper extremity weakness related to these syndromes. He was additionally admitted on December 03 for respiratory failure and pneumonia. On November 15 he had been using fentanyl patches. He reportedly is no longer using fentanyl patches but takes oxycodone. EMS reported that he took baclofen this evening. Baclofen is not noted on his medication filling record. Patient has a vacant stare and respiratory suppression on arrival to the ER. His later joins him in the exam room and states that he ran out of cyclobenzaprine and decided to take a couple of old baclofen around midnight. She also reports he has been coughing some which she presumed was due to doing incentive spirometry exercises. She states he had a couple of falls about 2 days ago but seemed to be fine after those falls. He was dry heaving earlier in the night. Would he woke up around 0400 he seemed agitated and wanted to go to the bathroom. He did not have any diarrhea or other major issues when he got to the bathroom. (MAYRA CRONIN MD) Allergies and Home Medications Allergies Coded Allergies: amitriptyline (Verified Allergy, Unknown, 02/08/16) duloxetine (Verified Allergy, Unknown, 02/08/16) fluticasone (Verified Allergy, Unknown, 02/08/16) salmeterol (Verified Allergy, Unknown, 02/08/16) Patient Home Medication List Home Medication List Reviewed: Yes (MAYRA CRONIN MD) Albuterol/Ipratropium (Combivent Respimat Inhal [place]) 20 Mcg-100 Mcg/Actuation Aero, 2 PUFF IH BID, (Reported) Entered as Reported by: JEREMI THAO on 07/03/20 1115 Cefdinir (Cefdinir) 300 Mg Capsule, 300 MG PO BID Prescribed by: YIN ARELLANO on 12/04/22 1314 Celecoxib (Celecoxib) 200 Mg Capsule, 200 MG PO BID, (Reported) Entered as Reported by: MADDIE TATE on 09/28/22 1444 Cyclobenzaprine HCl (Cyclobenzaprine HCl) 10 Mg Tablet, 10 MG PO TID PRN for MUSCLE SPASMS, (Reported) Entered as Reported by: JEREMI THAO on 07/03/20 1121 Fentanyl (Fentanyl Patch 75MCG) 75 Mcg/Hour Patch.td72, 75 MCG TD Q72H, (Reported) Entered as Reported by: MADDIE TATE on 12/03/22 1454 Gabapentin (Gabapentin) 600 Mg Tablet, 600 MG PO TID, (Reported) Entered as Reported by: JEREMI THAO on 07/03/20 1053 Losartan/Hydrochlorothiazide (Losartan-Hctz 100-12.5 mg Tab) 100 Mg-12.5 Mg Tablet, 1 EA PO DAILY, (Reported) Entered as Reported by: MADDIE TATE on 09/28/22 1444 Metoprolol Succinate (Metoprolol Succinate) 100 Mg Tab.er.24h, 100 MG PO DAILY, (Reported) Entered as Reported by: MADDIE TATE on 09/28/22 1444 Naloxone HCl (Naloxone HCl) 4 Mg/Actuation [place], 1 SPRAY NS UD PRN for OVERDOSE, (Reported) Entered as Reported by: MADDIE TATE on 12/03/22 1454 Ondansetron HCl (Ondansetron HCl) 4 Mg Tablet, 4 MG PO Q6H PRN for NAUSEA/VO MITING-1ST LINE, (Reported) Entered as Reported by: MADDIE TATE on 11/11/22 1238 Oxycodone HCl (Oxycodone HCl) 30 Mg Tablet, 30 MG PO Q6H, (Reported) Entered as Reported by: JEREMI THAO on 07/03/20 1121 Pantoprazole Sodium (Pantoprazole Sodium) 40 Mg Tablet.dr, 40 MG PO DAILY, (Reported) Entered as Reported by: JEREMI THAO on 07/03/20 1115 Prednisone (Prednisone) 10 Mg Tab.ds.pk, 10 MG PO DAILY Prescribed by: YIN ARELLANO on 12/04/22 1314 Propylene Glycol/Peg 400 (Systane 0.3-0.4% Eye Drops) 0.3 %-0.4 % Drops, 1-2 DROPS OD UD PRN for DRY EYES, (Reported) Entered as Reported by: MADDIE TATE on 09/28/22 1444 Rizatriptan Benzoate (Rizatriptan) 10 Mg Tablet, 10 MG PO DAILY PRN for MIGRAINE, (Reported) Entered as Reported by: JEREMI THAO on 07/03/20 1121 Tamsulosin HCl (Flomax) 0.4 Mg Cap, 0.4 MG PO HS, (Reported) Entered as Reported by: MADDIE TATE on 11/11/22 1238 Tiotropium [place] (Spiriva Respimat 1.25MCG/ACTUATION) 1.25 Mcg/Actuation Mist.inhal, 2 PUFF INH DAILY, (Reported) Entered as Reported by: MADDIE TATE on 09/28/22 1444 Review of Systems Review of Systems Constitutional: see HPI EENTM: no symptoms reported Respiratory: see HPI Cardiovascular: no symptoms reported Gastrointestinal: no symptoms reported Genitourinary: no symptoms reported Musculoskeletal: see HPI Skin: no symptoms reported Psychiatric/Neurological: See HPI Hematologic/Lymphatic: No Symptoms Reported (MAYRA CRONIN MD) Past Guqarlc-Osghom-Nhakza Hx Patient Social History Tobacco Use?: No Smoking Status: Former Smoker Substance use?: No Alcohol Use?: No Pt feels they are or have been: No (MAYRA CRONIN MD) Immunizations Up To Date Tetanus Booster (TDap): Unknown PED Vaccines UTD: No First/Initial COVID19 Vaccinat: SEPTEMBER 2020 Second COVID19 Vaccination Rhett: SEPTEMBER 2020 Third COVID19 Vaccination Date: NONE (MAYRA CRONIN MD) Seasonal Allergies Seasonal Allergies: No (MAYRA CRONIN MD) Past Medical History Surgery/Hospitalization HX: ORTHOPEDIC SURGERIES/CHIARI MALFORMATION/ABDOMINAL HERNIA, pneumonia, copd, bronchitis, anika, meningitis, anxiety, crainiotomy Surgeries: Yes (Craniotomy and cervical laminectomy for Chiari malformation surgery) Abdominal, Neurological, Orthopedic (Chiari malformation and laminectomy for cervical spinal stenosis) Respiratory: Yes (RESPIRATORY FAILURE ON VENT AND BIPAP MULTIPLE TIMES) Pneumonia, Chronic Bronchitis, Sleep Apnea, COPD, Emphysema Currently Using CPAP: No Currently Using BIPAP: No Cardiac: Yes Hypertension Neurological: Yes (MENINGITIS POSTOP 2004 FOR CYST ON BRAINSTEM & CHIARI MALFORMATION. SHUNT.) Meningitis, Paralysis Reproductive Disorders: No Genitourinary: No Gastrointestinal: Yes (HERNIA REPAIR) Abdominal Hernia Musculoskeletal: Yes (CHRONIC HEAD/NECK & KNEE PAIN; CHIARI MALFORMATION;MULTIPLE ORTHO SURGERIES) Arthritis Endocrine: No (OBESITY) HEENT: No Cancer: No Psychosocial: Yes Anxiety Integumentary: No Blood Disorders: No (MAYRA CRONIN MD) Family Medical History FH: cancer 19 MOTHER Mother- lung cancer Father- HTN and CVA SOCIAL HISTORY: -SMOKED 1 1/2 PPD---QUIT 5 YEARS AGO -ETOH--HISTORY OF ABUSE, QUIT A FEW YEARS AGO -DENIES DRUG USE PAST SURGICAL HISTORY: -HERNIA REPAIR -MULTIPLE ORTHOPEDIC SURGERIES--RIGHT SHOULDER, BOTH KNEES, HAND SURGERY -2 BRAIN SURGERIES IN 2004--CHIARI MALFORMATION AND CYST AROUND BRAINSTEM REMOVED; PT HAD POST OP MENINGITIS -C-SPINE SURGERY X 2 IN 2014 AT [facility] -REPEAT SURGERY FOR CHIARI MALFORMATION 09/13/2017 AT [facility] PT HAD SURGERY FOR CHIARI MALFORMATION AT [facility] ON 09/13/17 AND WAS DISMISSED TO HOME ON Wednesday09/20/17 PT HAD BEEN ON VENT POST OP, THEN WAS TAKEN OFF THE VENT, THEN PT BEGAN TO HAVE DECREASED RESPONSIVENESS AND DIFFICULTY BREATHING AND HAD TO BE PUT BACK ON THE VENT AN ADDITIONAL 3 DAYS -SURGERY 11/05/22 AT FOR CHIARI MALFORMATION WITH CRANIECTOMY AND CERVICAL LAMINECTOMY AND DECOMPRESSION. (MAYRA CRONIN MD) Physical Exam Vital Signs Vital Signs - First Documented (TRACI ORTIZ DO) Vital Signs Capillary Refill : Less Than 3 Seconds (MAYRA CRONIN MD) Height, Weight, BMI Height: 5'5.00" Weight: 180lbs. 0.0oz. 81.753517zo; 34.00 BMI Method:Stated General Appearance: No Apparent Distress, WD/WN, Obese, Other (Hypersomnolence) HEENT: PERRL/EOMI, Normal ENT Inspection Neck: Normal Inspection, Other (Well-healed posterior surgical scar) Respiratory: Lungs Clear, Other (Snoring respirations. Respiratory suppression) Cardiovascular: Regular Rate, Rhythm, No Edema Gastrointestinal: Non Tender, Soft Extremity: Normal Inspection, No Pedal Edema Neurologic/Psychiatric: Other (Hypersomnolence with limited responses) Skin: Normal Color, Warm/Dry (MAYRA CRONIN MD) Progress/Results/Core Measures Suspected Sepsis SIRS Temperature: Pulse: 63 Respiratory Rate: 12 Laboratory Tests 12/15/22 05:25: White Blood Count 5.9 Blood Pressure 144 /82 Mean: 102 Laboratory Tests 12/15/22 05:25: Creatinine 0.83, Platelet Count 266, Total Bilirubin 0.6 (MAYRA CRONIN MD) Results/Orders Lab Results Laboratory Tests Test 12/15/22 05:25 12/15/22 07:25 Range/Units White Blood Count 5.9 4.3-11.0 10^3/uL Red Blood Count 4.36 4.30-5.52 10^6/uL Hemoglobin 12.1 L 13.3-17.7 g/dL Hematocrit 39 L 40-54 % Mean Corpuscular Volume 90 80-99 fL Mean Corpuscular Hemoglobin 28 25-34 pg Mean Corpuscular Hemoglobin Concent 31 L 32-36 g/dL Red Cell Distribution Width 13.2 10.0-14.5 % Platelet Count 266 130-400 10^3/uL Mean Platelet Volume 10.4 9.0-12.2 fL Immature Granulocyte % (Auto) 1 % Neutrophils (%) (Auto) 61 42-75 % Lymphocytes (%) (Auto) 27 12-44 % Monocytes (%) (Auto) 11 0-12 % Eosinophils (%) (Auto) 1 0-10 % Basophils (%) (Auto) 1 0-10 % Neutrophils # (Auto) 3.6 1.8-7.8 10^3/uL Lymphocytes # (Auto) 1.6 1.0-4.0 10^3/uL Monocytes # (Auto) 0.6 0.0-1.0 10^3/uL Eosinophils # (Auto) 0.1 0.0-0.3 10^3/uL Basophils # (Auto) 0.0 0.0-0.1 10^3/uL Immature Granulocyte # (Auto) 0.0 0.0-0.1 10^3/uL Sodium Level 142 135-145 MMOL/L Potassium Level 3.9 3.6-5.0 MMOL/L Chloride Level 103 98-107 MMOL/L Carbon Dioxide Level 26 21-32 MMOL/L Anion Gap 13 5-14 MMOL/L Blood Urea Nitrogen 14 7-18 MG/DL Creatinine 0.83 0.60-1.30 MG/DL Estimat Glomerular Filtration Rate 101 BUN/Creatinine Ratio 17 Glucose Level 129 H 70-105 MG/DL Calcium Level 10.3 H 8.5-10.1 MG/DL Corrected Calcium 10.1 8.5-10.1 MG/DL Total Bilirubin 0.6 0.1-1.0 MG/DL Aspartate Amino Transf (AST/SGOT) 9 5-34 U/L Alanine Aminotransferase (ALT/SGPT) 10 0-55 U/L Alkaline Phosphatase 76 40-136 U/L C-Reactive Protein High Sensitivity 2.98 H 0.00-0.50 MG/DL Total Protein 8.0 6.4-8.2 GM/DL Albumin 4.2 3.2-4.5 GM/DL Blood Gas Puncture Site LEFT RADIAL Blood Gas Patient Temperature 37.0 Arterial Blood pH 7.36 L 7.37-7.43 Arterial Blood Partial Pressure CO2 59 H 35-45 MMHG Arterial Blood Partial Pressure O2 76 L 79-93 MMHG Arterial Blood HCO3 33 H 23-27 MMOL/L Arterial Blood Total CO2 34.4 H 21.0-31.0 MMOL/L Arterial Blood Oxygen Saturation 95 94-100 % Arterial Blood Base Excess 7.2 H -2.5-2.5 MMOL/L Damion Test YES-POS Blood Gas Ventilator Setting NO Blood Gas Inspired Oxygen 2 (DIANATRACI DO) My Orders Orders - DIANATRACI REMY DO Ct Abdomen/Pelvis W (12/15/22 06:08) Ct Head/Cervical Spine Wo (12/15/22 06:08) Arterial Blood Gas (12/15/22 07:27) Arterial Blood Draw - Obtain (12/15/22 ) Catheter(Urinary) Insert & Ass 03,15 (12/15/22 08:58) Lidocaine 2% (Urojet) (Xylocaine Urojet) (12/15/22 09:00) (TRACI ORTIZ DO) Medications Given in ED (TRACI ORTIZ DO) Vital Signs/I&O 12/15/22 12/15/22 12/15/22 05:18 05:18 09:20 Temp 36.1 Pulse 63 75 Resp 12 16 B/P (MAP) 144/82 (102) 155/85 Pulse Ox 91 91 96 O2 Delivery Nasal Cannula Nasal Cannula Room Air O2 Flow Rate 2.00 2.00 (TRACI ORTIZ DO) Vital Signs/I&O Capillary Refill : Less Than 3 Seconds (MAYRA CRONIN MD) Blood Pressure Mean: 102 Progress Note #1: Time: 05:49 Progress Note Patient received Narcan 0.4 mg IV. He quickly became much more alert and responsive. However, he became agitated and was scooting down in the bed and tossing and turning from side to side. He complained of abdominal discomfort and repeatedly exclaimed, "Oh shit!" He passed flatus and then rolled over on his side and calm down. Respiratory effort is much improved over initial presentation. Labs are pending. No fentanyl patches were found on him. Progress Note #2: Time: 06:11 Progress Note Labs and imaging studies are pending at this time. Care is being transitioned to Dr. Ortiz at shift change. (MAYRA CRONIN MD) Critical Care Note Critical Care Total Time (minutes) 60 (TRACI ORTIZ DO) Departure Communication (Admissions) CT scanning of the patient's head shows that he has an increase size and fluid collection in the previous craniotomy space. He is much more alert on my evaluation initially. He is quite confused and has significant weakness in his bilateral upper and lower extremities. Concerning given his CT scan findings. Remainder of CT scans are negative for any acute findings. There is no other obvious cause of his symptoms. Without I spoke to [facility] neurosurgery. They request transfer after reviewing the images. The patient remained hemodynamically stable and was ultimately transferred in otherwise stable condition. (TRACI ORTIZ DO) Impression Primary Impression: Respiratory depression Additional Impression: Altered mental status Qualified Codes: R41.82 - Altered mental status, unspecified Disposition: ADMITTED INPATIENT Condition: Stable Admissions Decision to Admit Reason: Admit from ER (General) (TRACI ORTIZ DO) Departure-Patient Inst. Referrals: ELIOT WINN MD (PCP/Family) Primary Care Physician MAYRA CRONIN MD December 15, 2022 05:43 TRACI ORTIZ DO December 15, 2022 07:01
[2022-12-15 05:48] LABS: BASOPHILS % (AUTO) 1 % (0-10); EOSINOPHILS # (AUTO) 0.1 10^3/uL (0.0-0.3); EOSINOPHILS % (AUTO) 1 % (0-10); HEMATOCRIT 39 % (40-54); HEMOGLOBIN 12.1 g/dL (13.3-17.7); LYMPHOCYTES # (AUTO) 1.6 10^3/uL (1.0-4.0); LYMPHOCYTES % (AUTO) 27 % (12-44); MEAN CORPUSCULAR HEMOGLOBIN 28 pg (25-34); MEAN CORPUSCULAR HGB CONC 31 g/dL (32-36); MEAN CORPUSCULAR VOLUME 90 fL (80-99); MEAN PLATELET VOLUME 10.4 fL (9.0-12.2); MONOCYTES # (AUTO) 0.6 10^3/uL (0.0-1.0); MONOCYTES % (AUTO) 11 % (0-12); NEUTROPHILS # (AUTO) 3.6 10^3/uL (1.8-7.8); NEUTROPHILS % (AUTO) 61 % (42-75); PLATELET COUNT 266 10^3/uL (130-400); WHITE BLOOD COUNT 5.9 10^3/uL (4.3-11.0)
[2022-12-15 05:57] LABS: ALBUMIN 4.2 GM/DL (3.2-4.5); POTASSIUM 3.9 MMOL/L (3.6-5.0)
[2022-12-15 05:58] LABS: CALCIUM 10.3 MG/DL (8.5-10.1)
[2022-12-15 06:01] LABS: BILIRUBIN,TOTAL 0.6 MG/DL (0.1-1.0)
[2022-12-15 06:03] LABS: CREATININE SERUM 0.83 MG/DL (0.60-1.30)
[2022-12-15] MEDS ORDERED: IOHEXOL 350 MG/ML 100 ML (OMNIPAQUE 350) VIAL IV ONE (06:15)
[2022-12-15] MEDS ORDERED: NS 100 ML (IVPB) BAG IV ONE (06:15)
[2022-12-15] MEDS ORDERED: HOLD METFORMIN - RECEIVED CONTRAST 20 ML VIAL IV SCH (06:15)
--- NOTE | 2022-12-15 07:04 | Diagnostic Imaging Report ---
PROCEDURE: CT head and CT cervical spine without contrast. TECHNIQUE: Multiple contiguous axial images were obtained through the brain and cervical spine without the use of intravenous contrast. Sagittal and coronal reformations through the cervical spine were then performed. Auto Exposure Controls were utilized during the CT exam to meet ALARA standards for radiation dose reduction. INDICATION: Altered mental status. Head and neck pain. COMPARISON: 11/15/2022. FINDINGS: CT head: No large acute territorial ischemia, mass, or hemorrhage. No midline shift or mass effect. The ventricles, cortical sulci, and basilar cisterns are patent and unremarkable. Prior suboccipital craniotomy changes are noted. There is interval increase in size in a fluid collection in the surgical bed measuring 4.0 x 4.3 cm. The visualized paranasal sinuses are clear. CT cervical spine: No acute fracture or dislocation is seen in the cervical spine. No focal osseous lesions. Posterior fusion changes are visualized from C2 to T2 with stable lucency surrounding the pedicle screws at T1 and T2 bilaterally. ACDF changes are visualized from C2 to C5. There is stable alignment of the cervical spine. Laminectomy has been performed from C1 to C4. Emphysema is seen in the lung apices. IMPRESSION: 1. No hemorrhage or focal intra-axial mass. No CT evidence of large acute territorial ischemia. 2. No acute fracture or dislocation in the cervical spine. 3. Increase in a fluid collection within the surgical bed of prior suboccipital craniotomy changes. Findings may represent increasing seroma or hematoma. Recommend correlation with patient symptoms and if indicated MRI brain with and without contrast to further evaluate. 4. Stable posterior fusion from C2 to T2 with stable lucency surrounding the pedicle screws at T1 and T2. Stable ACDF changes from C2 to C5. Dictated by: Dictated on workstation # [id number]
--- NOTE | 2022-12-15 07:05 | Diagnostic Imaging Report ---
EXAMINATION: CT abdomen and pelvis with intravenous contrast. TECHNIQUE: Multiple contiguous axial images were obtained through the abdomen and pelvis after the uneventful administration of intravenous contrast. All CT scans use one or more of the following dose optimizing techniques: automated exposure control, MA and/or KvP adjustment based on patient size and exam type or iterative reconstruction. HISTORY: Abdominal pain. Altered mental status. COMPARISON: 04/14/2019. FINDINGS: The heart is unremarkable. Patchy opacities are seen in the included lower lungs. A nodule seen in the left adrenal gland measuring 1.4 x 1.0 cm. The right adrenal gland is unremarkable. The liver, spleen, pancreas, and kidneys have a normal appearance. The gallbladder is decompressed. There is no pathologically enlarged mesenteric or retroperitoneal adenopathy. The bowel loops are nondilated. The appendix is visualized in the right lower quadrant and has a normal appearance. There is no free fluid or free air. No acute osseous abnormalities. Ureters and bladder are grossly normal. There is no free air, loculated collection, or adenopathy in the pelvis. IMPRESSION: 1. No acute abnormalities in the abdomen and pelvis. 2. Patchy bibasilar opacities which may represent atelectasis or infection. 3. Stable small nodule in the left adrenal gland, favored to represent adenoma. Dictated by: Dictated on workstation # [id number]
[2022-12-15 07:31] LABS: ABG BASE EXCESS 7.2 MMOL/L (-2.5-2.5); ABG OXYGEN SATURATION 95 % (94-100); ABG PCO2 59 MMHG (35-45); ABG PH 7.36 (7.37-7.43); ABG PO2 76 MMHG (79-93); ABG TCO2 34.4 MMOL/L (21.0-31.0); ALLENS TEST YES-POS; INSPIRED O2 2
[2022-12-15 07:32] LABS: VENTILATOR NO
[2022-12-15] MEDS ORDERED: LIDOCAINE UROJET 2% GEL 10 ML PKG TOP ONE (09:00)
[2022-12-15 09:20] VITALS: BP 155/85
== END 2022-12-15 09:20 | disposition short-term general hospital (02) ==
LOC: EDUNIT# 05:17 → ER 05:18
DX: R41.82 Altered mental status, unspecified (principal); R06.03 Acute respiratory distress; E66.9 Obesity, unspecified; Z87.891 Personal history of nicotine dependence; Z68.34 Body mass index [BMI] 34.0-34.9, adult
CPT/HCPCS: 36415; 36600; 51702; 70450; 72125; 74177; 80053; 82805; 85025; 86141; 93041

== ENCOUNTER 2022-12-25 18:39 | Emergency (ER) | payer MEDICARE, MEDICAID ==
[~2022-12-25] VITALS: Ht 180 cm; Wt 114.0 kg
[2022-12-25 18:40] VITALS: BP 0/0
[2022-12-25] MEDS ORDERED: NALOXONE 2 MG/2 ML (NARCAN) SYR IV ONE (18:41)
[2022-12-25] MEDS ORDERED: NALOXONE 0.4 MG/ML 1 ML (NARCAN) VIAL IV ONE (18:41)
[2022-12-25] MEDS ORDERED: EPINEPHrine 0.1 MG/ML 10 ML (HOSPIRA) SYR INJ ONE (18:41)
[2022-12-25] MEDS ORDERED: SODIUM BICARB 8.4% 50 MEQ/50 ML (ABBOTT) SYR INJ ONE (18:41)
--- NOTE | 2022-12-25 18:58 | ED CPR ---
HPI-CPR General Stated Complaint: CODE Source of Information: EMS, Old Records, Other (FEMALE S.O.) History of Present Illness Date Seen by Provider: Dec 25, 2022 Time Seen by Provider: 18:40 Initial Comments PT ARRIVES VIA EMS FROM HOME, CODE BLUE WITH CPR IN PROGRESS PT HAD A WITNESSED ARREST AT HOME BY FEMALE S.O. SHE STATES HE HAS BEEN HAVING LOW BLOOD PRESSURES THE LAST FEW DAYS, AND WEAKNESS AND DIZZINESS, AND TONIGHT HE STOOD UP TO GO TO BATHROOM, AND HE SAID HE WAS DIZZY AND HIS EYES ROLLED BACK AND HE COLLAPSED / PASSED OUT SHE STATES HE WAS BREATHING A LITTLE BIT, WHEN SHE CALLED 911, THEN HE QUIT BREATHING EMS STATE THEY RECEIVED CALL AT 181 AND WERE ON SCENE AT 1820 CPR WAS STARTED THEY ARRIVED. PT WAS PULSELESS AND APNEIC AND IN ASYSTOLE ON THEIR ARRIVAL THEY PLACED AN I/O IN HIS RIGHT LOWER LEG, AND PLACED AN I-JEL FOR AIRWAY EMS GAVE 3 EPI PRIOR TO ARRIVAL AND DEFIBRILLATED ONCE FOR POSSIBLE V-FIB. NO RETURN OF CIRCULATION OR RESPIRATIONS AT ANY TIME. ON ARRIVAL, PT IS BEING BAGGED AND CPR IS IN PROCESS. PT IS PULSELESS, AND APNEIC AND IN ASYSTOLE ON ARRIVAL HERE. ON ARRIVAL, CPR WAS CONTINUED AND PT WAS GIVEN: EPI X 1 BICARB X 1 NARCAN 4 MG NO RESPONSE TO ANY OF THE ABOVE PUPILS ARE FIXED AND DILATED WITH NO PUPILLARY REFLEX. CODE CALLED AT 1847, DOWN TIME HAS BEEN AT LEAST 35 MINUTES, WITHOUT ANY RESPONSE TO ANY MEASURES. PT HAS AN EXTENSIVE MEDICAL HISTORY INCLUDING: -CHRONIC RESPIRATORY FAILURE--HAS BEEN ADMITTED MULTIPLE TIMES AND BEEN INTUBATED MULTIPLE TIMES AND ON BIPAP MULTIPLE TIMES. HE HAS HAD MULTIPLE BOUTS OF PNEUMONI -HE HAS HISTORY OF CHIARI MALFORMATION AND HAS HAD A MULTITUDE OF SURGERIES RELATED TO THAT. LAST SURGERY WAS 11/05/22 SINCE THEN HE HAS BEEN ADMITTED HERE WELL TRANSFERRED TO SEVERAL TIMES. HIS LAST ADMIT HERE WAS 12/03-12/04/22 FOR RESPIRATORY FAILURE HE WAS IN ER 12/15/22 AND TRANSFERRED TO FOR Allergies and Home Medications Allergies Coded Allergies: amitriptyline (Verified Allergy, Unknown, 02/08/16) duloxetine (Verified Allergy, Unknown, 02/08/16) fluticasone (Verified Allergy, Unknown, 02/08/16) salmeterol (Verified Allergy, Unknown, 02/08/16) Patient Home Medication List Albuterol/Ipratropium (Combivent Respimat Inhal [place]) 20 Mcg-100 Mcg/Actuation Aero, 2 PUFF IH BID, (Reported) Entered as Reported by: JEREMI THAO on 07/03/20 1115 Cefdinir (Cefdinir) 300 Mg Capsule, 300 MG PO BID Prescribed by: YIN ARELLANO on 12/04/22 1314 Celecoxib (Celecoxib) 200 Mg Capsule, 200 MG PO BID, (Reported) Entered as Reported by: MADDIE TATE on 09/28/22 1444 Cyclobenzaprine HCl (Cyclobenzaprine HCl) 10 Mg Tablet, 10 MG PO TID PRN for MUSCLE SPASMS, (Reported) Entered as Reported by: JEREMI THAO on 07/03/20 1121 Fentanyl (Fentanyl Patch 75MCG) 75 Mcg/Hour Patch.td72, 75 MCG TD Q72H, (Reported) Entered as Reported by: MADDIE TATE on 12/03/22 1454 Gabapentin (Gabapentin) 600 Mg Tablet, 600 MG PO TID, (Reported) Entered as Reported by: JEREMI THAO on 07/03/20 1053 Losartan/Hydrochlorothiazide (Losartan-Hctz 100-12.5 mg Tab) 100 Mg-12.5 Mg Tablet, 1 EA PO DAILY, (Reported) Entered as Reported by: MADDIE TATE on 09/28/22 1444 Metoprolol Succinate (Metoprolol Succinate) 100 Mg Tab.er.24h, 100 MG PO DAILY, (Reported) Entered as Reported by: MADDIE TATE on 09/28/22 1444 Naloxone HCl (Naloxone HCl) 4 Mg/Actuation [place], 1 SPRAY NS UD PRN for OVERDOSE, (Reported) Entered as Reported by: MADDIE ATTE on 12/03/22 1454 Ondansetron HCl (Ondansetron HCl) 4 Mg Tablet, 4 MG PO Q6H PRN for NAUSEA/VOMITING-1ST LINE, (Reported) Entered as Reported by: MADDIE TATE on 11/11/22 1238 Oxycodone HCl (Oxycodone HCl) 30 Mg Tablet, 30 MG PO Q6H, (Reported) Entered as Reported by: JEREMI THAO on 07/03/20 1121 Pantoprazole Sodium (Pantoprazole Sodium) 40 Mg Tablet.dr, 40 MG PO DAILY, (Reported) Entered as Reported by: JEREMI THAO on 07/03/20 1115 Prednisone (Prednisone) 10 Mg Tab.ds.pk, 10 MG PO DAILY Prescribed by: YIN ARELLANO on 12/04/22 1314 Propylene Glycol/Peg 400 (Systane 0.3-0.4% Eye Drops) 0.3 %-0.4 % Drops, 1-2 DROPS OD UD PRN for DRY EYES, (Reported) Entered as Reported by: MADDIE TATE on 09/28/22 1444 Rizatriptan Benzoate (Rizatriptan) 10 Mg Tablet, 10 MG PO DAILY PRN for MIGRAINE, (Reported) Entered as Reported by: JEREMI THAO on 07/03/20 1121 Tamsulosin HCl (Flomax) 0.4 Mg Cap, 0.4 MG PO HS, (Reported) Entered as Reported by: MADDIE TATE on 11/11/22 1238 Tiotropium [place] (Spiriva Respimat 1.25MCG/ACTUATION) 1.25 Mcg/Actuation Mist.inhal, 2 PUFF INH DAILY, (Reported) Entered as Reported by: MADDIE TATE on 09/28/22 1444 Past Mlydjyo-Plvoui-Ntuscz Hx Immunizations Up To Date Tetanus Booster (TDap): Unknown PED Vaccines UTD: No First/Initial COVID19 Vaccinat: SEPTEMBER 2020 Second COVID19 Vaccination Rhett: SEPTEMBER 2020 Third COVID19 Vaccination Date: NONE Seasonal Allergies Seasonal Allergies: No Past Medical History Surgery/Hospitalization HX: ORTHOPEDIC SURGERIES/CHIARI MALFORMATION/ABDOMINAL HERNIA, pneumonia, copd, bronchitis, anika, meningitis, anxiety, crainiotomy Surgeries: Yes (Craniotomy and cervical laminectomy for Chiari malformation surgery) Abdominal, Neurological, Orthopedic Respiratory: Yes (RESPIRATORY FAILURE ON VENT AND BIPAP MULTIPLE TIMES) Pneumonia, Chronic Bronchitis, Sleep Apnea, COPD, Emphysema Currently Using CPAP: No Currently Using BIPAP: No Cardiac: Yes Hypertension Neurological: Yes (MENINGITIS POSTOP 2004 FOR CYST ON BRAINSTEM & CHIARI MALFORMATION. SHUNT.) Meningitis, Paralysis Reproductive Disorders: No Genitourinary: No Gastrointestinal: Yes (HERNIA REPAIR) Abdominal Hernia Musculoskeletal: Yes (CHRONIC HEAD/NECK & KNEE PAIN; CHIARI MALFORMATION;MULTIP LE ORTHO SURGERIES) Arthritis Endocrine: No (OBESITY) HEENT: No Cancer: No Psychosocial: Yes Anxiety Integumentary: No Blood Disorders: No Family Medical History FH: cancer 19 MOTHER Mother- lung cancer Father- HTN and CVA SOCIAL HISTORY: -SMOKED 1 1/2 PPD---QUIT 5 YEARS AGO -ETOH--HISTORY OF ABUSE, QUIT A FEW YEARS AGO -DENIES DRUG USE PAST SURGICAL HISTORY: -HERNIA REPAIR -MULTIPLE ORTHOPEDIC SURGERIES--RIGHT SHOULDER, BOTH KNEES, HAND SURGERY -2 BRAIN SURGERIES IN 2004--CHIARI MALFORMATION AND CYST AROUND BRAINSTEM REMOVED; PT HAD POST OP MENINGITIS -C-SPINE SURGERY X 2 IN 2014 AT [facility] -REPEAT SURGERY FOR CHIARI MALFORMATION 09/13/2017 AT [facility] PT HAD SURGERY FOR CHIARI MALFORMATION AT [facility] ON 09/13/17 AND WAS DISMISSED TO HOME ON Wednesday09/20/17 PT HAD BEEN ON VENT POST OP, THEN WAS TAKEN OFF THE VENT, THEN PT BEGAN TO HAVE DECREASED RESPONSIVENESS AND DIFFICULTY BREATHING AND HAD TO BE PUT BACK ON THE VENT AN ADDITIONAL 3 DAYS -SURGERY 11/05/22 AT FOR CHIARI MALFORMATION WITH CRANIECTOMY AND CERVICAL LAMINECTOMY AND DECOMPRESSION. Physical Exam Vital Signs Capillary Refill : Height, Weight, BMI Height: 5'5.00" Weight: 180lbs. 0.0oz. 81.815516hs; 34.00 BMI Method:Stated Departure Impression Primary Impression: Cardiopulmonary arrest Disposition: 20 Condition: Departure-Patient Inst. Referrals: ELIOT WINN MD (PCP/Family) Primary Care Physician MALACHI ROSSI DO Dec 25, 2022 18:58
== END 2022-12-25 20:45 ==
LOC: EDUNIT# 18:39 → ER 18:40
DX: I46.9 Cardiac arrest, cause unspecified (principal); E66.9 Obesity, unspecified; Z68.35 Body mass index [BMI] 35.0-35.9, adult; Z87.891 Personal history of nicotine dependence; Z28.310 Unvaccinated for COVID-19
CPT/HCPCS: 99283